=== PATIENT | female | born 1970 | race Caucasian/White ===

== ENCOUNTER 2017-06-21 11:43 | Emergency (ER) | payer OTHER ==
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
[2017-06-21] MEDS ORDERED: SODIUM CHLORIDE 0.9% 1,000 ML IV STA (13:51)
[2017-06-21] MEDS ORDERED: SODIUM CHLORIDE 0.9% 500 ML IV STA (13:51)
[2017-06-21] MEDS ORDERED: LORazepam 2 MG/ML SYRINGE IV STA (13:54)
[2017-06-21] MEDS ORDERED: ACETAMINOPHEN TAB 500 MG TAB PO STA (13:54)
[2017-06-21] MEDS ORDERED: BACITRACIN 500 UNIT/GM OINT 28.4 GM TUBE TOPICAL ONE (13:54)
[2017-06-21 14:26] LABS: Appearance,Urine Clear (Clear); Bilirubin,Urine Negative (Negative); Glucose,Urine (UA) Negative (Negative); Ketones,Urine Negative (Negative); Leukocyte Esterase,Urine Negative (Negative); Nitrite,Urine Negative (Negative); Protein,Urine Negative (Negative); Specific Gravity,Urine 1.006 (1.001-1.035); UA Billing (MACRO vs. MICRO) CHEM; Urobilinogen,Urine <2.0 mg/dL (<2.0)
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
[2017-06-21 14:43] LABS: Basophils % (A) 0 %; CH 33.2; CHCM 33.7; Eosinophils # (A) 0.2 k/uL (0-0.7); Eosinophils % (A) 3 %; HCT 42.7 % (34.0-46.0); HDW 2.79; HGB 14.5 gm/dL (11.4-16.0); Luc # (Auto) 0.19; Luc % (Auto) 3; Lymphocytes # (A) 2.2 k/uL (1.0-4.8); Lymphocytes % (A) 35 %; MCH 33.7 pg (25.0-35.0); Mean Platelet Volume 7.5; Monocytes # (A) 0.4 k/uL (0-1.0); Monocytes % (A) 6 %; Neutrophils # (A) 3.4 k/uL (1.3-7.7); Neutrophils % (A) 53 %; RBC 4.31 m/uL (3.80-5.40); RDW 13.8 % (11.5-15.5); WBC 6.4 k/uL (3.8-10.6); WBC (Perox) 6.42
[2017-06-21 14:52] LABS: INR 1.1 (<1.2); Prothrombin Time 10.8 sec (9.0-12.0)
[2017-06-21 14:54] LABS: ALT 38 U/L (9-52); AST 24 U/L (14-36); Alkaline Phosphatase 95 U/L (38-126); Anion Gap 10 mmol/L; Blood Urea Nitrogen 8 mg/dL (7-17); Calcium 9.2 mg/dL (8.4-10.2); Carbon Dioxide 24 mmol/L (22-30); Chloride 109 mmol/L (98-107); Glucose 91 mg/dL (74-99); Magnesium 1.9 mg/dL (1.6-2.3); Non-African American GFR(MDRD) >60 (>60 ml/min/1.73 sqM); Phosphorous 3.3 mg/dL (2.5-4.5); Potassium 4.4 mmol/L (3.5-5.1); Sodium 143 mmol/L (137-145); Total Bilirubin 0.3 mg/dL (0.2-1.3)
[2017-06-21] MEDS ORDERED: PHENYTOIN SODIUM EXTENDED 100 MG CAP PO STA (15:11)
--- NOTE | 2017-06-21 15:42 | XR ---
EXAMINATION TYPE: XR chest 2V DATE OF EXAM: 06/21/2017 COMPARISON: NONE HISTORY: Shortness of breath, seizure and fall TECHNIQUE: Frontal and lateral views of the chest are obtained. FINDINGS: There is no focal air space opacity, pleural effusion, or pneumothorax seen. The cardiac silhouette size is likely accentuated due to rotation. There are overlying cardiac leads and the pat ient is rotated. The osseous structures are intact. IMPRESSION: No acute cardiopulmonary process.
--- NOTE | 2017-06-21 15:43 | XR ---
AP pelvis HISTORY: Trauma and pain Single frontal view of the pelvis No comparisons Bone mineralization, joint spaces and alignment are maintained. Probable vascular calcifications in t he pelvis. Calcification superimposed over the right ilium is indeterminate. IMPRESSION: No acute fracture or dislocation.
--- NOTE | 2017-06-21 16:11 | CT ---
EXAMINATION TYPE: CT cervical spine wo con DATE OF EXAM: 06/21/2017 COMPARISON: NONE HISTORY: Patient fell today. Patient complains of neck pain. CT DLP: 694.[address] of the cervical spine was performed with bone and soft tissue window settings submitted . Coronal and sagittal reconstruction is obtained. There is normal alignment and prevertebral soft tissues. I do not see evidence for fracture or subluxation. Mild degenerative changes are present. T he lung apices are clear IMPRESSION: No evidence for fracture or subluxation of the cervical spine.
--- NOTE | 2017-06-21 16:17 | CT ---
EXAMINATION TYPE: CT facial bones wo con DATE OF EXAM: 06/21/2017 COMPARISON: NONE HISTORY: Patient complains of right suborbital facial pain post fall today. CT DLP: 390.[address] of the facial bones was performed in the axial and coronal planes. Bone and soft tissu e window settings are submitted. Mild soft tissue swelling right infraorbital region. I do not see evidence for displaced facial bone fracture or depressed facial bone fracture. The globes are intact. Paranasal sinuses are well-aerated. IMPRESSION: 1. No evidence for depressed or displaced facial bone fracture.
[2017-06-21 16:55] VITALS: BP 118/60; PULSE 80; RESP 18; TEMP 97.1
== END 2017-06-21 16:55 | disposition home or self-care (01) ==
LOC: EC 11:43
DX: S16.1XXA Strain of muscle, fascia and tendon at neck level, initial encounter (principal); S00.83XA Contusion of other part of head, initial encounter; S00.01XA Abrasion of scalp, initial encounter; G40.909 Epilepsy, unspecified, not intractable, without status epilepticus; E78.5 Hyperlipidemia, unspecified; E07.9 Disorder of thyroid, unspecified; F31.9 Bipolar disorder, unspecified; F17.200 Nicotine dependence, unspecified, uncomplicated; Z79.899 Other long term (current) drug therapy; Z88.6 Allergy status to analgesic agent; W01.190A Fall on same level from slipping, tripping and stumbling with subsequent striking against furniture, initial encounter; Y92.009 Unspecified place in unspecified non-institutional (private) residence as the place of occurrence of the external cause
CPT/HCPCS: 36415; 93005; 80053; 80185; 83735; 84100; 85025; 85610; 85730; 81003; 71020; 72170; 72125; 70486; 70450; 99284; 96374; 96361; J2060

== ENCOUNTER 2017-09-26 01:14 | Emergency (ER) | payer OTHER ==
[2017-09-26 01:20] VITALS: BP 126/77; PULSE 102; RESP 20; TEMP 98
[2017-09-26] MEDS ORDERED: CEPHALEXIN 500MG STARTER PACK 4 CAP BTL PO STA (01:33)
[2017-09-26] MEDS ORDERED: HYDROcodone/APAP 5-325MG 1 EACH TAB PO STA (01:33)
[2017-09-26] MEDS ORDERED: SULFAMETH-TMP DS STARTER PACK 2 TAB BTL PO STA (01:33)
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
== END 2017-09-26 02:29 | disposition home or self-care (01) ==
LOC: EC 01:14
DX: T24.202A Burn of second degree of unspecified site of left lower limb, except ankle and foot, initial encounter (principal); L08.89 Other specified local infections of the skin and subcutaneous tissue; E78.5 Hyperlipidemia, unspecified; E07.9 Disorder of thyroid, unspecified; F17.200 Nicotine dependence, unspecified, uncomplicated; Z79.891 Long term (current) use of opiate analgesic; Z79.899 Other long term (current) drug therapy; Z88.6 Allergy status to analgesic agent; X08.8XXA Exposure to other specified smoke, fire and flames, initial encounter
CPT/HCPCS: 99283

== ENCOUNTER 2017-11-22 18:49 | Emergency (ER) | payer OTHER ==
[2017-11-22 18:55] VITALS: BP 144/90; PULSE 102; RESP 20; TEMP 98.6
[2017-11-22] MEDS ORDERED: IBUPROFEN 600 MG TAB PO STA (19:05)
[2017-11-22] MEDS ORDERED: BACITRACIN 500 UNIT/GM OINT 28.4 GM TUBE TOPICAL ONE (19:05)
[2017-11-22] MEDS ORDERED: HYDROcodone/APAP 5-325MG 1 EACH TAB PO STA (19:05)
[2017-11-22] MEDS ORDERED: HYDROcodone/APAP 10-325MG 1 EACH TAB PO ONE (19:07)
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
== END 2017-11-22 19:30 | disposition home or self-care (01) ==
LOC: EC 18:49
DX: T22.212A Burn of second degree of left forearm, initial encounter (principal); T31.0 Burns involving less than 10% of body surface; I50.9 Heart failure, unspecified; I11.0 Hypertensive heart disease with heart failure; G40.909 Epilepsy, unspecified, not intractable, without status epilepticus; E07.9 Disorder of thyroid, unspecified; I48.91 Unspecified atrial fibrillation; F31.9 Bipolar disorder, unspecified; F41.9 Anxiety disorder, unspecified; F17.200 Nicotine dependence, unspecified, uncomplicated; Z79.82 Long term (current) use of aspirin; Z79.891 Long term (current) use of opiate analgesic; Z79.899 Other long term (current) drug therapy; Z88.6 Allergy status to analgesic agent; Z88.8 Allergy status to other drugs, medicaments and biological substances; X16.XXXA Contact with hot heating appliances, radiators and pipes, initial encounter
CPT/HCPCS: 99283

== ENCOUNTER 2017-12-11 17:41 | Observation (INO) | payer OTHER ==
[2017-12-11] MEDS ORDERED: methylPREDNISolone SOD SUCCI 125 MG/2 ML VIAL IV STA (18:05)
[2017-12-11] MEDS ORDERED: SODIUM CHLORIDE 0.9% 1,000 ML IV STA (18:05)
[2017-12-11] MEDS ORDERED: IPRATROPIUM 0.5 MG/2.5 ML NEBU INHALATION STA (18:05)
[2017-12-11] MEDS ORDERED: ALBUTEROL NEBULIZED 2.5 MG/3 ML INHALATION STA (18:05)
--- NOTE | 2017-12-11 18:09 | ED ---
General Adult HPI - General Chief complaint: Chest Pain Stated complaint: CHEST PAIN, HEADACHE, NECK PAIN, DIARRHEA Time Seen by Provider: 12/11/17 17:53 Source: patient, RN notes reviewed Mode of arrival: wheelchair Limitations: no limitations - History of Present Illness Initial comments: 47-year-old female presents with multiple complaints. Patient has past medical history of COPD, she is currently smoking, she also has history of A. fib and congestive heart failure. She presents with chief complaint of nausea vomiting and diarrhea. She has been unable to tolerate any food or water for the past 3 days. She's also had several episodes of diarrhea. Vomiting is nonbloody nonbilious. In addition she complains of generalized headache. Shows complains of subjective fever or chills. States she has had myalgias. She also complains of runny nose and sore throat. She complains of chest pressure and cough with difficulty breathing. Denies any central chest pain or radiating chest pain. - Related Data Home Medications Medication Instructions Recorded Confirmed Ergocalciferol [Vitamin D2 50,000 unit PO 06/21/17 12/11/17 (DRISDOL)] Levothyroxine Sodium [Synthroid] 25 mcg PO DAILY 06/21/17 12/11/17 Montelukast Sodium [Singulair] 10 mg PO QA 06/21/17 12/11/17 Pramipexole [Mirapex] 0.25 mg PO HS 06/21/17 12/11/17 Simvastatin [Zocor] 20 mg PO HS 06/21/17 12/11/17 Aspirin [Adult Low Dose Aspirin EC] 81 mg PO DAILY 10/18/17 12/11/17 Cyanocobalamin (Vitamin B-12) 1,000 mcg PO DAILY 10/18/17 12/11/17 [Vitamin B-12] FLUoxetine HCL [PROzac] 20 mg PO TID 10/18/17 12/11/17 Gabapentin 600 mg PO QID 10/18/17 12/11/17 Phenytoin Sodium Extended 300 mg PO HS 10/18/17 12/11/17 Triamterene-Hctz 37.5-25Mg 1 tab PO DAILY 10/18/17 12/11/17 [Maxzide 37.5-25] amLODIPine [Norvasc] 10 mg PO DAILY 10/18/17 12/11/17 levETIRAcetam [Keppra] 1,000 mg PO Q12HR 10/18/17 12/11/17 ALPRAZolam [Xanax] 1 mg PO QID 12/11/17 12/11/17 Ranitidine HCl 300 mg PO QAM 12/11/17 12/11/17 Topiramate 50 mg PO BID@1500,2100 12/11/17 12/11/17 levETIRAcetam [Keppra] 750 mg PO BID 12/11/17 12/11/17 Allergies Allergy/AdvReac Type Severity Reaction Status Date / Time ibuprofen [From Motrin] Allergy Rash/Hives Verified 12/11/17 18:17 naproxen [From Naprosyn] Allergy Unknown Verified 12/11/17 18:17 tramadol Allergy Rash/Hives Verified 12/11/17 18:17 Review of Systems ROS Statement: Those systems with pertinent positive or pertinent negative responses have been documented in the HPI. ROS Other: All systems not noted in ROS Statement are negative. Past Medical History Past Medical History: Atrial Fibrillation, Heart Failure, COPD, Hyperlipidemia, Hypertension, Seizure Disorder, Thyroid Disorder History of Any Multi-Drug Resistant Organisms: None Reported Past Surgical History: Section, Cholecystectomy, Heart Catheterization With Stent Past Anesthesia/Blood Transfusion Reactions: No Reported Reaction Date of Last Stent Placement:: 2003? Past Psychological History: Anxiety, Bipolar, Depression Smoking Status: Current every day smoker Past Alcohol Use History: None Reported Past Drug Use History: None Reported - Past Family History Father Family Medical History: AFIB Mother Family Medical History: AFIB, Diabetes Mellitus General Exam Limitations: no limitations General appearance: alert, in no apparent distress Head exam: Present: atraumatic, normocephalic Eye exam: Present: normal appearance, PERRL ENT exam: Present: other (Physical congestion and mild pharyngeal erythema) Neck exam: Present: normal inspection Respiratory exam: Present: wheezes, decreased breath sounds Cardiovascular Exam: Present: regular rate, normal rhythm GI/Abdominal exam: Present: soft. Absent: distended, tenderness Extremities exam: Present: normal inspection, normal capillary refill. Absent: pedal edema Back exam: Present: normal inspection, full ROM Neurological exam: Present: alert, oriented X3, CN II-XII intact. Absent: motor sensory deficit Psychiatric exam: Present: normal affect, normal mood Skin exam: Present: warm, dry, intact. Absent: cyanosis, diaphoretic Course Vital Signs 12/11/17 12/11/17 12/11/17 17:49 18:33 18:54 Temperature 97.9 F Pulse Rate 103 H 96 78 Respiratory 20 18 Rate Blood Pressure 121/86 146/90 O2 Sat by Pulse 95 94 L Oximetry 12/11/17 12/11/17 19:03 19:24 Temperature Pulse Rate 90 89 Respiratory 17 Rate Blood Pressure 110/75 O2 Sat by Pulse 97 Oximetry EKG Findings - EKG Comments: EKG Findings:: EKG shows normal sinus rhythm, Q waves in the inferior leads consistent with possible previous inferior infarct, ventricular rate 97, VT interval 156, castration 82, QTC 459, no ST segment elevation or depression Medical Decision Making - Medical Decision Making 47-year-old female presenting with cough and dyspnea as well as 3 days nausea vomiting and diarrhea. Chest x-ray is negative for focal pneumonia. Influenza negative. White blood cell count normal 7.9, hemoglobin 15.6, potassium is low at 3.0 this is replaced, lactic acid is 1.8, troponin and BNP are negative. Patient continues to have moderate dyspnea and nausea vomiting while in the emergency department she will be admitted both for COPD exacerbation, and nausea vomiting with their need for I replacement. - Lab Data Result diagrams: 12/11/17 18:01 12/11/17 18:01 Lab Results 12/11/17 12/11/17 12/11/17 Range/Units 18:01 18:01 18:01 WBC 7.9 (3.8-10.6) k/uL RBC 4.73 (3.80-5.40) m/uL Hgb 15.6 (11.4-16.0) gm/dL Hct 45.7 (34.0-46.0) % MCV 96.6 (80.0-100.0) fL MCH 32.9 (25.0-35.0) pg MCHC 34.1 (31.0-37.0) g/dL RDW 13.9 (11.5-15.5) % Plt Count 328 (150-450) k/uL Neutrophils % 55 % Lymphocytes % 34 % Monocytes % 6 % Eosinophils % 1 % Basophils % 1 % Neutrophils # 4.4 (1.3-7.7) k/uL Lymphocytes # 2.6 (1.0-4.8) k/uL Monocytes # 0.5 (0-1.0) k/uL Eosinophils # 0.1 (0-0.7) k/uL Basophils # 0.1 (0-0.2) k/uL PT (9.0-12.0) sec INR (<1.2) APTT (22.0-30.0) sec Sodium 139 (137-145) mmol/L Potassium 3.0 L* (3.5-5.1) mmol/L Chloride 96 L (98-107) mmol/L Carbon Dioxide 29 (22-30) mmol/L Anion Gap 14 mmol/L BUN 6 L (7-17) mg/dL Creatinine 0.70 (0.52-1.04) mg/dL Est GFR (MDRD) Af Amer >60 (>60 ml/min/1.73 sqM) Est GFR (MDRD) Non-Af >60 (>60 ml/min/1.73 sqM) Glucose 126 H (74-99) mg/dL Plasma Lactic Acid Jordi (0.7-2.0) mmol/L Calcium 10.1 (8.4-10.2) mg/dL Magnesium 1.9 (1.6-2.3) mg/dL Total Bilirubin 0.4 (0.2-1.3) mg/dL AST 25 (14-36) U/L ALT 29 (9-52) U/L Alkaline Phosphatase 135 H (38-126) U/L Total Creatine Kinase 80 (30-135) U/L CK-MB (CK-2) 0.7 (0.0-2.4) ng/mL CK-MB (CK-2) Rel Index 0.9 Troponin I <0.012 (0.000-0.034) ng/mL NT-Pro-B Natriuret Pep pg/mL Total Protein 8.1 (6.3-8.2) g/dL Albumin 4.5 (3.5-5.0) g/dL Influenza Type A RNA (Not Detectd) Influenza Type B (PCR) (Not Detectd) 12/11/17 12/11/17 12/11/17 Range/Units 18:01 18:01 18:27 WBC (3.8-10.6) k/uL RBC (3.80-5.40) m/uL Hgb (11.4-16.0) gm/dL Hct (34.0-46.0) % MCV (80.0-100.0) fL MCH (25.0-35.0) pg MCHC (31.0-37.0) g/dL RDW (11.5-15.5) % Plt Count (150-450) k/uL Neutrophils % % Lymphocytes % % Monocytes % % Eosinophils % % Basophils % % Neutrophils # (1.3-7.7) k/uL Lymphocytes # (1.0-4.8) k/uL Monocytes # (0-1.0) k/uL Eosinophils # (0-0.7) k/uL Basophils # (0-0.2) k/uL PT 10.2 (9.0-12.0) sec INR 1.0 (<1.2) APTT 23.8 (22.0-30.0) sec Sodium (137-145) mmol/L Potassium (3.5-5.1) mmol/L Chloride (98-107) mmol/L Carbon Dioxide (22-30) mmol/L Anion Gap mmol/L BUN (7-17) mg/dL Creatinine (0.52-1.04) mg/dL Est GFR (MDRD) Af Amer (>60 ml/min/1.73 sqM) Est GFR (MDRD) Non-Af (>60 ml/min/1.73 sqM) Glucose (74-99) mg/dL Plasma Lactic Acid Jordi 1.8 (0.7-2.0) mmol/L Calcium (8.4-10.2) mg/dL Magnesium (1.6-2.3) mg/dL Total Bilirubin (0.2-1.3) mg/dL AST (14-36) U/L ALT (9-52) U/L Alkaline Phosphatase (38-126) U/L Total Creatine Kinase (30-135) U/L CK-MB (CK-2) (0.0-2.4) ng/mL CK-MB (CK-2) Rel Index Troponin I (0.000-0.034) ng/mL NT-Pro-B Natriuret Pep 26 pg/mL Total Protein (6.3-8.2) g/dL Albumin (3.5-5.0) g/dL Influenza Type A RNA (Not Detectd) Influenza Type B (PCR) (Not Detectd) 12/11/17 Range/Units 18:28 WBC (3.8-10.6) k/uL RBC (3.80-5.40) m/uL Hgb (11.4-16.0) gm/dL Hct (34.0-46.0) % MCV (80.0-100.0) fL MCH (25.0-35.0) pg MCHC (31.0-37.0) g/dL RDW (11.5-15.5) % Plt Count (150-450) k/uL Neutrophils % % Lymphocytes % % Monocytes % % Eosinophils % % Basophils % % Neutrophils # (1.3-7.7) k/uL Lymphocytes # (1.0-4.8) k/uL Monocytes # (0-1.0) k/uL Eosinophils # (0-0.7) k/uL Basophils # (0-0.2) k/uL PT (9.0-12.0) sec INR (<1.2) APTT (22.0-30.0) sec Sodium (137-145) mmol/L Potassium (3.5-5.1) mmol/L Chloride (98-107) mmol/L Carbon Dioxide (22-30) mmol/L Anion Gap mmol/L BUN (7-17) mg/dL Creatinine (0.52-1.04) mg/dL Est GFR (MDRD) Af Amer (>60 ml/min/1.73 sqM) Est GFR (MDRD) Non-Af (>60 ml/min/1.73 sqM) Glucose (74-99) mg/dL Plasma Lactic Acid Jordi (0.7-2.0) mmol/L Calcium (8.4-10.2) mg/dL Magnesium (1.6-2.3) mg/dL Total Bilirubin (0.2-1.3) mg/dL AST (14-36) U/L ALT (9-52) U/L Alkaline Phosphatase (38-126) U/L Total Creatine Kinase (30-135) U/L CK-MB (CK-2) (0.0-2.4) ng/mL CK-MB (CK-2) Rel Index Troponin I (0.000-0.034) ng/mL NT-Pro-B Natriuret Pep pg/mL Total Protein (6.3-8.2) g/dL Albumin (3.5-5.0) g/dL Influenza Type A RNA Not Detected (Not Detectd) Influenza Type B (PCR) Not Detected (Not Detectd) Disposition Clinical Impression: COPD (chronic obstructive pulmonary disease), Nausea vomiting and diarrhea Disposition: ADMITTED IP TO THIS HOSP Condition: Stable Referrals: Marino Parks MD [Primary Care Provider] - 1-2 days Decision to Admit Reason: Admit from EC Decision Date: 12/11/17 Decision Time: 20:04
[2017-12-11 18:29] LABS: Basophils # (A) 0.1 k/uL (0-0.2); Basophils % (A) 1 %; Eosinophils # (A) 0.1 k/uL (0-0.7); Eosinophils % (A) 1 %; HCT 45.7 % (34.0-46.0); HGB 15.6 gm/dL (11.4-16.0); Lymphocytes # (A) 2.6 k/uL (1.0-4.8); Lymphocytes % (A) 34 %; MCH 32.9 pg (25.0-35.0); MCHC 34.1 g/dL (31.0-37.0); MCV 96.6 fL (80.0-100.0); Mean Platelet Volume 7.2; Monocytes # (A) 0.5 k/uL (0-1.0); Monocytes % (A) 6 %; Neutrophils # (A) 4.4 k/uL (1.3-7.7); Neutrophils % (A) 55 %; Platelet Count 328 k/uL (150-450); RBC 4.73 m/uL (3.80-5.40); RDW 13.9 % (11.5-15.5); WBC 7.9 k/uL (3.8-10.6)
[2017-12-11 18:42] LABS: Partial Thromboplastin Time 23.8 sec (22.0-30.0); Prothrombin Time 10.2 sec (9.0-12.0)
[2017-12-11] MEDS ORDERED: HYDROcodone/APAP 5-325MG 1 EACH TAB PO STA (18:43)
[2017-12-11] MEDS ORDERED: ONDANSETRON 4 MG/2 ML VIAL IVP STA (18:43)
[2017-12-11 18:46] LABS: ALT 29 U/L (9-52); AST 25 U/L (14-36); Albumin 4.5 g/dL (3.5-5.0); Alkaline Phosphatase 135 U/L (38-126); Anion Gap 14 mmol/L; Blood Urea Nitrogen 6 mg/dL (7-17); Calcium 10.1 mg/dL (8.4-10.2); Carbon Dioxide 29 mmol/L (22-30); Chloride 96 mmol/L (98-107); Glucose 126 mg/dL (74-99); Magnesium 1.9 mg/dL (1.6-2.3); Sodium 139 mmol/L (137-145); Total Bilirubin 0.4 mg/dL (0.2-1.3); Total Protein 8.1 g/dL (6.3-8.2)
[2017-12-11 18:48] LABS: Creatine Kinase 80 U/L (30-135)
--- NOTE | 2017-12-11 18:52 | XR ---
EXAMINATION TYPE: XR chest 2V DATE OF EXAM: 12/11/2017 COMPARISON: 10/18/2017 INDICATION: Difficulty breathing short of breath TECHNIQUE: Frontal and lateral views of the chest are obtained. FINDINGS: The heart size is normal. The pulmonary vasculature is normal. The lungs are clear. IMPRESSION: 1. No acute pulmonary process.
[2017-12-11] MEDS ORDERED: POTASSIUM CHLORIDE ER 20 MEQ TAB.ER PO STA (18:58)
[2017-12-11 19:01] LABS: Creatine Kinase MB 0.7 ng/mL (0.0-2.4); Troponin I <0.012 ng/mL (0.000-0.034)
[2017-12-11] MEDS ORDERED: IPRATROPIUM-ALBUTEROL 3 ML NEB INHALATION PRN (20:06)
[2017-12-11] MEDS: POTASSIUM CHLORIDE 20 MEQ in WATER FOR INJECTION 1 100ML.BAG IVPB SCH ×2 (20:10→22:13)
[2017-12-11] MEDS ORDERED: ALPRAZolam 0.5 MG TAB PO STA (20:27)
[2017-12-11] MEDS ORDERED: ATORVASTATIN 10 MG TAB PO SCH (23:30)
[2017-12-11] MEDS ORDERED: PRAMIPEXOLE 0.25 MG TAB PO SCH (23:30)
[2017-12-11] MEDS ORDERED: PHENYTOIN SODIUM EXTENDED 100 MG CAP PO SCH (23:30)
[2017-12-11] MEDS ORDERED: QUEtiapine 200 MG TAB PO SCH (23:30)
[2017-12-12] MEDS: TOPIRAMATE 25 MG TAB PO SCH ×2 (00:26→14:20)
[2017-12-12] MEDS: levETIRAcetam 500 MG TAB PO SCH ×2 (00:26→08:58)
[2017-12-12] MEDS: FLUoxetine HCL 20 MG CAP PO SCH ×3 (00:26→17:08)
[2017-12-12] MEDS: GABAPENTIN 300 MG CAP PO SCH ×3 (00:27→12:56)
[2017-12-12] MEDS: ALPRAZolam 0.5 MG TAB PO SCH ×4 (00:28→17:07)
[2017-12-12 00:39] VITALS: RESP 16
[2017-12-12] MEDS: LEVOTHYROXINE 25 MCG TAB PO SCH ×2 (05:31→08:58)
[2017-12-12] MEDS: IPRATROPIUM-ALBUTEROL 3 ML NEB INHALATION SCH ×3 (07:05→16:31)
[2017-12-12] MEDS ORDERED: ACETAMINOPHEN IV (For NPO) 1,000 MG in EMPTY BAG 1 BAG IVPB ONE (07:15)
[2017-12-12 07:22] LABS: Basophils % (A) 0 %; Eosinophils % (A) 0 %; HCT 42.8 % (34.0-46.0); HGB 14.6 gm/dL (11.4-16.0); Lymphocytes % (A) 27 %; MCH 33.6 pg (25.0-35.0); MCHC 34.1 g/dL (31.0-37.0); MCV 98.4 fL (80.0-100.0); Mean Platelet Volume 7.1; Monocytes # (A) 0.4 k/uL (0-1.0); Monocytes % (A) 5 %; Neutrophils # (A) 4.8 k/uL (1.3-7.7); Neutrophils % (A) 64 %; Platelet Count 287 k/uL (150-450); RBC 4.35 m/uL (3.80-5.40); RDW 13.7 % (11.5-15.5); WBC 7.5 k/uL (3.8-10.6)
[2017-12-12 07:34] LABS: ALT 30 U/L (9-52); AST 21 U/L (14-36); Albumin 3.8 g/dL (3.5-5.0); Alkaline Phosphatase 108 U/L (38-126); Anion Gap 9 mmol/L; Blood Urea Nitrogen 7 mg/dL (7-17); Calcium 9.3 mg/dL (8.4-10.2); Carbon Dioxide 25 mmol/L (22-30); Chloride 106 mmol/L (98-107); Glucose 105 mg/dL (74-99); Potassium 3.8 mmol/L (3.5-5.1); Sodium 140 mmol/L (137-145); Total Bilirubin 0.3 mg/dL (0.2-1.3)
[2017-12-12] MEDS ORDERED: ASPIRIN 81 MG PO SCH (09:00)
[2017-12-12] MEDS ORDERED: TRIAMTERENE-HCTZ 37.5-25MG 1 EACH TAB PO SCH (09:00)
[2017-12-12] MEDS ORDERED: FAMOTIDINE 20 MG TAB PO SCH (09:00)
[2017-12-12] MEDS ORDERED: MONTELUKAST 10 MG TAB PO SCH (09:00)
[2017-12-12] MEDS ORDERED: amLODIPine 10 MG TAB PO SCH (09:00)
[2017-12-12] MEDS ORDERED: predniSONE 20 MG TAB PO SCH (09:00)
[2017-12-12] MEDS ORDERED: AZITHROMYCIN 500 MG TAB PO SCH (09:00)
--- NOTE | 2017-12-12 12:40 | P.CRDCN ---
History of Present Illness Consult date: 12/12/17 Consult reason: chest pain History of present illness: This is a pleasant 47-year-old female past medical history significant for paroxysmal atrial fibrillation, COPD, dyslipidemia, hypertension and coronary artery disease with 2 stent placements in 2003 per the patient at . She follows with serg Garcia out of [place]. We have asked to see her in consultation for complaints of chest heaviness over the previous 3 days. This has been intermittent in nature is not associated with exertion can specify no alleviating factors. She has also been vomiting, coughing, diarrhea and fever or chills over the previous 3 days. The pain is located in the precordial region. The pain does not radiate to the arm, back, neck or jaw. She denies associated shortness of breath, palpitations, dizziness or diaphoresis. On admission she was found to have a potassium of 3.0, which has been replaced. EKG reveals sinus rhythm with flattening T waves inferiorly. This is consistent with an old EKG from October. Chest x-ray negative for an acute cardiopulmonary process. Most recent echocardiogram performed October 2017 reveals preserved left ventricular function with ejection fraction 55-60%, trace MR and TR. She was here in October of this year and was evaluated by cardiology recommended to follow-up as an outpatient. 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 Current cardiac medications include aspirin, Norvasc, hydrochlorothiazide and Zocor. Review of Systems At the time of my exam: CONSTITUTIONAL: Denies fever. Denies chills. EYES: Denies blurred vision. Denies vision changes. Denies eye pain. EARS, NOSE, MOUTH & THROAT: Denies headache. Denies sore throat. Denies ear pain. CARDIOVASCULAR: Denies chest pain. Denies shortness of breath. Denies orthopnea. Denies PND. Denies palpitations. RESPIRATORY: Complains of cough. GASTROINTESTINAL: Denies abdominal pain. Denies diarrhea. Denies constipation. Denies nausea. Denies vomiting. MUSCULOSKELETAL: Denies myalgias. INTEGUMENTARY: Denies pruitis. Denies rash. NEUROLOGIC: Denies numbness. Denies tingling. Denies weakness. PSYCHIATRIC: Denies anxiety. Denies depression. ENDOCRINE: Complains of fatigue. Denies weight change. Denies polydipsia. Denies polyurina. GENITOURINARY: Denies burning, hematuria or urgency with micturation. HEMATOLOGIC: Denies history of anemia. Denies bleeding. Past Medical History Past Medical History: Atrial Fibrillation, Heart Failure, COPD, Hyperlipidemia, Hypertension, Seizure Disorder, Thyroid Disorder Additional Past Medical History / Comment(s): last seizure - 11/2017 History of Any Multi-Drug Resistant Organisms: None Reported Past Surgical History: Section, Cholecystectomy, Heart Catheterization With Stent Additional Past Surgical History / Comment(s): 2 stents per pt Past Anesthesia/Blood Transfusion Reactions: No Reported Reaction Date of Last Stent Placement:: 2003? Past Psychological History: Anxiety, Bipolar, Depression Smoking Status: Current every day smoker Past Alcohol Use History: None Reported Past Drug Use History: None Reported - Past Family History Father Family Medical History: AFIB Mother Family Medical History: AFIB, Diabetes Mellitus Medications and Allergies Home Medications Medication Instructions Recorded Confirmed Type Ergocalciferol [Vitamin D2 50,000 unit PO 06/21/17 12/11/17 History (WILLIAM)] Levothyroxine Sodium [Synthroid] 25 mcg PO DAILY 06/21/17 12/11/17 History Montelukast Sodium [Singulair] 10 mg PO QA 06/21/17 12/11/17 History Pramipexole [Mirapex] 0.25 mg PO HS 06/21/17 12/11/17 History Simvastatin [Zocor] 20 mg PO HS 06/21/17 12/11/17 History Aspirin [Adult Low Dose Aspirin EC] 81 mg PO DAILY 10/18/17 12/11/17 History Cyanocobalamin (Vitamin B-12) 1,000 mcg PO DAILY 10/18/17 12/11/17 History [Vitamin B-12] FLUoxetine HCL [PROzac] 20 mg PO TID 10/18/17 12/11/17 History Gabapentin 600 mg PO QID 10/18/17 12/11/17 History Phenytoin Sodium Extended 300 mg PO HS 10/18/17 12/11/17 History Triamterene-Hctz 37.5-25Mg 1 tab PO DAILY 10/18/17 12/11/17 History [Maxzide 37.5-25] amLODIPine [Norvasc] 10 mg PO DAILY 10/18/17 12/11/17 History levETIRAcetam [Keppra] 1,000 mg PO Q12HR 10/18/17 12/11/17 History ALPRAZolam [Xanax] 1 mg PO QID 12/11/17 12/11/17 History QUEtiapine [SEROquel] 200 mg PO HS 12/11/17 12/11/17 History Ranitidine HCl 300 mg PO QAM 12/11/17 12/11/17 History Topiramate 50 mg PO BID@1500,2100 12/11/17 12/11/17 History Allergies Allergy/AdvReac Type Severity Reaction Status Date / Time ibuprofen [From Motrin] Allergy Rash/Hives Verified 12/11/17 18:17 naproxen [From Naprosyn] Allergy Unknown Verified 12/11/17 18:17 tramadol Allergy Rash/Hives Verified 12/11/17 18:17 Physical Exam Vitals: Vital Signs Temp Pulse Pulse Resp BP BP Pulse Ox 12/12/17 04:00 98.5 F 94 16 100/52 93 L 12/12/17 00:00 97.9 F 104 H 16 109/59 91 L 12/11/17 23:32 18 12/11/17 21:00 20 12/11/17 20:48 98.3 F 91 20 133/89 97 12/11/17 20:30 99.2 F 94 18 138/74 94 L 12/11/17 19:24 89 17 110/75 97 12/11/17 19:03 90 12/11/17 18:54 78 12/11/17 18:33 96 18 146/90 94 L 12/11/17 17:49 97.9 F 103 H 20 121/86 95 Intake and Output 12/11/17 12/12/17 12/12/17 22:59 06:59 14:59 Other: Voiding Method Toilet Toilet Toilet # Voids 1 3 # Bowel Movements 0 Weight 103.873 kg Blood pressure 100/52 heart rate 96 afebrile GENERAL: This is a 47-year-old female in no apparent distress at the time of my examination. Obese. HEENT: Head is atraumatic, normocephalic. Pupils are equal, round. Sclerae anicteric. Conjunctivae are clear. Mucous membranes of the mouth are moist. Neck is supple. There is no jugular venous distention. No carotid bruit is heard. LUNGS: Clear to auscultation no wheezes, rales or rhonchi. No chest wall tenderness is noted on palpation or with deep breathing. HEART: Regular rate and rhythm without murmurs, rubs or gallops. S1 and S2 heard. ABDOMEN: Soft, nontender. Bowel sounds are heard. No organomegaly noted. EXTREMITIES: No evidence of peripheral edema and no calf tenderness noted. VASCULAR: Radial and dorsalis pedis pulses palpated, no evidence of clubbing. NEUROLOGIC: Patient is awake, alert and oriented x3. Results 12/12/17 06:55 12/12/17 06:55 Cardiac Enzymes 12/11/17 12/11/17 12/12/17 Range/Units 18:01 18:01 06:55 AST 25 21 (14-36) U/L CK-MB (CK-2) 0.7 (0.0-2.4) ng/mL Troponin I <0.012 (0.000-0.034) ng/mL 12/12/17 Range/Units 06:55 AST (14-36) U/L CK-MB (CK-2) (0.0-2.4) ng/mL Troponin I <0.012 (0.000-0.034) ng/mL Coagulation 12/11/17 Range/Units 18:01 PT 10.2 (9.0-12.0) sec APTT 23.8 (22.0-30.0) sec CBC 12/11/17 12/12/17 Range/Units 18:01 06:55 WBC 7.9 7.5 (3.8-10.6) k/uL RBC 4.73 4.35 (3.80-5.40) m/uL Hgb 15.6 14.6 (11.4-16.0) gm/dL Hct 45.7 42.8 (34.0-46.0) % Plt Count 328 287 (150-450) k/uL Comprehensive Metabolic Panel 12/11/17 12/12/17 Range/Units 18:01 06:55 Sodium 139 140 (137-145) mmol/L Potassium 3.0 L* 3.8 (3.5-5.1) mmol/L Chloride 96 L 106 (98-107) mmol/L Carbon Dioxide 29 25 (22-30) mmol/L BUN 6 L 7 (7-17) mg/dL Creatinine 0.70 0.58 (0.52-1.04) mg/dL Glucose 126 H 105 H (74-99) mg/dL Calcium 10.1 9.3 (8.4-10.2) mg/dL AST 25 21 (14-36) U/L ALT 29 30 (9-52) U/L Alkaline Phosphatase 135 H 108 (38-126) U/L Total Protein 8.1 7.0 (6.3-8.2) g/dL Albumin 4.5 3.8 (3.5-5.0) g/dL Current Medications Generic Name Dose Route Start Last Admin Trade Name Freq PRN Reason Stop Dose Admin Albuterol/Ipratropium 3 ml 12/11/17 20:06 Duoneb 0.5 Mg-3 Mg/3 Ml Soln INHALATION RT-Q4H PRN Shortness Of Breath Or Wheezing Albuterol/Ipratropium 3 ml 12/12/17 08:00 Duoneb 0.5 Mg-3 Mg/3 Ml Soln INHALATION RT-QID IGNACIO Alprazolam 1 mg 12/11/17 23:30 12/12/17 07:17 Xanax PO 1 mg QID IGNACIO Administration Amlodipine Besylate 10 mg 12/12/17 09:00 Norvasc PO DAILY [facility] Aspirin 81 mg 12/12/17 09:00 Aspirin PO DAILY [facility] Atorvastatin Calcium 10 mg 12/11/17 23:30 12/12/17 00:26 Lipitor PO 10 mg HS IGNACIO Administration Azithromycin 500 mg 12/12/17 09:00 Zithromax PO DAILY [facility] Famotidine 40 mg 12/12/17 09:00 Pepcid PO QAM [facility] Fluoxetine HCl 20 mg 12/11/17 23:30 12/12/17 00:26 Prozac PO 20 mg TID IGNACIO Administration Gabapentin 600 mg 12/11/17 23:30 12/12/17 00:27 Neurontin PO 600 mg QID IGNACIO Administration Levetiracetam 1,000 mg 12/11/17 23:30 12/12/17 00:26 Keppra PO 1,000 mg Q12HR IGNACIO Administration Levothyroxine Sodium 25 mcg 02/04/18 06:30 12/12/17 05:31 Synthroid PO Not Given DAILY@0630 IGNACIO Montelukast Sodium 10 mg 12/12/17 09:00 Singulair PO QAM IGNACIO Phenytoin Sodium 300 mg 12/11/17 23:30 12/12/17 00:27 Dilantin PO 300 mg HS IGNACIO Administration Pramipexole Dihydrochloride 0.25 mg 12/11/17 23:30 12/12/17 00:26 Mirapex PO 0.25 mg HS IGNACIO Administration Prednisone 40 mg 12/12/17 09:00 PO DAILY IGNACIO Quetiapine Fumarate 200 mg 12/11/17 23:30 12/12/17 00:26 Seroquel PO 200 mg HS IGNACIO Administration Topiramate 50 mg 12/11/17 23:30 12/12/17 00:26 Topamax PO 50 mg BID@1500,2100 IGNACIO Administration Triamterene/HCTZ 1 each 12/12/17 09:00 Maxzide-25 PO DAILY IGNACIO Intake and Output 12/11/17 12/12/17 12/12/17 22:59 06:59 14:59 Other: Voiding Method Toilet Toilet Toilet # Voids 1 3 # Bowel Movements 0 Weight 103.873 kg 12/12/17 06:55 12/12/17 06:55 Assessment and Plan Assessment: ASSESSMENT 1. Chest pain, atypical. There is been no acute EKG changes and cardiac enzymes are negative 2. 2. Hypokalemia, secondary to viral type illness and dehydration 3. Hypertension 4. Dyslipidemia 5. Paroxysmal atrial fibrillation on long-term anticoagulation or beta kaylin agent 6. History of coronary artery disease 2003, records aren't available to me at this time 7. Nausea, vomiting and diarrhea. Possibly viral illness. 8. Obesity 9. Chronic tobacco abuse PLAN Pain is very atypical in nature. Acute coronary event has been ruled out. Pain possibly related to hypokalemia as well as possible viral illness. Also with recent negative stress test. Continue with medical management of chronic illnesses. Follow up with her primary manufacturing maintenance mechanic upon discharge. Nurse Practitioner note has been reviewed, I agree with a documented findings and plan of care. Patient was seen and examined.
[2017-12-12 16:02] VITALS: BP 100/60; TEMP 97.5
[2017-12-12 16:42] VITALS: PULSE 88
--- NOTE | 2017-12-12 17:28 | HP ---
HISTORY AND PHYSICAL DATE OF ADMISSION: 12/11/17 PRESENT COMPLAINT: Nausea, vomiting, diarrhea. HISTORY OF PRESENTING COMPLAINT: This is a 47-year-old patient follows with Dr. Parks. Chronic stable medical conditions include CHF, atrial fibrillation, hyperlipidemia, hypertension, seizure, coronary artery disease with stent in 2003, bipolar. For 3 days, patient having some nausea, vomiting, diarrhea. The patient had a low-grade fever. Also felt some chest heaviness. No shortness of breath. Has a cough. No obvious wheezing and decided to present to the ER. After getting fluids, she started to feel a bit better and stronger. The patient is a smoker. Cardiology was consulted. REVIEW OF SYSTEMS: Constitutional tired. HEENT none. Respiratory as above. Cardiovascular as above. Gastrointestinal none. Genitourinary: None. Musculoskeletal: None. Dermatological, hematologic, lymphatics none. Psychiatry some anxiety. Neurological none. PAST HISTORY: Past history of COPD, CHF, atrial fibrillation, hypertension, hyperlipidemia, seizure, bipolar, coronary artery with stent. PAST SURGICAL HISTORY: , cholecystectomy, cardiac cath with stent 2003. PSYCH HISTORY: Bipolar. SOCIAL HISTORY: Smokes less than a pack a day. Lives with sister. No alcohol. FAMILY HISTORY: Of atrial fibrillation. HOME MEDICATIONS: 1. [place] 10 1 tab t.i.d. p.r.n. 2. Seroquel 200 mg q.h.s. 3. Topamax 50 mg p.o. b.i.d. 4. Aspirin 81 mg daily. 5. Xanax 1 mg p.o. q.i.d. 6. Zantac 10 mg p.o. daily. 7. Vitamin B12 1000 mcg p.o. daily. 8. Singulair 10 mg p.o. daily. 9. Synthroid 25 mcg daily. 10.Neurontin 600 mg p.o. q.i.d. 11.Prozac 20 mg t.i.d. 12.Vitamin D2 50,000 units on . 13.Norvasc 10 mg p.o. daily. 14.Maxzide 37.5 one tab p.o. daily. 15.Zocor 20 mg q.h.s. 16.Mirapex 0.25 mg p.o. q.h.s. 17.Phenytoin 3 mg at bedtime. 18.Keppra 1000 mg p.o. q.12. ALLERGIES: IBUPROFEN, NAPROXEN, ULTRAM. PHYSICAL EXAMINATION: Vital signs on presentation temperature 97.9, pulse 103, respiratory 20, blood pressure 120/86, pulse ox 95% on room air. General appearance: Well built, BMI 44.7, lying in bed, tired appearing. Eyes pupils are equal. Conjunctivae normal. HEENT: Oral cavity normal. Neck JVD not raised. Mass not palpable. Respiratory effort increased. Lungs decreased breath sounds. Some expiratory wheezing. Cardiovascular first and second sounds no edema. ABDOMEN: Soft, nontender. Liver and spleen not palpable. Lymphatics: No lymph nodes palpable in the neck or axilla. PSYCHIATRY: Alert and oriented times three. Mood and affect normal. Neurological: Pupils equal. Cranial nerves grossly intact. Power and sensation grossly intact. Dermatological: Burn doris on the left forearm. Tattoo garcia. INVESTIGATIONS: White count 7.9, hemoglobin 15.6, potassium 3, repeat 3.8, BUN 6, creatinine 0.7. Troponin times three negative. Influenza A negative. EKG normal sinus rhythm, nonspecific ST-segment changes. EKG with no acute pulmonary process. ASSESSMENT: 1. Possible unstable angina in a patient with known coronary artery disease. 2. Chronic obstructive pulmonary disease exacerbation in a current smoker. 3. Chronic congestive heart failure from underlying coronary artery disease. Ejection fraction not known. 4. Paroxysmal atrial fibrillation. 5. Hyperlipidemia. 6. Essential hypertension. 7. Seizure disorder. 8. Bipolar disorder. 9. Chronic nicotine dependence. Patient is a cigarette smoker. 10.Morbid obesity BMI 44.7. 11.Acute gastroenteritis that is likely viral, which is normally self-limiting only getting better after since patient getting fluids in the ER. PLAN: Patient is put on nebulized bronchodilators and steroids. Home medications are resumed. Cardiology was consulted. Serial cardiac enzymes came back to be negative. The patient is advised against smoking. The patient's nausea, vomiting and diarrhea is already starting to get better. Copy to Dr. Parks. AMAURY / ANGELA: [id number] /
--- NOTE | 2017-12-12 17:49 | DS ---
DISCHARGE SUMMARY DATE OF ADMISSION: December 11, 2017. DATE OF DISCHARGE: December 12, 2017. FINAL DIAGNOSES: 1. Acute chronic obstructive pulmonary disease exacerbation in a smoker. 2. Acute gastritis likely virus. 3. Anterior chest wall pain could be musculoskeletal. 4. Chronic congestive heart failure from diastolic dysfunction. Ejection fraction 55- 60% from echo in October from underlying coronary artery disease. 5. Coronary artery disease, prior history of stent in 2003. 6. Paroxysmal atrial fibrillation. 7. Hyperlipidemia. 8. Hypertension. 9. Seizure disorder. 10.Bipolar disorder. 11.Morbid obesity, BMI 44.7. HOSPITAL COURSE: This patient presented with nausea, vomiting, diarrhea that likely resolved with conservative management, had some COPD exacerbation. Received bronchodilators. Also had chest pain. Troponins were negative. No further workup as per Cardiology. The patient advised against smoking. PHYSICAL EXAMINATION: LUNGS: Decreased breath sounds. Mild wheezing. DISCHARGE MEDICATIONS: 1. Vitamin D2 50,000 units p.o. on . 2. Synthroid 25 mcg p.o. daily. 3. Singulair 10 mg p.o. daily. 4. Mirapex 0.25 p.o. q.h.s. 5. Zocor 20 mg q.h.s. 6. Aspirin 81 mg p.o. daily. 7. Vitamin B12 1000 mcg p.o. daily. 8. Prozac 20 mg p.o. t.i.d. 9. Gabapentin 600 mg p.o. q.i.d. 10.Phenytoin 300 mg q.h.s. 11.Maxzide 37.5/25 1 tab p.o. daily. 12.Norvasc 10 mg p.o. daily. 13.Keppra 1000 mg p.o. q.12. 14.Xanax 1 mg p.o. q.i.d. 15.Seroquel 1000 mg q.h.s. 16.Zantac 300 mg p.o. daily. 17.Topamax 50 mg p.o. b.i.d. 18.[place] 10/325 1 tab p.o. t.i.d. p.r.n. 19.Prednisone taper. FOLLOWUP: Follow up with Dr. Parks in 2 days. 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 The patient should see a dietitian for weight loss measures. MMODL / IJN: [id number] /
== END 2017-12-12 18:10 | disposition home or self-care (01) ==
LOC: EC 17:41 → 3OBS 20:04
PROVIDERS: ADMIT Hospitalist; ATTEND Hospitalist
DX: J44.1 Chronic obstructive pulmonary disease with (acute) exacerbation (principal); K29.00 Acute gastritis without bleeding; R07.89 Other chest pain; E87.6 Hypokalemia; I11.0 Hypertensive heart disease with heart failure; I50.32 Chronic diastolic (congestive) heart failure; E86.0 Dehydration; I25.10 Atherosclerotic heart disease of native coronary artery without angina pectoris; I48.0 Paroxysmal atrial fibrillation; E07.9 Disorder of thyroid, unspecified; E78.5 Hyperlipidemia, unspecified; G40.909 Epilepsy, unspecified, not intractable, without status epilepticus; F31.9 Bipolar disorder, unspecified; E66.01 Morbid (severe) obesity due to excess calories; Z68.41 Body mass index [BMI] 40.0-44.9, adult; F17.210 Nicotine dependence, cigarettes, uncomplicated; Z79.82 Long term (current) use of aspirin; Z79.899 Other long term (current) drug therapy; Z95.5 Presence of coronary angioplasty implant and graft; F41.9 Anxiety disorder, unspecified; Z88.5 Allergy status to narcotic agent; Z88.6 Allergy status to analgesic agent; Z83.3 Family history of diabetes mellitus
CPT/HCPCS: 99285 ×2; 96375 ×4; 96361 ×4; 96365; 96366; 36415; 94640 ×2; 93005; 83880; 80053 ×2; 82550; 82553; 83605; 83735; 84484 ×2; 85025 ×2; 85610; 85730; 87502; 71046; G0378 ×2; J2930; J3480; J2405; J0131; J7512

== ENCOUNTER 2018-02-11 17:22 | Emergency (ER) | payer OTHER ==
[2018-02-11 17:26] VITALS: RESP 18
[2018-02-11] MEDS ORDERED: SODIUM CHLORIDE 0.9% 1,000 ML IV STA ×2 (19:40)
[2018-02-11] MEDS ORDERED: diphenhydrAMINE 50 MG/ML 1 ML VIAL IVP STA ×2 (19:40→20:58)
[2018-02-11] MEDS ORDERED: METOCLOPRAMIDE 5 MG/ML 2 ML VIAL IVP STA (19:40)
[2018-02-11] MEDS ORDERED: ACETAMINOPHEN TAB 500 MG TAB PO STA (19:41)
[2018-02-11] MEDS ORDERED: ORPHENADRINE 30 MG/ML 2 ML VIAL IVP STA (19:41)
[2018-02-11 20:12] LABS: Basophils % (A) 1 %; Eosinophils # (A) 0.1 k/uL (0-0.7); Eosinophils % (A) 1 %; HGB 15.4 gm/dL (11.4-16.0); Lymphocytes # (A) 2.3 k/uL (1.0-4.8); Lymphocytes % (A) 31 %; MCHC 35.8 g/dL (31.0-37.0); Mean Platelet Volume 6.8; Monocytes # (A) 0.4 k/uL (0-1.0); Monocytes % (A) 6 %; Neutrophils # (A) 4.4 k/uL (1.3-7.7); Neutrophils % (A) 58 %; Platelet Count 344 k/uL (150-450); RBC 4.65 m/uL (3.80-5.40); RDW 13.8 % (11.5-15.5); WBC 7.5 k/uL (3.8-10.6)
[2018-02-11 20:20] LABS: ALT 38 U/L (9-52); AST 30 U/L (14-36); Albumin 4.4 g/dL (3.5-5.0); Alkaline Phosphatase 117 U/L (38-126); Amylase 39 U/L (30-110); Anion Gap 12 mmol/L; Blood Urea Nitrogen 8 mg/dL (7-17); Calcium 9.8 mg/dL (8.4-10.2); Carbon Dioxide 31 mmol/L (22-30); Chloride 96 mmol/L (98-107); Glucose 107 mg/dL (74-99); Lipase 97 U/L (23-300); MCV 92.3 fL (80.0-100.0); Sodium 139 mmol/L (137-145); Total Bilirubin 0.3 mg/dL (0.2-1.3); Total Protein 7.7 g/dL (6.3-8.2)
[2018-02-11 20:25] LABS: Potassium 2.9 mmol/L (3.5-5.1)
[2018-02-11] MEDS ORDERED: POTASSIUM CHLORIDE ER 20 MEQ TAB.ER PO STA (20:35)
--- NOTE | 2018-02-11 20:38 | XR ---
EXAMINATION TYPE: XR KUB, 2 views DATE OF EXAM: 02/11/2018 COMPARISON: NONE HISTORY: Abdominal pain for 2 days, worse today TECHNIQUE: 2 upright views FINDINGS: The bowel gas pattern is normal. There is no pneumoperitoneum. No pneumatosis. No acute skeletal or soft tissue findings. Visualized lung bases and pleural spaces are unremarkable. IMPRESSION: No acute process.
--- NOTE | 2018-02-11 20:47 | ED ---
Headache HPI - General Chief Complaint: Headache Stated Complaint: Migraine Time Seen by Provider: 02/11/18 19:11 Source: RN notes reviewed, old records reviewed Mode of arrival: ambulatory Limitations: no limitations - History of Present Illness Initial Comments: This patient is a 39-year-old female chief complaint of nausea, diarrhea and migraine headache. She reports that she was having a migraine headache for the past 2 days and then started having some diarrhea and nausea today. Few episodes of vomiting. She denies any chest pain or shortness of breath. She states that she has no specific abdominal pain. No blood in her stools. She relates that she's been having chills off and on. She reports that she's had some lower abdominal cramping. Patient states that her urine has been normal. - Related Data Home Medications Medication Instructions Recorded Confirmed Ergocalciferol [Vitamin D2 50,000 unit PO TH 06/21/17 12/11/17 (DRISDOL)] Levothyroxine Sodium [Synthroid] 25 mcg PO DAILY 06/21/17 12/11/17 Montelukast Sodium [Singulair] 10 mg PO QAM 06/21/17 12/11/17 Pramipexole [Mirapex] 0.25 mg PO HS 06/21/17 12/11/17 Simvastatin [Zocor] 20 mg PO HS 06/21/17 12/11/17 Aspirin [Adult Low Dose Aspirin EC] 81 mg PO DAILY 10/18/17 12/11/17 Cyanocobalamin (Vitamin B-12) 1,000 mcg PO DAILY 10/18/17 12/11/17 [Vitamin B-12] FLUoxetine HCL [PROzac] 20 mg PO TID 10/18/17 12/11/17 Gabapentin 600 mg PO QID 10/18/17 12/11/17 Phenytoin Sodium Extended 300 mg PO HS 10/18/17 12/11/17 Triamterene-Hctz 37.5-25Mg 1 tab PO DAILY 10/18/17 12/11/17 [Maxzide 37.5-25] amLODIPine [Norvasc] 10 mg PO DAILY 10/18/17 12/11/17 levETIRAcetam [Keppra] 1,000 mg PO Q12HR 10/18/17 12/11/17 ALPRAZolam [Xanax] 1 mg PO QID 12/11/17 12/11/17 QUEtiapine [SEROquel] 200 mg PO HS 12/11/17 12/11/17 Ranitidine HCl 300 mg PO QAM 12/11/17 12/11/17 Topiramate 50 mg PO BID@1500,2100 12/11/17 12/11/17 HYDROcodone/APAP 10-325MG [[place] 1 tab PO TID PRN 12/12/17 12/12/17 10-325] Previous Rx's Medication Instructions Recorded predniSONE 40 mg PO DAILY #3 tab 12/12/17 Ciprofloxacin HCl [Cipro] 500 mg PO Q12HR #10 tab 02/11/18 Ondansetron Odt [Zofran Odt] 4 mg PO Q8HR PRN #12 tab 02/11/18 Potassium Chloride ER [K-Dur 10] 10 meq PO DAILY #7 tab 02/11/18 Allergies Allergy/AdvReac Type Severity Reaction Status Date / Time ibuprofen [From Motrin] Allergy Rash/Hives Verified 02/11/18 17:26 naproxen [From Naprosyn] Allergy Unknown Verified 02/11/18 17:26 Penicillins Allergy Vomiting Verified 02/11/18 17:27 tramadol Allergy Rash/Hives Verified 02/11/18 17:26 Review of Systems ROS Statement: Those systems with pertinent positive or pertinent negative responses have been documented in the HPI. ROS Other: All systems not noted in ROS Statement are negative. Past Medical History Past Medical History: Atrial Fibrillation, Heart Failure, COPD, Hyperlipidemia, Hypertension, Seizure Disorder, Thyroid Disorder Additional Past Medical History / Comment(s): last seizure - 11/2017 History of Any Multi-Drug Resistant Organisms: None Reported Past Surgical History: Section, Cholecystectomy, Heart Catheterization With Stent Additional Past Surgical History / Comment(s): 2 stents per pt Past Anesthesia/Blood Transfusion Reactions: No Reported Reaction Date of Last Stent Placement:: 2003? Past Psychological History: Anxiety, Bipolar, Depression Smoking Status: Former smoker Past Alcohol Use History: None Reported Past Drug Use History: None Reported - Past Family History Father Family Medical History: AFIB Mother Family Medical History: AFIB, Diabetes Mellitus General Exam - General Exam Comments Initial Comments: 47-year-old female. No distress. Limitations: no limitations General appearance: alert, in no apparent distress Head exam: Present: atraumatic, normocephalic, normal inspection Eye exam: Present: normal appearance, PERRL, EOMI. Absent: scleral icterus, conjunctival injection, periorbital swelling ENT exam: Present: normal exam, mucous membranes moist Neck exam: Present: normal inspection. Absent: tenderness, meningismus, lymphadenopathy Respiratory exam: Present: normal lung sounds bilaterally. Absent: respiratory distress, wheezes, rales, rhonchi, stridor Cardiovascular Exam: Present: regular rate, normal rhythm, normal heart sounds. Absent: systolic murmur, diastolic murmur, rubs, gallop, clicks GI/Abdominal exam: Present: soft, normal bowel sounds. Absent: distended, tenderness, guarding, rebound, rigid Extremities exam: Present: normal inspection, full ROM, normal capillary refill. Absent: tenderness, pedal edema, joint swelling, calf tenderness Back exam: Present: normal inspection Neurological exam: Present: alert, oriented X3, CN II-XII intact Psychiatric exam: Present: normal affect, normal mood Skin exam: Present: warm, dry, intact, normal color. Absent: rash Course Vital Signs 02/11/18 17:24 Temperature 98 F Pulse Rate 93 Respiratory 18 Rate Blood Pressure 140/83 O2 Sat by Pulse 98 Oximetry - Reevaluation(s) Reevaluation #1: 02/11/18 21:29 Patient is reevaluated. She reports her migraine is subsiding at this time. Discussed that she had a low potassium. We'll treat the patient's potassium with K-Dur. Medical Decision Making - Medical Decision Making Patient is a 39-year-old female presents with dehydration nausea vomiting and a migraine headache. Patient reports her symptoms are of migraine headache that she's had some diarrhea today. No bloody stools. Patient was given IV fluids labwork. Found have a low potassium. Given 40 mg of K-Dur. She is given migraine cocktail. She reports her migraine is diminishing this time, she is no neurological deficits. KUB was normal. She is no significant tenderness on exam. Normal white blood cell count. Patient started on Cipro for UTI and also up with her diarrhea. Discussed I'll write her for nausea medicine diarrhea medicine. Discussed that she should take Motrin Tylenol rest and take it easy. Advised appropriate follow-up with primary care provider. All questions answered return parameters were discussed. - Lab Data Result diagrams: 02/11/18 20:05 02/11/18 20:05 Lab Results 02/11/18 02/11/18 02/11/18 Range/Units 20:05 20:05 21:04 WBC 7.5 (3.8-10.6) k/uL RBC 4.65 (3.80-5.40) m/uL Hgb 15.4 (11.4-16.0) gm/dL Hct 43.0 (34.0-46.0) % MCV 92.3 D (80.0-100.0) fL MCH 33.0 (25.0-35.0) pg MCHC 35.8 (31.0-37.0) g/dL RDW 13.8 (11.5-15.5) % Plt Count 344 (150-450) k/uL Neutrophils % 58 % Lymphocytes % 31 % Monocytes % 6 % Eosinophils % 1 % Basophils % 1 % Neutrophils # 4.4 (1.3-7.7) k/uL Lymphocytes # 2.3 (1.0-4.8) k/uL Monocytes # 0.4 (0-1.0) k/uL Eosinophils # 0.1 (0-0.7) k/uL Basophils # 0.0 (0-0.2) k/uL Sodium 139 (137-145) mmol/L Potassium 2.9 L* (3.5-5.1) mmol/L Chloride 96 L (98-107) mmol/L Carbon Dioxide 31 H (22-30) mmol/L Anion Gap 12 mmol/L BUN 8 (7-17) mg/dL Creatinine 0.68 (0.52-1.04) mg/dL Est GFR (CKD-EPI)AfAm >90 (>60 ml/min/1.73 sqM) Est GFR (CKD-EPI)NonAf >90 (>60 ml/min/1.73 sqM) Glucose 107 H (74-99) mg/dL Calcium 9.8 (8.4-10.2) mg/dL Total Bilirubin 0.3 (0.2-1.3) mg/dL AST 30 (14-36) U/L ALT 38 (9-52) U/L Alkaline Phosphatase 117 (38-126) U/L Total Protein 7.7 (6.3-8.2) g/dL Albumin 4.4 (3.5-5.0) g/dL Amylase 39 (30-110) U/L Lipase 97 (23-300) U/L Urine Color Yellow Urine Appearance Cloudy H (Clear) Urine pH 6.0 (5.0-8.0) Ur Specific [place] 1.011 (1.001-1.035) Urine Protein Trace H (Negative) Urine Glucose (UA) Negative (Negative) Urine Ketones Negative (Negative) Urine Blood Negative (Negative) Urine Nitrite Negative (Negative) Urine Bilirubin Negative (Negative) Urine Urobilinogen <2.0 (<2.0) mg/dL Ur Leukocyte Esterase Large H (Negative) Urine RBC 1 (0-5) /hpf Urine WBC 5 (0-5) /hpf Ur Squamous Epith Cells 4 (0-4) /hpf Urine Bacteria Occasional H (None) /hpf Hyaline Casts 4 H (0-2) /lpf Urine Mucus Rare H (None) /hpf - Radiology Data Radiology results: report reviewed KUB is negative for any acute process. Disposition Clinical Impression: Migraine, Enteritis, UTI (urinary tract infection), Hypokalemia Disposition: HOME SELF-CARE Condition: Good Instructions: Migraine Headache (ED), Acute Diarrhea (ED), Urinary Tract Infection in Women (ED) Additional Instructions: Patient advised to take the medication as prescribed. Follow-up with primary care provider. Rest remain hydrated. Return to the emergency department if any alarming signs or symptoms occur. Prescriptions: Ciprofloxacin HCl [Cipro] 500 mg PO Q12HR #10 tab Ondansetron Odt [Zofran Odt] 4 mg PO Q8HR PRN #12 tab PRN Reason: Nausea Potassium Chloride ER [K-Dur 10] 10 meq PO DAILY #7 tab Referrals: Marino Parks MD [Primary Care Provider] - 1-2 days Time of Disposition: 21:31
[2018-02-11 21:22] LABS: Appearance,Urine Cloudy (Clear); Bacteria,Urine Occasional /hpf; Bilirubin,Urine Negative (Negative); Blood,Urine Negative (Negative); Color,Urine Yellow; Glucose,Urine (UA) Negative (Negative); Hyaline Casts,Urine 4 /lpf (0-2); Ketones,Urine Negative (Negative); Leukocyte Esterase,Urine Large (Negative); Mucus,Urine Rare /hpf; Nitrite,Urine Negative (Negative); Protein,Urine Trace (Negative); RBC,Urine 1 /hpf (0-5); Specific Gravity,Urine 1.011 (1.001-1.035); Squamous Epithelial Cell,Urine 4 /hpf (0-4); Urobilinogen,Urine <2.0 mg/dL (<2.0); WBC,Urine 5 /hpf (0-5)
[2018-02-11 21:59] VITALS: BP 103/76; PULSE 65; TEMP 98.1
== END 2018-02-11 22:10 | disposition home or self-care (01) ==
LOC: EC 17:22
DX: G43.909 Migraine, unspecified, not intractable, without status migrainosus (principal); K52.9 Noninfective gastroenteritis and colitis, unspecified; N39.0 Urinary tract infection, site not specified; E87.6 Hypokalemia; I48.91 Unspecified atrial fibrillation; I11.0 Hypertensive heart disease with heart failure; I50.9 Heart failure, unspecified; J44.9 Chronic obstructive pulmonary disease, unspecified; G40.909 Epilepsy, unspecified, not intractable, without status epilepticus; E07.9 Disorder of thyroid, unspecified; F31.9 Bipolar disorder, unspecified; F41.9 Anxiety disorder, unspecified; Z87.891 Personal history of nicotine dependence; Z79.82 Long term (current) use of aspirin; Z79.899 Other long term (current) drug therapy; Z88.6 Allergy status to analgesic agent; Z88.0 Allergy status to penicillin; Z90.49 Acquired absence of other specified parts of digestive tract
CPT/HCPCS: 36415; 80053; 82150; 83690; 85025; 81001; 74018; 99284; 96374; 96375 ×3; 96361 ×2; J1200; J2360; J2765

== ENCOUNTER 2018-04-03 14:29 | Emergency (ER) | payer OTHER ==
[2018-04-03] MEDS ORDERED: HYDROcodone/APAP 5-325MG 1 EACH TAB PO STA (14:47)
--- NOTE | 2018-04-03 15:20 | ED ---
General Adult HPI - General Chief complaint: Extremity Injury, Upper Stated complaint: Fall/Wrist Pain Time Seen by Provider: 04/03/18 14:40 Source: patient, RN notes reviewed Mode of arrival: ambulatory Limitations: no limitations - History of Present Illness Initial comments: 47-year-old female presents to the emergency Department today for a chief complaint of right wrist pain. Patient states she was walking across the yard yesterday when she stepped into a divot in the ground causing her to fall over to her right side and catching herself on her right outstretched hand. Patient denies any pain in the hand but states the wrist is very painful. She states she cannot move it. Patient requests pain medication to the emergency department. Patient states she can take Tylenol 3 and [place]. Patient denies hitting her head in the fall or sustaining any other injuries. Patient has no other complaints at this time including shortness of breath, chest pain, abdominal pain, nausea or vomiting, headache, or visual changes. - Related Data Home Medications Medication Instructions Recorded Confirmed Ergocalciferol [Vitamin D2 50,000 unit PO TH 06/21/17 04/03/18 (DRISDOL)] Levothyroxine Sodium [Synthroid] 25 mcg PO DAILY 06/21/17 04/03/18 Montelukast Sodium [Singulair] 10 mg PO QA 06/21/17 04/03/18 Pramipexole [Mirapex] 0.25 mg PO HS 06/21/17 04/03/18 Simvastatin [Zocor] 20 mg PO HS 06/21/17 04/03/18 Aspirin [Adult Low Dose Aspirin EC] 81 mg PO DAILY 10/18/17 04/03/18 Cyanocobalamin (Vitamin B-12) 1,000 mcg PO DAILY 10/18/17 04/03/18 [Vitamin B-12] FLUoxetine HCL [PROzac] 20 mg PO TID 10/18/17 04/03/18 Gabapentin 600 mg PO QID 10/18/17 04/03/18 Phenytoin Sodium Extended 300 mg PO HS 10/18/17 04/03/18 Triamterene-Hctz 37.5-25Mg 1 tab PO DAILY 10/18/17 04/03/18 [Maxzide 37.5-25] amLODIPine [Norvasc] 10 mg PO DAILY 10/18/17 04/03/18 levETIRAcetam [Keppra] 1,000 mg PO Q12HR 10/18/17 04/03/18 ALPRAZolam [Xanax] 1 mg PO QID 12/11/17 04/03/18 QUEtiapine [SEROquel] 200 mg PO HS 12/11/17 04/03/18 Ranitidine HCl 300 mg PO QAM 12/11/17 04/03/18 Topiramate 50 mg PO BID@1500,2100 12/11/17 04/03/18 HYDROcodone/APAP 10-325MG [[place] 1 tab PO TID PRN 12/12/17 04/03/18 10-325] Previous Rx's Medication Instructions Recorded predniSONE 40 mg PO DAILY #3 tab 12/12/17 Ciprofloxacin HCl [Cipro] 500 mg PO Q12HR #10 tab 02/11/18 Ondansetron Odt [Zofran Odt] 4 mg PO Q8HR PRN #12 tab 02/11/18 Potassium Chloride ER [K-Dur 10] 10 meq PO DAILY #7 tab 02/11/18 HYDROcodone/APAP 5-325MG [[place] 1 tab PO Q6HR PRN #12 tab 04/03/18 5-325] Allergies Allergy/AdvReac Type Severity Reaction Status Date / Time ibuprofen [From Motrin] Allergy Rash/Hives Verified 04/03/18 14:37 naproxen [From Naprosyn] Allergy Unknown Verified 04/03/18 14:37 Penicillins Allergy Vomiting Verified 04/03/18 14:37 tramadol Allergy Rash/Hives Verified 04/03/18 14:37 Review of Systems ROS Statement: Those systems with pertinent positive or pertinent negative responses have been documented in the HPI. ROS Other: All systems not noted in ROS Statement are negative. Past Medical History Past Medical History: Atrial Fibrillation, Heart Failure, COPD, Hyperlipidemia, Hypertension, Seizure Disorder, Thyroid Disorder Additional Past Medical History / Comment(s): last seizure - 11/2017 History of Any Multi-Drug Resistant Organisms: None Reported Past Surgical History: Section, Cholecystectomy, Heart Catheterization With Stent Additional Past Surgical History / Comment(s): 2 stents per pt Past Anesthesia/Blood Transfusion Reactions: No Reported Reaction Date of Last Stent Placement:: 2003? Past Psychological History: Anxiety, Bipolar, Depression Smoking Status: Former smoker Past Alcohol Use History: None Reported Past Drug Use History: None Reported - Past Family History Father Family Medical History: AFIB Mother Family Medical History: AFIB, Diabetes Mellitus General Exam Limitations: no limitations General appearance: alert, in no apparent distress Head exam: Present: atraumatic, normocephalic, normal inspection Eye exam: Present: normal appearance, PERRL, EOMI ENT exam: Present: normal exam, normal external ear exam Neck exam: Present: normal inspection, full ROM. Absent: tenderness, meningismus Respiratory exam: Present: normal lung sounds bilaterally. Absent: respiratory distress, wheezes, rales, rhonchi, stridor Cardiovascular Exam: Present: regular rate, normal rhythm. Absent: bradycardia , tachycardia, irregular rhythm Extremities exam: Present: tenderness (patient has tenderness of the dorsal right wrist on the ulnar aspect. No tenderness in the hand. No scaphoid tenderness. No tenderness in the distal forearm or elbow.), normal capillary refill (Refill less than 2 seconds in R hand and all digits and radial pulse 2+ in the right upper extremity.), joint swelling (Patient has moderate swelling and ecchymosis noted on the dorsal ulnar aspect of the right wrist. ), other ( Sensation intact in the right upper extremity. ). Absent: full ROM (Patient has very limited range of motion of the right wrist and cannot flex or extend it due to pain. Full range of motion of fingers and elbow.) Back exam: Present: normal inspection. Absent: tenderness Course Vital Signs 04/03/18 14:34 Temperature 98.0 F Pulse Rate 82 Respiratory 18 Rate Blood Pressure 110/77 O2 Sat by Pulse 96 Oximetry Procedures - Procedures Initial comment: Neurovascular intact before splint application Indication: Possible subluxation of the right distal ulna Type: long arm OCL Wounds: no abrasions or lacerations underneath splint Neurovascular status: patient has sensation and movement of digits extending outside the splint, there is no cyanosis, capillary refill < 2 seconds Follow-up: patient given number for orthopedics and instructed to phone to make an appointment. Patient aware she can return to the Emergency Department if any difficulties. Medical Decision Making - Medical Decision Making 47-year-old female since to the emergency department for a chief complaint of right wrist pain 2 days. Patient tripped in her yard and fell on her right outstretched hand. No pain in the hand patient does have pain in the wrist. Patient did not hit her head or injure any other body parts. On exam patient has very limited range of motion of the right wrist and refuses to flex or extend it due to pain. Patient also has significant tenderness to the ulnar dorsal aspect of the right wrist. No tenderness in the hand or scaphoid area. There is moderate swelling and ecchymosis noted of the ulnar aspect as well. Neurovascular intact. According to the radiologist it is unclear on x-ray of the right wrist whether there is a poor lateral view or if there is no history or subluxation of the ulna in relation to the remaining portions of the wrist. Clinically with the swelling and ecchymosis over the ulnar aspect it is likely patient has a posterior displacement of the ulna. I contacted orthopedics and spoke with Ivan. He stated to splint it and have her follow up outpatient on Wednesday. Patient was splinted in a long-arm posterior OCL. Patient was complaining of pain in the emergency department. She was given [place]. Patient was still complaining of pain and was given a shot of morphine. Patient states she has tolerated both of these very well in the past and has had no complications. Patient will be given a script of [place]rose for pain relief. Her ring was removed in the emergency department with soap and water and is neurovascularly intact with a capillary refill less than 2 seconds. Ring was given to patient. She is to return to the emergency Department if she has any worsening symptoms. Disposition Clinical Impression: Subluxation of distal end of ulna Disposition: HOME SELF-CARE Condition: Good Instructions: Wrist Injury (ED) Additional Instructions: Please take [place]rose for pain relief. Please return to the emergency department if you have any worsening symptoms. The symptoms may include increased pain, decreased function of the right hand, coldness of the right hand, or any other worsening symptoms. Follow-up with orthopedics. Call first thing Wednesday morning for a subluxation of the distal ulna. Prescriptions: HYDROcodone/APAP 5-325MG [[place] 5-325] 1 tab PO Q6HR PRN #12 tab PRN Reason: Pain Is patient prescribed a controlled substance at d/c from ED?: Yes When asked, does pt state using other controlled substances?: No If prescribed controlled substance>3 days was MAPS reviewed?: Prescribed <3 Days If opioid is for acute pain is fill amount 7 days or less?: Yes Referrals: Marino Parks MD [Primary Care Provider] - 1-2 days Sanya Valadez DO [Doctor of Osteopathic Medicine] - 1-2 days Time of Disposition: 17:15
--- NOTE | 2018-04-03 16:05 | XR ---
EXAMINATION TYPE: XR wrist complete RT DATE OF EXAM: 04/03/2018 COMPARISON: NONE HISTORY: Pain following fall TECHNIQUE: 4 view right wrist FINDINGS: No displaced fractures are evident. Is unclear whether there is a poor lateral view or if t here is posterior subluxation of the ulna in relation to the remaining portions of the wrist. Disloca tion is not otherwise identified. Diffuse soft tissue swelling may be present superimposed on promine nt body habitus. There is pain at the anatomic snuff box, nuclear medicine bone scan could be performed for additional evaluation. IMPRESSION: 1. Consider the possibility of a posterior subluxation of the ulna in relation to the wrist. Acute f racture is not identified. Diffuse soft tissue swelling may be present. 2. Follow-up exams can be performed 7-10 days from acute trauma for continued pain.
[2018-04-03] MEDS ORDERED: MORPHINE SULFATE 4 MG/ML SYRINGE IM STA (17:12)
[2018-04-03 17:29] VITALS: BP 149/79; PULSE 80; RESP 16; TEMP 97.9
== END 2018-04-03 17:28 | disposition home or self-care (01) ==
LOC: EC 14:29
DX: S63.001A Unspecified subluxation of right wrist and hand, initial encounter (principal); I48.91 Unspecified atrial fibrillation; I11.0 Hypertensive heart disease with heart failure; I50.9 Heart failure, unspecified; J44.9 Chronic obstructive pulmonary disease, unspecified; E78.5 Hyperlipidemia, unspecified; G40.909 Epilepsy, unspecified, not intractable, without status epilepticus; E07.9 Disorder of thyroid, unspecified; F41.9 Anxiety disorder, unspecified; F32.9 Major depressive disorder, single episode, unspecified; Z95.5 Presence of coronary angioplasty implant and graft; Z87.891 Personal history of nicotine dependence; Z79.82 Long term (current) use of aspirin; Z79.899 Other long term (current) drug therapy; Z88.6 Allergy status to analgesic agent; Z88.0 Allergy status to penicillin; W01.0XXA Fall on same level from slipping, tripping and stumbling without subsequent striking against object, initial encounter; Y92.096 Garden or yard of other non-institutional residence as the place of occurrence of the external cause; Y93.01 Activity, walking, marching and hiking
CPT/HCPCS: 73110; 99283; 29105; 96372; J2270

== ENCOUNTER 2018-09-17 12:08 | Observation (INO) | payer OTHER ==
[2018-09-17] MEDS ORDERED: LORazepam 2 MG/ML INJ IV STA (12:43)
--- NOTE | 2018-09-17 12:47 | ED ---
General Adult HPI - General Chief complaint: Seizure Stated complaint: Seizure Time Seen by Provider: 09/17/18 12:12 Source: patient, family (daughter) Mode of arrival: EMS Limitations: altered mental status (Postictal state.) - History of Present Illness Initial comments: Patient is a 47-year-old female with PMH of seizure disorder, depression, anxiety, bipolar, atrial fibrillation, heart failure, COPD, hyperlipidemia, hypertension, thyroid disorder who presents the emergency department following a seizure that occurred at about 11:40 AM today. It was witnessed by her daughter who states she was laying in bed because she was not feeling well and it lasted for about 5 minutes. She did not hit her head per her daughter. She was stiff and her whole body was shaking. Her daughter denies loss of urine. Her daughter states her last seizure was last week, but she did not come to the ER. Patient's daughter reports this seizure was different because after she finished seizing she looked like she was trying to choke herself and scratch her face. Patient is supposed to be taking Keppra and Dilantin per her daughter , but hasn't been taking it. [facility] She was released from [facility] yesterday; she was there for depression/suicidal thoughts per her daughter. Her daughter stated that she has been happy since then. The patient stated that her head hurt, but ROS is limited due to the patient's postictal state. - Related Data Home Medications Medication Instructions Recorded Confirmed Ergocalciferol [Vitamin D2 50,000 unit PO TH 06/21/17 04/03/18 (DRISDOL)] Levothyroxine Sodium [Synthroid] 25 mcg PO DAILY 06/21/17 04/03/18 Montelukast Sodium [Singulair] 10 mg PO QAM 06/21/17 04/03/18 Pramipexole [Mirapex] 0.25 mg PO HS 06/21/17 04/03/18 Simvastatin [Zocor] 20 mg PO HS 06/21/17 04/03/18 Aspirin [Adult Low Dose Aspirin EC] 81 mg PO DAILY 10/18/17 04/03/18 Cyanocobalamin (Vitamin B-12) 1,000 mcg PO DAILY 10/18/17 04/03/18 [Vitamin B-12] FLUoxetine HCL [PROzac] 20 mg PO TID 10/18/17 04/03/18 Gabapentin 600 mg PO QID 10/18/17 04/03/18 Phenytoin Sodium Extended 300 mg PO HS 10/18/17 04/03/18 Triamterene-Hctz 37.5-25Mg 1 tab PO DAILY 10/18/17 04/03/18 [Maxzide 37.5-25] amLODIPine [Norvasc] 10 mg PO DAILY 10/18/17 04/03/18 levETIRAcetam [Keppra] 1,000 mg PO Q12HR 10/18/17 04/03/18 ALPRAZolam [Xanax] 1 mg PO QID 12/11/17 04/03/18 QUEtiapine [SEROquel] 200 mg PO HS 12/11/17 04/03/18 Ranitidine HCl 300 mg PO QAM 12/11/17 04/03/18 Topiramate 50 mg PO BID@1500,2100 12/11/17 04/03/18 HYDROcodone/APAP 10-325MG [[place] 1 tab PO TID PRN 12/12/17 04/03/18 10-325] Previous Rx's Medication Instructions Recorded predniSONE 40 mg PO DAILY #3 tab 12/12/17 Ciprofloxacin HCl [Cipro] 500 mg PO Q12HR #10 tab 02/11/18 Ondansetron Odt [Zofran Odt] 4 mg PO Q8HR PRN #12 tab 02/11/18 Potassium Chloride ER [K-Dur 10] 10 meq PO DAILY #7 tab 02/11/18 HYDROcodone/APAP 5-325MG [[place] 1 tab PO Q6HR PRN #12 tab 04/03/18 5-325] Allergies Allergy/AdvReac Type Severity Reaction Status Date / Time ibuprofen [From Motrin] Allergy Rash/Hives Verified 04/03/18 14:37 naproxen [From Naprosyn] Allergy Unknown Verified 04/03/18 14:37 Penicillins Allergy Vomiting Verified 04/03/18 14:37 tramadol Allergy Rash/Hives Verified 04/03/18 14:37 Review of Systems ROS Statement: Those systems with pertinent positive or pertinent negative responses have been documented in the HPI. ROS Other: All systems not noted in ROS Statement are negative. Past Medical History Past Medical History: Atrial Fibrillation, Heart Failure, COPD, Hyperlipidemia, Hypertension, Seizure Disorder, Thyroid Disorder Additional Past Medical History / Comment(s): last seizure - 11/2017 History of Any Multi-Drug Resistant Organisms: None Reported Past Surgical History: Section, Cholecystectomy, Heart Catheterization With Stent Additional Past Surgical History / Comment(s): 2 stents per pt Past Anesthesia/Blood Transfusion Reactions: No Reported Reaction Date of Last Stent Placement:: 2003? Past Psychological History: Anxiety, Bipolar, Depression Smoking Status: Current some day smoker Past Alcohol Use History: None Reported Past Drug Use History: None Reported - Past Family History Father Family Medical History: AFIB Mother Family Medical History: AFIB, Diabetes Mellitus General Exam Limitations: altered mental status General appearance: other (Crying, speech is mumbled and difficult to understand. Postictal.) Head exam: Present: atraumatic, normocephalic Eye exam: Present: normal appearance, PERRL, EOMI Respiratory exam: Present: normal lung sounds bilaterally Cardiovascular Exam: Present: regular rate, normal rhythm GI/Abdominal exam: Present: soft, normal bowel sounds Extremities exam: Present: normal inspection, normal capillary refill Neurological exam: Present: altered (Alert to self. Postictal.), other ( Patellar tendon reflex 2+.) Psychiatric exam: Present: agitated, other (Crying.) Skin exam: Present: warm, dry Course Vital Signs 09/17/18 09/17/18 09/17/18 12:14 14:30 15:30 Pulse Rate 91 Respiratory 20 20 18 Rate Blood Pressure 143/98 137/82 154/99 O2 Sat by Pulse 97 97 Oximetry 09/17/18 09/17/18 16:49 18:00 Pulse Rate 101 H 93 Respiratory 20 18 Rate Blood Pressure 125/88 131/85 O2 Sat by Pulse 98 97 Oximetry Medical Decision Making - Medical Decision Making Ativan 1 mg IV once was ordered since the patient was not given anything for seizure by EMS. Phenytoin (Dilantin) level is below therapeutic at 5.9. Venous plasma lactic acid is WNL at 1.0. Magnesium is WNL at 2.0. CBC and CMP are unremarkable. Brain CT revealed no acute intracranial abnormality. Urine positive for opiates, barbiturates, tricyclic antidepressants and benzodiazepines. Salicylates <1.0. Acetaminophen <10.0. Upon reexamination, the patient continues to be postictal, however she is somewhat improved as her speech is more clear and she is A&Ox2 (person and place ). She admits to being depressed and wishes that someone would kill her. ETOH breath test is negative and psych will now be consulted. She will be admitted to inpatient here with consults to Neuro and Psych. She is on seizure and suicide precautions. Case discussed in detail with attending physician Dr. Bonds. - Lab Data Result diagrams: 09/17/18 12:46 09/17/18 12:46 Lab Results 09/17/18 09/17/18 09/17/18 Range/Units 12:46 12:46 13:19 WBC 7.2 (3.8-10.6) k/uL RBC 4.33 (3.80-5.40) m/uL Hgb 14.5 (11.4-16.0) gm/dL Hct 43.1 (34.0-46.0) % MCV 99.5 (80.0-100.0) fL MCH 33.5 (25.0-35.0) pg MCHC 33.7 (31.0-37.0) g/dL RDW 14.5 (11.5-15.5) % Plt Count 285 (150-450) k/uL Neutrophils % 74 % Lymphocytes % 18 % Monocytes % 5 % Eosinophils % 0 % Basophils % 0 % Neutrophils # 5.4 (1.3-7.7) k/uL Lymphocytes # 1.3 (1.0-4.8) k/uL Monocytes # 0.4 (0-1.0) k/uL Eosinophils # 0.0 (0-0.7) k/uL Basophils # 0.0 (0-0.2) k/uL Macrocytosis Slight Sodium 138 (137-145) mmol/L Potassium 4.9 (3.5-5.1) mmol/L Chloride 107 (98-107) mmol/L Carbon Dioxide 26 (22-30) mmol/L Anion Gap 5 mmol/L BUN 8 (7-17) mg/dL Creatinine 0.48 L (0.52-1.04) mg/dL Est GFR (CKD-EPI)AfAm >90 (>60 ml/min/1.73 sqM) Est GFR (CKD-EPI)NonAf >90 (>60 ml/min/1.73 sqM) Glucose 109 H (74-99) mg/dL Plasma Lactic Acid Jordi 1.0 (0.7-2.0) mmol/L Calcium 9.3 (8.4-10.2) mg/dL Magnesium 2.0 (1.6-2.3) mg/dL Total Bilirubin 0.3 (0.2-1.3) mg/dL AST 29 (14-36) U/L ALT 39 (9-52) U/L Alkaline Phosphatase 90 (38-126) U/L Total Protein 7.0 (6.3-8.2) g/dL Albumin 3.8 (3.5-5.0) g/dL Urine Color Urine Appearance (Clear) Urine pH (5.0-8.0) Ur Specific [place] (1.001-1.035) Urine Protein (Negative) Urine Glucose (UA) (Negative) Urine Ketones (Negative) Urine Blood (Negative) Urine Nitrite (Negative) Urine Bilirubin (Negative) Urine Urobilinogen (<2.0) mg/dL Ur Leukocyte Esterase (Negative) Urine RBC (0-5) /hpf Urine WBC (0-5) /hpf Ur Squamous Epith Cells (0-4) /hpf Amorphous Sediment (None) /hpf Urine Mucus (None) /hpf Salicylates mg/dL Urine Opiates Screen (NotDetected) Ur Oxycodone Screen (NotDetected) Urine Methadone Screen (NotDetected) Ur Propoxyphene Screen (NotDetected) Acetaminophen ug/mL Ur Barbiturates Screen (NotDetected) Phenytoin 5.9 ug/mL U Tricyclic Antidepress (NotDetected) Ur Phencyclidine Scrn (NotDetected) Ur Amphetamines Screen (NotDetected) U Methamphetamines Scrn (NotDetected) U Benzodiazepines Scrn (NotDetected) Urine Cocaine Screen (NotDetected) U Marijuana (THC) Screen (NotDetected) 09/17/18 09/17/18 Range/Units 13:22 13:50 WBC (3.8-10.6) k/uL RBC (3.80-5.40) m/uL Hgb (11.4-16.0) gm/dL Hct (34.0-46.0) % MCV (80.0-100.0) fL MCH (25.0-35.0) pg MCHC (31.0-37.0) g/dL RDW (11.5-15.5) % Plt Count (150-450) k/uL Neutrophils % % Lymphocytes % % Monocytes % % Eosinophils % % Basophils % % Neutrophils # (1.3-7.7) k/uL Lymphocytes # (1.0-4.8) k/uL Monocytes # (0-1.0) k/uL Eosinophils # (0-0.7) k/uL Basophils # (0-0.2) k/uL Macrocytosis Sodium (137-145) mmol/L Potassium (3.5-5.1) mmol/L Chloride (98-107) mmol/L Carbon Dioxide (22-30) mmol/L Anion Gap mmol/L BUN (7-17) mg/dL Creatinine (0.52-1.04) mg/dL Est GFR (CKD-EPI)AfAm (>60 ml/min/1.73 sqM) Est GFR (CKD-EPI)NonAf (>60 ml/min/1.73 sqM) Glucose (74-99) mg/dL Plasma Lactic Acid Jordi (0.7-2.0) mmol/L Calcium (8.4-10.2) mg/dL Magnesium (1.6-2.3) mg/dL Total Bilirubin (0.2-1.3) mg/dL AST (14-36) U/L ALT (9-52) U/L Alkaline Phosphatase (38-126) U/L Total Protein (6.3-8.2) g/dL Albumin (3.5-5.0) g/dL Urine Color Yellow Urine Appearance Cloudy H (Clear) Urine pH 5.5 (5.0-8.0) Ur Specific [place] 1.022 (1.001-1.035) Urine Protein Trace H (Negative) Urine Glucose (UA) Negative (Negative) Urine Ketones Negative (Negative) Urine Blood Negative (Negative) Urine Nitrite Negative (Negative) Urine Bilirubin Negative (Negative) Urine Urobilinogen <2.0 (<2.0) mg/dL Ur Leukocyte Esterase Negative (Negative) Urine RBC 1 (0-5) /hpf Urine WBC 2 (0-5) /hpf Ur Squamous Epith Cells 1 (0-4) /hpf Amorphous Sediment Rare H (None) /hpf Urine Mucus Many H (None) /hpf Salicylates <1.0 mg/dL Urine Opiates Screen Detected H (NotDetected) Ur Oxycodone Screen Not Detected (NotDetected) Urine Methadone Screen Not Detected (NotDetected) Ur Propoxyphene Screen Not Detected (NotDetected) Acetaminophen <10.0 ug/mL Ur Barbiturates Screen Detected H (NotDetected) Phenytoin ug/mL U Tricyclic Antidepress Detected H (NotDetected) Ur Phencyclidine Scrn Not Detected (NotDetected) Ur Amphetamines Screen Not Detected (NotDetected) U Methamphetamines Scrn Not Detected (NotDetected) U Benzodiazepines Scrn Detected H (NotDetected) Urine Cocaine Screen Not Detected (NotDetected) U Marijuana (THC) Screen Not Detected (NotDetected) Disposition Clinical Impression: Generalized seizure Disposition: ADMITTED IP TO THIS [facility] Condition: Good Is patient prescribed a controlled substance at d/c from ED?: No Referrals: Nonstaff,Physician [REFERRING] - 1-2 days
[2018-09-17] MEDS ORDERED: SODIUM CHLORIDE 0.9% 500 ML 500 ML IV ONE (12:58)
[2018-09-17 13:20] LABS: Basophils % (A) 0 %; Eosinophils % (A) 0 %; HCT 43.1 % (34.0-46.0); HGB 14.5 gm/dL (11.4-16.0); Lymphocytes # (A) 1.3 k/uL (1.0-4.8); Lymphocytes % (A) 18 %; MCH 33.5 pg (25.0-35.0); MCHC 33.7 g/dL (31.0-37.0); MCV 99.5 fL (80.0-100.0); Macrocytosis Slight; Mean Platelet Volume 7.2; Monocytes # (A) 0.4 k/uL (0-1.0); Monocytes % (A) 5 %; Neutrophils # (A) 5.4 k/uL (1.3-7.7); Neutrophils % (A) 74 %; Platelet Count 285 k/uL (150-450); RBC 4.33 m/uL (3.80-5.40); RDW 14.5 % (11.5-15.5); WBC 7.2 k/uL (3.8-10.6)
[2018-09-17 13:25] LABS: ALT 39 U/L (9-52); AST 29 U/L (14-36); Albumin 3.8 g/dL (3.5-5.0); Alkaline Phosphatase 90 U/L (38-126); Anion Gap 5 mmol/L; Blood Urea Nitrogen 8 mg/dL (7-17); Calcium 9.3 mg/dL (8.4-10.2); Carbon Dioxide 26 mmol/L (22-30); Chloride 107 mmol/L (98-107); Glucose 109 mg/dL (74-99); Phenytoin (Dilantin) 5.9 ug/mL; Potassium 4.9 mmol/L (3.5-5.1); Sodium 138 mmol/L (137-145); Total Bilirubin 0.3 mg/dL (0.2-1.3)
--- NOTE | 2018-09-17 13:59 | CT ---
EXAMINATION TYPE: CT brain wo con DATE OF EXAM: 09/17/2018 COMPARISON: Previous study dated 06/21/2017. HISTORY: Seizures CT DLP: 1244.4 mGycm Automated exposure control for dose reduction was used. FINDINGS: Central structures are midline. There is no evidence of hydrocephalus. No acute focal lesion, mass ef fect or midline shift is seen. I do not see evidence of intracranial blood. Visualized portions of the paranasal sinuses and mastoids are clear. The bony calvarium is intact. IMPRESSION: NO ACUTE INTRACRANIAL ABNORMALITY.
[2018-09-17 14:00] LABS: Acetaminophen <10.0 ug/mL; Salicylate <1.0 mg/dL
[2018-09-17 14:08] LABS: Amorphous Sediment,Urine Rare /hpf; Appearance,Urine Cloudy (Clear); Bilirubin,Urine Negative (Negative); Blood,Urine Negative (Negative); Color,Urine Yellow; Glucose,Urine (UA) Negative (Negative); Ketones,Urine Negative (Negative); Leukocyte Esterase,Urine Negative (Negative); Mucus,Urine Many /hpf; Nitrite,Urine Negative (Negative); PH, Urine 5.5 (5.0-8.0); Protein,Urine Trace (Negative); RBC,Urine 1 /hpf (0-5); Specific Gravity,Urine 1.022 (1.001-1.035); Squamous Epithelial Cell,Urine 1 /hpf (0-4); Urobilinogen,Urine <2.0 mg/dL (<2.0); WBC,Urine 2 /hpf (0-5)
[2018-09-17 14:20] LABS: Amphetamine Screen,Urine Not Detected (NotDetected); Barbiturate Screen,Urine Detected (NotDetected); Benzodiazepines Screen,Urine Detected (NotDetected); Cocaine Screen,Urine Not Detected (NotDetected); Methadone Screen, Urine Not Detected (NotDetected); Opiate Screen,Urine Detected (NotDetected); Oxycodone Screen, Urine Not Detected (NotDetected); Phencyclidine Screen,Urine Not Detected (NotDetected); Tricyclic Antidepressant,Urine Detected (NotDetected); Urn Cannabinoid Scrn Not Detected (NotDetected)
[2018-09-17] MEDS ORDERED: ACETAMINOPHEN TAB 500 MG TAB PO STA (15:11)
[2018-09-17] MEDS ORDERED: PHENYTOIN SODIUM EXTENDED 100 MG CAP PO STA (16:03)
[2018-09-17] MEDS ORDERED: NALOXONE 0.4 MG/ML 1 ML VIAL IV PRN (18:18)
[2018-09-17] MEDS ORDERED: ACETAMINOPHEN TAB 325 MG TAB PO PRN (18:18)
[2018-09-17] MEDS ORDERED: PHENYTOIN SODIUM EXTENDED 100 MG CAP PO SCH (21:00)
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
[2018-09-17] MEDS: SODIUM CHLORIDE 0.9% 1,000 ML IV SCH (23:15)
[2018-09-17] MEDS: ATORVASTATIN 10 MG TAB PO SCH (23:25)
[2018-09-17] MEDS: PRAMIPEXOLE 0.25 MG TAB PO SCH (23:25)
[2018-09-17] MEDS: GABAPENTIN 300 MG CAP PO SCH (23:25)
[2018-09-17] MEDS: FLUoxetine HCL 20 MG CAP PO SCH (23:26)
[2018-09-17] MEDS: TOPIRAMATE 25 MG TAB PO SCH (23:26)
[2018-09-17] MEDS: QUEtiapine 200 MG TAB PO SCH (23:26)
[2018-09-17] MEDS: levETIRAcetam IV 1,000 MG in SALINE 1 100ML.BAG IVPB SCH (23:29)
[2018-09-18] MEDS: HEPARIN SODIUM,PORCINE 5,000 UNIT/ML 1 ML VIAL SQ SCH ×3 (00:32→16:36)
[2018-09-18] MEDS: PHENYTOIN SODIUM INJ 100 MG in SODIUM CHLORIDE 0.9% 100 ML IVPB SCH ×3 (01:06→16:36)
[2018-09-18] MEDS ORDERED: PHENYTOIN SODIUM INJ 700 MG in SODIUM CHLORIDE 0.9% 100 ML IVPB STA (02:23)
--- NOTE | 2018-09-18 02:42 | P.CNNES ---
History of Present Illness Consult date: 09/17/18 Reason for Consult: Patient admitted with altered mental status and seizures. History of Present Illness: This patient is a 47-year-old right-handed white female who was admitted to [facility] for evaluation of seizure disorder. Patient was brought into the emergency room at [facility] after having a seizure at home at about 11:40 AM this morning. This was witnessed by her daughter and apparently lasted about 5 minutes in duration. Patient was postictal following this event. According to the ER notes the patient became very stiff and was having shaking of her entire body. Once again the daughter stated that it lasted about 5 minutes in duration. She did not have any loss of bowel or bladder control. She had a seizure last week as well but did not come to the emergency room. 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 She has been prescribed Keppra and Dilantin but according to her daughter she has not been taking these medications. Patient has been staying in a woman long term. She was just recently released from [facility] yesterday where she was placed in the inpatient psychiatric unit for evaluation. Apparently today she is also been expressing suicidal ideations. Psychiatry has been consulted. A stat Dilantin level was done today and came back subtherapeutic at 5.9. We have bolused her IV Dilantin 700 mg IV piggyback 1. We will recheck her Dilantin level and Keppra level tomorrow morning. Patient apparently has been noncompliant in taking her Dilantin and Keppra. When questioned about this patient states she ran out of the medications for 3 or 4 days. She is unable to provide her primary care physician's name. We will await further recommendations from psychiatry in regards to further management of her suicidal ideations. She apparently also suffers from anxiety disorder and bipolar disorder as well. The patient was seen in the emergency room by Dr. Bonds. She underwent a computed tomography scan of the brain in the ER which revealed no acute intracranial abnormality. She is examined at bedside today on the fourth floor but is not able to provide Evangelista detailed history. She is very vague in her explanations of her past medical history. She does have a sitter at her bedside due to her suicidal ideations. We will await further evaluation from psychiatry. Her overall prognosis at this time remains very guarded. She has been noncompliant in taking her anticonvulsive medications over the last year. The patient is now admitted and neurology has been consulted for further evaluation and recommendations. Review of Systems Constitutional: Denies chills, Denies fever Eyes: denies blurred vision, denies pain Ears, nose, mouth and throat: Denies headache, Denies sore throat Cardiovascular: Denies chest pain, Denies shortness of breath Respiratory: Denies cough Gastrointestinal: Denies abdominal pain, Denies diarrhea, Denies nausea, Denies vomiting Genitourinary: Denies dysuria, Denies hematuria Musculoskeletal: Denies myalgias Integumentary: Denies pruritus, Denies rash Neurological: Reports change in mentation, Reports confusion, Reports memory loss, Reports paresthesias, Denies numbness, Denies weakness Psychiatric: Reports anxiety attacks, Reports confusion, Reports irritability, Reports memory loss, Reports mood swings, Reports suicidal ideation, Denies anxiety, Denies depression Endocrine: Denies fatigue, Denies weight change Past Medical History Past Medical History: Atrial Fibrillation, Heart Failure, COPD, Hyperlipidemia, Hypertension, Seizure Disorder, Thyroid Disorder Additional Past Medical History / Comment(s): last seizure - 1 week ago per pt ? ? History of Any Multi-Drug Resistant Organisms: None Reported Past Surgical History: Section, Cholecystectomy, Heart Catheterization With Stent Additional Past Surgical History / Comment(s): 2 stents per pt Past Anesthesia/Blood Transfusion Reactions: No Reported Reaction Date of Last Stent Placement:: 2003? Past Psychological History: Anxiety, Bipolar, Depression Smoking Status: Current some day smoker Past Alcohol Use History: None Reported Past Drug Use History: None Reported - Past Family History Father Family Medical History: AFIB Mother Family Medical History: AFIB, Diabetes Mellitus Medications and Allergies Home Medications Medication Instructions Recorded Confirmed Type Ergocalciferol [Vitamin D2 50,000 unit PO TH 06/21/17 04/03/18 History (RUTHYOL)] Levothyroxine Sodium [Synthroid] 25 mcg PO DAILY 06/21/17 04/03/18 History Montelukast Sodium [Singulair] 10 mg PO QAM 06/21/17 04/03/18 History Pramipexole [Mirapex] 0.25 mg PO HS 06/21/17 04/03/18 History Simvastatin [Zocor] 20 mg PO HS 06/21/17 04/03/18 History Aspirin [Adult Low Dose Aspirin EC] 81 mg PO DAILY 10/18/17 04/03/18 History Cyanocobalamin (Vitamin B-12) 1,000 mcg PO DAILY 10/18/17 04/03/18 History [Vitamin B-12] FLUoxetine HCL [PROzac] 20 mg PO TID 10/18/17 04/03/18 History Gabapentin 600 mg PO QID 10/18/17 04/03/18 History Phenytoin Sodium Extended 300 mg PO HS 10/18/17 04/03/18 History Triamterene-Hctz 37.5-25Mg 1 tab PO DAILY 10/18/17 04/03/18 History [Maxzide 37.5-25] amLODIPine [Norvasc] 10 mg PO DAILY 10/18/17 04/03/18 History levETIRAcetam [Keppra] 1,000 mg PO Q12HR 10/18/17 04/03/18 History ALPRAZolam [Xanax] 1 mg PO QID 12/11/17 04/03/18 History QUEtiapine [SEROquel] 200 mg PO HS 12/11/17 04/03/18 History Ranitidine HCl 300 mg PO QAM 12/11/17 04/03/18 History Topiramate 50 mg PO BID@1500,2100 12/11/17 04/03/18 History HYDROcodone/APAP 10-325MG [[place] 1 tab PO TID PRN 12/12/17 04/03/18 History 10-325] predniSONE 40 mg PO DAILY #3 tab 12/12/17 04/03/18 Rx Ciprofloxacin HCl [Cipro] 500 mg PO Q12HR #10 tab 02/11/18 04/03/18 Rx Ondansetron Odt [Zofran Odt] 4 mg PO Q8HR PRN #12 tab 02/11/18 04/03/18 Rx Potassium Chloride ER [K-Dur 10] 10 meq PO DAILY #7 tab 02/11/18 04/03/18 Rx HYDROcodone/APAP 5-325MG [[place] 1 tab PO Q6HR PRN #12 tab 04/03/18 Rx 5-325] Allergies Allergy/AdvReac Type Severity Reaction Status Date / Time ibuprofen [From Motrin] Allergy Rash/Hives Verified 04/03/18 14:37 naproxen [From Naprosyn] Allergy Unknown Verified 09/17/18 22:45 Penicillins Allergy Vomiting Verified 04/03/18 14:37 tramadol Allergy Rash/Hives Verified 04/03/18 14:37 Physical Examination - Vital Signs Vital Signs: Vital Signs Temp Pulse Pulse Resp BP BP Pulse Ox 09/17/18 23:00 97.5 F L 95 14 125/85 95 09/17/18 20:26 80 16 142/91 96 09/17/18 19:55 86 16 156/100 97 09/17/18 18:00 93 18 131/85 97 09/17/18 16:49 101 H 20 125/88 98 09/17/18 15:30 18 154/99 09/17/18 14:30 20 137/82 97 09/17/18 12:14 91 20 143/98 97 Intake and Output 09/17/18 09/17/18 09/18/18 14:59 22:59 06:59 Other: Weight 108.091 kg - Constitutional General appearance: average body habitus, cooperative - EENT EENT: PERRL, mucous membranes moist - Respiratory Respiratory: lungs clear, normal breath sounds - Cardiovascular Cardiovascular: regular rate, normal S1 Extremities: no peripheral edema bilaterally - Gastrointestinal Gastrointestinal: normoactive bowel sounds - Integumentary Integumentary: normal - Neurologic Cranial nerve examination: PERRL, EOMI, VFF, V1/V2/V3 grossly intact, tongue midline, intact shoulder shrug, intact cough reflex, intact corneal reflex, normal palatal elevation Speech examination: intact Sensorimotor examination: intact Motor examination - right side: 4/5: biceps, triceps, wrist flexion, wrist extension, manager nursing, hip flexors, knee extensors, dorsiflexion, toe extension (EHL) , plantarflexion Motor examination - left side: 4/5: biceps, triceps, wrist flexion, wrist extension, manager nursing, hip flexors, knee extensors, dorsiflexion, toe extension (EHL) , plantarflexion Detailed sensory examination: intact Reflex and gait examination: intact Reflexes: 1+: ankle, bicep, knee, tricep - Musculoskeletal Musculoskeletal: no pain - Psychiatric Psychiatric: mood/affect appropriate, cooperative Results - Laboratory Findings CBC and BMP: 09/17/18 12:46 09/17/18 12:46 Abnormal Lab Findings: Abnormal Labs 09/17/18 09/17/18 12:46 13:50 Creatinine 0.48 L Glucose 109 H Urine Appearance Cloudy H Urine Protein Trace H Amorphous Sediment Rare H Urine Mucus Many H Urine Opiates Screen Detected H Ur Barbiturates Screen Detected H U Tricyclic Antidepress Detected H U Benzodiazepines Scrn Detected H Assessment and Plan (1) Generalized seizure Current Visit: Yes Status: Acute Code(s): R56.9 - UNSPECIFIED CONVULSIONS SNOMED Code(s): 128106601 (2) Suicidal ideation Current Visit: Yes Status: Acute Code(s): R45.851 - SUICIDAL IDEATIONS SNOMED Code(s): 7863734 (3) Post-ictal confusion Current Visit: Yes Status: Acute Code(s): F05 - DELIRIUM DUE TO KNOWN PHYSIOLOGICAL CONDITION SNOMED Code(s): 01739484 (4) Bipolar disorder Current Visit: Yes Status: Acute Code(s): F31.9 - BIPOLAR DISORDER, UNSPECIFIED SNOMED Code(s): 90113076 Plan: This patient is a 47-year-old female who was just recently released from [facility] inpatient psychiatric unit where she is being treated for depression and suicidal thoughts. Patient had a seizure this morning which was witnessed by her daughter lasting 5 minutes in duration. She was brought into the emergency room and was evaluated by Dr. Bonds. She was sent for a computed tomography scan of the brain which revealed no acute intracranial abnormality. She was subsequent admitted to Hospital. Her Dilantin level was checked and was subtherapeutic at 5.9. Keppra level is pending. Patient has a long-standing history of underlying primary generalized epilepsy. She has been noncompliant in taking her anticonvulsive medications. We are recommending the patient to work with the social media manager and to possibly use a dispenser for the week to lay out all of her anticonvulsive medications. She will bring this up with the social media manager. Patient also should follow-up with psychiatry. Psychiatry consultation has been requested that she is voiced suicidal ideations. We will continue close monitoring of her condition. We will adjust her Dilantin and Keppra levels once a levels returned from the laboratory. Her overall prognosis at this time remains very guarded. We will continue close neurological follow-up for the patient during this admission. Time with Patient: Greater than 30
[2018-09-18] MEDS: SODIUM CHLORIDE 0.9% 1,000 ML IV SCH ×2 (06:47→12:07)
[2018-09-18 07:28] LABS: Basophils % (A) 0 %; Eosinophils # (A) 0.1 k/uL (0-0.7); Eosinophils % (A) 1 %; HCT 42.1 % (34.0-46.0); HGB 13.5 gm/dL (11.4-16.0); Lymphocytes # (A) 1.7 k/uL (1.0-4.8); Lymphocytes % (A) 34 %; MCH 32.5 pg (25.0-35.0); MCV 101.6 fL (80.0-100.0); Macrocytosis Slight; Mean Platelet Volume 6.7; Monocytes # (A) 0.3 k/uL (0-1.0); Monocytes % (A) 6 %; Neutrophils # (A) 2.8 k/uL (1.3-7.7); Neutrophils % (A) 56 %; Platelet Count 264 k/uL (150-450); RBC 4.14 m/uL (3.80-5.40); RDW 14.8 % (11.5-15.5)
[2018-09-18 07:54] LABS: Anion Gap 6 mmol/L; Blood Urea Nitrogen 7 mg/dL (7-17); Calcium 8.5 mg/dL (8.4-10.2); Carbon Dioxide 27 mmol/L (22-30); Chloride 107 mmol/L (98-107); Glucose 104 mg/dL (74-99); Potassium 4.4 mmol/L (3.5-5.1); Sodium 140 mmol/L (137-145)
[2018-09-18] MEDS: levETIRAcetam IV 1,000 MG in SALINE 1 100ML.BAG IVPB SCH ×2 (08:12→20:25)
[2018-09-18] MEDS: GABAPENTIN 300 MG CAP PO SCH ×4 (08:14→21:18)
[2018-09-18] MEDS: amLODIPine 10 MG TAB PO SCH (08:15)
[2018-09-18] MEDS: ASPIRIN 81 MG PO SCH (08:15)
[2018-09-18] MEDS: TRIAMTERENE-HCTZ 37.5-25MG 1 EACH TAB PO SCH (08:15)
[2018-09-18] MEDS: FLUoxetine HCL 20 MG CAP PO SCH ×3 (08:15→21:19)
[2018-09-18] MEDS: MONTELUKAST 10 MG TAB PO SCH (08:15)
[2018-09-18] MEDS ORDERED: PHENYTOIN SODIUM EXTENDED 100 MG CAP PO SCH (09:00)
[2018-09-18 09:12] LABS: Phenytoin (Dilantin) 10.2 ug/mL
[2018-09-18] MEDS: ALPRAZolam 0.5 MG TAB PO PRN ×2 (12:14→17:53)
[2018-09-18] MEDS ORDERED: LORazepam 2 MG/ML INJ IV PRN (12:52)
[2018-09-18] MEDS: LIDOCAINE 5% PATCH TOPICAL SCH (13:18)
--- NOTE | 2018-09-18 13:18 | P.PN ---
Subjective Progress Note Date: 09/18/18 Principal diagnosis: Seizure, Depression and SI Patient seen and examined. No acute events overnight. No further seizure since admission. Patient continues to complain of depressive thoughts. Patient states that she wants to go to [facility] to see her parents but she needs to take care of her daughter. She claims to be a bad parent. Complains of myalgias, requesting Lidocaine patch. Objective - Vital Signs Vital signs: Vital Signs Temp 97.7 F 09/18/18 06:20 Pulse 92 09/18/18 06:20 Resp 16 09/18/18 06:20 BP 122/84 09/18/18 06:20 Pulse Ox 96 09/18/18 06:20 Intake & Output 09/17/18 09/18/18 09/18/18 18:59 06:59 18:59 Weight 108.091 kg Other: Voiding Method Urinal # Voids 2 - Exam General: [non toxic], [appears at stated age] Derm: [warm], [dry] Head: [atraumatic], [normocephalic], [symmetric] Eyes: [EOMI], [no lid lag], [anicteric sclera] Mouth: [no lip lesion], [mucus membranes moist] Cardiovascular: [S1S2 reg], [no murmur], [positive DP pulse bilateral] Lungs: [CTA bilateral], [no rhonchi, no rales] , [no accessory muscle use] Abdominal: [soft], [ nontender to palpation], [no guarding], [no appreciable organomegaly] Ext: [no gross muscle atrophy], [no edema], [no contractures] Neuro: [no focal neuro deficits] Psych: [Alert], [oriented], [active suicidal ideation] - Labs CBC & Chem 7: 09/18/18 06:44 09/18/18 06:44 Labs: Abnormal Lab Results - Last 24 Hours (Table) 09/17/18 09/17/18 09/18/18 Range/Units 12:46 13:50 06:44 MCV 101.6 H (80.0-100.0) fL Creatinine 0.48 L (0.52-1.04) mg/dL Glucose 109 H (74-99) mg/dL Urine Appearance Cloudy H (Clear) Urine Protein Trace H (Negative) Amorphous Sediment Rare H (None) /hpf Urine Mucus Many H (None) /hpf Urine Opiates Screen Detected H (NotDetected) Ur Barbiturates Screen Detected H (NotDetected) U Tricyclic Antidepress Detected H (NotDetected) U Benzodiazepines Scrn Detected H (NotDetected) 09/18/18 Range/Units 06:44 MCV (80.0-100.0) fL Creatinine (0.52-1.04) mg/dL Glucose 104 H (74-99) mg/dL Urine Appearance (Clear) Urine Protein (Negative) Amorphous Sediment (None) /hpf Urine Mucus (None) /hpf Urine Opiates Screen (NotDetected) Ur Barbiturates Screen (NotDetected) U Tricyclic Antidepress (NotDetected) U Benzodiazepines Scrn (NotDetected) Assessment and Plan Assessment: Assessment and Plan 1. Seizure: Likely due to medication non compliance (subtherapeutic Dilantin levels). Patient is afebrile with no leukocytosis. Brain CT negative. UA negative for infection. UDS + opiates, barbiturates, TCAs and Benzodiazepines. Continue Keppra 1000 mg IV BID, Dilantin 100 mg IV TID. Ativan 2 mg IV Q6H PRN for seizures. Seizure and Fall precautions. FU Neurology, EEG, Keppra level 2. Bipolar disorder: With suicidal ideations. Continue Fluoxetine 20 mg PO TID, Seroquel 200 mg PO QHS, Gabapentin 600 mg PO QID, Topiramate 50 mg PO BID. 1:1 sitter with suicide precautions. FU Psychiatry, TSH 3. Myalgias and Back pain: MSK and likely secondary to seizure activity. Start Lidocaine patch. Pain management with Tylenol and [place] PRN. FU CPK 4. HTN: BP 122/84. Continue Amlodipine 10 mg PO QD, Triamterene-HCTZ 37.5-25 mg PO QD. Monitor vitals and adjust medications as necessary. 5. CAD s/p 2 stents in 2003. Continue ASA 81 mg PO QD, Lipitor 10 mg PO QHS. HEART healthy diet. 6. Atrial fibrillation: Rate controlled currently in sinus. Would benefit from Beta kaylin given h/o CAD and A-Fib. Not on anticoagulation. Keep Mg > 2 and K > 4. FU TSH, Cardiology in outPT setting 7. Hypothyroidism: Synthroid 25 mcg PO QD. FU TSH 8. DVT/GI Prophylaxis: Heparin 5000 units SQ TID. Patient with no further seizure episodes since admission. Being treated with Keppra and Dilantin IV, repeat levels are pending. 1:1 sitter at bedside for suicidal ideations, Psyc consult pending.
[2018-09-18] MEDS: TOPIRAMATE 25 MG TAB PO SCH ×2 (14:31→20:25)
[2018-09-18] MEDS: HYDROcodone/APAP 5-325MG 1 EACH TAB PO PRN ×2 (14:31→20:29)
[2018-09-18] MEDS: ATORVASTATIN 10 MG TAB PO SCH (20:25)
[2018-09-18] MEDS: QUEtiapine 200 MG TAB PO SCH (20:25)
[2018-09-18] MEDS: PRAMIPEXOLE 0.25 MG TAB PO SCH (20:25)
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
[2018-09-19] MEDS: SODIUM CHLORIDE 0.9% 1,000 ML IV SCH ×2 (00:24→10:41)
[2018-09-19] MEDS: HEPARIN SODIUM,PORCINE 5,000 UNIT/ML 1 ML VIAL SQ SCH ×3 (00:24→16:08)
[2018-09-19] MEDS: PHENYTOIN SODIUM INJ 100 MG in SODIUM CHLORIDE 0.9% 100 ML IVPB SCH ×2 (00:24→09:02)
[2018-09-19] MEDS: ALPRAZolam 0.5 MG TAB PO PRN ×4 (00:40→17:47)
[2018-09-19] MEDS: HYDROcodone/APAP 5-325MG 1 EACH TAB PO PRN ×2 (04:18→10:29)
[2018-09-19] MEDS: ASPIRIN 81 MG PO SCH (07:53)
[2018-09-19] MEDS: levETIRAcetam IV 1,000 MG in SALINE 1 100ML.BAG IVPB SCH (07:54)
[2018-09-19] MEDS: GABAPENTIN 300 MG CAP PO SCH ×3 (07:54→16:42)
[2018-09-19] MEDS: FLUoxetine HCL 20 MG CAP PO SCH ×2 (07:54→16:07)
[2018-09-19] MEDS: MONTELUKAST 10 MG TAB PO SCH (07:55)
[2018-09-19] MEDS: LIDOCAINE 5% PATCH TOPICAL SCH (07:55)
[2018-09-19] MEDS: amLODIPine 10 MG TAB PO SCH (07:56)
[2018-09-19] MEDS: TRIAMTERENE-HCTZ 37.5-25MG 1 EACH TAB PO SCH (07:56)
--- NOTE | 2018-09-19 14:12 | P.PN ---
Subjective Progress Note Date: 09/19/18 Principal diagnosis: Seizures/depression Patient was seen and examined. No acute events overnight. No further seizures since admission. Patient continues to report sadness regarding taking care of her daughter, but does not currently have suicidal ideations. Patient was seen by psychiatry, cleared from inpatient psych. EEG being done this morning. Objective - Vital Signs Vital signs: Vital Signs Temp 97.2 F L 09/19/18 06:25 Pulse 74 09/19/18 06:25 Resp 18 09/19/18 06:25 BP 98/68 09/19/18 06:25 Pulse Ox 93 L 09/19/18 06:25 Intake & Output 09/18/18 09/19/18 09/19/18 18:59 06:59 18:59 Other: Voiding Method Toilet # Voids 3 4 1 - Exam General: [non toxic], [appears at stated age] Derm: [warm], [dry] Head: [atraumatic], [normocephalic], [symmetric] Eyes: [EOMI], [no lid lag], [anicteric sclera] Mouth: [no lip lesion], [mucus membranes moist] Cardiovascular: [S1S2 reg], [no murmur], [positive DP pulse bilateral] Lungs: [CTA bilateral], [no rhonchi, no rales] , [no accessory muscle use] Abdominal: [soft], [ nontender to palpation], [no guarding], [no appreciable organomegaly] Ext: [no gross muscle atrophy], [no edema], [no contractures] Neuro: [no focal neuro deficits] Psych: [Alert], [oriented], [active suicidal ideation] - Labs CBC & Chem 7: 09/18/18 06:44 09/18/18 06:44 Labs: Abnormal Lab Results - Last 24 Hours (Table) 09/17/18 Range/Units 12:46 Levetiracetam 1.6 L (3.0-60.0) ug/mL Assessment and Plan Assessment: Assessment and Plan 1. Seizure: Likely due to medication non compliance (subtherapeutic Dilantin levels). Patient is afebrile with no leukocytosis. Brain CT negative. UA negative for infection. UDS + opiates, barbiturates, TCAs and Benzodiazepines. Continue Keppra 1000 mg IV BID, Dilantin 100 mg IV TID (but will transition to PO). Ativan 2 mg IV Q6H PRN for seizures. Seizure and Fall precautions. Keppra and Dilantin level therapeutic now. FU Neurology, EEG 2. Bipolar disorder: With suicidal ideations. Continue Fluoxetine 20 mg PO TID, Seroquel 200 mg PO QHS, Gabapentin 600 mg PO QID, Topiramate 50 mg PO BID. 1:1 sitter with suicide precautions. TSH within normal limits. Psyc cleared from inpatient admission, FU outPT. 3. Myalgias and Back pain: MSK and likely secondary to seizure activity. Start Lidocaine patch. Pain management with Tylenol and [place] PRN. CPK within normal limits. 4. HTN: BP 98/68. Continue Amlodipine 10 mg PO QD, Triamterene-HCTZ 37.5-25 mg PO QD. Monitor vitals and adjust medications as necessary. 5. CAD s/p 2 stents in 2003. Continue ASA 81 mg PO QD, Lipitor 10 mg PO QHS. HEART healthy diet. 6. Atrial fibrillation: Rate controlled currently in sinus. Would benefit from Beta kaylin given h/o CAD and A-Fib. Not on anticoagulation. Keep Mg > 2 and K > 4. FU TSH, Cardiology in outPT setting 7. Hypothyroidism: Synthroid 25 mcg PO QD. FU TSH 8. DVT/GI Prophylaxis: Heparin 5000 units SQ TID. Patient with no further seizure episodes since admission. Being treated with Keppra and Dilantin, transitioned to PO. Psyc cleared patient. Pending PT evaluation and Neurology clearance for discharge.
[2018-09-19 14:59] VITALS: BP 114/75; PULSE 97; RESP 16; TEMP 98
[2018-09-19] MEDS ORDERED: PHENYTOIN SODIUM EXTENDED 100 MG CAP PO SCH (16:00)
[2018-09-19] MEDS: TOPIRAMATE 25 MG TAB PO SCH (16:07)
[2018-09-19] MEDS ORDERED: levETIRAcetam 500 MG TAB PO SCH (21:00)
--- NOTE | 2018-09-27 20:33 | P.PN ---
Subjective Progress Note Date: 09/18/18 This patient is a 47-year-old right-handed white female who was seen in neurology consultation yesterday for evaluation of altered mental status and seizure disorder. Patient was just recently discharged from [facility] where she was admitted to the inpatient psychiatric unit for evaluation of suicidal thoughts. She was just discharged the day before and yesterday had witnessed seizure at home. She has been prescribed Dilantin and Keppra for seizure prophylaxis but apparently has not been taking these medications on any regular basis. She was seen in the emergency room yesterday by Dr. Bonds. Gender when a computed tomography scan of the brain which revealed no acute intracranial abnormality. She was restarted on Dilantin and Keppra for a long standing history of seizure disorder. Her Dilantin level today came back in the therapeutic range at 10.2. Keppra level is still pending. We will arrange for a routine EEG to be done tomorrow for further assessment of her seizure disorder. We have recommended a psychiatry consultation as well due to her suicidal ideations. The patient was recently released from the inpatient psychiatry unit at [facility]. The patient also has a history of bipolar disorder. We would recommend a Psychiatry consult for this patient. We will continue her on current doses of Dilantin and Keppra for seizure prophylaxsis. She has been non-compliant in taking her seizure medications in the past and we encourage her to be more vigilant in this respect. Patient otherwise is showing no major changes from her neurological examination yesterday. We will continue close neurological follow-up for the patient during this admission. Objective - Vital Signs Vital signs: Vital Signs Temp 98.2 F 09/18/18 15:00 Pulse 76 09/18/18 15:00 Resp 18 09/18/18 15:00 BP 97/64 09/18/18 15:00 Pulse Ox 97 09/18/18 15:00 Intake & Output 09/18/18 09/18/18 09/19/18 06:59 18:59 06:59 Other: Voiding Method Urinal # Voids 2 3 - Exam Physical examination: PHYSICAL EXAMINATION: Patient is resting comfortably in bed. VITAL SIGNS: Blood pressure is [122/84]. Heart rate is [92]. Respiration is [16] . Temperature is [97.7]. HEENT: Head is atraumatic, neck is supple, there were no carotid bruits. CHEST: Lungs are clear to auscultation and percussion. CARDIAC: S1, S2 normal rate and rhythm. There is no murmur. ABDOMEN: Soft and nontender. Bowel sounds are present. EXTREMITIES: There is no pedal edema. Peripheral pulses are present. Neurological examination: Patient's neurological examination is unchanged from yesterday. - Labs CBC & Chem 7: 09/18/18 06:44 09/18/18 06:44 Labs: Abnormal Lab Results - Last 24 Hours (Table) 09/18/18 09/18/18 Range/Units 06:44 06:44 MCV 101.6 H (80.0-100.0) fL Glucose 104 H (74-99) mg/dL Assessment and Plan (1) Generalized seizure Status: Acute Code(s): R56.9 - UNSPECIFIED CONVULSIONS SNOMED Code(s): 292939125 (2) Suicidal ideation Status: Acute Code(s): R45.851 - SUICIDAL IDEATIONS SNOMED Code(s): 9437509 (3) Post-ictal confusion Status: Acute Code(s): F05 - DELIRIUM DUE TO KNOWN PHYSIOLOGICAL CONDITION SNOMED Code(s): 12028953 (4) Bipolar disorder Status: Acute Code(s): F31.9 - BIPOLAR DISORDER, UNSPECIFIED SNOMED Code(s) : 99567466 Plan: This patient is a 47-year-old female who was just recently released from [facility] inpatient psychiatric unit where she is being treated for depression and suicidal thoughts. Patient had a seizure this morning which was witnessed by her daughter lasting 5 minutes in duration. She was brought into the emergency room and was evaluated by Dr. Bonds. She was sent for a computed tomography scan of the brain which revealed no acute intracranial abnormality. She was subsequent admitted to Hospital. Her Dilantin level was checked and was subtherapeutic at 5.9. Keppra level is pending. Patient has a long-standing history of underlying primary generalized epilepsy. She has been noncompliant in taking her anticonvulsive medications. We are recommending the patient to work with the social worker masters and to possibly use a dispenser for the week to lay out all of her anticonvulsive medications. She will bring this up with the social worker masters. Patient also should follow-up with psychiatry. Psychiatry consultation has been requested that she is voiced suicidal ideations. We will continue close monitoring of her condition. We will adjust her Dilantin and Keppra levels once a levels returned from the laboratory. We have recommended that a Psychiatry consult be done for her as she had bipolar disorder and suicidal ideations recently. No further seizures have been reported. Her Dilantin level is now therapeutic and her Keppra level is still pending. Her overall prognosis at this time remains very guarded. We will continue close neurological follow-up for the patient during this admission.
== END 2018-09-19 18:48 | disposition home or self-care (01) ==
LOC: EC 12:08 → 4MS4W 18:19
PROVIDERS: ADMIT Internal Medicine; ATTEND Internal Medicine
DX: G40.409 Other generalized epilepsy and epileptic syndromes, not intractable, without status epilepticus (principal); I25.10 Atherosclerotic heart disease of native coronary artery without angina pectoris; F41.9 Anxiety disorder, unspecified; Z91.14 Patient's other noncompliance with medication regimen; I11.0 Hypertensive heart disease with heart failure; I50.32 Chronic diastolic (congestive) heart failure; F33.2 Major depressive disorder, recurrent severe without psychotic features; R45.851 Suicidal ideations; F79 Unspecified intellectual disabilities; R19.7 Diarrhea, unspecified; I48.91 Unspecified atrial fibrillation; J44.9 Chronic obstructive pulmonary disease, unspecified; E78.5 Hyperlipidemia, unspecified; E03.9 Hypothyroidism, unspecified; M79.10 Myalgia, unspecified site; M54.9 Dorsalgia, unspecified; F22 Delusional disorders; Z59.0 Homelessness; E66.9 Obesity, unspecified; Z68.39 Body mass index [BMI] 39.0-39.9, adult; Z90.49 Acquired absence of other specified parts of digestive tract; Z95.5 Presence of coronary angioplasty implant and graft; F17.200 Nicotine dependence, unspecified, uncomplicated; Z83.3 Family history of diabetes mellitus; Z79.890 Hormone replacement therapy; Z79.899 Other long term (current) drug therapy; Z79.82 Long term (current) use of aspirin; Z88.5 Allergy status to narcotic agent; Z88.0 Allergy status to penicillin; Z88.8 Allergy status to other drugs, medicaments and biological substances; Z63.8 Other specified problems related to primary support group
CPT/HCPCS: 96361 ×4; 96365; 96366 ×2; 96367; 96372 ×2; 96375; 99285; 36415; 95819; 80053; 80048; 80177 ×2; 84443; 82550; 80185 ×2; 83605; 83735; 85025 ×2; 81001; 80306; 83520 ×2; 70450; G0378 ×3; J2060; J1165 ×2; J1644 ×2; J1953 ×3

== ENCOUNTER → 2019-02-02 | Outpatient (CLI) | payer OTHER ==
--- NOTE | 2019-02-03 07:53 | CT ---
EXAMINATION TYPE: CT ankle RT wo con DATE OF EXAM: 02/02/2019 COMPARISON: Right ankle and foot x-ray January 29, 2019 HISTORY: Right ankle and metatarsal joint pain, injury approximately [address] DLP: 244.7 mGycm Automated exposure control for dose reduction was used. CONTRAST: CT right ankle without contrast. FINDINGS: Overlying fiberglass cast material is now present. There is no acute fracture or dislocation in the r ight ankle or hindfoot region. There is redemonstration of acute nondisplaced transverse fracture through base of second metatarsal approximately 1.1 cm distal to the medial cuneiform. There is redemonstration of acute minimally disp laced transverse fracture through base of third metatarsal with 2 to 3 mm lateral step-off of distal fracture fragment, fracture line extends laterally sparing base articulation. There is acute oblique comminuted fracture through base of fourth metatarsal seen best axial image 92 with 2 tiny ossific fr agments noted. Fracture spares the proximal articulation with the cuboid bone. Slight lateral step-of f is noted. Finally there is comminuted acute minimally displaced fracture involving the plantar base of the first metatarsal not as well seen on plain films best seen on sagittal image 44 and axial babatunde ge 86 involving articulation with the medial cuneiform. There is mild to moderate subcutaneous edema along the lateral malleolus with mild subcutaneous edema along the medial malleolus. There is mild/moderate subcutaneous edema along the plantar surface of t he hindfoot. There is moderate to severe subcutaneous edema along the dorsal surface midfoot level th ere fracture sites. IMPRESSION: CONFIRMATION OF ACUTE FRACTURES WITH SLIGHT LATERAL STEP OFF BASE OF THIRD AND FOURTH METATARSALS. CO NFIRMATION OF ACUTE NONDISPLACED TRANSVERSE FRACTURE BASE OF SECOND METATARSAL. THERE IS SPARING OF A RTICULATIONS WITH CUNEIFORMS AND CUBOID BONE. THERE IS ADDITIONAL ACUTE COMMINUTED INTRA-ARTICULAR FR ACTURE THROUGH PLANTAR BASE OF FIRST METATARSAL.
== END | disposition home or self-care (01) ==
LOC: RADCTMAIN 15:53
PROVIDERS: ATTEND Orthopaedic Surgery
DX: S92.324D Nondisplaced fracture of second metatarsal bone, right foot, subsequent encounter for fracture with routine healing (principal); S92.331D Displaced fracture of third metatarsal bone, right foot, subsequent encounter for fracture with routine healing; S92.341D Displaced fracture of fourth metatarsal bone, right foot, subsequent encounter for fracture with routine healing; S92.311D Displaced fracture of first metatarsal bone, right foot, subsequent encounter for fracture with routine healing

== ENCOUNTER 2019-02-15 15:03 | Emergency (ER) | payer OTHER ==
[2019-02-15] MEDS ORDERED: SODIUM CHLORIDE 0.9% 500 ML 500 ML IV STA (16:26)
[2019-02-15] MEDS ORDERED: METOCLOPRAMIDE 5 MG/ML 2 ML VIAL IVP STA (16:26)
[2019-02-15] MEDS ORDERED: HYDROmorphone 0.5 MG/0.5 ML SYRINGE IVP STA (16:26)
--- NOTE | 2019-02-15 16:33 | ED ---
General Adult HPI - General Chief complaint: Headache Stated complaint: Headache Time Seen by Provider: 02/15/19 16:12 Source: patient, family, RN notes reviewed, old records reviewed Mode of arrival: wheelchair Limitations: no limitations - History of Present Illness Initial comments: Chief complaint history of present illness this is a 48-year-old female here with family. Patient reports that over 6 sensation in having a headache. 2 days ago she did take and [place] without significant relief. Also complains of nausea and diarrhea but no vomiting. Patient does have a history of migraines on occasion. 4 times per year. Also history of seizures that are stress induced. Recently she's been having some stress. Patient also reports approximately 3 weeks ago a self fell on her head. Subsequent and at that same time she fell breaking her foot. She was not evaluated for head injury at that time. Denies loss of consciousness at that time. - Related Data Home Medications Medication Instructions Recorded Confirmed Montelukast Sodium [Singulair] 10 mg PO DAILY 06/21/17 02/15/19 Pramipexole [Mirapex] 0.25 mg PO HS 06/21/17 02/15/19 Simvastatin [Zocor] 20 mg PO HS 06/21/17 02/15/19 Gabapentin 600 mg PO QID 10/18/17 02/15/19 Triamterene-Hctz 37.5-25Mg 1 tab PO DAILY 10/18/17 02/15/19 [Maxzide 37.5-25] amLODIPine [Norvasc] 10 mg PO DAILY 10/18/17 02/15/19 Topiramate 50 mg PO BID 12/11/17 02/15/19 ALPRAZolam [Xanax] 0.5 mg PO QID 09/18/18 02/15/19 FLUoxetine HCL [PROzac] 40 mg PO BID 02/15/19 02/15/19 Phenytoin Sodium Extended 200 mg PO DAILY 02/15/19 02/15/19 [Dilantin] Phenytoin Sodium Extended 300 mg PO HS 02/15/19 02/15/19 [Dilantin] levETIRAcetam [Keppra] 750 mg PO BID 02/15/19 02/15/19 Previous Rx's Medication Instructions Recorded QUEtiapine [SEROquel] 200 mg PO HS #30 tab 09/19/18 Hydrocodone/Acetaminophen [[place] 1 each PO Q6HR PRN #10 tab 02/15/19 5-325] Ondansetron Odt [Zofran Odt] 4 mg PO Q8HR PRN #10 tab 02/15/19 Allergies Allergy/AdvReac Type Severity Reaction Status Date / Time ibuprofen [From Motrin] Allergy Rash/Hives Verified 02/15/19 17:40 Latex, Natural Rubber Allergy Unknown Verified 02/15/19 17:40 naproxen [From Naprosyn] Allergy Unknown Verified 02/15/19 17:40 Penicillins Allergy Vomiting Verified 02/15/19 17:40 tramadol Allergy Rash/Hives Verified 02/15/19 17:40 Review of Systems ROS Statement: Those systems with pertinent positive or pertinent negative responses have been documented in the HPI. Review of systems. Patient has a frontal headache. Mild photophobia. Nausea no vomiting. Mild neck discomfort. No meningismus. No chest pain shortness breath GI/ problems denies any neuro deficits. Patient's past medical problems significant for having had a shelf fall on her head 3 weeks ago with no loss of consciousness. Does state that the patient broke her foot. Past medical problems are significant for A. fib without any medications other than aspirin. History of CHF, COPD, stopped smoking 6 months ago. Hyperlipidemia, hypertension and seizure disorder. The seizure disorder is associated with stress. Hypothyroidism. The patient's surgeries include 3 C-sections, cholecystectomy, heart catheterization with 2 stents. Family history, sister had ovarian cancer. Patient denies drinking. As noted above quit smoking 6 months ago. ALLERGIES include ibuprofen, latex, natural rubber, naproxen, penicillins and tramadol. Patient reports that she can take Dilaudid. ROS Other: All systems not noted in ROS Statement are negative. Past Medical History Past Medical History: Atrial Fibrillation, Heart Failure, COPD, Hyperlipidemia, Hypertension, Seizure Disorder, Thyroid Disorder Additional Past Medical History / Comment(s): last seizure - 1 week ago per pt ?? History of Any Multi-Drug Resistant Organisms: None Reported Past Surgical History: Section, Cholecystectomy, Heart Catheterization With Stent Additional Past Surgical History / Comment(s): 2 stents per pt Past Anesthesia/Blood Transfusion Reactions: No Reported Reaction Date of Last Stent Placement:: 2003? Past Psychological History: Anxiety, Bipolar, Depression Smoking Status: Current some day smoker Past Alcohol Use History: None Reported Past Drug Use History: None Reported - Past Family History Father Family Medical History: AFIB Mother Family Medical History: AFIB, Diabetes Mellitus General Exam - General Exam Comments Initial Comments: General: The patient is awake and alert, here for complaint of headache. Nausea no vomiting. Also diarrhea for several days. Vital signs shows temperature 98.3 pulse 82 respiratory rate 16 pulse ox 95% room air blood pressure 123/87 Eye: Pupils are equal, round and reactive to light, extra-ocular movements are intact; there is normal conjunctiva bilaterally. No signs of icterus. Ears, nose, mouth and throat: There are moist mucous membranes and no oral lesions. Neck: The neck is supple, there is no tenderness, no anterior cervical lymphadenopathy. Mild neck discomfort with neck flexion, no meningismus. Cardiovascular: There is a regular rate and rhythm. No murmur, rub or gallop is appreciated. Patient reports history of A. fib. Respiratory: Lungs are clear to auscultation, respirations are non-labored, breath sounds are equal. No wheezes, stridor, rales, or rhonchi. Gastrointestinal: Soft, non-distended, non-tender abdomen without masses or organomegaly noted. There is no rebound or guarding present. No CVA tenderness. Bowel sounds are unremarkable. Back: Denies back pain Musculoskeletal: Normal ROM, no tenderness, There is no pedal edema. There is no calf tenderness or swelling. Sensation intact. There Neurological: CN II-XII intact, There are no obvious motor or sensory deficits. No focal or lateralizing findings. Skin: Skin is warm and dry and no rashes or lesions are noted. Psychiatric: Cooperative, appropriate mood & affect, Limitations: no limitations Course Vital Signs 02/15/19 15:47 Temperature 98.3 F Pulse Rate 82 Respiratory 16 Rate Blood Pressure 123/87 O2 Sat by Pulse 95 Oximetry Medical Decision Making - Medical Decision Making Medical decision making; 48-year-old female complaint of headache for 6 days. Also nausea no vomiting and some diarrhea. Patient states that approximately 3 weeks ago she broke her foot. The same time a shelf fell down and bumped her on the head. She did not seek any treatment for the bump on the head. Denies any loss of consciousness. Labs show white count of 7 hemoglobin 13 hematocrit of 42 with a potassium 3.7. BUN 6 creatinine 0.69 the GFR greater than 90. Glucose 95. Patient had a CAT scan of the brain and cervical spine were done and reviewed by radiologist entire report was reviewed. His final impression is negative CT sca n of the brain. No change compared to old exam. Minor degenerative disc change in the cervical spine. No fracture. As read by Dr. Mancilla Patient states she's feeling much better at this time. The plant this time patient be discharged care of family. Told increase her fluids. Use Pepto-Bism ol for upset stomach. She'll have a refill of one doesn't [place] as which she had run out of. Also Zofran for aches and pains she's to call and follow up with her family physician if the upper persist otherwise return emergency room as needed. - Lab Data Result diagrams: 02/15/19 17:18 02/15/19 17:18 Lab Results 02/15/19 02/15/19 Range/Units 17:18 17:18 WBC 7.0 (3.8-10.6) k/uL RBC 4.31 (3.80-5.40) m/uL Hgb 13.8 (11.4-16.0) gm/dL Hct 42.6 (34.0-46.0) % MCV 99.0 (80.0-100.0) fL MCH 32.1 (25.0-35.0) pg MCHC 32.4 (31.0-37.0) g/dL RDW 15.3 (11.5-15.5) % Plt Count 303 (150-450) k/uL Neutrophils % 55 % Lymphocytes % 35 % Monocytes % 5 % Eosinophils % 2 % Basophils % 1 % Neutrophils # 3.8 (1.3-7.7) k/uL Lymphocytes # 2.4 (1.0-4.8) k/uL Monocytes # 0.4 (0-1.0) k/uL Eosinophils # 0.2 (0-0.7) k/uL Basophils # 0.0 (0-0.2) k/uL Macrocytosis Slight Sodium 141 (137-145) mmol/L Potassium 3.7 (3.5-5.1) mmol/L Chloride 104 (98-107) mmol/L Carbon Dioxide 27 (22-30) mmol/L Anion Gap 10 mmol/L BUN 6 L (7-17) mg/dL Creatinine 0.69 (0.52-1.04) mg/dL Est GFR (CKD-EPI)AfAm >90 (>60 ml/min/1.73 sqM) Est GFR (CKD-EPI)NonAf >90 (>60 ml/min/1.73 sqM) Glucose 95 (74-99) mg/dL Calcium 9.1 (8.4-10.2) mg/dL Total Bilirubin 0.2 (0.2-1.3) mg/dL AST 16 (14-36) U/L ALT 22 (9-52) U/L Alkaline Phosphatase 105 (38-126) U/L Total Protein 7.3 (6.3-8.2) g/dL Albumin 4.0 (3.5-5.0) g/dL Disposition Clinical Impression: Migraine Disposition: HOME SELF-CARE Condition: Fair Instructions (If sedation given, give patient instructions): Migraine Headache (ED) Additional Instructions: Increase fluids, use Pepto-Bismol for loose stool. Use medications as directed. Follow-up with family physician return emergency room as needed. Prescriptions: Hydrocodone/Acetaminophen [[place] 5-325] 1 each PO Q6HR PRN #10 tab PRN Reason: Headache Ondansetron Odt [Zofran Odt] 4 mg PO Q8HR PRN #10 tab PRN Reason: Nausea, vomiting Is patient prescribed a controlled substance at d/c from ED?: Yes When asked, does pt state using other controlled substances?: Yes If prescribed controlled substance>3 days was MAPS reviewed?: No If opioid is for acute pain is fill amount 7 days or less?: Yes If Rx opioid, was Start Talking consent form obtained?: Yes Referrals: Marino Parks MD [Primary Care Provider] - 1-2 days Time of Disposition: 18:11
--- NOTE | 2019-02-15 17:10 | CT ---
EXAMINATION TYPE: CT brain vishal wo con DATE OF EXAM: 02/15/2019 COMPARISON: CT brain 09/17/2018 HISTORY: Head and neck pain post fall with blow to head. CT DLP: 1293 mGycm Automated exposure control for dose reduction was used. TECHNIQUE: CT scan of the head and cervical spine are performed without contrast. FINDINGS: Ventricles and sulci appear normal. There is no mass effect nor midline shift. There is n o sign of intracranial hemorrhage. The calvarium is intact. Cervical vertebra show mild straightening. There is spurring anteriorly at C5-6. Posterior elements a re intact. Facet joints appear intact. The skull base is intact. There is no evidence of cervical spi ne fracture. IMPRESSION: Negative CT scan of the brain. No change compared to old exam. Minor degenerative disc change in the cervical spine. No fracture.
[2019-02-15 17:31] LABS: Basophils % (A) 1 %; Eosinophils # (A) 0.2 k/uL (0-0.7); Eosinophils % (A) 2 %; HCT 42.6 % (34.0-46.0); HGB 13.8 gm/dL (11.4-16.0); Lymphocytes # (A) 2.4 k/uL (1.0-4.8); Lymphocytes % (A) 35 %; MCH 32.1 pg (25.0-35.0); MCHC 32.4 g/dL (31.0-37.0); Macrocytosis Slight; Mean Platelet Volume 7.6; Monocytes # (A) 0.4 k/uL (0-1.0); Monocytes % (A) 5 %; Neutrophils # (A) 3.8 k/uL (1.3-7.7); Neutrophils % (A) 55 %; Platelet Count 303 k/uL (150-450); RBC 4.31 m/uL (3.80-5.40); RDW 15.3 % (11.5-15.5)
[2019-02-15 17:37] LABS: ALT 22 U/L (9-52); AST 16 U/L (14-36); Alkaline Phosphatase 105 U/L (38-126); Anion Gap 10 mmol/L; Blood Urea Nitrogen 6 mg/dL (7-17); Calcium 9.1 mg/dL (8.4-10.2); Carbon Dioxide 27 mmol/L (22-30); Chloride 104 mmol/L (98-107); Glucose 95 mg/dL (74-99); Potassium 3.7 mmol/L (3.5-5.1); Sodium 141 mmol/L (137-145); Total Bilirubin 0.2 mg/dL (0.2-1.3); Total Protein 7.3 g/dL (6.3-8.2)
[2019-02-15 18:31] VITALS: BP 116/68; PULSE 65; RESP 20; TEMP 97.7
== END 2019-02-15 18:30 | disposition home or self-care (01) ==
LOC: EC 15:03
DX: G43.909 Migraine, unspecified, not intractable, without status migrainosus (principal); R19.7 Diarrhea, unspecified; M47.812 Spondylosis without myelopathy or radiculopathy, cervical region; I48.91 Unspecified atrial fibrillation; I11.0 Hypertensive heart disease with heart failure; I50.9 Heart failure, unspecified; E78.5 Hyperlipidemia, unspecified; G40.909 Epilepsy, unspecified, not intractable, without status epilepticus; E07.9 Disorder of thyroid, unspecified; F31.9 Bipolar disorder, unspecified; F41.9 Anxiety disorder, unspecified; F17.200 Nicotine dependence, unspecified, uncomplicated; Z79.899 Other long term (current) drug therapy; Z88.0 Allergy status to penicillin; Z88.5 Allergy status to narcotic agent; Z88.6 Allergy status to analgesic agent; Z91.040 Latex allergy status; Z95.1 Presence of aortocoronary bypass graft
CPT/HCPCS: 36415; 80053; 85025; 72125; 70450; 99284; 96374; 96375; 96361; J2765; J1170

== ENCOUNTER 2019-03-25 13:07 | Emergency (ER) | payer OTHER ==
--- NOTE | 2019-03-25 13:20 | ED ---
Fall HPI - General Chief Complaint: Fall Stated Complaint: Fall Time Seen by Provider: 03/25/19 13:09 Source: EMS Mode of arrival: EMS - History of Present Illness Initial Comments: 48-year-old female presenting today for chief complaint of fall. Patient has history of hypertension. She denies any anticoagulation use. Patient states she was shaving her legs in the shower just prior to arrival when she lost her balance she states he attempted to grab the shower chair however this tipped over. She states that she fell onto her right leg which had a recent right ankle fracture as well as foot. She states she had taken or air-fluid off for showering. Orthopedic surgeon Dr. Rodriguez manages care of fracture. Patient states the right lower extremity where under her bottom. She states that she fell onto her butt and hit her head on a edge of plastic toilet. Patient denies loss of consciousness. Patient states that she has some low back pain and pain in the right ankle she states she does have a dull aching headache she denies any visual changes nausea vomiting sensation deficits voice changes or speech changes she denies any weakness of the upper or lower extremities or numbness. Patient denies any chest pain shortness of breath dizziness prior to falling. She states it's because she leaned forward too far. Remaining review of system negative. Patient was brought to the emergency department via EMS. - Related Data Home Medications Medication Instructions Recorded Confirmed Montelukast Sodium [Singulair] 10 mg PO DAILY 06/21/17 02/15/19 Pramipexole [Mirapex] 0.25 mg PO HS 06/21/17 02/15/19 Simvastatin [Zocor] 20 mg PO HS 06/21/17 02/15/19 Gabapentin 600 mg PO QID 10/18/17 02/15/19 Triamterene-Hctz 37.5-25Mg 1 tab PO DAILY 10/18/17 02/15/19 [Maxzide 37.5-25] amLODIPine [Norvasc] 10 mg PO DAILY 10/18/17 02/15/19 Topiramate 50 mg PO BID 12/11/17 02/15/19 ALPRAZolam [Xanax] 0.5 mg PO QID 09/18/18 02/15/19 FLUoxetine HCL [PROzac] 40 mg PO BID 02/15/19 02/15/19 Phenytoin Sodium Extended 200 mg PO DAILY 02/15/19 02/15/19 [Dilantin] Phenytoin Sodium Extended 300 mg PO HS 02/15/19 02/15/19 [Dilantin] levETIRAcetam [Keppra] 750 mg PO BID 02/15/19 02/15/19 Previous Rx's Medication Instructions Recorded QUEtiapine [SEROquel] 200 mg PO HS #30 tab 09/19/18 Hydrocodone/Acetaminophen [[place]abella 1 each PO Q6HR PRN #10 tab 02/15/19 5-325] Ondansetron Odt [Zofran Odt] 4 mg PO Q8HR PRN #10 tab 02/15/19 Allergies Allergy/AdvReac Type Severity Reaction Status Date / Time ibuprofen [From Motrin] Allergy Rash/Hives Verified 03/25/19 13:19 Latex, Natural Rubber Allergy Unknown Verified 03/25/19 13:19 naproxen [From Naprosyn] Allergy Unknown Verified 03/25/19 13:19 Penicillins Allergy Vomiting Verified 03/25/19 13:19 tramadol Allergy Rash/Hives Verified 03/25/19 13:19 Review of Systems ROS Statement: Those systems with pertinent positive or pertinent negative responses have been documented in the HPI. ROS Other: All systems not noted in ROS Statement are negative. Past Medical History Past Medical History: Atrial Fibrillation, Heart Failure, COPD, Hyperlipidemia, Hypertension, Seizure Disorder, Thyroid Disorder Additional Past Medical History / Comment(s): last seizure - 1 week ago per pt ?? History of Any Multi-Drug Resistant Organisms: None Reported Past Surgical History: Section, Cholecystectomy, Heart Catheterization With Stent Additional Past Surgical History / Comment(s): 2 stents per pt Past Anesthesia/Blood Transfusion Reactions: No Reported Reaction Date of Last Stent Placement:: 2003? Past Psychological History: Anxiety, Bipolar, Depression Smoking Status: Current some day smoker Past Alcohol Use History: None Reported Past Drug Use History: None Reported - Past Family History Father Family Medical History: AFIB Mother Family Medical History: AFIB, Diabetes Mellitus General Exam - General Exam Comments Initial Comments: General: The patient is awake and alert, in no distress, and does not appear acutely ill. Eye: +3 mm pupils are equal, round and reactive to light, extra-ocular movements are intact. No nystagmus. There is normal conjunctiva bilaterally. No signs of icterus. Ears, nose, mouth and throat: There are moist mucous membranes and no oral lesions. Neck: The neck is supple, there is no tenderness or JVD. Cardiovascular: There is a regular rate and rhythm. No murmur, rub or gallop is appreciated. Respiratory: Lungs are clear to auscultation, respirations are non-labored, breath sounds are equal. No wheezes, stridor, rales, or rhonchi. Gastrointestinal: Soft, non-distended, non-tender abdomen without masses or organomegaly noted. There is no rebound or guarding present. No CVA tenderness. Bowel sounds are unremarkable. Musculoskeletal: Normal ROM at the hips, ankle, knees b/l, tenderness with ROM at the right ankle, pt denies pain to palpation of the foot, or point tenderness of ankle. (-) log roll b/l. Strength 5/5. Sensation intact. DP pulses equal bilaterally 2+. No midline tenderness to palpation of the cervical spine with full range of motion with for flexion-extension lateral flexion and rotation. Paravertebral tenderness noted no midline Neurological: A&O x 3. CN II-XII intact, There are no obvious motor or sensory deficits. Coordination appears grossly intact. Speech is normal. Skin: Skin is warm and dry and no rashes or lesions are noted. Psychiatric: Cooperative, appropriate mood & affect, normal judgment. Limitations: no limitations Course Vital Signs 03/25/19 13:15 Temperature 99.0 F Pulse Rate 88 Respiratory 16 Rate Blood Pressure 121/75 O2 Sat by Pulse 94 L Oximetry Medical Decision Making - Medical Decision Making Well-appearing 48-year-old female presenting today for chief complaint of fall. Patient had a head injury. Patient does not have evidence of abrasions lacerations of the scalp. No hematomas, contusions. Patient has no midline tenderness to palpation of the cervical spine. Able to fully range the cervical spine without difficulty or complaints of pain. Patient amidst the low back pain. There is very mild midline tenderness to patient the lumbar spine. However most the pain is paravertebral. Patient is no tenderness to patient the foot. Patient does admit to tenderness to palpation of the right ankle with pain with range of motion. Patient states she had a previous ankle injury. Patient states she has a follow-up appointment with Dr. Rodriguez wednesday. Imaging studies reveal no acute osseous injury. CT of the brain and cervical spine revealed no acute intracranial or cervical spine injury. Patient is neurovascularly intact. There are no focal neurological deficits. Patient appears well. Patient states she takes Isabella at home for pain and has not taken one today requesting this for pain management. Patient is provided a Isabella 10. This time after discussed the case attending provider Dr. Coburn we feel pt is stable for discharge with outpatient orthopedic evaluation. pt is to continue to use boot. Return parameters were discussed with patient patient and patient verbalizes understanding. Patient is discharged appearing well. Disposition Clinical Impression: Fall, Ankle pain, Head injury, Low back pain Disposition: HOME SELF-CARE Condition: Good Instructions (If sedation given, give patient instructions): Head Injury (ED), Low Back Strain (ED) Additional Instructions: Please use medication as discussed. Please follow-up with family doctor in the next 2 days, and orthopedic surgery on Wednesday as scheduled. Please return to emergency room if the symptoms increase or worsen or for any other concerns. Is patient prescribed a controlled substance at d/c from ED?: No Referrals: Marino Parks MD [Primary Care Provider] - 1-2 days Time of Disposition: 15:23
--- NOTE | 2019-03-25 14:24 | CT ---
EXAMINATION TYPE: CT brain komaline wo con DATE OF EXAM: 03/25/2019 COMPARISON: 02/15/2019 HISTORY: Fall in shower with subsequent head and neck pain. CT DLP: 1704.2 mGycm. Automated Exposure Control for Dose Reduction was Utilized. TECHNIQUE: CT scan of the head and cervical spine are performed without contrast. FINDINGS: There is no acute intracranial hemorrhage, mass effect, or midline shift identified. The ventricles and sulci are within normal limits in size. The globes are intact and the visualized sin uses are clear other than very scant mucosal thickening of the ethmoid sinuses. Cervical spine is visualized in its entirety from C1 through upper thoracic levels and demonstrates s atisfactory alignment without evidence of acute fracture or dislocation. Again there is very minimal degenerative disc disease at C5-C6. Prevertebral soft tissue appears within normal limits. The C1-C2 articulation is unremarkable. IMPRESSION: 1. There is no acute fracture or dislocation evident in the cervical spine. 2. No acute intracranial hemorrhage, mass effect, or midline shift is seen.
--- NOTE | 2019-03-25 15:04 | XR ---
EXAMINATION TYPE: XR ankle complete RT DATE OF EXAM: 03/25/2019 CLINICAL HISTORY: Ankle pain TECHNIQUE: Frontal, lateral and oblique images of the right ankle are obtained. COMPARISON: 01/29/2019 FINDINGS: There is no acute fracture/dislocation evident in the right ankle. The ankle mortise appe ars within normal limits. The overlying soft tissue demonstrate mild soft tissue swelling around ank le joint. Small plantar heel spur is noted. IMPRESSION: Mild soft tissue swelling as seen on the prior of 01/29/2019 with no acute fracture or dis location in the right ankle.
--- NOTE | 2019-03-25 15:05 | XR ---
EXAMINATION TYPE: XR lumbar spine 2 or 3V DATE OF EXAM: 03/25/2019 CLINICAL HISTORY: Back pain after fall TECHNIQUE: Frontal and lateral images of the lumbar spine are obtained. COMPARISON: None FINDINGS: There are 5 lumbar type vertebral bodies identified. The lumbar spine shows satisfactory alignment without evidence of acute fracture or dislocation. Vertebral body heights and disk space he ights are within normal limits. Mild degenerative changes are seen of the lumbar spine as there is fa cet arthropathy at L4-5 and L5-S1 Cholecystectomy clips are noted. The overlying soft tissue appears unremarkable. IMPRESSION: No acute fracture or malalignment is seen in the lumbar spine.
--- NOTE | 2019-03-25 15:06 | XR ---
EXAMINATION TYPE: XR Hip Bilateral and AP pelvis DATE OF EXAM: 03/25/2019 COMPARISON: 06/21/2017 HISTORY: Pelvic pain and hip pain after fall TECHNIQUE: A single AP view of the pelvis is obtained. Two views of the bilateral hips were obtained. FINDINGS: There is no acute fracture/dislocation evident in the pelvis. The hip and sacroiliac join ts appear symmetric and unremarkable. The overlying soft tissue appears unremarkable. Two views of both hips show no acute fracture or dislocation. No focal lytic or sclerotic lesion see n in either proximal femur. The overlying soft tissue is unremarkable. IMPRESSION: There is no acute fracture or dislocation in the pelvis or either hip.
[2019-03-25] MEDS ORDERED: HYDROcodone/APAP 10-325MG 1 EACH TAB PO ONE (15:22)
[2019-03-25 15:56] VITALS: BP 130/87; PULSE 87; RESP 18; TEMP 98
== END 2019-03-25 15:55 | disposition home or self-care (01) ==
LOC: EC 13:07
DX: S09.90XA Unspecified injury of head, initial encounter (principal); M54.5 Low back pain; M25.571 Pain in right ankle and joints of right foot; G40.909 Epilepsy, unspecified, not intractable, without status epilepticus; I11.0 Hypertensive heart disease with heart failure; I50.9 Heart failure, unspecified; E78.5 Hyperlipidemia, unspecified; F41.9 Anxiety disorder, unspecified; F31.9 Bipolar disorder, unspecified; F17.200 Nicotine dependence, unspecified, uncomplicated; Z79.899 Other long term (current) drug therapy; Z88.0 Allergy status to penicillin; Z88.6 Allergy status to analgesic agent; Z91.040 Latex allergy status; Z91.048 Other nonmedicinal substance allergy status; Z88.5 Allergy status to narcotic agent; W01.198A Fall on same level from slipping, tripping and stumbling with subsequent striking against other object, initial encounter; Y93.E1 Activity, personal bathing and showering; Y92.002 Bathroom of unspecified non-institutional (private) residence as the place of occurrence of the external cause
CPT/HCPCS: 70450; 72100; 72125; 73521; 99284

== ENCOUNTER 2019-06-01 11:18 | Observation (INO) | payer OTHER ==
[2019-06-01] MEDS ORDERED: SODIUM CHLORIDE 0.9% 1,000 ML IV STA (11:40)
[2019-06-01] MEDS ORDERED: ASPIRIN 81 MG PO STA (11:40)
[2019-06-01] MEDS ORDERED: diphenhydrAMINE 50 MG/ML 1 ML VIAL IVP STA (11:43)
[2019-06-01] MEDS ORDERED: ONDANSETRON 4 MG/2 ML VIAL IVP STA (11:43)
--- NOTE | 2019-06-01 11:46 | ED ---
General Adult HPI - General Chief complaint: Chest Pain Stated complaint: chest pain, SOB Time Seen by Provider: 06/01/19 11:24 Source: patient Mode of arrival: wheelchair Limitations: no limitations - History of Present Illness Initial comments: Dictation was produced using [employer] dictation software. please excuse any grammatical, word or spelling errors. Chief Complaint: 48-year-old female past medical history of heart failure A. fib dyslipidemia hypertension presents with chest pain. History of Present Illness: Patient is a 48-year-old female presents today with chest pain she described the pain as substernal chest pressure. She states it radiates to the left upper extremity. No associated diaphoresis. She describes it as a pressure-like sensation to her chest. No radiation to the jaw no diaphoresis. Patient has a history of atrial fibrillation. She states she had a stress test several years ago. She has no known history of coronary artery disease. Patient states that this pain awoke her from sleep. She has mild shortness of breath as well. She denies any anticoagulation medications at this time. She does have history of seizure bipolar disorder. Denies any Judi symptoms. No history of DVT or thromboembolism. The ROS documented in this emergency department record has been reviewed and confirmed by me. Those systems with pertinent positive or negative responses have been documented in the HPI. All other systems are other negative and/or noncontributory. PHYSICAL EXAM: General Impression: Alert and oriented x3, not in acute distress HEENT: Normocephalic atraumatic, extra-ocular movements intact, pupils equal and reactive to light bilaterally, mucous membranes moist. Cardiovascular: Heart regular rate and rhythm, S1&S2 audible, no murmurs, rubs or gallops Chest: Lungs clear to auscultation bilaterally, no rhonchi, no wheeze, no rales Abdomen: Bowel sounds present, abdomen soft, non-tender, non-distended, no organomegaly Musculoskeletal: Pulses present and equal in all extremities, no peripheral edema Motor: no focal deficits noted Neurological: CN II-XII grossly intact, no focal motor or sensory deficits noted Skin: Intact with no visualized rashes Psych: Normal affect and mood ED course: 48 yoFemale presents with atypical chest pain with typical features. Patient does have multiple risk factors. On arrival are within acceptable limits. Patient is well-appearing this time. Patient was observed in emergency department for several minutes. She is reevaluated continues complaining of some chest pressure. She does. Comfortable at this time. Laboratory evaluation obtained. CBC, coag panel unremarkable. Metabolic panel is negative. Cardiac enzymes negative. Chest x- ray shows cardiomegaly however no other acute processes noted. Patient given headache cocktail after request for treatment of headache. She normally has headaches that are similar to this. She also requests for anxiety. She is given oral Xanax. Clinical presentation there is very low suspicion of pulmonary embolus given that patient is not tachycardic has normal blood press ure and is not hypoxic, and has no lower extremity symptoms. Patient be admitted to Dr. Aponte for serial troponins and cardiology consultation. EKG interpretation: Ventricular rate 74, normal sinus rhythm, HI interval 170, care is 80, QTc 463. No HI prolongation, no QTC prolongation, no ST or T-wave changes noted. EKG compared to 12/11/2017 showing no changes. Overall, this EKG is unremarkable - Related Data Home Medications Medication Instructions Recorded Confirmed Montelukast Sodium [Singulair] 10 mg PO DAILY 06/21/17 06/01/19 Pramipexole [Mirapex] 0.25 mg PO HS 06/21/17 06/01/19 Simvastatin [Zocor] 20 mg PO HS 06/21/17 06/01/19 Gabapentin 600 mg PO QID 10/18/17 06/01/19 Triamterene-Hctz 37.5-25Mg 1 tab PO DAILY 10/18/17 06/01/19 [Maxzide 37.5-25] amLODIPine [Norvasc] 10 mg PO DAILY 10/18/17 06/01/19 Topiramate 50 mg PO BID 12/11/17 06/01/19 ALPRAZolam [Xanax] 0.5 mg PO QID 09/18/18 06/01/19 FLUoxetine HCL [PROzac] 40 mg PO BID 02/15/19 06/01/19 Phenytoin Sodium Extended 200 mg PO DAILY 02/15/19 06/01/19 [Dilantin] Phenytoin Sodium Extended 300 mg PO HS 02/15/19 06/01/19 [Dilantin] levETIRAcetam [Keppra] 750 mg PO BID 02/15/19 06/01/19 Albuterol Inhaler [Ventolin Hfa 2 puff INHALATION RT-Q6H PRN 06/01/19 06/01/19 Inhaler] Hydrocodone/Acetaminophen [[place] 1 tab PO Q6HR PRN 06/01/19 06/01/19 5-325] busPIRone HCL 15 mg PO TID 06/01/19 06/01/19 Previous Rx's Medication Instructions Recorded QUEtiapine [SEROquel] 200 mg PO HS #30 tab 09/19/18 Allergies Allergy/AdvReac Type Severity Reaction Status Date / Time ibuprofen [From Motrin] Allergy Rash/Hives Verified 06/01/19 12:13 Latex, Natural Rubber Allergy Unknown Verified 06/01/19 12:13 naproxen [From Naprosyn] Allergy Unknown Verified 06/01/19 12:13 tramadol Allergy Rash/Hives Verified 06/01/19 12:13 Penicillins AdvReac Vomiting Verified 06/01/19 12:13 Review of Systems ROS Statement: Those systems with pertinent positive or pertinent negative responses have been documented in the HPI. ROS Other: All systems not noted in ROS Statement are negative. Past Medical History Past Medical History: Atrial Fibrillation, Heart Failure, COPD, Hyperlipidemia, Hypertension, Seizure Disorder, Thyroid Disorder Additional Past Medical History / Comment(s): last seizure - 1 week ago per pt ?? History of Any Multi-Drug Resistant Organisms: None Reported Past Surgical History: Section, Cholecystectomy, Heart Catheterization With Stent Additional Past Surgical History / Comment(s): 2 stents per pt Past Anesthesia/Blood Transfusion Reactions: No Reported Reaction Date of Last Stent Placement:: 2003? Past Psychological History: Anxiety, Bipolar, Depression Smoking Status: Current some day smoker Past Alcohol Use History: None Reported Past Drug Use History: None Reported - Past Family History Father Family Medical History: AFIB Mother Family Medical History: AFIB, Diabetes Mellitus General Exam Limitations: no limitations Course Vital Signs 06/01/19 11:20 Temperature 98.3 F Pulse Rate 85 Respiratory 20 Rate Blood Pressure 126/88 O2 Sat by Pulse 99 Oximetry Medical Decision Making - Lab Data Result diagrams: 06/01/19 12:10 06/01/19 12:10 Lab Results 06/01/19 06/01/19 06/01/19 Range/Units 12:10 12:10 12:10 WBC 6.4 (3.8-10.6) k/uL RBC 4.52 (3.80-5.40) m/uL Hgb 14.7 (11.4-16.0) gm/dL Hct 45.2 (34.0-46.0) % MCV 100.0 (80.0-100.0) fL MCH 32.5 (25.0-35.0) pg MCHC 32.5 (31.0-37.0) g/dL RDW 14.9 (11.5-15.5) % Plt Count 328 (150-450) k/uL Neutrophils % 70 % Lymphocytes % 21 % Monocytes % 5 % Eosinophils % 1 % Basophils % 0 % Neutrophils # 4.5 (1.3-7.7) k/uL Lymphocytes # 1.3 (1.0-4.8) k/uL Monocytes # 0.4 (0-1.0) k/uL Eosinophils # 0.1 (0-0.7) k/uL Basophils # 0.0 (0-0.2) k/uL Macrocytosis Slight PT 10.6 (9.0-12.0) sec INR 1.0 (<1.2) APTT 25.8 (22.0-30.0) sec Sodium 141 (137-145) mmol/L Potassium 4.1 (3.5-5.1) mmol/L Chloride 104 (98-107) mmol/L Carbon Dioxide 27 (22-30) mmol/L Anion Gap 10 mmol/L BUN 8 (7-17) mg/dL Creatinine 0.70 (0.52-1.04) mg/dL Est GFR (CKD-EPI)AfAm >90 (>60 ml/min/1.73 sqM) Est GFR (CKD-EPI)NonAf >90 (>60 ml/min/1.73 sqM) Glucose 115 H (74-99) mg/dL Calcium 9.6 (8.4-10.2) mg/dL Magnesium 1.9 (1.6-2.3) mg/dL Total Bilirubin 0.3 (0.2-1.3) mg/dL AST 25 (14-36) U/L ALT 24 (9-52) U/L Alkaline Phosphatase 116 (38-126) U/L Troponin I (0.000-0.034) ng/mL Total Protein 7.6 (6.3-8.2) g/dL Albumin 4.3 (3.5-5.0) g/dL Lipase 91 (23-300) U/L 06/01/19 Range/Units 12:10 WBC (3.8-10.6) k/uL RBC (3.80-5.40) m/uL Hgb (11.4-16.0) gm/dL Hct (34.0-46.0) % MCV (80.0-100.0) fL MCH (25.0-35.0) pg MCHC (31.0-37.0) g/dL RDW (11.5-15.5) % Plt Count (150-450) k/uL Neutrophils % % Lymphocytes % % Monocytes % % Eosinophils % % Basophils % % Neutrophils # (1.3-7.7) k/uL Lymphocytes # (1.0-4.8) k/uL Monocytes # (0-1.0) k/uL Eosinophils # (0-0.7) k/uL Basophils # (0-0.2) k/uL Macrocytosis PT (9.0-12.0) sec INR (<1.2) APTT (22.0-30.0) sec Sodium (137-145) mmol/L Potassium (3.5-5.1) mmol/L Chloride (98-107) mmol/L Carbon Dioxide (22-30) mmol/L Anion Gap mmol/L BUN (7-17) mg/dL Creatinine (0.52-1.04) mg/dL Est GFR (CKD-EPI)AfAm (>60 ml/min/1.73 sqM) Est GFR (CKD-EPI)NonAf (>60 ml/min/1.73 sqM) Glucose (74-99) mg/dL Calcium (8.4-10.2) mg/dL Magnesium (1.6-2.3) mg/dL Total Bilirubin (0.2-1.3) mg/dL AST (14-36) U/L ALT (9-52) U/L Alkaline Phosphatase (38-126) U/L Troponin I <0.012 (0.000-0.034) ng/mL Total Protein (6.3-8.2) g/dL Albumin (3.5-5.0) g/dL Lipase (23-300) U/L Disposition Clinical Impression: Chest pain Disposition: ADMITTED IP TO THIS HOSP Condition: Fair Referrals: Marino Parks MD [Primary Care Provider] - 1-2 days Decision Time: 13:17
[2019-06-01 12:30] LABS: Basophils % (A) 0 %; Eosinophils # (A) 0.1 k/uL (0-0.7); Eosinophils % (A) 1 %; HCT 45.2 % (34.0-46.0); HGB 14.7 gm/dL (11.4-16.0); Lymphocytes # (A) 1.3 k/uL (1.0-4.8); Lymphocytes % (A) 21 %; MCH 32.5 pg (25.0-35.0); MCHC 32.5 g/dL (31.0-37.0); Macrocytosis Slight; Mean Platelet Volume 7.2; Monocytes # (A) 0.4 k/uL (0-1.0); Monocytes % (A) 5 %; Neutrophils # (A) 4.5 k/uL (1.3-7.7); Neutrophils % (A) 70 %; Platelet Count 328 k/uL (150-450); RBC 4.52 m/uL (3.80-5.40); RDW 14.9 % (11.5-15.5); WBC 6.4 k/uL (3.8-10.6)
[2019-06-01 12:44] LABS: ALT 24 U/L (9-52); AST 25 U/L (14-36); African American GFR (CKD) >90 (>60 ml/min/1.73 sqM); Albumin 4.3 g/dL (3.5-5.0); Alkaline Phosphatase 116 U/L (38-126); Anion Gap 10 mmol/L; Blood Urea Nitrogen 8 mg/dL (7-17); Calcium 9.6 mg/dL (8.4-10.2); Carbon Dioxide 27 mmol/L (22-30); Chloride 104 mmol/L (98-107); Glucose 115 mg/dL (74-99); Magnesium 1.9 mg/dL (1.6-2.3); Potassium 4.1 mmol/L (3.5-5.1); Sodium 141 mmol/L (137-145); Total Bilirubin 0.3 mg/dL (0.2-1.3); Total Protein 7.6 g/dL (6.3-8.2)
--- NOTE | 2019-06-01 12:46 | XR ---
EXAMINATION TYPE: XR chest 2V DATE OF EXAM: 06/01/2019 COMPARISON: Chest x-ray December 11, 2017 HISTORY: Chest pain and shortness of breath TECHNIQUE: Frontal and lateral views of the chest are obtained. FINDINGS: Overlying EKG leads are redemonstrated. Some eventration of right hemidiaphragm is again se en. There is no focal air space opacity, pleural effusion, or pneumothorax seen. The cardiac silhoue tte size is now enlarged. The osseous structures are intact. IMPRESSION: Cardiomegaly without acute pulmonary process.
[2019-06-01 12:50] LABS: Partial Thromboplastin Time 25.8 sec (22.0-30.0); Prothrombin Time 10.6 sec (9.0-12.0)
[2019-06-01] MEDS ORDERED: ALPRAZolam 0.25 MG TAB PO STA (13:15)
[2019-06-01] MEDS ORDERED: NITROGLYCERIN SL TABS 0.4 MG TAB SUBLINGUAL PRN (13:17)
[2019-06-01] MEDS ORDERED: MORPHINE SULFATE 4 MG/ML SYRINGE IVP STA (13:51)
[2019-06-01 15:02] VITALS: BMI 45.8
[2019-06-01] MEDS ORDERED: ACETAMINOPHEN TAB 325 MG TAB PO PRN (18:00)
[2019-06-01] MEDS ORDERED: ALBUTEROL NEBULIZED 2.5 MG/3 ML INHALATION PRN (18:08)
[2019-06-01] MEDS ORDERED: HYDROcodone/APAP 5-325MG 1 EACH TAB PO PRN (18:08)
[2019-06-01] MEDS: ALPRAZolam 0.5 MG TAB PO SCH ×2 (18:09→20:25)
[2019-06-01] MEDS: GABAPENTIN 300 MG CAP PO SCH ×2 (18:09→20:25)
[2019-06-01] MEDS: FLUoxetine HCL 20 MG CAP PO SCH (20:24)
[2019-06-01] MEDS: TOPIRAMATE 25 MG TAB PO SCH (20:25)
[2019-06-01] MEDS: busPIRone HCl 5 MG TAB PO SCH (20:25)
[2019-06-01] MEDS ORDERED: ATORVASTATIN 10 MG TAB PO SCH (21:00)
[2019-06-01] MEDS ORDERED: QUEtiapine 200 MG TAB PO SCH (21:00)
[2019-06-01] MEDS ORDERED: PRAMIPEXOLE 0.25 MG TAB PO SCH (21:00)
[2019-06-01] MEDS ORDERED: PHENYTOIN SODIUM EXTENDED 100 MG CAP PO SCH (21:00)
--- NOTE | 2019-06-01 22:28 | HP ---
HISTORY AND PHYSICAL CHIEF COMPLAINT: Chest pain. HISTORY OF PRESENT ILLNESS: This is the first known admission from the for this 48-year-old white female. She recently moved in the area. Apparently she has a history of heart disease with a history of atrial fibrillation. She also has history of hypertension, hyperlipidemia and COPD. She came to the emergency room with anterior chest pain which she describes as feeling like a heaviness or pressure radiating up into the base of the neck on the left and out into the left arm and the back. She states she was somewhat clammy and short of breath. Studies in the ER were unremarkable. REVIEW OF SYSTEMS: She has had no syncope, neurologic problems, change in vision or hearing, cough, hemoptysis, sputum production, pleurisy, orthopnea, PND, murmurs, rheumatic fever, history of angina or infarctions, abdominal pain, nausea, vomiting, hematemesis, melena, hematochezia, colitis, diverticulosis, diverticulitis, hemorrhoids, jaundice, hepatitis, cirrhosis, hematuria, frequency, urgency, renal failure, arthralgias, diabetes, etc. Past medical history, family history, personal and social histories reveal that she is ALLERGIC to NSAIDs, LASIX, AND PENICILLIN. Surgically she has had 3 C sections, tubal ligation and cholecystectomy. She does smoke about a quarter of a pack of cigarettes a day. She is not on an anticoagulant. PHYSICAL EXAMINATION: Blood pressure is 126/86, pulse 71 regular, respirations 16 and she is afebrile. In general, she appeared to be overweight in no acute distress. Skin color is normal. Skin is warm, dry. Lymph nodes not enlarged. Head, ears, eyes, nose, mouth, and throat were normal. Neck veins are not distended. Carotids are normal. There is no thyromegaly. Chest is clear to auscultation and percussion. Cardiac exam demonstrated normal sinus rhythm and no murmurs or extra sounds. Abdomen is protuberant, soft, nontender without visceromegaly or masses. Bowel sounds are present. Extremities: Normal. Neurologically she is intact. She is admitted to the hospital at this time with diagnoses of: 1. Chest pain. 2. History of atrial fibrillation. 3. History of hypertension. 4. History of hyperlipidemia. 5. History of seizure disorder. 6. History of bipolar depression. 7. History of chronic obstructive pulmonary disease. 8. History of hypothyroidism. PLAN: 1. Bed rest. 2. IV fluids. 3. Serial EKGs and enzymes. 4. Cardiology consult. AMAURY / ANGELA: [id number] /
[2019-06-02 04:25] LABS: Cholesterol 167 mg/dL (<200); HDL Cholesterol 44 mg/dL (40-60); LDL Cholesterol,Calculated 90 mg/dL (0-99); Triglycerides 163 mg/dL (<150)
[2019-06-02] MEDS: ALPRAZolam 0.5 MG TAB PO SCH ×2 (06:59→12:49)
[2019-06-02 07:34] VITALS: BP 109/71; PULSE 79; RESP 15; TEMP 97.9
--- NOTE | 2019-06-02 07:45 | CONS ---
CONSULTATION Niurka is a 48-year-old obese lady with a history of hypertension, hyperlipidemia, seizure disorder, who sees a physician out of this area. She has hypertension, seizure disorder, takes Dilantin. She also has bronchial asthma. She comes into the hospital mainly with complaints of having a sharp discomfort in her chest. She describes it as substernal discomfort that seemed to go to the left upper extremity, sharp in nature, comes and goes and sometimes she felt like a pressure-like sensation. There is a questionable history of atrial fibrillation, but she is unable to give me much information. About 5-6 years ago she had a negative stress test. She has no known CAD. She does have history of seizures, bipolar disorder. She is asymptomatic at the time of my evaluation. She also probably has some hypothyroidism, but TSH level is normal on this admission. When I questioned her further, she explained to me that she has some tenderness over the left breast area. I was able to elicit tenderness and the similar pain is what she is experiencing. She does not recall doing any activity with the left arm. She does not think she pulled a muscle, but she is not sure. She is asymptomatic at the time of my evaluation. PAST MEDICAL HISTORY: 1. History of seizure disorder. 2. Bipolar disorder. 3. History of some thyroid issues. Details are unclear. She has obesity. She currently smokes on a regular basis at least a pack a day or more. She does not use alcohol. MEDICATIONS: At home include Keppra, Dilantin, [place], Ventolin inhaler, simvastatin 20 mg daily, Xanax, amlodipine 10 mg daily, and Singulair 10 mg daily. LABORATORY DATA: Suggests that all troponins are normal. Her LDL cholesterol is unremarkable. TSH level is normal. D-dimer is normal. PHYSICAL EXAMINATION: Blood pressure is 130/70, pulse rate is 70 per minute, regular. HEENT: Unremarkable. Fundus was not examined by me. Neck is supple. No JVD. I do not hear a carotid bruit. Heart exam reveals S1, S2 heard normally. There is tenderness over the left anterior chest. Lungs reveal bilateral scattered rhonchi. Abdomen is soft, nontender. Lower extremities reveal normal pulses. No edema. Central nervous system is grossly within normal limits. EKG revealed sinus mechanism. No significant abnormalities. IMPRESSION: 1. Atypical chest pain. 2. Hypertension. 3. History of seizure disorder. 4. History of obesity. 5. History of possible bipolar disorder. RECOMMENDATIONS: From a cardiac standpoint no intervention is necessary. I am recommending some subcu heparin. Will increase activity and she can be discharged and when her anterior chest wall discomfort resolves, which seems to be nonsteroidal, which may benefit from nonsteroidal anti-inflammatory agents. She can have a stress test as an outpatient. Her current hospitalization is an atypical chest pain, probably musculoskeletal with tenderness, normal EKG, troponin and D-dimer. She can be discharged and have stress test as an outpatient. Will place her on subcu heparin. Thank you very much for the consult. MMODL / IJN: [id number] /
[2019-06-02] MEDS ORDERED: HEPARIN SODIUM,PORCINE 5,000 UNIT/ML 1 ML VIAL SQ SCH (08:00)
[2019-06-02] MEDS: TOPIRAMATE 25 MG TAB PO SCH (08:44)
[2019-06-02] MEDS: busPIRone HCl 5 MG TAB PO SCH (08:44)
[2019-06-02] MEDS: GABAPENTIN 300 MG CAP PO SCH ×2 (08:45→12:49)
[2019-06-02] MEDS: FLUoxetine HCL 20 MG CAP PO SCH (08:45)
[2019-06-02] MEDS ORDERED: ASPIRIN 325 MG TAB PO SCH (09:00)
[2019-06-02] MEDS ORDERED: TRIAMTERENE-HCTZ 37.5-25MG 1 EACH TAB PO SCH (09:00)
[2019-06-02] MEDS ORDERED: amLODIPine 10 MG TAB PO SCH (09:00)
[2019-06-02] MEDS ORDERED: MONTELUKAST 10 MG TAB PO SCH (09:00)
[2019-06-02] MEDS ORDERED: PHENYTOIN SODIUM EXTENDED 100 MG CAP PO SCH (09:00)
--- NOTE | 2019-06-02 23:25 | DS ---
DISCHARGE SUMMARY CHIEF COMPLAINT: Chest pain. HISTORY OF PRESENT ILLNESS AND PHYSICAL EXAM: Details of this lady's history and physical can be found in the initial workup. LABORATORY STUDIES: While she was in the hospital, she had laboratory studies, details of which can be found in the laboratory section of her chart. COURSE IN HOSPITAL: After admission, she was placed on bedrest, started on intravenous fluids and she had serial EKGs and enzymes and was followed up with Cardiology. It was felt that she could be discharged on the and she will return home and resume her usual medications, activity and diet. FINAL DIAGNOSES: Atypical chest pain. OPERATIONS: None. CONSULTATION: Cardiology. She is improved. MMODL / IJN: [id number] /
== END 2019-06-02 14:11 | disposition home or self-care (01) ==
LOC: EC 11:18 → 1SOBS 13:17
PROVIDERS: ADMIT Family Medicine; ATTEND Family Medicine
DX: R07.89 Other chest pain (principal); R51 Headache; I11.0 Hypertensive heart disease with heart failure; I50.9 Heart failure, unspecified; E78.5 Hyperlipidemia, unspecified; I48.91 Unspecified atrial fibrillation; E03.9 Hypothyroidism, unspecified; F31.9 Bipolar disorder, unspecified; F41.9 Anxiety disorder, unspecified; E66.9 Obesity, unspecified; G40.909 Epilepsy, unspecified, not intractable, without status epilepticus; Z68.42 Body mass index [BMI] 45.0-49.9, adult; J44.9 Chronic obstructive pulmonary disease, unspecified; F17.210 Nicotine dependence, cigarettes, uncomplicated; Z90.49 Acquired absence of other specified parts of digestive tract; Z79.899 Other long term (current) drug therapy; Z88.5 Allergy status to narcotic agent; Z88.0 Allergy status to penicillin; Z88.8 Allergy status to other drugs, medicaments and biological substances; Z88.6 Allergy status to analgesic agent; Z91.040 Latex allergy status; Z79.891 Long term (current) use of opiate analgesic; Z95.5 Presence of coronary angioplasty implant and graft; Z83.3 Family history of diabetes mellitus; Z82.49 Family history of ischemic heart disease and other diseases of the circulatory system
CPT/HCPCS: 96372; 96375 ×2; 96374; 99285; 36415; 93005; 85379; 80061; 80053; 84443; 83690; 83735; 84484 ×2; 85025; 85610; 85730; 71046; G0378 ×2; J2270; J1200; J1644; J2405

== ENCOUNTER 2019-08-16 12:49 | Emergency (ER) | payer OTHER ==
[2019-08-16 12:56] VITALS: BP 112/74; PULSE 87; RESP 18; TEMP 98.6
[2019-08-16] MEDS ORDERED: ALPRAZolam 0.5 MG TAB PO STA (13:49)
--- NOTE | 2019-08-16 14:11 | CT ---
EXAMINATION TYPE: CT brain cspine wo con DATE OF EXAM: 08/16/2019 COMPARISON: Prior CT brain and cervical spine 03/25/2019 HISTORY: Neck pain after fall CT DLP: 1591.4 mGycm Automated exposure control for dose reduction was used. TECHNIQUE: CT scan of the head and cervical spine are performed without contrast. FINDINGS: There is no acute intracranial hemorrhage, mass effect, or midline shift identified. The ventricles and sulci are within normal limits in size. The globes are intact and the visualized sin uses are clear. Cervical spine is visualized in its entirety from C1 through upper thoracic levels and demonstrates s atisfactory alignment without evidence of acute fracture or dislocation. Prevertebral soft tissue ap pears within normal limits. The C1-C2 articulation is unremarkable. Degenerative disc change again noted C5-6 with spondylosis. IMPRESSION: 1. There is no acute fracture or dislocation evident in the cervical spine. 2. No acute intracranial hemorrhage, mass effect, or midline shift is seen.
--- NOTE | 2019-08-16 14:15 | ED ---
Neck Injury/Pain HPI - General Chief Complaint: Neck Pain/Injury Stated Complaint: shakey, pain in neck/back Time Seen by Provider: 08/16/19 13:22 Mode of arrival: wheelchair Limitations: no limitations - History of Present Illness Initial Comments: 48-year-old female presents emergency department for evaluation of right-sided neck pain after fall. Patient states that she fell yesterday after leaving too far back in a rocker. Patient states she did hit her head and has a slight headache as well as right-sided neck pain. Patient denies any pain prior to falling. Patient denies any new ow back pain-states she struggles with chronic, denies abdominal pain, chest pain shortness of breath she denies any extremity pain. Patient denies any weakness of the upper extremity sensation deficits. Patient denies visual changes speech changes or any other concerning signs or symptoms. Upon arrival patient appears well signs of acute distress. - Related Data Home Medications Medication Instructions Recorded Confirmed Montelukast Sodium [Singulair] 10 mg PO DAILY 06/21/17 06/01/19 Pramipexole [Mirapex] 0.25 mg PO HS 06/21/17 06/01/19 Simvastatin [Zocor] 20 mg PO HS 06/21/17 06/01/19 Gabapentin 600 mg PO QID 10/18/17 06/01/19 Triamterene-Hctz 37.5-25Mg 1 tab PO DAILY 10/18/17 06/01/19 [Maxzide 37.5-25] amLODIPine [Norvasc] 10 mg PO DAILY 10/18/17 06/01/19 Topiramate 50 mg PO BID 12/11/17 06/01/19 ALPRAZolam [Xanax] 0.5 mg PO QID 09/18/18 06/01/19 FLUoxetine HCL [PROzac] 40 mg PO BID 02/15/19 06/01/19 Phenytoin Sodium Extended 200 mg PO DAILY 02/15/19 06/01/19 [Dilantin] Phenytoin Sodium Extended 300 mg PO HS 02/15/19 06/01/19 [Dilantin] levETIRAcetam [Keppra] 750 mg PO BID 02/15/19 06/01/19 Albuterol Inhaler [Ventolin Hfa 2 puff INHALATION RT-Q6H PRN 06/01/19 06/01/19 Inhaler] Hydrocodone/Acetaminophen [[place] 1 tab PO Q6HR PRN 06/01/19 06/01/19 5-325] busPIRone HCL 15 mg PO TID 06/01/19 06/01/19 Previous Rx's Medication Instructions Recorded QUEtiapine [SEROquel] 200 mg PO HS #30 tab 09/19/18 Aspirin 325 mg PO DAILY #100 tab 06/02/19 Cyclobenzaprine [Flexeril] 10 mg PO BID 7 Days #14 tab 08/16/19 Allergies Allergy/AdvReac Type Severity Reaction Status Date / Time ibuprofen [From Motrin] Allergy Rash/Hives Verified 08/16/19 12:56 Latex, Natural Rubber Allergy Unknown Verified 08/16/19 12:56 naproxen [From Naprosyn] Allergy Unknown Verified 08/16/19 12:56 tramadol Allergy Rash/Hives Verified 08/16/19 12:56 Penicillins AdvReac Vomiting Verified 08/16/19 12:56 Review of Systems ROS Statement: Those systems with pertinent positive or pertinent negative responses have been documented in the HPI. ROS Other: All systems not noted in ROS Statement are negative. Past Medical History Past Medical History: Atrial Fibrillation, Coronary Artery Disease (CAD), Heart Failure, COPD, Hyperlipidemia, Hypertension, Seizure Disorder, Thyroid Disorder Additional Past Medical History / Comment(s): Last seizure within past 2 weeks, hypothyroid, chronic low back pain, bulging lower back discs. History of Any Multi-Drug Resistant Organisms: None Reported Past Surgical History: Section, Cholecystectomy, Tubal Ligation Additional Past Surgical History / Comment(s): C-Sections x 3 Past Anesthesia/Blood Transfusion Reactions: No Reported Reaction, Motion Sickness Date of Last Stent Placement:: 2003? Past Psychological History: Anxiety, Bipolar, Depression Smoking Status: Light tobacco smoker - Past Family History Father Family Medical History: AFIB Mother Family Medical History: AFIB, Diabetes Mellitus General Exam - General Exam Comments Initial Comments: General: The patient is awake and alert, in no distress, and does not appear acutely ill. Eye: Pupils are equal, round and reactive to light, extra-ocular movements are intact. No nystagmus. There is normal conjunctiva bilaterally. No signs of icterus. Ears, nose, mouth and throat: There are moist mucous membranes and no oral lesions. Neck: The neck is supple, there is no tenderness or JVD. Cardiovascular: There is a regular rate and rhythm. No murmur, rub or gallop is appreciated. Respiratory: Lungs are clear to auscultation, respirations are non-labored, breath sounds are equal. No wheezes, stridor, rales, or rhonchi. Gastrointestinal: Soft, non-distended, non-tender abdomen without masses or organomegaly noted. There is no rebound or guarding present. Musculoskeletal: Potential patient of the cervical thoracic or lumbar spine midline. Patient does have right-sided paravertebral tenderness of the cervical spine. Patient is full range of motion of the cervical spine without difficulty. Normal ROM, no tenderness of the UE. Strength 5/5 of the UE and LE b/l. Sensation intact. Radial pulses equal bilaterally 2+. Neurological: A&O x 3. CN II-XII intact, There are no obvious motor or sensory deficits. Coordination appears grossly intact. Speech is normal. Skin: Skin is warm and dry and no rashes or lesions are noted. Psychiatric: Cooperative, appropriate mood & affect, normal judgment. Limitations: no limitations Course Vital Signs 08/16/19 12:52 Temperature 98.6 F Pulse Rate 87 Respiratory 18 Rate Blood Pressure 112/74 O2 Sat by Pulse 94 L Oximetry Medical Decision Making - Medical Decision Making Well appearing 48yo female presents emergency department for evaluation of fall. Paravertebral tenderness on examination of c-spine. Imaging studies negative for acute osseous process. Patient has no neurovascular deficits. She appears well and at this time feel patient is stable for discharge with outpatient primary care follow-up for refill of xanax. Patient provided dose in the ER. Otherwise no other complaints. Discussed case with Dr. Senior patient discharged appearing well. Disposition Clinical Impression: Neck pain, Fall, Head injury Disposition: HOME SELF-CARE Condition: Good Instructions (If sedation given, give patient instructions): Cervical Strain (ED) Additional Instructions: Please use medication as discussed. Please follow-up with family doctor in the next 2 days. Please return to emergency room if the symptoms increase or worsen or for any other concerns. Prescriptions: Cyclobenzaprine [Flexeril] 10 mg PO BID 7 Days #14 tab Is patient prescribed a controlled substance at d/c from ED?: No Referrals: Marino Parks MD [Primary Care Provider] - 1-2 days Time of Disposition: 14:15
== END 2019-08-16 14:17 | disposition home or self-care (01) ==
LOC: EC 12:49
DX: S09.90XA Unspecified injury of head, initial encounter (principal); M54.2 Cervicalgia; I48.91 Unspecified atrial fibrillation; I25.10 Atherosclerotic heart disease of native coronary artery without angina pectoris; I11.0 Hypertensive heart disease with heart failure; I50.9 Heart failure, unspecified; G40.909 Epilepsy, unspecified, not intractable, without status epilepticus; E03.9 Hypothyroidism, unspecified; F41.9 Anxiety disorder, unspecified; F31.9 Bipolar disorder, unspecified; J44.9 Chronic obstructive pulmonary disease, unspecified; E78.5 Hyperlipidemia, unspecified; F17.200 Nicotine dependence, unspecified, uncomplicated; Z79.899 Other long term (current) drug therapy; Z88.0 Allergy status to penicillin; Z88.5 Allergy status to narcotic agent; Z88.6 Allergy status to analgesic agent; Z91.040 Latex allergy status; Z91.048 Other nonmedicinal substance allergy status; W07.XXXA Fall from chair, initial encounter
CPT/HCPCS: 70450; 72125; 99283

== ENCOUNTER 2019-09-09 10:43 | Emergency (ER) | payer OTHER ==
--- NOTE | 2019-09-09 11:31 | ED ---
General Adult HPI - General Chief complaint: Upper Respiratory Infection Stated complaint: Cough Time Seen by Provider: 09/09/19 11:05 Source: patient, RN notes reviewed, old records reviewed Mode of arrival: ambulatory Limitations: no limitations - History of Present Illness Initial comments: This is a 48-year-old female presents to the emergency department stating that she has a history of COPD. Patient states she quit smoking recently and is now fading. Patient comes in today because she is having hemoptysis over the last 4 days per patient states she is coughing quite a bit coughing up sputum and every once a while she will cough up some blood. Patient states she has chest pain which takes a deep breath it radiates to the back. Patient states the pain is very sharp in nature. Patient states she is short of breath as well. Patient states there is no chest pain as long she is not taking deep breath. Patient denies any swelling to the legs or calf tenderness. Patient denies any lightheadedness or dizziness. Patient denies any fever chills. Patient denies any abdominal pain. Patient denies any recent nausea vomiting diarrhea. - Related Data Home Medications Medication Instructions Recorded Confirmed Montelukast Sodium [Singulair] 10 mg PO DAILY 06/21/17 09/09/19 Pramipexole [Mirapex] 0.25 mg PO HS 06/21/17 09/09/19 Simvastatin [Zocor] 20 mg PO DAILY 06/21/17 09/09/19 Gabapentin 600 mg PO QID 10/18/17 09/09/19 Triamterene-Hctz 37.5-25Mg 1 tab PO DAILY 10/18/17 09/09/19 [Maxzide 37.5-25] amLODIPine [Norvasc] 10 mg PO DAILY 10/18/17 09/09/19 Topiramate 50 mg PO BID 12/11/17 09/09/19 ALPRAZolam [Xanax] 0.5 mg PO QID 09/18/18 09/09/19 Phenytoin Sodium Extended 200 mg PO DAILY 02/15/19 09/09/19 [Dilantin] Phenytoin Sodium Extended 300 mg PO HS 02/15/19 09/09/19 [Dilantin] levETIRAcetam [Keppra] 750 mg PO BID 02/15/19 09/09/19 busPIRone HCL 30 mg PO BID 06/01/19 09/09/19 FLUoxetine HCL [PROzac] 20 mg PO TID 09/09/19 09/09/19 Previous Rx's Medication Instructions Recorded QUEtiapine [SEROquel] 200 mg PO HS #30 tab 09/19/18 Azithromycin [Zithromax [place]] 500 mg PO DAILY #3 tab 09/09/19 Allergies Allergy/AdvReac Type Severity Reaction Status Date / Time ibuprofen [From Motrin] Allergy Rash/Hives Verified 09/09/19 11:42 Latex, Natural Rubber Allergy Unknown Verified 09/09/19 11:42 naproxen [From Naprosyn] Allergy Unknown Verified 09/09/19 11:42 tramadol Allergy Rash/Hives Verified 09/09/19 11:42 Penicillins AdvReac Vomiting Verified 09/09/19 11:42 Review of Systems ROS Statement: Those systems with pertinent positive or pertinent negative responses have been documented in the HPI. ROS Other: All systems not noted in ROS Statement are negative. Past Medical History Past Medical History: Atrial Fibrillation, Coronary Artery Disease (CAD), Heart Failure, COPD, Hyperlipidemia, Hypertension, Seizure Disorder, Thyroid Disorder Additional Past Medical History / Comment(s): Last seizure within past 2 weeks, hypothyroid, chronic low back pain, bulging lower back discs. History of Any Multi-Drug Resistant Organisms: None Reported Past Surgical History: Section, Cholecystectomy, Tubal Ligation Additional Past Surgical History / Comment(s): C-Sections x 3 Past Anesthesia/Blood Transfusion Reactions: No Reported Reaction, Motion Sickness Date of Last Stent Placement:: 2003? Past Psychological History: Anxiety, Bipolar, Depression Smoking Status: Light tobacco smoker - Past Family History Father Family Medical History: AFIB Mother Family Medical History: AFIB, Diabetes Mellitus General Exam - General Exam Comments Initial Comments: GENERAL: Patient is well-developed and well-nourished. Patient is nontoxic and well- hydrated and is in mild distress. ENT: Neck is soft and supple. No significant lymphadenopathy is noted. Oropharynx is clear. Moist mucous membranes. Neck has full range of motion without eliciting any pain. EYES: The sclera were anicteric and conjunctiva were pink and moist. Extraocular movements were intact and pupils were equal round and reactive to light. Eyelids were unremarkable. PULMONARY: Unlabored respirations. Good breath sounds bilaterally. No audible rales rhonchi or wheezing was noted. CARDIOVASCULAR: There is a regular rate and rhythm without any murmurs gallops or rubs. ABDOMEN: Soft and nontender with normal bowel sounds. SKIN: Skin is clear with no lesions or rashes and otherwise unremarkable. NEUROLOGIC: Patient is alert and oriented x3. Cranial nerves II through XII are grossly intact. Motor and sensory are also intact. Normal speech, volume and content. Symmetrical smile. MUSCULOSKELETAL: Normal extremities with adequate strength and full range of motion. No lower extremity swelling or edema. No calf tenderness. LYMPHATICS: No significant lymphadenopathy is noted PSYCHIATRIC: Normal psychiatric evaluation. Limitations: no limitations Course Vital Signs 09/09/19 09/09/19 09/09/19 11:04 11:15 12:34 Temperature 98.5 F Pulse Rate 85 80 Respiratory 18 21 16 Rate Blood Pressure 130/82 O2 Sat by Pulse 92 L 95 Oximetry 09/09/19 13:24 Temperature Pulse Rate 81 Respiratory 20 Rate Blood Pressure O2 Sat by Pulse 96 Oximetry Medical Decision Making - Medical Decision Making EKG shows normal sinus rhythm at 81 bpm OK interval 160 QRS 74 QT interval 384 QTC is 446 per patient's EKG shows no ST segment elevation or depression or T wave abnormalities are noted. CT of the chest did not see any pulmonary embolism however there was a infiltrate consistent with pneumonia. Patient received Rocephin emergency department. Patient was having no difficulty breathing when I reevaluated her she'll be sent home on an antibiotic as well. - Lab Data Result diagrams: 09/09/19 11:45 09/09/19 11:45 Lab Results 09/09/19 09/09/19 09/09/19 Range/Units 11:45 11:45 11:45 WBC 8.8 (3.8-10.6) k/uL RBC 4.23 (3.80-5.40) m/uL Hgb 13.5 (11.4-16.0) gm/dL Hct 41.6 (34.0-46.0) % MCV 98.2 (80.0-100.0) fL MCH 32.0 (25.0-35.0) pg MCHC 32.6 (31.0-37.0) g/dL RDW 14.2 (11.5-15.5) % Plt Count 233 (150-450) k/uL Neutrophils % 68 % Lymphocytes % 20 % Monocytes % 5 % Eosinophils % 2 % Basophils % 2 % Neutrophils # 5.9 (1.3-7.7) k/uL Lymphocytes # 1.7 (1.0-4.8) k/uL Monocytes # 0.4 (0-1.0) k/uL Eosinophils # 0.2 (0-0.7) k/uL Basophils # 0.2 (0-0.2) k/uL PT 9.7 (9.0-12.0) sec INR 0.9 (<1.2) APTT 25.5 (22.0-30.0) sec D-Dimer 0.52 (<0.60) mg/L FEU Sodium 141 (137-145) mmol/L Potassium 3.9 (3.5-5.1) mmol/L Chloride 106 (98-107) mmol/L Carbon Dioxide 28 (22-30) mmol/L Anion Gap 7 mmol/L BUN 7 (7-17) mg/dL Creatinine 0.67 (0.52-1.04) mg/dL Est GFR (CKD-EPI)AfAm >90 (>60 ml/min/1.73 sqM) Est GFR (CKD-EPI)NonAf >90 (>60 ml/min/1.73 sqM) Glucose 107 H (74-99) mg/dL Plasma Lactic Acid Jordi (0.7-2.0) mmol/L Calcium 8.8 (8.4-10.2) mg/dL Magnesium 2.0 (1.6-2.3) mg/dL Total Bilirubin 0.3 (0.2-1.3) mg/dL AST 18 (14-36) U/L ALT 23 (9-52) U/L Alkaline Phosphatase 101 (38-126) U/L Troponin I (0.000-0.034) ng/mL Total Protein 7.2 (6.3-8.2) g/dL Albumin 3.8 (3.5-5.0) g/dL 09/09/19 09/09/19 Range/Units 11:45 11:45 WBC (3.8-10.6) k/uL RBC (3.80-5.40) m/uL Hgb (11.4-16.0) gm/dL Hct (34.0-46.0) % MCV (80.0-100.0) fL MCH (25.0-35.0) pg MCHC (31.0-37.0) g/dL RDW (11.5-15.5) % Plt Count (150-450) k/uL Neutrophils % % Lymphocytes % % Monocytes % % Eosinophils % % Basophils % % Neutrophils # (1.3-7.7) k/uL Lymphocytes # (1.0-4.8) k/uL Monocytes # (0-1.0) k/uL Eosinophils # (0-0.7) k/uL Basophils # (0-0.2) k/uL PT (9.0-12.0) sec INR (<1.2) APTT (22.0-30.0) sec D-Dimer (<0.60) mg/L FEU Sodium (137-145) mmol/L Potassium (3.5-5.1) mmol/L Chloride (98-107) mmol/L Carbon Dioxide (22-30) mmol/L Anion Gap mmol/L BUN (7-17) mg/dL Creatinine (0.52-1.04) mg/dL Est GFR (CKD-EPI)AfAm (>60 ml/min/1.73 sqM) Est GFR (CKD-EPI)NonAf (>60 ml/min/1.73 sqM) Glucose (74-99) mg/dL Plasma Lactic Acid Jordi 0.8 (0.7-2.0) mmol/L Calcium (8.4-10.2) mg/dL Magnesium (1.6-2.3) mg/dL Total Bilirubin (0.2-1.3) mg/dL AST (14-36) U/L ALT (9-52) U/L Alkaline Phosphatase (38-126) U/L Troponin I <0.012 (0.000-0.034) ng/mL Total Protein (6.3-8.2) g/dL Albumin (3.5-5.0) g/dL Disposition Clinical Impression: Pneumonia Disposition: HOME SELF-CARE Condition: Good Instructions (If sedation given, give patient instructions): Pneumonia (ED) Prescriptions: Azithromycin [Zithromax [place]] 500 mg PO DAILY #3 tab Is patient prescribed a controlled substance at d/c from ED?: No Referrals: None,Stated [Primary Care Provider] - 1-2 days Time of Disposition: 13:33
[2019-09-09 11:55] LABS: Basophils # (A) 0.2 k/uL (0-0.2); Basophils % (A) 2 %; Eosinophils # (A) 0.2 k/uL (0-0.7); Eosinophils % (A) 2 %; HCT 41.6 % (34.0-46.0); HGB 13.5 gm/dL (11.4-16.0); Lymphocytes # (A) 1.7 k/uL (1.0-4.8); Lymphocytes % (A) 20 %; MCHC 32.6 g/dL (31.0-37.0); MCV 98.2 fL (80.0-100.0); Monocytes # (A) 0.4 k/uL (0-1.0); Monocytes % (A) 5 %; Neutrophils # (A) 5.9 k/uL (1.3-7.7); Neutrophils % (A) 68 %; Platelet Count 233 k/uL (150-450); RBC 4.23 m/uL (3.80-5.40); RDW 14.2 % (11.5-15.5); WBC 8.8 k/uL (3.8-10.6)
[2019-09-09 12:07] LABS: D-Dimer 0.52 mg/L FEU (<0.60); INR 0.9 (<1.2)
[2019-09-09 12:08] LABS: Partial Thromboplastin Time 25.5 sec (22.0-30.0); Prothrombin Time 9.7 sec (9.0-12.0)
[2019-09-09 12:11] LABS: ALT 23 U/L (9-52); AST 18 U/L (14-36); African American GFR (CKD) >90 (>60 ml/min/1.73 sqM); Albumin 3.8 g/dL (3.5-5.0); Alkaline Phosphatase 101 U/L (38-126); Anion Gap 7 mmol/L; Blood Urea Nitrogen 7 mg/dL (7-17); Calcium 8.8 mg/dL (8.4-10.2); Carbon Dioxide 28 mmol/L (22-30); Chloride 106 mmol/L (98-107); Glucose 107 mg/dL (74-99); Potassium 3.9 mmol/L (3.5-5.1); Sodium 141 mmol/L (137-145); Total Bilirubin 0.3 mg/dL (0.2-1.3); Total Protein 7.2 g/dL (6.3-8.2)
--- NOTE | 2019-09-09 12:29 | CT ---
EXAMINATION TYPE: CT chest angio for PE DATE OF EXAM: 09/09/2019 COMPARISON: None. HISTORY: Hemoptysis CT DLP: 670.5 mGycm Automated exposure control for dose reduction was used. CONTRAST: CT Chest for pulmonary embolism performed with without and with IV Contrast, patient injected with 10 0 ml mL of Isovue 370. FINDINGS: There is some consolidation in the left lower lobe. Dependent atelectasis within the depen dent portions of the lungs. There is no pleural or pericardial fluid. There is no significant axillary or mediastinal adenopathy. There is some shotty hilar adenopathy on the left. There is no evidence of pulmonary embolus. The aorta is normal in caliber without evidence of dissection. The heart is upper limits of normal in size. Visualized portions of the upper abdomen are unremarkable. There is minimal hypertrophic spondylosis within the spine. IMPRESSION: 1. THIS EXAMINATION IS NEGATIVE FOR PULMONARY EMBOLUS. 2. LEFT LOWER LOBE AIRSPACE DISEASE, LIKELY REPRESENTING PNEUMONIA. 3. MILD DEGENERATIVE CHANGE WITHIN THE SPINE.
[2019-09-09] MEDS ORDERED: cefTRIAXone IN SWFI 1,000 MG/10 ML SYRINGE IVP STA (12:38)
[2019-09-09] MEDS ORDERED: ASPIRIN-ACET-CAFF 250-250-65MG 1 EACH TAB PO STA (13:47)
[2019-09-09 13:53] VITALS: BP 107/66; PULSE 92; RESP 18; TEMP 98.4
== END 2019-09-09 14:13 | disposition home or self-care (01) ==
LOC: EC 10:43
DX: J18.9 Pneumonia, unspecified organism (principal); I48.91 Unspecified atrial fibrillation; I25.10 Atherosclerotic heart disease of native coronary artery without angina pectoris; I11.0 Hypertensive heart disease with heart failure; I50.9 Heart failure, unspecified; J44.0 Chronic obstructive pulmonary disease with (acute) lower respiratory infection; F41.9 Anxiety disorder, unspecified; F31.9 Bipolar disorder, unspecified; E78.5 Hyperlipidemia, unspecified; G40.909 Epilepsy, unspecified, not intractable, without status epilepticus; F17.200 Nicotine dependence, unspecified, uncomplicated; Z79.899 Other long term (current) drug therapy; Z88.6 Allergy status to analgesic agent; Z88.0 Allergy status to penicillin; Z88.5 Allergy status to narcotic agent; Z91.040 Latex allergy status; Z91.048 Other nonmedicinal substance allergy status
CPT/HCPCS: 36415; 93005; 85379; 80053; 83605; 83735; 84484; 85025; 85610; 85730; 87040; 71275; 99284; 96374; J0696; Q9967

== ENCOUNTER 2019-10-19 15:37 | Inpatient (IN) | payer OTHER ==
[2019-10-19] MEDS ORDERED: SODIUM CHLORIDE 0.9% 1,000 ML IV ONE ×2 (15:55→18:55)
[2019-10-19] MEDS ORDERED: ONDANSETRON 4 MG/2 ML VIAL IVP STA (15:56)
[2019-10-19 16:04] LABS: Glucose,Whole Blood 120 mg/dL (75-99)
--- NOTE | 2019-10-19 16:05 | ED ---
General Adult HPI - General Chief complaint: Altered Mental Status Stated complaint: altered mental status Time Seen by Provider: 10/19/19 15:45 Source: patient, EMS, RN notes reviewed, old records reviewed Mode of arrival: EMS Limitations: no limitations - History of Present Illness Initial comments: This is a 49-year-old female presents emergency Department complaining that she's been tired and having nausea vomiting and diarrhea over the last 3 days. Patient states she also feels that she has the shakes. Patient also states she has an occipital headache is having some difficulty walking. Patient denies any chest pain palpitations difficulty breathing. Patient denies any fever chills. Patient denies being lightheaded or dizzy. Patient states however she has having a difficult time walking at times. Patient denies any illegal drug use or drinking. Patient does not know all of her medications that she is not. She states family will be here to tell us what meds she is on. Patient denies any dysuria hematuria urinary frequency. Family eventually arrived and told me that the patient had 3 seizures yesterday and one today. They state that the patient has been confused all day today and was a little confused yesterday. Patient did see Dr. Schaefer and yesterday and he gave her medicine for her headache. - Related Data Home Medications Medication Instructions Recorded Confirmed Montelukast Sodium [Singulair] 10 mg PO DAILY 06/21/17 09/09/19 Pramipexole [Mirapex] 0.25 mg PO HS 06/21/17 09/09/19 Simvastatin [Zocor] 20 mg PO DAILY 06/21/17 09/09/19 Gabapentin 600 mg PO QID 10/18/17 09/09/19 Triamterene-Hctz 37.5-25Mg 1 tab PO DAILY 10/18/17 09/09/19 [Maxzide 37.5-25] amLODIPine [Norvasc] 10 mg PO DAILY 10/18/17 09/09/19 Topiramate 50 mg PO BID 12/11/17 09/09/19 ALPRAZolam [Xanax] 0.5 mg PO QID 09/18/18 09/09/19 Phenytoin Sodium Extended 200 mg PO DAILY 02/15/19 09/09/19 [Dilantin] Phenytoin Sodium Extended 300 mg PO HS 02/15/19 09/09/19 [Dilantin] levETIRAcetam [Keppra] 750 mg PO BID 02/15/19 09/09/19 busPIRone HCL 30 mg PO BID 06/01/19 09/09/19 FLUoxetine HCL [PROzac] 20 mg PO TID 09/09/19 09/09/19 Previous Rx's Medication Instructions Recorded QUEtiapine [SEROquel] 200 mg PO HS #30 tab 09/19/18 Azithromycin [Zithromax [place]] 500 mg PO DAILY #3 tab 09/09/19 Allergies Allergy/AdvReac Type Severity Reaction Status Date / Time ibuprofen [From Motrin] Allergy Rash/Hives Verified 10/19/19 17:04 Latex, Natural Rubber Allergy Unknown Verified 10/19/19 17:04 naproxen [From Naprosyn] Allergy Unknown Verified 10/19/19 17:04 tramadol Allergy Rash/Hives Verified 10/19/19 17:04 Penicillins AdvReac Vomiting Verified 10/19/19 17:04 Review of Systems ROS Statement: Those systems with pertinent positive or pertinent negative responses have been documented in the HPI. ROS Other: All systems not noted in ROS Statement are negative. Past Medical History Past Medical History: Atrial Fibrillation, Coronary Artery Disease (CAD), Heart Failure, COPD, Hyperlipidemia, Hypertension, Seizure Disorder, Thyroid Disorder Additional Past Medical History / Comment(s): Last seizure within past 2 weeks, hypothyroid, chronic low back pain, bulging lower back discs. History of Any Multi-Drug Resistant Organisms: None Reported Past Surgical History: Section, Cholecystectomy, Tubal Ligation Additional Past Surgical History / Comment(s): C-Sections x 3 Past Anesthesia/Blood Transfusion Reactions: No Reported Reaction, Motion Si ckness Date of Last Stent Placement:: 2003? Past Psychological History: Anxiety, Bipolar, Depression Smoking Status: Light tobacco smoker - Past Family History Father Family Medical History: AFIB Mother Family Medical History: AFIB, Diabetes Mellitus General Exam - General Exam Comments Initial Comments: GENERAL: Patient is well-developed and well-nourished. Patient is nontoxic and well- hydrated and is in mild distress. ENT: Neck is soft and supple. No significant lymphadenopathy is noted. Oropharynx is clear. Moist mucous membranes. Neck has full range of motion without eliciting any pain. EYES: The sclera were anicteric and conjunctiva were pink and moist. Extraocular movements were intact and pupils were equal round and reactive to light. Eyelids were unremarkable. PULMONARY: Unlabored respirations. Good breath sounds bilaterally. No audible rales rhonchi or wheezing was noted. CARDIOVASCULAR: There is a regular rate and rhythm without any murmurs gallops or rubs. ABDOMEN: Soft and nontender with normal bowel sounds. No palpable organomegaly was noted. There is no palpable pulsatile mass. SKIN: Skin is clear with no lesions or rashes and otherwise unremarkable. NEUROLOGIC: Patient is alert and oriented 2 patient was unaware that it was October or that had just passed.. Cranial nerves II through XII are grossly intact. Motor and sensory are also intact. Normal speech, volume and content. Symmetrical smile. MUSCULOSKELETAL: Normal extremities with adequate strength and full range of motion. No lower extremity swelling or edema. No calf tenderness. LYMPHATICS: No significant lymphadenopathy is noted PSYCHIATRIC: Normal psychiatric evaluation. Limitations: no limitations Course Vital Signs 10/19/19 10/19/19 15:41 16:27 Temperature 98.5 F Pulse Rate 77 74 Respiratory 18 20 Rate Blood Pressure 91/57 101/67 O2 Sat by Pulse 89 L 95 Oximetry Medical Decision Making - Medical Decision Making EKG shows a normal sinus rhythm at 77 bpm HI interval 236 dresses 74 Q-T intervals 388 QTC is 439. Patient's EKG shows no ST segment elevation or depression or T wave abnormalities are noted. Patient's Dilantin level was slightly low so I gave the patient 500 mg of Dilantin IV CT of the brain shows no acute abnormality. Chest x-ray shows no acute abnormality. I spoke with Dr. Schaefer and he agreed to admit the patient admitted the patient wrote admitting orders. I consult the neurology - Lab Data Result diagrams: 10/19/19 15:45 10/19/19 15:45 Lab Results 10/19/19 10/19/19 10/19/19 Range/Units 15:45 15:45 15:45 WBC 6.3 (3.8-10.6) k/uL RBC 3.96 (3.80-5.40) m/uL Hgb 12.9 (11.4-16.0) gm/dL Hct 40.1 (34.0-46.0) % MCV 101.1 H (80.0-100.0) fL MCH 32.6 (25.0-35.0) pg MCHC 32.3 (31.0-37.0) g/dL RDW 15.2 (11.5-15.5) % Plt Count 206 (150-450) k/uL Neutrophils % 68 % Lymphocytes % 23 % Monocytes % 5 % Eosinophils % 1 % Basophils % 0 % Neutrophils # 4.3 (1.3-7.7) k/uL Lymphocytes # 1.4 (1.0-4.8) k/uL Monocytes # 0.3 (0-1.0) k/uL Eosinophils # 0.1 (0-0.7) k/uL Basophils # 0.0 (0-0.2) k/uL Macrocytosis Slight PT 10.1 (9.0-12.0) sec INR 0.9 (<1.2) APTT 22.6 (22.0-30.0) sec Sodium 141 (137-145) mmol/L Potassium 4.1 (3.5-5.1) mmol/L Chloride 104 (98-107) mmol/L Carbon Dioxide 30 (22-30) mmol/L Anion Gap 7 mmol/L BUN 10 (7-17) mg/dL Creatinine 0.76 (0.52-1.04) mg/dL Est GFR (CKD-EPI)AfAm >90 (>60 ml/min/1.73 sqM) Est GFR (CKD-EPI)NonAf >90 (>60 ml/min/1.73 sqM) Glucose 109 H (74-99) mg/dL POC Glucose (mg/dL) (75-99) mg/dL POC Glu [employer] ID Calcium 8.5 (8.4-10.2) mg/dL Total Bilirubin 0.3 (0.2-1.3) mg/dL AST 24 (14-36) U/L ALT 18 (4-34) U/L Alkaline Phosphatase 122 (38-126) U/L Troponin I (0.000-0.034) ng/mL Total Protein 7.0 (6.3-8.2) g/dL Albumin 3.9 (3.5-5.0) g/dL Urine Color Urine Appearance (Clear) Urine pH (5.0-8.0) Ur Specific Home (1.001-1.035) Urine Protein (Negative) Urine Glucose (UA) (Negative) Urine Ketones (Negative) Urine Blood (Negative) Urine Nitrite (Negative) Urine Bilirubin (Negative) Urine Urobilinogen (<2.0) mg/dL Ur Leukocyte Esterase (Negative) Urine WBC (0-5) /hpf Ur Squamous Epith Cells (0-4) /hpf Urine Mucus (None) /hpf Urine Opiates Screen (NotDetected) Ur Oxycodone Screen (NotDetected) Urine Methadone Screen (NotDetected) Ur Propoxyphene Screen (NotDetected) Ur Barbiturates Screen (NotDetected) Phenytoin ug/mL U Tricyclic Antidepress (NotDetected) Ur Phencyclidine Scrn (NotDetected) Ur Amphetamines Screen (NotDetected) U Methamphetamines Scrn (NotDetected) U Benzodiazepines Scrn (NotDetected) Urine Cocaine Screen (NotDetected) U Marijuana (THC) Screen (NotDetected) 10/19/19 10/19/19 10/19/19 Range/Units 15:45 15:45 16:02 WBC (3.8-10.6) k/uL RBC (3.80-5.40) m/uL Hgb (11.4-16.0) gm/dL Hct (34.0-46.0) % MCV (80.0-100.0) fL MCH (25.0-35.0) pg MCHC (31.0-37.0) g/dL RDW (11.5-15.5) % Plt Count (150-450) k/uL Neutrophils % % Lymphocytes % % Monocytes % % Eosinophils % % Basophils % % Neutrophils # (1.3-7.7) k/uL Lymphocytes # (1.0-4.8) k/uL Monocytes # (0-1.0) k/uL Eosinophils # (0-0.7) k/uL Basophils # (0-0.2) k/uL Macrocytosis PT (9.0-12.0) sec INR (<1.2) APTT (22.0-30.0) sec Sodium (137-145) mmol/L Potassium (3.5-5.1) mmol/L Chloride (98-107) mmol/L Carbon Dioxide (22-30) mmol/L Anion Gap mmol/L BUN (7-17) mg/dL Creatinine (0.52-1.04) mg/dL Est GFR (CKD-EPI)AfAm (>60 ml/min/1.73 sqM) Est GFR (CKD-EPI)NonAf (>60 ml/min/1.73 sqM) Glucose (74-99) mg/dL POC Glucose (mg/dL) 120 H (75-99) mg/dL POC Glu [employer] ID Yash Richard Calcium (8.4-10.2) mg/dL Total Bilirubin (0.2-1.3) mg/dL AST (14-36) U/L ALT (4-34) U/L Alkaline Phosphatase (38-126) U/L Troponin I <0.012 (0.000-0.034) ng/mL Total Protein (6.3-8.2) g/dL Albumin (3.5-5.0) g/dL Urine Color Urine Appearance (Clear) Urine pH (5.0-8.0) Ur Specific Home (1.001-1.035) Urine Protein (Negative) Urine Glucose (UA) (Negative) Urine Ketones (Negative) Urine Blood (Negative) Urine Nitrite (Negative) Urine Bilirubin (Negative) Urine Urobilinogen (<2.0) mg/dL Ur Leukocyte Esterase (Negative) Urine WBC (0-5) /hpf Ur Squamous Epith Cells (0-4) /hpf Urine Mucus (None) /hpf Urine Opiates Screen (NotDetected) Ur Oxycodone Screen (NotDetected) Urine Methadone Screen (NotDetected) Ur Propoxyphene Screen (NotDetected) Ur Barbiturates Screen (NotDetected) Phenytoin 9.6 ug/mL U Tricyclic Antidepress (NotDetected) Ur Phencyclidine Scrn (NotDetected) Ur Amphetamines Screen (NotDetected) U Methamphetamines Scrn (NotDetected) U Benzodiazepines Scrn (NotDetected) Urine Cocaine Screen (NotDetected) U Marijuana (THC) Screen (NotDetected) 10/19/19 Range/Units 17:30 WBC (3.8-10.6) k/uL RBC (3.80-5.40) m/uL Hgb (11.4-16.0) gm/dL Hct (34.0-46.0) % MCV (80.0-100.0) fL MCH (25.0-35.0) pg MCHC (31.0-37.0) g/dL RDW (11.5-15.5) % Plt Count (150-450) k/uL Neutrophils % % Lymphocytes % % Monocytes % % Eosinophils % % Basophils % % Neutrophils # (1.3-7.7) k/uL Lymphocytes # (1.0-4.8) k/uL Monocytes # (0-1.0) k/uL Eosinophils # (0-0.7) k/uL Basophils # (0-0.2) k/uL Macrocytosis PT (9.0-12.0) sec INR (<1.2) APTT (22.0-30.0) sec Sodium (137-145) mmol/L Potassium (3.5-5.1) mmol/L Chloride (98-107) mmol/L Carbon Dioxide (22-30) mmol/L Anion Gap mmol/L BUN (7-17) mg/dL Creatinine (0.52-1.04) mg/dL Est GFR (CKD-EPI)AfAm (>60 ml/min/1.73 sqM) Est GFR (CKD-EPI)NonAf (>60 ml/min/1.73 sqM) Glucose (74-99) mg/dL POC Glucose (mg/dL) (75-99) mg/dL POC Glu [employer] ID Calcium (8.4-10.2) mg/dL Total Bilirubin (0.2-1.3) mg/dL AST (14-36) U/L ALT (4-34) U/L Alkaline Phosphatase (38-126) U/L Troponin I (0.000-0.034) ng/mL Total Protein (6.3-8.2) g/dL Albumin (3.5-5.0) g/dL Urine Color Yellow Urine Appearance Cloudy H (Clear) Urine pH 6.0 (5.0-8.0) Ur Specific Home 1.018 (1.001-1.035) Urine Protein Negative (Negative) Urine Glucose (UA) Negative (Negative) Urine Ketones Negative (Negative) Urine Blood Negative (Negative) Urine Nitrite Negative (Negative) Urine Bilirubin Negative (Negative) Urine Urobilinogen <2.0 (<2.0) mg/dL Ur Leukocyte Esterase Negative (Negative) Urine WBC 1 (0-5) /hpf Ur Squamous Epith Cells 4 (0-4) /hpf Urine Mucus Rare H (None) /hpf Urine Opiates Screen Not Detected (NotDetected) Ur Oxycodone Screen Not Detected (NotDetected) Urine Methadone Screen Not Detected (NotDetected) Ur Propoxyphene Screen Not Detected (NotDetected) Ur Barbiturates Screen Detected H (NotDetected) Phenytoin ug/mL U Tricyclic Antidepress Detected H (NotDetected) Ur Phencyclidine Scrn Not Detected (NotDetected) Ur Amphetamines Screen Not Detected (NotDetected) U Methamphetamines Scrn Not Detected (NotDetected) U Benzodiazepines Scrn Detected H (NotDetected) Urine Cocaine Screen Not Detected (NotDetected) U Marijuana (THC) Screen Not Detected (NotDetected) Disposition Clinical Impression: Altered mental state, Subtherapeutic phenytoin level, Breakthrough seizure Disposition: ADMITTED IP TO THIS HOSP Referrals: Ty Aponte MD [Primary Care Provider] - 1-2 days Time of Disposition: 18:49
[2019-10-19 16:18] LABS: Basophils % (A) 0 %; Eosinophils # (A) 0.1 k/uL (0-0.7); Eosinophils % (A) 1 %; HCT 40.1 % (34.0-46.0); HGB 12.9 gm/dL (11.4-16.0); Lymphocytes # (A) 1.4 k/uL (1.0-4.8); Lymphocytes % (A) 23 %; MCH 32.6 pg (25.0-35.0); MCHC 32.3 g/dL (31.0-37.0); MCV 101.1 fL (80.0-100.0); Macrocytosis Slight; Monocytes # (A) 0.3 k/uL (0-1.0); Monocytes % (A) 5 %; Neutrophils # (A) 4.3 k/uL (1.3-7.7); Neutrophils % (A) 68 %; Platelet Count 206 k/uL (150-450); RBC 3.96 m/uL (3.80-5.40); RDW 15.2 % (11.5-15.5); WBC 6.3 k/uL (3.8-10.6)
[2019-10-19 16:21] LABS: ALT 18 U/L (4-34); AST 24 U/L (14-36); African American GFR (CKD) >90 (>60 ml/min/1.73 sqM); Albumin 3.9 g/dL (3.5-5.0); Alkaline Phosphatase 122 U/L (38-126); Anion Gap 7 mmol/L; Blood Urea Nitrogen 10 mg/dL (7-17); Calcium 8.5 mg/dL (8.4-10.2); Carbon Dioxide 30 mmol/L (22-30); Chloride 104 mmol/L (98-107); Glucose 109 mg/dL (74-99); Non-African American GFR(CKD) >90 (>60 ml/min/1.73 sqM); Potassium 4.1 mmol/L (3.5-5.1); Sodium 141 mmol/L (137-145); Total Bilirubin 0.3 mg/dL (0.2-1.3)
[2019-10-19 16:23] LABS: INR 0.9 (<1.2); Partial Thromboplastin Time 22.6 sec (22.0-30.0); Prothrombin Time 10.1 sec (9.0-12.0)
--- NOTE | 2019-10-19 17:33 | CT ---
EXAMINATION TYPE: CT brain wo con DATE OF EXAM: 10/19/2019 COMPARISON: 08/16/2019 HISTORY: Fatigue and weakness. CT DLP: 1099.4 mGycm Automated exposure control for dose reduction was used. Ventricles and sulci appear normal. There is no mass effect nor midline shift. There is no sign of in tracranial hemorrhage. Calvarium is intact. IMPRESSION: Normal head CT scan. No evidence of cerebral edema. No change.
--- NOTE | 2019-10-19 17:37 | XR ---
EXAMINATION TYPE: XR chest 2V DATE OF EXAM: 10/19/2019 COMPARISON: 06/01/2019 HISTORY: Chest pain TECHNIQUE: 2 views FINDINGS: There is coarse interstitial density in the mid and lower lung crocker. There is no gross he art failure. There are chest leads. Costophrenic angles are clear. Bony thorax is intact. IMPRESSION: Increased interstitial markings compared to old exam could relate to mild interstitial pn eumonia. No obvious heart failure.
[2019-10-19 17:41] LABS: Appearance,Urine Cloudy (Clear); Bilirubin,Urine Negative (Negative); Blood,Urine Negative (Negative); Color,Urine Yellow; Glucose,Urine (UA) Negative (Negative); Ketones,Urine Negative (Negative); Leukocyte Esterase,Urine Negative (Negative); Mucus,Urine Rare /hpf; Nitrite,Urine Negative (Negative); Protein,Urine Negative (Negative); Specific Gravity,Urine 1.018 (1.001-1.035); Squamous Epithelial Cell,Urine 4 /hpf (0-4); Urobilinogen,Urine <2.0 mg/dL (<2.0); WBC,Urine 1 /hpf (0-5)
[2019-10-19 17:52] LABS: Amphetamine Screen,Urine Not Detected (NotDetected); Barbiturate Screen,Urine Detected (NotDetected); Benzodiazepines Screen,Urine Detected (NotDetected); Cocaine Screen,Urine Not Detected (NotDetected); Methadone Screen, Urine Not Detected (NotDetected); Opiate Screen,Urine Not Detected (NotDetected); Oxycodone Screen, Urine Not Detected (NotDetected); Phencyclidine Screen,Urine Not Detected (NotDetected); Tricyclic Antidepressant,Urine Detected (NotDetected); Urn Cannabinoid Scrn Not Detected (NotDetected)
[2019-10-19] MEDS ORDERED: PHENYTOIN SODIUM INJ 500 MG in SODIUM CHLORIDE 0.9% 100 ML IVPB STA (18:45)
[2019-10-19] MEDS: FUROSEMIDE 20 MG TAB PO SCH (20:51)
[2019-10-19] MEDS: TOPIRAMATE 25 MG TAB PO SCH (21:29)
[2019-10-19] MEDS: QUEtiapine 200 MG TAB PO SCH (21:29)
[2019-10-19] MEDS: GABAPENTIN 300 MG CAP PO SCH (21:29)
[2019-10-19] MEDS: PRAMIPEXOLE 0.25 MG TAB PO SCH (21:29)
[2019-10-19] MEDS: HYDROcodone/APAP 5-325MG 1 EACH TAB PO PRN (21:30)
[2019-10-20] MEDS: HYDROcodone/APAP 5-325MG 1 EACH TAB PO PRN ×2 (07:03→14:53)
[2019-10-20] MEDS: FLUoxetine HCL 20 MG CAP PO SCH (07:11)
[2019-10-20] MEDS: ASPIRIN 325 MG TAB PO SCH (07:11)
[2019-10-20] MEDS: GABAPENTIN 300 MG CAP PO SCH ×4 (07:11→20:15)
[2019-10-20] MEDS: MONTELUKAST 10 MG TAB PO SCH (07:12)
[2019-10-20] MEDS: FUROSEMIDE 20 MG TAB PO SCH (07:12)
[2019-10-20] MEDS: TOPIRAMATE 25 MG TAB PO SCH ×2 (07:12→20:15)
[2019-10-20] MEDS: PHENYTOIN SODIUM EXTENDED 100 MG CAP PO SCH ×3 (07:13→20:14)
[2019-10-20] MEDS: ALPRAZolam 0.25 MG TAB PO PRN ×2 (07:27→18:19)
--- NOTE | 2019-10-20 13:08 | PN ---
PROGRESS NOTE DATE OF SERVICE: 10/20/2019 CHIEF COMPLAINT: Seizure disorder and postictal depression. HISTORY OF PRESENT ILLNESS: This lady seems stable this morning, but seems a little bit lethargic. There is no history of any seizures during the night. PHYSICAL EXAMINATION: She does not have any focal neurologic findings. Her chest is clear and the cardiac exam is normal. Abdomen is soft and nontender. IMPRESSION: 1. Grand mal seizure disorder with breakthrough. 2. Postictal depression. PLAN: 1. EEG. 2. Continue to monitor her neurologically. 3. Await Neurology recommendations. MMODL / IJN: [id number] /
--- NOTE | 2019-10-20 13:17 | HP ---
HISTORY AND PHYSICAL CHIEF COMPLAINT: Lethargy, ataxia and seizures. HISTORY OF PRESENT ILLNESS: This 49-year-old lady is brought to the emergency room by the family because they noticed that she is becoming lethargic and was having seizures. It was suggested that her drowsiness was a result of the seizures. She has had a history of seizures and she is on several medications. She is also complaining of a slight occipital headache, but she had no focal neurologic signs or symptoms. There was no incontinence. REVIEW OF SYSTEMS: Difficult to obtain because she seems a little bit confused and she is somewhat lethargic. She denies chest pain, fever, chills, abdominal pain, urinary complaints, dysuria, hematuria, incontinence, etc. Past medical history family history and personal and social histories demonstrate she is she is allergic to CHANTIX, NSAIDS, PENICILLIN and . Medications include: 1. Amlodipine 10 mg once a day. 2. Furosemide 20 mg once a day. 3. Trazodone 150 mg at bedtime. 4. Transdermal nicotine patch. 5. Seroquel 300 mg at bedtime. 6. Adipex-P once a day. 7. Alprazolam 0.5 four times a day p.r.n. 8. Levetiracetam or Keppra 750 mg twice a day. 9. BuSpar 15 mg t.i.d. p.r.n. 10.Dyazide 37.5/25 once a day. 11.Simvastatin 20 mg at bedtime. 12.Quetiapine 200 mg at bedtime. 13.Pramipexole 0.25 every night. 14.Phenytoin 100 mg t.i.d. 15.Montelukast 10 mg once a day. 16.Vicodin 5 once a day p.r.n. 17.Fluoxetine 40 mg once a day. 18.Ventolin HFA 2 puffs q.i.d. p.r.n. 19.Aspirin 325 once a day. Her past medical history reveals that she has a history of hypertension, seizures, COPD and history of atrial fibrillation. She does smoke, but she does not consume alcohol. There has been no history of recent or remote head trauma. PHYSICAL EXAMINATION: Blood pressure is 100/70 with a pulse of 80, respirations 16. She is afebrile. GENERAL: She appeared to be overweight with a BMI of 46.4. She was in no acute distress, but she was lethargic. Head, ears, eyes, nose, mouth, and throat were normal and the gaze is conjugate. Pupils were equal, round. NECK: Supple, but neck veins not distended. Thyroid is not enlarged. Chest is clear. Cardiac exam demonstrates what sounds like sinus rhythm and no murmurs or extra sounds. The abdomen is protuberant, soft, nontender without any visceromegaly or masses. Bowel sounds are present. Extremities normal. Neurologically, she seems to be intact except she seems lethargic and her speech is somewhat garbled. She is admitted to the hospital diagnoses:. 1. Syncopal episodes. 2. Probable breakthrough seizures. 3. Postictal depression. 4. Obesity. 5. Hypertension. 6. Nicotine abuse. 7. Bipolar depression. PLAN: 1. Bed rest. 2. IV fluids. 3. Seizure precautions. 4. Increase Dilantin and Keppra dosages. 5. Consult with Neurology. MMODL / IJN: [id number] /
--- NOTE | 2019-10-20 13:39 | P.CNNES ---
History of Present Illness Consult date: 10/20/19 Requesting physician: Jim Obando Reason for Consult: Altered mental status, breakthrough seizure History of Present Illness: Patient is a 49-year-old female who states has history of seizure disorder for last 7 years. Patient does not follow up with any neurologist. She is on Dilantin and Keppra, does not know the dose of these medications. Patient gets seizures frequently. States in the last week she had 4 seizures. Her last seizure was yesterday before she came to the hospital. Patient states that she does not remember what happens during the seizure, she was told that she shakes, loses consciousness would fall if she is standing. She only one time had lost control of urine, but does not have tongue biting. Patient also has developed migraines since last year. She was having migraines twice a month, lasting for a couple days. In the last 3 weeks the headaches are much more worse, occurring about 3 times a week, lasting for a couple days. She does not take any hormonal replacement. Patient also has history of tremors off and on for 2 years. Her shakes and tremors have also got worse in the past 3 weeks. Patient has history of tobacco use since she was age 15 when she started smoking a pack a day. She has smoked 2 packs per day in the last 10 years. Only last year, she quit tobacco use, and has been Vaping. Patient had computed tomography scan of the head which was normal. Chest x-ray showed increased interstitial markings compared to old exam, could relate to mild interstitial pneumonia. No obvious heart failure. EKG showed normal sinus rhythm. height urine drug screen was positive for barbiturate, tricyclics and benzos. her previous lipid panel from 06/01/2019 showed cholesterol 167, LDL 90, HDL 44 and triglycerides 163. Liver panel normal. patient had a normal EEG on 09/19/2018. Patient previously was seen by Dr. Garcia on 09/18/2018, in which it was colt colin that patient has a long-standing history of primary generalized epilepsy. She has been noncompliant with her anticonvulsive medication. Patient at present taking Dilantin 200 mg in the morning and 300 mg at bedtime and Keppra 750 mg twice a day. Review of Systems as mentioned above in detail. The patient complains of headache, tremors, shakes, generalized weakness. She states that she has been using a walker since this year, as she feels wobbly on her feet. Patient denies any chest pain. She does have some shortness of breath. Denies diplopia, loss of vision. Denies dysphagia. Past Medical History Past Medical History: Atrial Fibrillation, Coronary Artery Disease (CAD), Heart Failure, COPD, Hyperlipidemia, Hypertension, Seizure Disorder, Thyroid Disorder Additional Past Medical History / Comment(s): Last seizure within past 10/18, hypothyroid, chronic low back pain, bulging lower back discs. History of Any Multi-Drug Resistant Organisms: None Reported Past Surgical History: Section, Cholecystectomy, Tubal Ligation Additional Past Surgical History / Comment(s): C-Sections x 3 Past Anesthesia/Blood Transfusion Reactions: No Reported Reaction, Motion Sickness Date of Last Stent Placement:: 2003? Past Psychological History: Anxiety, Bipolar, Depression Additional Psychological History / Comment(s): Pt resides with her sister. She uses a cane to ambulate. She does not drive, her sister or other family take her to appts. Smoking Status: Light tobacco smoker Past Alcohol Use History: Rare Additional Past Alcohol Use History / Comment(s): Pt started smoking in 1985 and quit a year ago but resumed smoking and using vapor puffer this year. A pack of cigarettes lasts 4 days. Past Drug Use History: None Reported - Past Family History Father Family Medical History: AFIB Mother Family Medical History: AFIB, Diabetes Mellitus Medications and Allergies Home Medications Medication Instructions Recorded Confirmed Type Montelukast Sodium [Singulair] 10 mg PO DAILY 06/21/17 10/19/19 History Pramipexole [Mirapex] 0.25 mg PO HS 06/21/17 10/19/19 History Simvastatin [Zocor] 20 mg PO HS 06/21/17 10/19/19 History Gabapentin 600 mg PO QID 10/18/17 10/19/19 History Triamterene-Hctz 37.5-25Mg 1 tab PO DAILY 10/18/17 10/19/19 History [Maxzide 37.5-25] amLODIPine [Norvasc] 10 mg PO DAILY 10/18/17 10/19/19 History Topiramate 50 mg PO BID 12/11/17 10/19/19 History ALPRAZolam [Xanax] 0.5 mg PO QID 09/18/18 10/19/19 History QUEtiapine [SEROquel] 200 mg PO HS #30 tab 09/19/18 10/19/19 Rx Phenytoin Sodium Extended 200 mg PO DAILY 02/15/19 10/19/19 History [Dilantin] Phenytoin Sodium Extended 300 mg PO HS 02/15/19 10/19/19 History [Dilantin] levETIRAcetam [Keppra] 750 mg PO BID 02/15/19 10/19/19 History busPIRone HCL 15 mg PO TID 06/01/19 10/19/19 History Aspirin 325 mg PO DAILY 10/19/19 10/19/19 History FLUoxetine HCL 40 mg PO BID 10/19/19 10/19/19 History Furosemide [Lasix] 20 mg PO DAILY 10/19/19 10/19/19 History Allergies Allergy/AdvReac Type Severity Reaction Status Date / Time ibuprofen [From Motrin] Allergy Rash/Hives Verified 10/19/19 17:04 Latex, Natural Rubber Allergy Unknown Verified 10/19/19 17:04 naproxen [From Naprosyn] Allergy Unknown Verified 10/19/19 17:04 tramadol Allergy Rash/Hives Verified 10/19/19 17:04 Penicillins AdvReac Vomiting Verified 10/19/19 17:04 Physical Examination - Vital Signs Vital Signs: Vital Signs Temp Pulse Pulse Resp BP BP Pulse Ox 10/20/19 07:00 97.7 F 72 16 107/72 92 L 10/20/19 01:07 98.2 F 81 16 96/62 93 L 10/19/19 22:03 98.1 F 95 18 108/68 95 10/19/19 19:23 98 F 68 18 131/84 94 L 10/19/19 16:27 74 20 101/67 95 10/19/19 15:41 98.5 F 77 18 91/57 89 L Intake and Output 10/19/19 10/20/19 10/20/19 22:59 06:59 14:59 Intake Total 400 900 222 Output Total 2 Balance 398 900 222 Intake: Intake, IV Titration 900 Amount Sodium Chloride 0.9% 1, 900 000 ml @ 75 mls/hr IV . [id number] ONE Rx#:[id number] Oral 400 222 Output: Urine 2 Other: Voiding Method Toilet Toilet # Voids 1 1 1 Weight 117.934 kg on examination patient is a middle aged female, who appears older than her stated age. Patient appears somewhat groggy, was sleeping when I woke her up. Her speech and language functions are normal although she has hoarse voice. Patient knows that it is October 2019, and Mr. Sebastian is the president and that she is in [facility] although thinks she is in [facility]. On cranial nerve examination pupils are round and reacting to light, visual crocker are full on confrontation, extraocular muscles are intact with no nystag mus. Face is symmetric and tongue protrudes to the midline. Palatal elevation and sensation normal. On muscle strength testing there is no drift and the strength is normal in arms and legs distally and proximally. Patient has obvious asterixis/myoclonic jerks noted of outstretched hands. Tone and bulk of muscles normal reflexes are 1+ and plantars are downgoing. No ataxia for [id number] testing. Results - Laboratory Findings CBC and BMP: 10/19/19 15:45 10/19/19 15:45 Abnormal Lab Findings: Abnormal Labs 10/19/19 10/19/19 10/19/19 15:45 15:45 16:02 MCV 101.1 H Glucose 109 H POC Glucose (mg/dL) 120 H Urine Appearance Urine Mucus Ur Barbiturates Screen U Tricyclic Antidepress U Benzodiazepines Scrn 10/19/19 17:30 MCV Glucose POC Glucose (mg/dL) Urine Appearance Cloudy H Urine Mucus Rare H Ur Barbiturates Screen Detected H U Tricyclic Antidepress Detected H U Benzodiazepines Scrn Detected H Assessment and Plan Assessment: * Long-standing history of seizure disorder, perhaps primary generalized epilepsy (as per previous documentation), came with possible breakthrough seizures. * Tremors, myoclonic jerks, likely from toxic metabolic encephalopathy. Rule ou t COPD exacerbation, but given abnormal chest x-ray findings. Patient also Vapes, which may be contributing to encephalopathy. * Headaches, possibly migraines. Recently worse, likely due to underlying worsening of toxic metabolic dysfunction. * History of tobacco use, but now patient Vapes * Morbid obesity. Plan: * We will check EEG to evaluate for any interictal epileptiform activity. Patient's Dilantin level is 9.6, which is almost therapeutic. Patient will be continued on same dose of Dilantin, 200 mg in the morning and 300 mg at night. Await Keppra levels. We will increase dose of Keppra to 1000 mg twice a day. patient also is on Topamax 50 mg twice a day. If needed, the dose of Topamax can be increased further up as tolerated. * Patient needs to follow-up with a neurologist locally. * We will check carotid Doppler to rule out carotid stenosis. * patient was counseled about stopping Vaping, which can also pose health risks. * your medical management for various toxic metabolic causes, possible pulmonary process. * Patient informed of [place] state law of no driving unless seizure free for 6 months, operating dangerous machinery, climbing ladders or unsupervised swimming. * Dr. Lazaro will be covering me over the weekend. Please call Dr. Lazaro if any concerns.
--- NOTE | 2019-10-20 15:08 | US ---
EXAMINATION TYPE: US carotid duplex BILAT DATE OF EXAM: 10/20/2019 COMPARISON: NONE CLINICAL HISTORY: Seizure disorder. Altered mental status, exam done portable. EXAM MEASUREMENTS: RIGHT: Peak Systolic Velocity (PSV) cm/sec ----- Right CCA: 73.2 ----- Right ICA: 169.1 ----- Right ECA: 107.0 ICA/CCA ratio: 2.3 RIGHT: End Diastole cm/sec ----- Right CCA: 22.6 ----- Right ICA: 50.2 ----- Right ECA: 15.2 LEFT: Peak Systolic Velocity (PSV) cm/sec ----- Left CCA: 86.1 ----- Left ICA: 154.7 ----- Left ECA: 125.1 ICA/CCA ratio: 1.8 LEFT: End Diastole cm/sec ----- Left CCA: 25.7 ----- Left ICA: 35.4 ----- Left ECA: 14.4 VERTEBRALS (direction of flow): Right Vertebral: Antegrade Left Vertebral: Antegrade Rhythm: Normal Difficult and limited study due to patient body habitus and heavy breathing, grayscale, color Doppl er, spectral Doppler imaging performed of the carotid arteries. There is possible hemodynamic signifi cant stenosis of the occipital right internal carotid artery. Bilateral intimal thickening, elevated velocities: right mid ICA, right distal ICA and left mid ICA, right ICA/CCA ratio 2.3 IMPRESSION: Possible hemodynamic significant stenosis of the proximal internal carotid artery on the right by Doppler criteria, an indirect measurement of carotid stenosis. There is tortuosity of the i nternal carotid arteries bilaterally, some technically. Carotid CTA could be performed for additional evaluation. Criteria for Assigning % of Stenosis / Diameter reduction (Estimation based on the indirect measurements of the internal carotid artery velocities (ICA PSV). 1. Normal (no stenosis)=ICA PSV < 125 cm/s: ratio < 2.0: ICA EDV<40 cm/s. 2. Less than 50% stenosis=ICA PSV < 125 cm/s: ratio < 2.0: ICA EDV<40 cm/s. 3. 50 to 69% stenosis=ICA PSV of 125 to 230 cm/s: ration 2.0 ? 4.0: ICA EDV 40-100 cm/s. 4. Greater than 70% stenosis to near occlusion= ICA PSV > 230 cm/s: ratio > 4.0: ICA EDV > 100 cm/s. 5. Near occlusion= ICA PSV velocities may be low or undetectable: variable ratio and ICA EDV. 6. Total occlusion=unable to detect flow.
--- NOTE | 2019-10-20 17:26 | EEG ---
ELECTROENCEPHALOGRAM REPORT DATE OF SERVICE: 10/20/2019 PREAMBLE: This is a 49-year-old female with history of seizure disorder. She came with possible seizures and altered mental status. CURRENT MEDICATIONS: 1. Dilantin 500 mg a day. 2. Keppra 750 mg b.i.d. EEG FINDINGS: Routine 21-channel awake digital EEG recording was accomplished utilizing the 10/20 international system with bipolar and referential montages. The background consists of well-developed, moderately well regulated, mixed frequencies of 6 to 7 Hz theta, with 2 to 3 Hz moderate to high amplitude delta activity. Background does not seem to be reactive to eye opening or closing. Photic driving response was not seen. Drowsiness was seen with appearance of generalized theta frequency and some stage II sleep was seen with presence of sleep spindles and vertex waves. No focal or generalized epileptiform activity was seen. EKG rhythm lead revealed no arrhythmia. IMPRESSION: This is a mild to moderately abnormal EEG due to background slowing. This is suggestive of generalized cerebral dysfunction, as can be seen with toxic metabolic encephalopathies or due to diffuse structural brain abnormality. Clinical correlation is recommended. No epileptiform activity was seen. MMODL / IJN: [id number] / MTDD
[2019-10-20] MEDS: PRAMIPEXOLE 0.25 MG TAB PO SCH (20:14)
[2019-10-20] MEDS: QUEtiapine 200 MG TAB PO SCH (20:15)
[2019-10-20] MEDS: levETIRAcetam 500 MG TAB PO SCH (20:25)
[2019-10-20] MEDS: busPIRone HCl 5 MG TAB PO PRN (22:17)
[2019-10-21] MEDS: HYDROcodone/APAP 5-325MG 1 EACH TAB PO PRN ×3 (06:04→21:11)
[2019-10-21] MEDS: ALPRAZolam 0.25 MG TAB PO PRN ×2 (08:51→19:50)
[2019-10-21] MEDS: TOPIRAMATE 25 MG TAB PO SCH ×2 (10:17→19:51)
[2019-10-21] MEDS: levETIRAcetam 500 MG TAB PO SCH ×2 (10:17→19:50)
[2019-10-21] MEDS: FUROSEMIDE 20 MG TAB PO SCH (10:17)
[2019-10-21] MEDS: GABAPENTIN 300 MG CAP PO SCH ×4 (10:18→22:12)
[2019-10-21] MEDS: FLUoxetine HCL 20 MG CAP PO SCH (10:18)
[2019-10-21] MEDS: MONTELUKAST 10 MG TAB PO SCH (10:18)
[2019-10-21] MEDS: ASPIRIN 325 MG TAB PO SCH (10:18)
[2019-10-21] MEDS: PHENYTOIN SODIUM EXTENDED 100 MG CAP PO SCH ×2 (10:18→19:51)
--- NOTE | 2019-10-21 14:14 | CT ---
EXAMINATION TYPE: CT angio neck DATE OF EXAM: 10/21/2019 HISTORY: Lt posterior neck pain COMPARISON: Previous CT scan of the brain dated 10/19/2019. CT DLP: 811.4 mGycm. Automated Exposure Control for Dose Reduction was Utilized. TECHNIQUE: CTA scan of the neck is performed with IV Contrast, patient injected with 65 mL of Isovue 370, axial images are obtained, coronal and sagittal reformatted images are reviewed. Three-D recons tructed images are created on an independent workstation and reviewed. FINDINGS: There is consolidation in the posterior segment of the right upper lobe. This is small asso ciated effusion. Prevertebral soft tissues are normal. There is fatty infiltration of both the parotid glands and the submandibular glands. The thyroid enha nces normally. There are some shotty cervical adenopathy. There are no pathologically enlarged lymph nodes. There is a mild reversal of normal cervical lordosis. Alignment is normal. Atlantoaxial relationships are normal. There is disc space loss and hypertrophic spondylosis at C5-6. There is mild uncovertebr al joint disease at these levels. There is a normal origin of the great vessels. The left vertebral artery is dominant. Both internal carotid artery travel in a retropharyngeal locat ion. There is no significant stenosis in either carotid artery. IMPRESSION: 1. NO SIGNIFICANT STENOSIS IN EITHER CAROTID SYSTEM. 2. DOMINANT LEFT-SIDED VERTEBRAL ARTERY. 3. RETROPHARYNGEAL LOCATION OF THE INTERNAL CAROTIDS BILATERALLY.
[2019-10-21] MEDS: ONDANSETRON 4 MG/2 ML VIAL IVP PRN (16:08)
--- NOTE | 2019-10-21 17:18 | PN ---
PROGRESS NOTE CHIEF COMPLAINT: Syncopal episodes and seizures. HISTORY OF PRESENT ILLNESS: This lady seems to be a little bit more stable and she is not passing out. She is complaining of difficulty right ear where she has tinnitus and she feels that there is hearing loss. She is not nauseated. PHYSICAL EXAMINATION: Her vital signs are normal. Neck is supple. Head, ears, eyes, nose, mouth, and throat are normal. Chest is clear. Cardiac exam is normal. Abdomen is soft, nontender. IMPRESSION: 1. Syncopal episodes. 2. Seizure disorder. 3. Tinnitus AD. PLAN: 1. Await further neurologic evaluation. 2. Try to increase activity. 3. Consider an ENT consult. MMODL / IJN: [id number] /
[2019-10-21] MEDS: PRAMIPEXOLE 0.25 MG TAB PO SCH (19:51)
[2019-10-21] MEDS: QUEtiapine 200 MG TAB PO SCH (19:51)
[2019-10-22] MEDS: busPIRone HCl 5 MG TAB PO PRN ×3 (02:46→20:39)
[2019-10-22] MEDS: HYDROcodone/APAP 5-325MG 1 EACH TAB PO PRN ×3 (04:41→20:27)
[2019-10-22] MEDS: ALPRAZolam 0.25 MG TAB PO PRN ×3 (04:42→23:00)
[2019-10-22] MEDS: TOPIRAMATE 25 MG TAB PO SCH ×2 (08:31→20:32)
[2019-10-22] MEDS: MONTELUKAST 10 MG TAB PO SCH (08:31)
[2019-10-22] MEDS: PHENYTOIN SODIUM EXTENDED 100 MG CAP PO SCH ×2 (08:32→20:34)
[2019-10-22] MEDS: ASPIRIN 325 MG TAB PO SCH (08:32)
[2019-10-22] MEDS: GABAPENTIN 300 MG CAP PO SCH ×4 (08:32→23:00)
[2019-10-22] MEDS: levETIRAcetam 500 MG TAB PO SCH ×2 (08:32→20:33)
[2019-10-22] MEDS: FUROSEMIDE 20 MG TAB PO SCH (08:32)
[2019-10-22] MEDS: FLUoxetine HCL 20 MG CAP PO SCH (08:33)
[2019-10-22] MEDS: ONDANSETRON 4 MG/2 ML VIAL IVP PRN (11:01)
--- NOTE | 2019-10-22 18:05 | PN ---
PROGRESS NOTE CHIEF COMPLAINT: General weakness and debility with seizure disorder. HISTORY OF PRESENT ILLNESS: This lady has been stable. She has had no problems. She is complaining today of some shakiness in the right upper extremity. Her EEG was normal. She has had no headaches, neurologic problems, change in vision or hearing, etc. PHYSICAL EXAMINATION: She does have slight tremor in the right upper extremity. Chest is clear. Cardiac exam is normal. Abdomen is soft, nontender. IMPRESSION: 1. Possible seizure disorder, postictal depression. 2. Tremors in the right upper extremity, etiology unknown. 3. History of sleep apnea. PLAN: If she continues to do well, she will probably be released tomorrow to outpatient management and therapy. MMODL / IJN: [id number] /
[2019-10-22] MEDS: PRAMIPEXOLE 0.25 MG TAB PO SCH (20:33)
[2019-10-22] MEDS: QUEtiapine 200 MG TAB PO SCH (20:33)
[2019-10-23 02:28] LABS: Glucose,Whole Blood 100 mg/dL (75-99)
[2019-10-23] MEDS ORDERED: KETOROLAC 30 MG/ML 1 ML VIAL IVP STA (02:33)
[2019-10-23] MEDS: ACETAMINOPHEN TAB 325 MG TAB PO PRN (03:05)
[2019-10-23] MEDS: HYDROcodone/APAP 5-325MG 1 EACH TAB PO PRN ×3 (04:40→20:08)
[2019-10-23] MEDS: busPIRone HCl 5 MG TAB PO PRN ×2 (04:46→13:28)
[2019-10-23] MEDS: ASPIRIN 325 MG TAB PO SCH (08:28)
[2019-10-23] MEDS: MONTELUKAST 10 MG TAB PO SCH (08:28)
[2019-10-23] MEDS: FLUoxetine HCL 20 MG CAP PO SCH (08:28)
[2019-10-23] MEDS: GABAPENTIN 300 MG CAP PO SCH ×4 (08:28→21:08)
[2019-10-23] MEDS: ALPRAZolam 0.25 MG TAB PO PRN ×2 (08:28→16:07)
[2019-10-23] MEDS: levETIRAcetam 500 MG TAB PO SCH ×2 (08:29→21:08)
[2019-10-23] MEDS: PHENYTOIN SODIUM EXTENDED 100 MG CAP PO SCH ×2 (08:29→21:08)
[2019-10-23] MEDS: FUROSEMIDE 20 MG TAB PO SCH (08:29)
[2019-10-23] MEDS: TOPIRAMATE 25 MG TAB PO SCH ×2 (08:30→21:08)
[2019-10-23 17:13] LABS: Glucose,Whole Blood 93 mg/dL (75-99)
--- NOTE | 2019-10-23 21:02 | PN ---
PROGRESS NOTE CHIEF COMPLAINT: Mental status changes. HISTORY OF PRESENT ILLNESS: This lady was doing well and in the middle of the night, she started to experience a severe headache which radiated toward the occiput. She had no change in her vision. She was concerned that she may have a seizure, but she did not. She is requesting Ativan and analgesics and these were essentially held and in check. She is stabilized and everything returned to normal. This morning she still feels weak and lethargic. Apparently there was no seizure. PHYSICAL EXAMINATION: Pupils equal, round and reactive. Neck is supple. Chest is clear. Cardiac exam is normal. Neurological she is intact. IMPRESSION: 1. Seizure disorder. 2. Headache. 3. Posterior neck pain. PLAN: Increase activity and monitor vital signs and neurologic status. Cancel discharge for today. MMODL / IJN: [id number] /
[2019-10-23] MEDS: QUEtiapine 200 MG TAB PO SCH (21:08)
[2019-10-23] MEDS: PRAMIPEXOLE 0.25 MG TAB PO SCH (21:08)
[2019-10-24] MEDS: ALPRAZolam 0.25 MG TAB PO PRN ×2 (00:10→08:12)
[2019-10-24] MEDS: HYDROcodone/APAP 5-325MG 1 EACH TAB PO PRN ×2 (03:14→11:20)
[2019-10-24] MEDS: busPIRone HCl 5 MG TAB PO PRN ×2 (03:16→11:19)
[2019-10-24] MEDS: ACETAMINOPHEN TAB 325 MG TAB PO PRN (05:41)
[2019-10-24 07:47] VITALS: BP 123/82; PULSE 74; RESP 17; TEMP 97.9
[2019-10-24] MEDS: FLUoxetine HCL 20 MG CAP PO SCH (08:11)
[2019-10-24] MEDS: levETIRAcetam 500 MG TAB PO SCH (08:12)
[2019-10-24] MEDS: TOPIRAMATE 25 MG TAB PO SCH (08:12)
[2019-10-24] MEDS: PHENYTOIN SODIUM EXTENDED 100 MG CAP PO SCH (08:12)
[2019-10-24] MEDS: GABAPENTIN 300 MG CAP PO SCH (08:12)
[2019-10-24] MEDS: ASPIRIN 325 MG TAB PO SCH (08:12)
[2019-10-24] MEDS: MONTELUKAST 10 MG TAB PO SCH (08:12)
[2019-10-24] MEDS: FUROSEMIDE 20 MG TAB PO SCH (08:12)
--- NOTE | 2019-10-24 21:37 | DS ---
DISCHARGE SUMMARY CHIEF COMPLAINT: Altered mental status and possible seizure with postictal depression. HISTORY OF PRESENT ILLNESS AND PHYSICAL EXAM: Details of this lady's history and physical can be found in the initial workup. LABORATORY STUDIES: While she was in the hospital, she had laboratory studies, details of which can be found in the laboratory section of her chart. COURSE IN HOSPITAL: After admission, she was placed on bedrest and placed on seizure precautions. While in the hospital, she had no seizure activity. She had episodes where she would complain of a "severe headache" and then state that after she experiences these, she would usually have a seizure. She had none. Her workup was unremarkable. EEG was normal. Her activity was increased and she seems stabilized and was doing well enough it was felt that she could go home on the to outpatient treatment and evaluation. She will go home on her usual activity, diet and medication and follow up in several days in the office. FINAL DIAGNOSES: 1. Mental status changes. 2. Seizure disorder. 3. Postictal depression. 4. Recurrent occipital headaches. OPERATIONS: None. CONSULTATIONS: Neurology. She is improved. MMODL / IJN: [id number] /
== END 2019-10-24 12:28 | disposition home or self-care (01) | DRG 100 ==
LOC: EC 15:37 → 4SSUR 18:55
PROVIDERS: ADMIT Family Medicine; ATTEND Family Medicine
DX: G40.409 Other generalized epilepsy and epileptic syndromes, not intractable, without status epilepticus (principal); G92 Toxic encephalopathy; Z68.42 Body mass index [BMI] 45.0-49.9, adult; I11.0 Hypertensive heart disease with heart failure; I50.9 Heart failure, unspecified; T42.76XA Underdosing of unspecified antiepileptic and sedative-hypnotic drugs, initial encounter; Z91.128 Patient's intentional underdosing of medication regimen for other reason; E66.01 Morbid (severe) obesity due to excess calories; G43.909 Migraine, unspecified, not intractable, without status migrainosus; E03.9 Hypothyroidism, unspecified; I25.10 Atherosclerotic heart disease of native coronary artery without angina pectoris; J44.9 Chronic obstructive pulmonary disease, unspecified; F41.9 Anxiety disorder, unspecified; F31.9 Bipolar disorder, unspecified; R26.2 Difficulty in walking, not elsewhere classified; M54.2 Cervicalgia; G47.30 Sleep apnea, unspecified; H91.91 Unspecified hearing loss, right ear; H93.11 Tinnitus, right ear; G89.29 Other chronic pain; M54.5 Low back pain; E78.5 Hyperlipidemia, unspecified; F17.290 Nicotine dependence, other tobacco product, uncomplicated; Z79.82 Long term (current) use of aspirin; Z79.899 Other long term (current) drug therapy; Z86.79 Personal history of other diseases of the circulatory system; Z90.49 Acquired absence of other specified parts of digestive tract; Z98.891 History of uterine scar from previous surgery; Z98.51 Tubal ligation status; Z88.5 Allergy status to narcotic agent; Z88.0 Allergy status to penicillin; Z88.6 Allergy status to analgesic agent; Z91.040 Latex allergy status; Z82.49 Family history of ischemic heart disease and other diseases of the circulatory system; Z83.3 Family history of diabetes mellitus; Y92.009 Unspecified place in unspecified non-institutional (private) residence as the place of occurrence of the external cause; Y63.6 Underdosing and nonadministration of necessary drug, medicament or biological substance
CPT/HCPCS: 36415; 70450; 70498; 71046; 80053; 80185; 80306; 81001; 84484; 85025; 85610; 85730; 93005; 93880; 94760; 95819; 96360; 96361; 99285

== ENCOUNTER → 2019-11-07 | Outpatient (CLI) | payer OTHER ==
--- NOTE | 2019-11-07 17:28 | MR ---
EXAMINATION TYPE: MR brain wo/w con DATE OF EXAM: 11/07/2019 COMPARISON: None HISTORY: Seizures, headache, hx head injury 20 yrs ago CONTRAST: Standard multiplanar, multisequence MRI departmental protocol utilizing 12 mL intravenous Gadavist ga dolinium contrast. Ventricles and sulci appear normal. There is no mass effect nor midline shift. There is no sign of in tracranial hemorrhage. There is no evidence of cortical infarct. Brainstem is intact. Lombardi-white sara er structures have fairly normal signal pattern. There is no evidence of cerebral edema. Corpus callo sum appears normal. Sella turcica appears normal. Contrast images show no pathologic enhancement. There is normal opacification of the venous sinuses. IMPRESSION: MR scan of the brain appears normal for age.
== END | disposition home or self-care (01) ==
LOC: RADMRIMAIN 09:19
PROVIDERS: ATTEND Family Medicine
DX: R51 Headache (principal); R56.9 Unspecified convulsions
CPT/HCPCS: 70553

== ENCOUNTER 2019-11-30 18:39 | Inpatient (IN) | payer OTHER ==
[2019-11-30] MEDS ORDERED: SODIUM CHLORIDE 0.9% 500 ML 500 ML IV STA (19:01)
[2019-11-30] MEDS ORDERED: HYDROcodone/APAP 5-325MG 1 EACH TAB PO STA (19:04)
--- NOTE | 2019-11-30 19:08 | ED ---
Seizure HPI <Maximo Harrison - Last Filed: 11/30/19 22:43> - General Source: patient Mode of arrival: wheelchair Limitations: no limitations <Natalya Valentin - Last Filed: 12/01/19 01:28> - General Chief Complaint: Seizure Stated Complaint: Seizure Time Seen by Provider: 11/30/19 18:46 - History of Present Illness Initial Comments: Patient is a 49-year-old female presenting to the emergency department with complaints of seizures today. Patient has known seizure disorder and typically has one per week. Today patient has had 4 seizures. Patient's sister and daughter are here with her now. Patient does live with the sister. Sister states she typically has her seizures during the night but today she's had 2 at night and into well awake the last one in the ER parking lot. The sister states that normally after her seizures she goes back to childhood memories for about 10 or 15 minutes and then is back to her normal self. Patient did see her PCP, Dr. Aponte today who took her off of BuSpar and lowered her Xanax dosing. There is been no other changes in medication recently. She continues to take her normal dose of Dilantin and keppra. She's had no recent fever, nausea, vomiting. It sister does states she's had a decreased appetite for the last few days. Patient is complaining of pain "all over her body." She's had no recent falls or trauma. There are no other complaints at this time. Upon arrival to the ER, her vital signs are stable. (Natalya Valentin) - Related Data Home Medications Medication Instructions Recorded Confirmed Montelukast Sodium [Singulair] 10 mg PO DAILY 06/21/17 11/30/19 Pramipexole [Mirapex] 0.25 mg PO HS 06/21/17 11/30/19 Simvastatin [Zocor] 20 mg PO HS 06/21/17 11/30/19 Triamterene-Hctz 37.5-25Mg 1 tab PO DAILY 10/18/17 11/30/19 [Maxzide 37.5-25] amLODIPine [Norvasc] 10 mg PO DAILY 10/18/17 11/30/19 Topiramate 100 mg PO BID 12/11/17 11/30/19 ALPRAZolam [Xanax] 0.5 mg PO QID 09/18/18 11/30/19 Phenytoin Sodium Extended 200 mg PO DAILY 02/15/19 11/30/19 [Dilantin] Phenytoin Sodium Extended 300 mg PO HS 02/15/19 11/30/19 [Dilantin] levETIRAcetam [Keppra] 750 mg PO BID 02/15/19 11/30/19 Aspirin 325 mg PO DAILY 10/19/19 11/30/19 FLUoxetine HCL 40 mg PO BID 10/19/19 11/30/19 Furosemide [Lasix] 20 mg PO DAILY 10/19/19 11/30/19 Gabapentin 800 mg PO QID 11/30/19 11/30/19 QUEtiapine FUMARATE [SEROquel] 300 mg PO HS 11/30/19 11/30/19 Allergies Allergy/AdvReac Type Severity Reaction Status Date / Time ibuprofen [From Motrin] Allergy Rash/Hives Verified 11/30/19 23:04 Latex, Natural Rubber Allergy Rash/Hives Verified 11/30/19 23:04 naproxen [From Naprosyn] Allergy Unknown Verified 11/30/19 23:04 tramadol Allergy Rash/Hives Verified 11/30/19 23:04 Penicillins AdvReac Vomiting Verified 11/30/19 23:04 Review of Systems ROS Other: All systems not noted in ROS Statement are negative. <Maximo Harrison - Last Filed: 11/30/19 22:43> ROS Other: All systems not noted in ROS Statement are negative. <Natalya Valentin - Last Filed: 12/01/19 01:28> ROS Statement: Those systems with pertinent positive or pertinent negative responses have been documented in the HPI. Past Medical History Past Medical History: Atrial Fibrillation, Coronary Artery Disease (CAD), Heart Failure, COPD, Hyperlipidemia, Hypertension, Seizure Disorder, Thyroid Disorder Additional Past Medical History / Comment(s): Last seizure within past 10/18, hypothyroid, chronic low back pain, bulging lower back discs. History of Any Multi-Drug Resistant Organisms: None Reported Past Surgical History: Section, Cholecystectomy, Tubal Ligation Additional Past Surgical History / Comment(s): C-Sections x 3 Past Anesthesia/Blood Transfusion Reactions: No Reported Reaction, Motion Sickness Date of Last Stent Placement:: 2003? Past Psychological History: Anxiety, Bipolar, Depression Smoking Status: Light tobacco smoker Past Alcohol Use History: Rare Past Drug Use History: None Reported - Past Family History Father Family Medical History: AFIB Mother Family Medical History: AFIB, Diabetes Mellitus <Natalya Valentin - Last Filed: 12/01/19 01:28> General Exam Limitations: no limitations <Natalya Valentin - Last Filed: 12/01/19 01:28> - General Exam Comments Initial Comments: GENERAL: Alert, oriented, slightly diaphoretic, seems post ictal. HEAD: Atraumatic, normocephalic. EYES: Pupils equal round and reactive to light, extraocular movements intact, sclera anicteric, conjunctiva are normal. ENT: TMs normal, nares patent, oropharynx clear without exudates. Moist mucous membranes. NECK: Normal range of motion, supple without lymphadenopathy or JVD. LUNGS: Breath sounds clear to auscultation bilaterally and equal. No wheezes rales or rhonchi. HEART: Regular rate and rhythm without murmurs, rubs or gallops. ABDOMEN: Soft, nontender, normoactive bowel sounds. No guarding, no rebound. No masses appreciated. : Deferred EXTREMITIES: Normal range of motion, no pitting or edema. No clubbing or cyanosis. NEUROLOGICAL: Cranial nerves II through XII grossly intact. Normal speech, normal gait. PSYCH: Normal mood, normal affect. SKIN: Warm, Dry, normal turgor, no rashes or lesions noted. (Natalya Valentin) Course Vital Signs 11/30/19 11/30/19 11/30/19 18:45 22:59 23:57 Temperature 97.9 F Pulse Rate 78 75 69 Respiratory 17 16 18 Rate Blood Pressure 130/85 97/65 107/72 O2 Sat by Pulse 93 L 94 L 95 Oximetry Medical Decision Making - Lab Data Result diagrams: 11/30/19 19:00 11/30/19 19:00 <Maximo Harrison - Last Filed: 11/30/19 22:43> - Lab Data Result diagrams: 11/30/19 19:00 11/30/19 19:00 <Natalya Valentin - Last Filed: 12/01/19 01:28> - Medical Decision Making I saw this patient in conjunction with the physician magistrate assistant. I performed independent history and physical exam. Agree with case management. (Maximo Harrison) Patient is a 49-year-old female presenting with seizures today. She has known seizure disorder and has not had consistent neurology follow-up. Patient's exam today is normal. Laboratory shows no acute abnormalities, EKG is normal. Urine is normal. Patient has a resting comfortably in the ER. Vital signs have remained stable. I discussed these findings with the patient and the family. I recommended outpatient follow-up with neurology however patient's sister was worried to bring patient home since she has been having some any seizures today. We will admit the patient for observation with neurology consult. Dr. Aponte is accepting. Case discussed with Dr. Harrison. (Natalya Valentin) - Lab Data Lab Results 11/30/19 11/30/19 11/30/19 Range/Units 19:00 19:00 19:00 WBC 7.0 (3.8-10.6) k/uL RBC 4.57 (3.80-5.40) m/uL Hgb 14.3 (11.4-16.0) gm/dL Hct 44.7 (34.0-46.0) % MCV 98.0 (80.0-100.0) fL MCH 31.4 (25.0-35.0) pg MCHC 32.0 (31.0-37.0) g/dL RDW 14.9 (11.5-15.5) % Plt Count 246 (150-450) k/uL Neutrophils % 59 % Lymphocytes % 29 % Monocytes % 6 % Eosinophils % 2 % Basophils % 1 % Neutrophils # 4.1 (1.3-7.7) k/uL Lymphocytes # 2.1 (1.0-4.8) k/uL Monocytes # 0.4 (0-1.0) k/uL Eosinophils # 0.1 (0-0.7) k/uL Basophils # 0.1 (0-0.2) k/uL Sodium 141 (137-145) mmol/L Potassium 4.0 (3.5-5.1) mmol/L Chloride 105 (98-107) mmol/L Carbon Dioxide 26 (22-30) mmol/L Anion Gap 10 mmol/L BUN 13 (7-17) mg/dL Creatinine 0.79 (0.52-1.04) mg/dL Est GFR (CKD-EPI)AfAm >90 (>60 ml/min/1.73 sqM) Est GFR (CKD-EPI)NonAf 88 (>60 ml/min/1.73 sqM) Glucose 105 H (74-99) mg/dL POC Glucose (mg/dL) (75-99) mg/dL POC Glu Sandwich Hand ID Calcium 9.0 (8.4-10.2) mg/dL Total Bilirubin 0.3 (0.2-1.3) mg/dL AST 22 (14-36) U/L ALT 17 (4-34) U/L Alkaline Phosphatase 141 H (38-126) U/L Troponin I <0.012 (0.000-0.034) ng/mL Total Protein 7.7 (6.3-8.2) g/dL Albumin 4.2 (3.5-5.0) g/dL Urine Color Urine Appearance (Clear) Urine pH (5.0-8.0) Ur Specific [place] (1.001-1.035) Urine Protein (Negative) Urine Glucose (UA) (Negative) Urine Ketones (Negative) Urine Blood (Negative) Urine Nitrite (Negative) Urine Bilirubin (Negative) Urine Urobilinogen (<2.0) mg/dL Ur Leukocyte Esterase (Negative) Urine Opiates Screen (NotDetected) Ur Oxycodone Screen (NotDetected) Urine Methadone Screen (NotDetected) Ur Propoxyphene Screen (NotDetected) Ur Barbiturates Screen (NotDetected) Phenytoin 12.4 ug/mL U Tricyclic Antidepress (NotDetected) Ur Phencyclidine Scrn (NotDetected) Ur Amphetamines Screen (NotDetected) U Methamphetamines Scrn (NotDetected) U Benzodiazepines Scrn (NotDetected) Urine Cocaine Screen (NotDetected) U Marijuana (THC) Screen (NotDetected) 11/30/19 11/30/19 Range/Units 19:37 21:26 WBC (3.8-10.6) k/uL RBC (3.80-5.40) m/uL Hgb (11.4-16.0) gm/dL Hct (34.0-46.0) % MCV (80.0-100.0) fL MCH (25.0-35.0) pg MCHC (31.0-37.0) g/dL RDW (11.5-15.5) % Plt Count (150-450) k/uL Neutrophils % % Lymphocytes % % Monocytes % % Eosinophils % % Basophils % % Neutrophils # (1.3-7.7) k/uL Lymphocytes # (1.0-4.8) k/uL Monocytes # (0-1.0) k/uL Eosinophils # (0-0.7) k/uL Basophils # (0-0.2) k/uL Sodium (137-145) mmol/L Potassium (3.5-5.1) mmol/L Chloride (98-107) mmol/L Carbon Dioxide (22-30) mmol/L Anion Gap mmol/L BUN (7-17) mg/dL Creatinine (0.52-1.04) mg/dL Est GFR (CKD-EPI)AfAm (>60 ml/min/1.73 sqM) Est GFR (CKD-EPI)NonAf (>60 ml/min/1.73 sqM) Glucose (74-99) mg/dL POC Glucose (mg/dL) 112 H (75-99) mg/dL POC Glu Sandwich Hand ID Calcium (8.4-10.2) mg/dL Total Bilirubin (0.2-1.3) mg/dL AST (14-36) U/L ALT (4-34) U/L Alkaline Phosphatase (38-126) U/L Troponin I (0.000-0.034) ng/mL Total Protein (6.3-8.2) g/dL Albumin (3.5-5.0) g/dL Urine Color Yellow Urine Appearance Clear (Clear) Urine pH 6.5 (5.0-8.0) Ur Specific [place] 1.029 (1.001-1.035) Urine Protein Trace H (Negative) Urine Glucose (UA) Negative (Negative) Urine Ketones Negative (Negative) Urine Blood Negative (Negative) Urine Nitrite Negative (Negative) Urine Bilirubin Negative (Negative) Urine Urobilinogen <2.0 (<2.0) mg/dL Ur Leukocyte Esterase Negative (Negative) Urine Opiates Screen Detected H (NotDetected) Ur Oxycodone Screen Not Detected (NotDetected) Urine Methadone Screen Not Detected (NotDetected) Ur Propoxyphene Screen Not Detected (NotDetected) Ur Barbiturates Screen Detected H (NotDetected) Phenytoin ug/mL U Tricyclic Antidepress Detected H (NotDetected) Ur Phencyclidine Scrn Not Detected (NotDetected) Ur Amphetamines Screen Detected H (NotDetected) U Methamphetamines Scrn Not Detected (NotDetected) U Benzodiazepines Scrn Detected H (NotDetected) Urine Cocaine Screen Not Detected (NotDetected) U Marijuana (THC) Screen Not Detected (NotDetected) - EKG Data EKG Comments: Ventricular rate 71, P on arrival 188, QTc 467. Normal sinus rhythm. Normal EKG. No acute ST segment changes. Similar to previous last month. (Natalya Valentin) Disposition <Maximo Harrison - Last Filed: 11/30/19 22:43> Is patient prescribed a controlled substance at d/c from ED?: No Decision Date: 11/30/19 Decision Time: 23:02 <Natalya Valentin - Last Filed: 12/01/19 01:28> Clinical Impression: Recurrent seizures Disposition: ADMITTED IP TO THIS [facility] Condition: Stable
[2019-11-30 19:54] LABS: Glucose,Whole Blood 112 mg/dL (75-99)
[2019-11-30 20:07] LABS: Basophils # (A) 0.1 k/uL (0-0.2); Basophils % (A) 1 %; Eosinophils # (A) 0.1 k/uL (0-0.7); Eosinophils % (A) 2 %; HCT 44.7 % (34.0-46.0); HGB 14.3 gm/dL (11.4-16.0); Lymphocytes # (A) 2.1 k/uL (1.0-4.8); Lymphocytes % (A) 29 %; MCH 31.4 pg (25.0-35.0); Mean Platelet Volume 7.9; Monocytes # (A) 0.4 k/uL (0-1.0); Monocytes % (A) 6 %; Neutrophils # (A) 4.1 k/uL (1.3-7.7); Neutrophils % (A) 59 %; Platelet Count 246 k/uL (150-450); RBC 4.57 m/uL (3.80-5.40); RDW 14.9 % (11.5-15.5)
[2019-11-30 20:21] LABS: ALT 17 U/L (4-34); AST 22 U/L (14-36); African American GFR (CKD) >90 (>60 ml/min/1.73 sqM); Albumin 4.2 g/dL (3.5-5.0); Alkaline Phosphatase 141 U/L (38-126); Anion Gap 10 mmol/L; Blood Urea Nitrogen 13 mg/dL (7-17); Carbon Dioxide 26 mmol/L (22-30); Chloride 105 mmol/L (98-107); Glucose 105 mg/dL (74-99); Non-African American GFR(CKD) 88 (>60 ml/min/1.73 sqM); Phenytoin (Dilantin) 12.4 ug/mL; Sodium 141 mmol/L (137-145); Total Bilirubin 0.3 mg/dL (0.2-1.3); Total Protein 7.7 g/dL (6.3-8.2)
[2019-11-30 21:43] LABS: Appearance,Urine Clear (Clear); Bilirubin,Urine Negative (Negative); Blood,Urine Negative (Negative); Color,Urine Yellow; Glucose,Urine (UA) Negative (Negative); Ketones,Urine Negative (Negative); Leukocyte Esterase,Urine Negative (Negative); Nitrite,Urine Negative (Negative); PH, Urine 6.5 (5.0-8.0); Protein,Urine Trace (Negative); Specific Gravity,Urine 1.029 (1.001-1.035); Urobilinogen,Urine <2.0 mg/dL (<2.0)
[2019-11-30 21:59] LABS: Amphetamine Screen,Urine Detected (NotDetected); Barbiturate Screen,Urine Detected (NotDetected); Benzodiazepines Screen,Urine Detected (NotDetected); Cocaine Screen,Urine Not Detected (NotDetected); Methadone Screen, Urine Not Detected (NotDetected); Opiate Screen,Urine Detected (NotDetected); Oxycodone Screen, Urine Not Detected (NotDetected); Phencyclidine Screen,Urine Not Detected (NotDetected); Tricyclic Antidepressant,Urine Detected (NotDetected); Urn Cannabinoid Scrn Not Detected (NotDetected)
[2019-11-30] MEDS ORDERED: ONDANSETRON 4 MG/2 ML VIAL IVP PRN (22:33)
[2019-11-30] MEDS ORDERED: NALOXONE 0.4 MG/ML 1 ML VIAL IV PRN (22:33)
[2019-12-01] MEDS: FLUoxetine HCL 20 MG CAP PO SCH ×4 (01:39→20:47)
[2019-12-01] MEDS: QUEtiapine 100 MG TAB PO SCH ×2 (01:41→20:48)
[2019-12-01] MEDS: PHENYTOIN SODIUM EXTENDED 100 MG CAP PO SCH ×2 (01:41→20:48)
[2019-12-01] MEDS: amLODIPine 10 MG TAB PO SCH ×2 (09:23→09:25)
[2019-12-01] MEDS: ASPIRIN 325 MG TAB PO SCH (09:25)
[2019-12-01] MEDS: HYDROcodone/APAP 5-325MG 1 EACH TAB PO PRN ×2 (09:32→19:29)
[2019-12-01] MEDS: ALPRAZolam 0.5 MG TAB PO SCH ×3 (11:43→22:12)
[2019-12-01] MEDS: GABAPENTIN 400 MG CAP PO SCH ×3 (13:35→22:12)
--- NOTE | 2019-12-01 16:05 | P.CNNES ---
History of Present Illness Consult date: 12/01/19 Requesting physician: Natalya Valentin Reason for Consult: Seizures History of Present Illness: Patient is a 49-year-old female well known to me from recent hospitalization, when she was seen in consultation on 10/20/2019. Please refer to my note for details. Patient has history of seizure disorder for the last 7 years. Patient still does not follow up with any neurologist. Patient is on Dilantin, Keppra and Topamax. Patient when last seen on 10/20/2019, was recommended to increase the dose of Keppra to 1000 mg twice a day and also to increase dose of Topamax from 50 mg twice a day to 100 mg twice a day. Patient is also on Dilantin 200 mg in the morning and 300 mg at night. Her Dilantin level was therapeutic at that time. Patient apparently did increase dose of Topamax to 100 mg twice a day, but still on Keppra 750 mg twice a day. Patient states that she has been having seizures once a week and yesterday she had 4 seizures in one day. 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 There is some compliance issues also documented. Patient's urine drug screen showed positive for opiates, barbiturates, tricyclic, amphetamine and benzodiazepine. Her liver functions are normal. Chem-7 normal. CBC normal. Dilantin level is 12.4 which is very therapeutic as of yesterday. Patient had an EEG on 10/20/2019 which was mild to moderately abnormal EEG due to background slowing. No epileptiform activity was seen. Review of Systems Completely unremarkable. Denies hoarseness or throat dysphagia, shortness breath wheezing cough, chest pain or nausea vomiting diarrhea. Past Medical History Past Medical History: Atrial Fibrillation, Coronary Artery Disease (CAD), Heart Failure, COPD, Hyperlipidemia, Hypertension, Seizure Disorder, Thyroid Disorder Additional Past Medical History / Comment(s): Last seizure within past 10/18, hypothyroid, chronic low back pain, bulging lower back discs. History of Any Multi-Drug Resistant Organisms: None Reported Past Surgical History: Section, Cholecystectomy, Tubal Ligation Additional Past Surgical History / Comment(s): C-Sections x 3 Past Anesthesia/Blood Transfusion Reactions: No Reported Reaction, Motion Sickness Date of Last Stent Placement:: 2003? Past Psychological History: Anxiety, Bipolar, Depression Smoking Status: Light tobacco smoker Past Alcohol Use History: Rare Past Drug Use History: None Reported - Past Family History Father Family Medical History: AFIB Mother Family Medical History: AFIB, Diabetes Mellitus Medications and Allergies Home Medications Medication Instructions Recorded Confirmed Type Montelukast Sodium [Singulair] 10 mg PO DAILY 06/21/17 11/30/19 History Pramipexole [Mirapex] 0.25 mg PO HS 06/21/17 11/30/19 History Simvastatin [Zocor] 20 mg PO HS 06/21/17 11/30/19 History Triamterene-Hctz 37.5-25Mg 1 tab PO DAILY 10/18/17 11/30/19 History [Maxzide 37.5-25] amLODIPine [Norvasc] 10 mg PO DAILY 10/18/17 11/30/19 History Topiramate 100 mg PO BID 12/11/17 11/30/19 History ALPRAZolam [Xanax] 0.5 mg PO TID 09/18/18 12/01/19 History Phenytoin Sodium Extended 200 mg PO DAILY 02/15/19 11/30/19 History [Dilantin] Phenytoin Sodium Extended 300 mg PO HS 02/15/19 11/30/19 History [Dilantin] levETIRAcetam [Keppra] 750 mg PO BID 02/15/19 11/30/19 History Aspirin 325 mg PO DAILY 10/19/19 11/30/19 History FLUoxetine HCL 40 mg PO BID 10/19/19 11/30/19 History Furosemide [Lasix] 20 mg PO DAILY 10/19/19 11/30/19 History Gabapentin 800 mg PO QID 11/30/19 11/30/19 History QUEtiapine FUMARATE [SEROquel] 300 mg PO HS 11/30/19 11/30/19 History HYDROcodone/APAP 5-325MG [[place] 1 tab PO DAILY PRN 12/01/19 12/01/19 History 5-325] Metoprolol Succinate [Toprol XL] 50 mg PO DAILY 12/01/19 12/01/19 History busPIRone HCL [Buspar] 30 mg PO TID PRN 12/01/19 12/01/19 History Allergies Allergy/AdvReac Type Severity Reaction Status Date / Time ibuprofen [From Motrin] Allergy Rash/Hives Verified 11/30/19 23:04 Latex, Natural Rubber Allergy Rash/Hives Verified 11/30/19 23:04 naproxen [From Naprosyn] Allergy Unknown Verified 11/30/19 23:04 tramadol Allergy Rash/Hives Verified 11/30/19 23:04 Penicillins AdvReac Vomiting Verified 11/30/19 23:04 Physical Examination - Vital Signs Vital Signs: Vital Signs Temp Pulse Pulse Resp BP BP Pulse Ox 12/01/19 11:33 98.1 F 63 18 106/56 96 12/01/19 05:01 98 F 69 20 94/63 95 12/01/19 01:20 98.2 F 75 20 117/80 94 L 12/01/19 01:04 74 18 108/71 95 11/30/19 23:57 69 18 107/72 95 11/30/19 22:59 75 16 97/65 94 L 11/30/19 18:45 97.9 F 78 17 130/85 93 L Intake and Output 11/30/19 12/01/19 12/01/19 22:59 06:59 14:59 Other: Voiding Method Toilet # Voids 1 Weight 114.759 kg 114.759 kg On examination patient is a middle aged female, in no distress. Her mental status, speech and language functions are normal. Cranial nerves are all normal. On muscle strength testing there is no drift and the strength is normal in arms and legs reflexes are symmetric no ataxia tone and bulk of muscles normal. Gait normal. Results - Laboratory Findings CBC and BMP: 11/30/19 19:00 11/30/19 19:00 Abnormal Lab Findings: Abnormal Labs 11/30/19 11/30/19 11/30/19 19:00 19:37 21:26 Glucose 105 H POC Glucose (mg/dL) 112 H Alkaline Phosphatase 141 H Urine Protein Trace H Urine Opiates Screen Detected H Ur Barbiturates Screen Detected H U Tricyclic Antidepress Detected H Ur Amphetamines Screen Detected H U Benzodiazepines Scrn Detected H Assessment and Plan Assessment: * Long-standing history of seizure disorder, continues to have frequent seizure, about once a week. Rule out nonepileptic seizures. * Migraine headaches * History of tobacco use * Obesity. Plan: * Increase Keppra to 1500 mg twice a day. * Continue same dose of Topamax 100 mg twice a day and Dilantin 200 mg in the morning and 300 mg at night. * Patient is clear from neurology standpoint for discharge. * Patient strongly recommended to follow up with a local neurologist to manage her seizure disorder. * If the seizures continues to occur frequently, I would suggest referral to epilepsy monitoring unit for video EEG monitoring to rule out nonepileptic seizures. * Patient should not drive for 6 months, operate dangerous machinery, ladders or unsupervised swimming.
[2019-12-01] MEDS: levETIRAcetam 500 MG TAB PO SCH (20:47)
[2019-12-01] MEDS: PRAMIPEXOLE 0.25 MG TAB PO SCH (20:48)
[2019-12-01] MEDS: TOPIRAMATE 100 MG TAB PO SCH (20:48)
--- NOTE | 2019-12-01 22:59 | HP ---
HISTORY AND PHYSICAL CHIEF COMPLAINT: Seizures. HISTORY OF PRESENT ILLNESS: This lady was brought to the emergency room by her family after she had 3 or 4 seizures at home. Her history is somewhat difficult. She has been a new patient of the practice. History of her seizures is suggestive that these may be pseudoseizures. Nonetheless, she is on several different medications, and recently it was planned that she would be referred to Neurology. She then came into the emergency room. Her family stated that she had had 3 or 4 seizures that night before she came in. She denies any loss of sphincter control, aura, or what sounds like postictal depression. REVIEW OF SYSTEMS: She has had no focal neurologic deficits, headaches, change in vision or hearing, chest pain, cough, hemoptysis, heart failure, palpitations, syncope, abdominal pain, nausea, vomiting, hematemesis, melena, hematochezia, renal failure, dysuria, frequency, urgency, incontinence, etc. Past medical history, family history, and personal and social histories are otherwise unremarkable and unchanged from her last admission. PHYSICAL EXAMINATION: Blood pressure is 140/84 with a pulse of 86, respirations of 36, and she is afebrile. In general she appeared to be overweight. Skin color was normal. Skin was warm and dry. Lymph nodes were not enlarged. Head, ears, eyes, nose, mouth and throat were normal. Chest was clear. Cardiac exam sounded like she was in sinus rhythm. The abdomen was protuberant, soft and nontender without any visceromegaly or masses. Bowel sounds were present. Extremities were normal. Neurologically she seemed to be intact. She was awake and alert. ADMITTING DIAGNOSES: She is admitted to the hospital with the diagnoses: 1. Grand mal seizure disorder. 2. History of hypertension. 3. Type 2 diabetes mellitus. PLAN: 1. Bed rest. 2. Consult Neurology and recommend changes in her program as directed by Neurology. MMODL / IJN: [id number] /
--- NOTE | 2019-12-01 23:02 | PN ---
PROGRESS NOTE DATE OF SERVICE: 12/01/2019 CHIEF COMPLAINT: Seizure disorder. HISTORY OF PRESENT ILLNESS: This lady has been stable during the night without seizures. She is feeling extremely anxious. Studies have been ordered and she will be seen by Neurology. PHYSICAL EXAMINATION: Neck is supple. Head, ears, eyes, nose, mouth and throat are normal. Chest is clear. Cardiac exam is normal. Abdomen is protuberant, soft, nontender. Neurologically she is intact. IMPRESSION: 1. Uncontrolled seizure disorder. 2. Rule out pseudoseizure. 3. Hypertension. PLAN: Await neurology evaluation. MMODL / IJN: [id number] /
[2019-12-02] MEDS: HYDROcodone/APAP 5-325MG 1 EACH TAB PO PRN ×4 (02:25→17:33)
[2019-12-02] MEDS: GABAPENTIN 400 MG CAP PO SCH ×4 (08:03→21:28)
[2019-12-02] MEDS: ALPRAZolam 0.5 MG TAB PO SCH ×4 (08:03→21:28)
[2019-12-02] MEDS: FUROSEMIDE 20 MG TAB PO SCH (08:03)
[2019-12-02] MEDS: FLUoxetine HCL 20 MG CAP PO SCH ×2 (08:03→21:28)
[2019-12-02] MEDS: amLODIPine 10 MG TAB PO SCH (08:03)
[2019-12-02] MEDS: ASPIRIN 325 MG TAB PO SCH (08:04)
[2019-12-02] MEDS: MONTELUKAST 10 MG TAB PO SCH (08:04)
[2019-12-02] MEDS: TOPIRAMATE 100 MG TAB PO SCH ×2 (08:05→21:28)
[2019-12-02] MEDS: TRIAMTERENE-HCTZ 37.5-25MG 1 EACH TAB PO SCH (08:05)
[2019-12-02] MEDS: PHENYTOIN SODIUM EXTENDED 100 MG CAP PO SCH ×2 (08:05→21:28)
[2019-12-02] MEDS: levETIRAcetam 500 MG TAB PO SCH ×2 (08:08→21:28)
--- NOTE | 2019-12-02 18:19 | PN ---
PROGRESS NOTE CHIEF COMPLAINT: Grand mal seizure disorder. HISTORY OF PRESENT ILLNESS: This lady had another seizure last night. Keppra has been increased. She has no focal neurologic complaints or problems and she states that she was incontinent of urine. PHYSICAL EXAMINATION: Vital signs are normal. Color is good. Chest is clear. Cardiac exam is normal. Abdomen is soft, nontender. Neurologically, she is awake and alert and intact. IMPRESSION: 1. Grand mal seizure disorder. 2. EEG. 3. Cancel discharge for today. MMODL / IJN: [id number] /
[2019-12-02] MEDS: QUEtiapine 100 MG TAB PO SCH (21:28)
[2019-12-02] MEDS: PRAMIPEXOLE 0.25 MG TAB PO SCH (21:29)
[2019-12-03] MEDS: HYDROcodone/APAP 5-325MG 1 EACH TAB PO PRN ×5 (04:28→22:26)
[2019-12-03] MEDS: ALPRAZolam 0.5 MG TAB PO SCH ×4 (06:00→21:18)
[2019-12-03] MEDS: levETIRAcetam 500 MG TAB PO SCH ×2 (08:01→20:00)
[2019-12-03] MEDS: GABAPENTIN 400 MG CAP PO SCH ×4 (08:01→21:18)
[2019-12-03] MEDS: amLODIPine 10 MG TAB PO SCH (08:01)
[2019-12-03] MEDS: FUROSEMIDE 20 MG TAB PO SCH (08:01)
[2019-12-03] MEDS: ASPIRIN 325 MG TAB PO SCH (08:01)
[2019-12-03] MEDS: MONTELUKAST 10 MG TAB PO SCH (08:01)
[2019-12-03] MEDS: FLUoxetine HCL 20 MG CAP PO SCH ×2 (08:02→20:00)
[2019-12-03] MEDS: TRIAMTERENE-HCTZ 37.5-25MG 1 EACH TAB PO SCH (08:02)
[2019-12-03] MEDS: TOPIRAMATE 100 MG TAB PO SCH ×2 (08:03→20:01)
[2019-12-03] MEDS: PHENYTOIN SODIUM EXTENDED 100 MG CAP PO SCH ×2 (08:03→20:01)
[2019-12-03] MEDS: QUEtiapine 100 MG TAB PO SCH (20:01)
[2019-12-03] MEDS: PRAMIPEXOLE 0.25 MG TAB PO SCH (20:01)
[2019-12-04] MEDS: LORazepam 2 MG/ML INJ IV PRN ×2 (01:22→05:30)
[2019-12-04] MEDS: HYDROcodone/APAP 5-325MG 1 EACH TAB PO PRN ×5 (03:55→21:57)
[2019-12-04] MEDS: TOPIRAMATE 100 MG TAB PO SCH ×2 (08:34→21:58)
[2019-12-04] MEDS: ALPRAZolam 0.5 MG TAB PO SCH ×4 (08:34→22:34)
[2019-12-04] MEDS: MONTELUKAST 10 MG TAB PO SCH (08:34)
[2019-12-04] MEDS: TRIAMTERENE-HCTZ 37.5-25MG 1 EACH TAB PO SCH (08:34)
[2019-12-04] MEDS: ASPIRIN 325 MG TAB PO SCH (08:34)
[2019-12-04] MEDS: PHENYTOIN SODIUM EXTENDED 100 MG CAP PO SCH ×2 (08:35→21:58)
[2019-12-04] MEDS: FLUoxetine HCL 20 MG CAP PO SCH ×2 (08:35→21:59)
[2019-12-04] MEDS: GABAPENTIN 400 MG CAP PO SCH ×4 (08:36→21:58)
[2019-12-04] MEDS: levETIRAcetam 500 MG TAB PO SCH ×2 (08:36→21:58)
[2019-12-04] MEDS: FUROSEMIDE 20 MG TAB PO SCH (08:36)
[2019-12-04] MEDS: QUEtiapine 100 MG TAB PO SCH (21:58)
[2019-12-04] MEDS: PRAMIPEXOLE 0.25 MG TAB PO SCH (21:58)
--- NOTE | 2019-12-05 01:20 | EEG ---
ELECTROENCEPHALOGRAM REPORT PROCEDURE DATE: 12/04/2019. ELECTROENCEPHALOGRAM (EEG) REPORT: TECHNIQUE: A routine 18 channel EEG was performed with video using the 10/20 international electrode placement system. HISTORY: Recurrent seizures. CURRENT MEDICATIONS: Prozac, Neurontin, Topamax, Seroquel, Dilantin, Ativan. STUDY DURATION: 22 minutes. FINDINGS: BACKGROUND: The background activity consists of unsustained 8-9 hertz rhythmic waveforms symmetrically seen over both posterior quadrants. ACTIVATION: Hyperventilation: Not performed. Photic stimulation: No driving seen. Sleep: Drowsy. ABNORMALITIES: Occasional frontally predominant delta range slowing was seen. IMPRESSION: Abnormal EEG. The occasional frontally predominant delta range slowing mentioned above is not epileptiform in nature. These findings indicate mild diffuse cerebral dysfunction and may in part be due to medication effect. No seizures were recorded. No epileptiform activity was present. MMODL / IJN: [id number] /
[2019-12-05] MEDS: HYDROcodone/APAP 5-325MG 1 EACH TAB PO PRN (03:25)
--- NOTE | 2019-12-05 05:38 | PN ---
PROGRESS NOTE CHIEF COMPLAINT: Seizure disorder. HISTORY OF PRESENT ILLNESS: This lady continues to have seizures, or what she calls seizures. They seem to be happening mostly at night. It is hard to tell if these are real or not, and they have not been witnessed. REVIEW OF SYSTEMS: She denies any headaches, focal neurologic deficits, chest pain, abdominal pain, and she has no injuries from her seizures including bite garcia of the tongue or lips. IMPRESSION: Seizure disorder, uncontrolled. PLAN: Await further guidelines from Neurology. She is anxious to go home. EEG has been ordered. MMODL / IJN: [id number] /
--- NOTE | 2019-12-05 05:53 | PN ---
PROGRESS NOTE DATE OF SERVICE: 12/04/2019 CHIEF COMPLAINT: Seizure disorder. HISTORY OF PRESENT ILLNESS: This lady continues to have seizure activity. None of this has been witnessed. The nurse only heard her making a noise in her room when she went in the patient seemed to be confused and was asking why she was here, but she was not having a true seizure. She may be having pseudoseizures. PHYSICAL EXAMINATION: Her chest is clear. Cardiac exam is normal. Abdomen is soft, nontender. Extremities are normal. Neurologically, she is intact. IMPRESSION: Seizure disorder. PLAN: We will ask Neurology to reassess and make any further recommendations regarding this lady's management. MMODL / IJN: [id number] /
[2019-12-05] MEDS: LORazepam 2 MG/ML INJ IV PRN (06:30)
[2019-12-05 08:06] VITALS: TEMP 97.4
[2019-12-05] MEDS: amLODIPine 10 MG TAB PO SCH (10:06)
[2019-12-05] MEDS: ASPIRIN 325 MG TAB PO SCH (10:06)
[2019-12-05] MEDS: ALPRAZolam 0.5 MG TAB PO SCH ×2 (10:06→13:17)
[2019-12-05] MEDS: MONTELUKAST 10 MG TAB PO SCH (10:06)
[2019-12-05] MEDS: levETIRAcetam 500 MG TAB PO SCH (10:07)
[2019-12-05] MEDS: GABAPENTIN 400 MG CAP PO SCH ×2 (10:07→13:17)
[2019-12-05] MEDS: FLUoxetine HCL 20 MG CAP PO SCH (10:07)
[2019-12-05] MEDS: FUROSEMIDE 20 MG TAB PO SCH (10:08)
[2019-12-05] MEDS: TOPIRAMATE 100 MG TAB PO SCH (10:09)
[2019-12-05] MEDS: PHENYTOIN SODIUM EXTENDED 100 MG CAP PO SCH (10:09)
[2019-12-05] MEDS: TRIAMTERENE-HCTZ 37.5-25MG 1 EACH TAB PO SCH (10:10)
[2019-12-05 13:31] VITALS: BP 112/67; PULSE 88; RESP 25
--- NOTE | 2019-12-06 08:03 | DS ---
DISCHARGE SUMMARY CHIEF COMPLAINT: Seizure disorder. HISTORY OF PRESENT ILLNESS AND PHYSICAL EXAM: The details of this lady's history and physical can be found in the initial workup. LABORATORY STUDIES: While she was in the hospital she had laboratory studies, details of which can be found in the laboratory section of her chart. COURSE IN HOSPITAL: After admission she was placed on bedrest and started on intravenous fluids and seizure precautions. She was seen by Neurology who recommended increasing her Keppra. She continued to have the episodes of "seizures", but these were witnessed by a nurse and did not sound like seizures. Neurology felt she was stable and could be discharged on and she will go home on usual activity, diet and medication and she will be seen in the office in several days. FINAL DIAGNOSES: 1. Atypical seizure disorder. 2. Hypertension. OPERATIONS: None. CONSULTATIONS: Neurology. She is improved. MMKIMBERLYL / IJBello: [id number] /
== END 2019-12-05 18:00 | disposition home or self-care (01) | DRG 101 ==
LOC: EC 18:39 → UNDOADMIN 22:43 → 5NMEDONC 22:43 → UNDOADMIN 12-01 09:45
PROVIDERS: ADMIT Family Medicine; ATTEND Family Medicine
DX: G40.802 Other epilepsy, not intractable, without status epilepticus (principal); Z68.41 Body mass index [BMI] 40.0-44.9, adult; E03.9 Hypothyroidism, unspecified; J44.9 Chronic obstructive pulmonary disease, unspecified; F31.9 Bipolar disorder, unspecified; F41.9 Anxiety disorder, unspecified; G43.909 Migraine, unspecified, not intractable, without status migrainosus; F17.200 Nicotine dependence, unspecified, uncomplicated; E78.5 Hyperlipidemia, unspecified; E66.9 Obesity, unspecified; I25.10 Atherosclerotic heart disease of native coronary artery without angina pectoris; I11.0 Hypertensive heart disease with heart failure; I50.9 Heart failure, unspecified; Z79.899 Other long term (current) drug therapy; Z79.82 Long term (current) use of aspirin; Z88.5 Allergy status to narcotic agent; Z83.3 Family history of diabetes mellitus; Z82.49 Family history of ischemic heart disease and other diseases of the circulatory system; Z88.0 Allergy status to penicillin; Z88.8 Allergy status to other drugs, medicaments and biological substances; Z91.040 Latex allergy status; Z90.49 Acquired absence of other specified parts of digestive tract; Z90.89 Acquired absence of other organs; Z98.891 History of uterine scar from previous surgery; Z98.890 Other specified postprocedural states; Z91.19 Patient's noncompliance with other medical treatment and regimen
CPT/HCPCS: 36415; 80053; 80185; 80306; 81003; 84484; 85025; 93005; 95816; 96360; 99285

== ENCOUNTER 2020-03-16 13:44 | Inpatient (IN) | payer OTHER ==
[2020-03-16] MEDS ORDERED: SODIUM CHLORIDE 0.9% 500 ML 500 ML IV STA (14:04)
--- NOTE | 2020-03-16 14:09 | ED ---
General Adult HPI - General Chief complaint: Weakness Stated complaint: tremors Time Seen by Provider: 03/16/20 13:55 Source: patient, EMS, RN notes reviewed, old records reviewed Mode of arrival: EMS Limitations: no limitations - History of Present Illness Initial comments: This is a 49-year-old female who has a past medical history significant for high blood pressure seizures atrial fibrillation. Patient comes in today because she was having tremors last few days and today she fell and hurt her right lateral ribs. Patient states she does not remember what occurred so she could've had a seizure. Patient states her last known seizure was 2 days ago. Patient denies any fever chills per patient denies chest pain difficulty breathing or shortness of breath. Patient denies any headache patient denies any numbness or focal weakness but does complain of generalized weakness. Patient states she feels like she is a little cloudy but is able to answer all questions relative to her orientation. Patient denies any abdominal pain. Patient denies any vomiting or diarrhea. Patient denies any patient states she takes all of her medications as prescribed. - Related Data Home Medications Medication Instructions Recorded Confirmed Montelukast Sodium [Singulair] 10 mg PO DAILY 06/21/17 11/30/19 Pramipexole [Mirapex] 0.25 mg PO HS 06/21/17 11/30/19 Simvastatin [Zocor] 20 mg PO HS 06/21/17 11/30/19 Triamterene-Hctz 37.5-25Mg 1 tab PO DAILY 10/18/17 11/30/19 [Maxzide 37.5-25] amLODIPine [Norvasc] 10 mg PO DAILY 10/18/17 11/30/19 Topiramate 100 mg PO BID 12/11/17 11/30/19 ALPRAZolam [Xanax] 0.5 mg PO TID 09/18/18 12/01/19 Phenytoin Sodium Extended 200 mg PO DAILY 02/15/19 11/30/19 [Dilantin] Phenytoin Sodium Extended 300 mg PO HS 02/15/19 11/30/19 [Dilantin] Aspirin 325 mg PO DAILY 10/19/19 11/30/19 FLUoxetine HCL 40 mg PO BID 10/19/19 11/30/19 Furosemide [Lasix] 20 mg PO DAILY 10/19/19 11/30/19 Gabapentin 800 mg PO QID 11/30/19 11/30/19 QUEtiapine FUMARATE [SEROquel] 300 mg PO HS 11/30/19 11/30/19 HYDROcodone/APAP 5-325MG [[place] 1 tab PO DAILY PRN 12/01/19 12/01/19 5-325] Metoprolol Succinate [Toprol XL] 50 mg PO DAILY 12/01/19 12/01/19 busPIRone HCL [Buspar] 30 mg PO TID PRN 12/01/19 12/01/19 Previous Rx's Medication Instructions Recorded levETIRAcetam [Keppra] 1,500 mg PO Q12HR #60 tab 12/05/19 Allergies Allergy/AdvReac Type Severity Reaction Status Date / Time ibuprofen [From Motrin] Allergy Rash/Hives Verified 11/30/19 23:04 Latex, Natural Rubber Allergy Rash/Hives Verified 11/30/19 23:04 naproxen [From Naprosyn] Allergy Unknown Verified 11/30/19 23:04 tramadol Allergy Rash/Hives Verified 11/30/19 23:04 Penicillins AdvReac Vomiting Verified 11/30/19 23:04 Review of Systems ROS Statement: Those systems with pertinent positive or pertinent negative responses have been documented in the HPI. ROS Other: All systems not noted in ROS Statement are negative. Past Medical History Past Medical History: Atrial Fibrillation, Coronary Artery Disease (CAD), Heart Failure, COPD, Hyperlipidemia, Hypertension, Seizure Disorder, Thyroid Disorder Additional Past Medical History / Comment(s): Last seizure within past 10/18, hypothyroid, chronic low back pain, bulging lower back discs. History of Any Multi-Drug Resistant Organisms: None Reported Past Surgical History: Section, Cholecystectomy, Tubal Ligation Additional Past Surgical History / Comment(s): C-Sections x 3 Past Anesthesia/Blood Transfusion Reactions: No Reported Reaction, Motion Sickness Date of Last Stent Placement:: 2003? Past Psychological History: Anxiety, Bipolar, Depression Smoking Status: Former smoker Past Alcohol Use History: Rare Past Drug Use History: None Reported - Past Family History Father Family Medical History: AFIB Mother Family Medical History: AFIB, Diabetes Mellitus General Exam - General Exam Comments Initial Comments: GENERAL: Patient is well-developed and well-nourished. Patient is nontoxic and well- hydrated and is in mild distress. ENT: Neck is soft and supple. No significant lymphadenopathy is noted. Oropharynx is clear. Moist mucous membranes. Neck has full range of motion without eliciting any pain. EYES: The sclera were anicteric and conjunctiva were pink and moist. Extraocular movements were intact and pupils were equal round and reactive to light. Eyelids were unremarkable. PULMONARY: Unlabored respirations. Good breath sounds bilaterally. No audible rales rhonchi or wheezing was noted. CARDIOVASCULAR: There is a regular rate and rhythm without any murmurs gallops or rubs. ABDOMEN: Soft and nontender with normal bowel sounds. SKIN: Skin is clear with no lesions or rashes and otherwise unremarkable. NEUROLOGIC: Patient is alert and oriented x3. When patient makes it ever to sit up or do so mething physical she gets some upper extremity tremors. Cranial nerves II through XII are grossly intact. Motor and sensory are also intact. Normal speech, volume and content. Symmetrical smile. MUSCULOSKELETAL: Normal extremities with adequate strength and full range of motion. No lower extremity swelling or edema. No calf tenderness. LYMPHATICS: No significant lymphadenopathy is noted PSYCHIATRIC: Normal psychiatric evaluation. Limitations: no limitations Course Vital Signs 03/16/20 03/16/20 03/16/20 13:54 14:00 14:58 Temperature 98.7 F Pulse Rate 63 60 Respiratory 18 17 Rate Blood Pressure 106/61 117/79 O2 Sat by Pulse 82 L 95 95 Oximetry Medical Decision Making - Medical Decision Making EKG shows atrial flutter at a rate of 59 bpm QRS 72 QT interval 4:30 QTC is 425. Patient's EKG shows no ST segment elevation. Chest x-ray showed a possible right middle lobe infiltrate however patient had no complaints difficulty breathing shortness of breath or cough. I spoke with Dr. Aponte he was in agreement to keep the patient 23 hours to observe her. - Lab Data Result diagrams: 03/16/20 14:10 03/16/20 14:10 Lab Results 03/16/20 03/16/20 03/16/20 Range/Units 14:10 14:10 14:10 WBC 5.1 (3.8-10.6) k/uL RBC 3.77 L (3.80-5.40) m/uL Hgb 12.8 (11.4-16.0) gm/dL Hct 38.8 (34.0-46.0) % MCV 102.9 H (80.0-100.0) fL MCH 34.0 (25.0-35.0) pg MCHC 33.0 (31.0-37.0) g/dL RDW 16.6 H (11.5-15.5) % Plt Count 262 (150-450) k/uL Neutrophils % 64 % Lymphocytes % 24 % Monocytes % 6 % Eosinophils % 2 % Basophils % 0 % Neutrophils # 3.3 (1.3-7.7) k/uL Lymphocytes # 1.2 (1.0-4.8) k/uL Monocytes # 0.3 (0-1.0) k/uL Eosinophils # 0.1 (0-0.7) k/uL Basophils # 0.0 (0-0.2) k/uL Anisocytosis Slight Macrocytosis Moderate Sodium 136 L (137-145) mmol/L Potassium 4.4 (3.5-5.1) mmol/L Chloride 104 (98-107) mmol/L Carbon Dioxide 27 (22-30) mmol/L Anion Gap 5 mmol/L BUN 10 (7-17) mg/dL Creatinine 0.59 (0.52-1.04) mg/dL Est GFR (CKD-EPI)AfAm >90 (>60 ml/min/1.73 sqM) Est GFR (CKD-EPI)NonAf >90 (>60 ml/min/1.73 sqM) Glucose 113 H (74-99) mg/dL Calcium 8.4 (8.4-10.2) mg/dL Magnesium 2.1 (1.6-2.3) mg/dL Total Bilirubin 0.4 (0.2-1.3) mg/dL AST 23 (14-36) U/L ALT 15 (4-34) U/L Alkaline Phosphatase 93 (38-126) U/L Troponin I <0.012 (0.000-0.034) ng/mL Total Protein 6.8 (6.3-8.2) g/dL Albumin 3.6 (3.5-5.0) g/dL Phenytoin 15.2 ug/mL Disposition Clinical Impression: Action tremor Disposition: ADMITTED IP TO THIS HOSP Referrals: Ty Aponte MD [Primary Care Provider] - 1-2 days Time of Disposition: 15:04
[2020-03-16 14:25] LABS: Anisocytosis Slight; Basophils % (A) 0 %; Eosinophils # (A) 0.1 k/uL (0-0.7); Eosinophils % (A) 2 %; HCT 38.8 % (34.0-46.0); HGB 12.8 gm/dL (11.4-16.0); Lymphocytes # (A) 1.2 k/uL (1.0-4.8); Lymphocytes % (A) 24 %; MCV 102.9 fL (80.0-100.0); Macrocytosis Moderate; Mean Platelet Volume 7.7; Monocytes # (A) 0.3 k/uL (0-1.0); Monocytes % (A) 6 %; Neutrophils # (A) 3.3 k/uL (1.3-7.7); Neutrophils % (A) 64 %; Platelet Count 262 k/uL (150-450); RBC 3.77 m/uL (3.80-5.40); RDW 16.6 % (11.5-15.5); WBC 5.1 k/uL (3.8-10.6)
[2020-03-16 14:33] LABS: ALT 15 U/L (4-34); AST 23 U/L (14-36); African American GFR (CKD) >90 (>60 ml/min/1.73 sqM); Albumin 3.6 g/dL (3.5-5.0); Alkaline Phosphatase 93 U/L (38-126); Anion Gap 5 mmol/L; Blood Urea Nitrogen 10 mg/dL (7-17); Calcium 8.4 mg/dL (8.4-10.2); Carbon Dioxide 27 mmol/L (22-30); Chloride 104 mmol/L (98-107); Glucose 113 mg/dL (74-99); Magnesium 2.1 mg/dL (1.6-2.3); Non-African American GFR(CKD) >90 (>60 ml/min/1.73 sqM); Phenytoin (Dilantin) 15.2 ug/mL; Potassium 4.4 mmol/L (3.5-5.1); Sodium 136 mmol/L (137-145); Total Bilirubin 0.4 mg/dL (0.2-1.3); Total Protein 6.8 g/dL (6.3-8.2)
--- NOTE | 2020-03-16 14:35 | XR ---
EXAMINATION TYPE: XR chest 2V DATE OF EXAM: 03/16/2020 COMPARISON: NONE HISTORY: Weakness TECHNIQUE: Frontal and lateral views of the chest are obtained. FINDINGS: Patchy infiltrate right middle lobe may reflect developing pneumonia. Correlate clinically. No evidence for pneumothorax. No pleural effusion. The cardiac silhouette size is within normal limits. The osseous structures are grossly intact. IMPRESSION: 1. Patchy infiltrate right middle lobe may reflect developing pneumonia. Correlate clinically
[2020-03-16] MEDS ORDERED: SODIUM CHLORIDE 0.9% 1,000 ML IV ONE (15:04)
--- NOTE | 2020-03-16 16:56 | HP ---
HISTORY AND PHYSICAL CHIEF COMPLAINT: Seizure and postictal depression. HISTORY OF PRESENT ILLNESS: Details of this lady's history could not be obtained. She was apparently brought to the emergency room with a history of seizures. She has a long history of seizure activity and has been in the hospital on and off in the past on numerous occasions. She has not had to be admitted for several months. There is no one to give any further history. She is somewhat lethargic. There is a question as to whether or not these are truly seizures. They could be pseudoseizures. There is an emotional component with her medical history. REVIEW OF SYSTEMS: Cannot be obtained. Past medical history, family history and personal and social histories are unchanged from her past discharge. Her medication list is extensive and not available at this time. PHYSICAL EXAMINATION: Blood pressure 144/85 with a pulse of 101, respirations were 36 and she is afebrile. In general she appears to be overweight and somewhat lethargic. She is not short of breath. Skin color is normal. Head, ears, eyes, nose, mouth, and throat are normal. Pupils are equal, round and reactive. Neck veins not distended. Carotids normal. Chest is clear. Cardiac exam demonstrates sinus rhythm and no murmurs or extra sounds. The abdomen is protuberant, soft and nontender without any masses or visceromegaly. Extremities: Normal. Neurologically she is lethargic, but intact. She is admitted to the hospital with diagnoses of: 1. Possible seizure disorder. 2. Postictal depression. 3. History of hypertension. PLAN: 1. Bed rest. 2. IV fluids. 3. Seizure precautions. MMODL / IJN: [id number] /
[2020-03-16] MEDS ORDERED: ALBUTEROL HFA INHALER INHALATION PRN (19:09)
[2020-03-16] MEDS ORDERED: NICOTINE POLACRILEX 2 MG GUM BUCCAL PRN (19:09)
[2020-03-16] MEDS: HYDROcodone/APAP 5-325MG 1 EACH TAB PO PRN (19:41)
[2020-03-16] MEDS: PRAMIPEXOLE 0.25 MG TAB PO SCH (21:30)
[2020-03-16] MEDS: GABAPENTIN 400 MG CAP PO SCH (21:30)
[2020-03-16] MEDS: QUEtiapine 100 MG TAB PO SCH (21:30)
[2020-03-16] MEDS: FLUoxetine HCL 20 MG CAP PO SCH (21:30)
[2020-03-16] MEDS: ALPRAZolam 0.5 MG TAB PO SCH (21:30)
[2020-03-16] MEDS: PHENYTOIN SODIUM EXTENDED 100 MG CAP PO SCH (21:31)
[2020-03-16 23:01] LABS: Appearance,Urine Cloudy (Clear); Bilirubin,Urine Negative (Negative); Blood,Urine Negative (Negative); Color,Urine Yellow; Glucose,Urine (UA) Negative (Negative); Ketones,Urine Negative (Negative); Leukocyte Esterase,Urine Negative (Negative); Mucus,Urine Rare /hpf; Nitrite,Urine Negative (Negative); Protein,Urine Trace (Negative); RBC,Urine <1 /hpf (0-5); Specific Gravity,Urine 1.018 (1.001-1.035); Squamous Epithelial Cell,Urine 7 /hpf (0-4); Urobilinogen,Urine <2.0 mg/dL (<2.0); WBC,Urine 3 /hpf (0-5)
[2020-03-17] MEDS: HYDROcodone/APAP 5-325MG 1 EACH TAB PO PRN ×3 (02:42→19:58)
[2020-03-17] MEDS: LEVOTHYROXINE 25 MCG TAB PO SCH (06:18)
[2020-03-17] MEDS: ALPRAZolam 0.5 MG TAB PO SCH ×3 (07:57→21:18)
[2020-03-17] MEDS: FLUoxetine HCL 20 MG CAP PO SCH ×2 (07:57→21:18)
[2020-03-17] MEDS: FUROSEMIDE 20 MG TAB PO SCH (07:58)
[2020-03-17] MEDS: GABAPENTIN 400 MG CAP PO SCH ×4 (07:58→21:18)
[2020-03-17] MEDS: PHENYTOIN SODIUM EXTENDED 100 MG CAP PO SCH ×2 (07:59→21:19)
[2020-03-17] MEDS: METOPROLOL SUCCINATE (ER) 50 MG TAB.ER.24H PO SCH (07:59)
[2020-03-17 09:37] VITALS: BMI 39.6
[2020-03-17] MEDS: PANTOPRAZOLE 40 MG TABLET PO SCH (10:44)
[2020-03-17] MEDS: MAG HYDROX/AL HYDROX/SIMETH 30 ML CUP PO PRN (10:44)
[2020-03-17] MEDS: PRAMIPEXOLE 0.25 MG TAB PO SCH (21:19)
[2020-03-17] MEDS: QUEtiapine 100 MG TAB PO SCH (21:19)
[2020-03-18] MEDS: HYDROcodone/APAP 5-325MG 1 EACH TAB PO PRN ×3 (00:54→18:54)
[2020-03-18] MEDS: busPIRone HCl 10 MG TAB PO PRN ×2 (00:57→11:10)
[2020-03-18] MEDS: LEVOTHYROXINE 25 MCG TAB PO SCH (05:29)
[2020-03-18] MEDS: PHENYTOIN SODIUM EXTENDED 100 MG CAP PO SCH ×2 (08:55→21:31)
[2020-03-18] MEDS: GABAPENTIN 400 MG CAP PO SCH ×4 (08:56→21:31)
[2020-03-18] MEDS: ALPRAZolam 0.5 MG TAB PO SCH ×3 (08:56→21:32)
[2020-03-18] MEDS: PANTOPRAZOLE 40 MG TABLET PO SCH (08:56)
[2020-03-18] MEDS: METOPROLOL SUCCINATE (ER) 50 MG TAB.ER.24H PO SCH (08:56)
[2020-03-18] MEDS: FUROSEMIDE 20 MG TAB PO SCH (08:56)
[2020-03-18] MEDS: FLUoxetine HCL 20 MG CAP PO SCH ×2 (08:57→21:31)
[2020-03-18] MEDS: MAG HYDROX/AL HYDROX/SIMETH 30 ML CUP PO PRN (09:54)
--- NOTE | 2020-03-18 17:24 | PN ---
PROGRESS NOTE DATE OF SERVICE: 03/17/2020 CHIEF COMPLAINT: Seizure disorder. HISTORY OF PRESENT ILLNESS: This lady has not had any further seizure activity. She remains a little bit lethargic and this may to be due to postictal depression. She is complaining of a lot of anxiety. PHYSICAL EXAM: She seems slightly lethargic at this time. She has no focal neurologic deficits. She is not complaining of any chest or abdominal pain. Chest is clear. The cardiac exam is normal. The abdomen is soft and nontender and she is a little bit lethargic. IMPRESSION: 1. Seizure disorder. 2. Postictal depression. 3. Anxiety. PLAN: 1. Renew her usual medications. 2. Continue with suicide precautions. 3. Continue to monitor her neurologic status. MMODL / IJN: [id number] /
--- NOTE | 2020-03-18 18:03 | PN ---
PROGRESS NOTE DATE OF SERVICE: 03/18/2020 CHIEF COMPLAINT: Seizure disorder. HISTORY OF PRESENT ILLNESS: This lady seems to be a little bit more alert today. She is still complaining of shakiness. She has had no seizures. PHYSICAL EXAMINATION: Her chest is clear. Cardiac exam is normal. Abdomen is soft, nontender. She seems a little bit more awake and alert today. IMPRESSION: 1. Seizure disorder. 2. Postictal depression. PLAN: 1. Progress activity. 2. Neurology consult. MMODL / IJN: [id number] /
[2020-03-18 21:16] VITALS: RESP 20
[2020-03-18] MEDS: QUEtiapine 100 MG TAB PO SCH (21:31)
[2020-03-18] MEDS: PRAMIPEXOLE 0.25 MG TAB PO SCH (21:32)
--- NOTE | 2020-03-18 22:08 | P.CNNES ---
History of Present Illness Consult date: 03/18/20 Requesting physician: Ty Aponte Reason for Consult: Seizure History of Present Illness: Patient is a 49-year-old female, who is well known to me from recent admissions to the hospital. Patient has history of seizure disorder for the last 7 years, currently on Topamax 100 mg twice a day, Keppra 750 mg twice a day and Dilantin 200 mg in the morning and 300 mg at night. Patient was recently admitted to inpatient psychiatric unit at [facility]. She was treated for depression and suicidal thoughts. Patient was admitted on 03/16/2020 at 2 PM for a seizure, and a fall. I spoke to patient's sister on the phone, who provided further collateral history. Patient last week on Wednesday or Wednesday, February 09 or , had a seizure, lasting for 5 minutes. The day after the seizure patient was standing in the kitchen and she fell, hitting back of the head. Since then she has been very shaky, couldn't hold cup of coffee. Patient's daughter and sister had reported that patient had 4 seizures in the last 1 month. It is a full-blown seizure, like "a fish out of water". Patient's Dilantin level is 15.2. Thompson virus PCR negative. UA negative. Chem-20 normal. Chest x-ray showed patchy infiltrate right middle lobe may reflect developing pneumonia. EKG shows atrial flutter. Patient has history of anxiety, depression. Patient had 3 EEGs in the past, which did not reveal any epileptiform activity. Review of Systems Shortness of breath, cough, tremors. Headache. Excessive weight gain. Peripheral edema. Seizures, denies diabetes, on and off smoker. Has depression and anxiety. Past Medical History Past Medical History: Atrial Fibrillation, Coronary Artery Disease (CAD), Heart Failure, COPD, Hyperlipidemia, Hypertension, Seizure Disorder, Thyroid Disorder Additional Past Medical History / Comment(s): Last seizure within past 10/18, hypothyroid, chronic low back pain, bulging lower back discs. History of Any Multi-Drug Resistant Organisms: None Reported Past Surgical History: Section, Cholecystectomy, Tubal Ligation Additional Past Surgical History / Comment(s): C-Sections x 3 Past Anesthesia/Blood Transfusion Reactions: No Reported Reaction, Motion Sickness Date of Last Stent Placement:: 2004? Past Psychological History: Anxiety, Bipolar, Depression Additional Psychological History / Comment(s): Pt resides with her sister. She uses a cane to ambulate. She does not drive, her sister or other family take her to appts. Smoking Status: Former smoker Past Alcohol Use History: Rare Additional Past Alcohol Use History / Comment(s): Pt started smoking in 1985 and quit a year ago but resumed smoking and using vapor puffer this year. A pack of cigarettes lasts 4 days. Past Drug Use History: None Reported - Past Family History Father Family Medical History: AFIB Mother Family Medical History: AFIB, Diabetes Mellitus Medications and Allergies Home Medications Medication Instructions Recorded Confirmed Type Pramipexole [Mirapex] 0.25 mg PO HS 06/21/17 03/18/20 History ALPRAZolam [Xanax] 0.5 mg PO TID 09/18/18 03/18/20 History Phenytoin Sodium Extended 200 mg PO DAILY 02/15/19 03/18/20 History [Dilantin] Phenytoin Sodium Extended 300 mg PO HS 02/15/19 03/18/20 History [Dilantin] FLUoxetine HCL 40 mg PO BID 10/19/19 03/18/20 History Furosemide [Lasix] 20 mg PO DAILY 10/19/19 03/18/20 History Gabapentin 800 mg PO QID 11/30/19 03/18/20 History QUEtiapine FUMARATE [SEROquel] 300 mg PO HS 11/30/19 03/18/20 History HYDROcodone/APAP 5-325MG [[place] 1 tab PO DAILY PRN 12/01/19 03/18/20 History 5-325] Metoprolol Succinate [Toprol XL] 50 mg PO DAILY 12/01/19 03/18/20 History busPIRone HCL [Buspar] 30 mg PO TID PRN 12/01/19 03/18/20 History Albuterol Sulfate [Ventolin HFA] 2 puff INHALATION RT-QID PRN 03/16/20 03/18/20 History Ergocalciferol [Vitamin D2] 50,000 unit PO Q7D 03/16/20 03/18/20 History Levothyroxine Sodium [Synthroid] 25 mcg PO DAILY 03/16/20 03/18/20 History Nicotine Polacrilex [Nicotine Gum] 4 mg BUCCAL Q2H PRN 03/16/20 03/18/20 History levETIRAcetam [Keppra] 750 mg PO Q12H 03/16/20 03/18/20 History Topiramate [Topamax] 100 mg PO BID 03/18/20 03/18/20 History amLODIPine [Norvasc] 5 mg PO DAILY 03/18/20 03/18/20 History Allergies Allergy/AdvReac Type Severity Reaction Status Date / Time ibuprofen [From Motrin] Allergy Rash/Hives Verified 03/18/20 11:06 Latex, Natural Rubber Allergy Rash/Hives Verified 03/18/20 11:06 naproxen [From Naprosyn] Allergy Unknown Verified 03/18/20 11:06 tramadol Allergy Rash/Hives Verified 03/18/20 11:06 Penicillins AdvReac Vomiting Verified 03/18/20 11:06 Physical Examination - Vital Signs Vital Signs: Vital Signs Temp Pulse Resp BP Pulse Ox 03/18/20 11:35 91 L 03/18/20 11:30 98.1 F 67 18 133/77 70 L 03/18/20 03:51 68 13 103/72 97 03/17/20 21:27 97.8 F 66 18 132/79 93 L Intake and Output 03/18/20 03/18/20 03/18/20 06:59 14:59 22:59 Intake Total 600 Balance 600 Intake: Oral 600 Other: Voiding Method Bedside Commode # Voids 3 On examination patient is a middle aged female, who is mild short of breath. Patient is alert and awake fully oriented. Speech and language functions are normal. Attention and concentration fund of knowledge is adequate. On cranial examination pupils are round and reactive to light. Visual crocker are full, extraocular muscles are intact. Face is symmetric and tongue protrudes the midline. On muscle strength testing patient has some arrhythmic myoclonic jerks of outstretched hands. Muscle strength is normal in the arms and legs. Reflexes symmetric and plantars downgoing. Sensory touch is equal. No ataxia for [id number] testing. Tone and bulk of muscles normal. Gait deferred. No obvious bruit, S1 and S2 audible. Abdomen soft nontender. Patient does have some wheezes. Results - Laboratory Findings CBC and BMP: 03/16/20 14:10 03/16/20 14:10 Abnormal Lab Findings: Abnormal Labs 03/16/20 03/16/20 03/16/20 14:10 14:10 20:50 RBC 3.77 L MCV 102.9 H RDW 16.6 H Sodium 136 L Glucose 113 H Urine Appearance Cloudy H Urine Protein Trace H Ur Squamous Epith Cells 7 H Urine Mucus Rare H Assessment and Plan Assessment: * Long-standing history of Seizure disorder, came with breakthrough seizure. Patient has been having frequent seizures, had 4 seizures in the last 1 month. * Status post fall, unclear etiology. * Tremors probable myoclonic jerks slightly from toxic metabolic encephalopathy. Worsening of COPD, beta-2 adrenergics and steroids can make tremors worse. * History of tobacco use. * Morbid obesity. Plan: * Increase Topamax to 125 mg twice a day. Patient will be taking a Topamax 100 mg tablet and a 25 mg tablets twice a day. Hopefully it will help with the headaches, seizures and tremors. * Continue Keppra 750 mg twice a day. * Continue Dilantin 200 mg in the morning and 300 mg at bedtime. Levels are therapeutic. * Patient to follow up with her neurologist in 1-2 weeks. Patient may benefit from long-term video EEG monitoring at epilepsy monitoring unit for further evaluation of her seizure disorder. * Neurologically clear.
[2020-03-18] MEDS: TOPIRAMATE 25 MG TAB PO SCH (22:33)
[2020-03-18] MEDS: TOPIRAMATE 100 MG TAB PO SCH (22:33)
[2020-03-19] MEDS: HYDROcodone/APAP 5-325MG 1 EACH TAB PO PRN ×2 (02:01→09:12)
[2020-03-19] MEDS: busPIRone HCl 10 MG TAB PO PRN (02:03)
[2020-03-19 05:10] VITALS: BP 111/73; PULSE 65; TEMP 98
[2020-03-19] MEDS: LEVOTHYROXINE 25 MCG TAB PO SCH (06:11)
[2020-03-19] MEDS: GABAPENTIN 400 MG CAP PO SCH ×2 (09:09→14:10)
[2020-03-19] MEDS: PHENYTOIN SODIUM EXTENDED 100 MG CAP PO SCH (09:09)
[2020-03-19] MEDS: PANTOPRAZOLE 40 MG TABLET PO SCH (09:10)
[2020-03-19] MEDS: ALPRAZolam 0.5 MG TAB PO SCH (09:10)
[2020-03-19] MEDS: FUROSEMIDE 20 MG TAB PO SCH (09:10)
[2020-03-19] MEDS: FLUoxetine HCL 20 MG CAP PO SCH (09:11)
[2020-03-19] MEDS: METOPROLOL SUCCINATE (ER) 50 MG TAB.ER.24H PO SCH (09:11)
[2020-03-19] MEDS: TOPIRAMATE 25 MG TAB PO SCH (09:11)
[2020-03-19] MEDS: TOPIRAMATE 100 MG TAB PO SCH (09:11)
[2020-03-19] MEDS: MAG HYDROX/AL HYDROX/SIMETH 30 ML CUP PO PRN (11:21)
--- NOTE | 2020-03-19 15:33 | DS ---
DISCHARGE SUMMARY CHIEF COMPLAINT: Grand mal seizure and postictal depression. HISTORY OF PRESENT ILLNESS AND PHYSICAL EXAMINATION: Details of this lady's history and physical can be found in the initial workup. LABORATORY STUDIES: While she was in the hospital she had laboratory studies, details of which can be found in the laboratory section of her chart. COURSE IN THE HOSPITAL: After admission she was placed on bedrest and placed on seizure precautions. She had no further seizure activity. She was seen by Neurology, and they recommended increasing her Lamictal. She was doing well and it was felt that she could be safely discharged on March 19 and be followed as an outpatient. She will come to the office in a day or two after discharge. FINAL DIAGNOSES: 1. Grand mal seizure. 2. Postictal depression. 3. Hypertension. OPERATIONS: None. CONSULTATION: Neurology. She is improved. MMODL / RENEN: [id number] /
--- NOTE | 2020-03-21 06:49 | CDI ---
Documentation Clarification Form Date: 03/21/20 From: Niurka Clemetne Phone: If you have a question about this query, please contact Diandra Joe, Engineering Operations Leader at [phone] between 8am and 5pm. Admit Date: 03/18/20 Discharge Date: 03/19/20 Patient Name: NIURKA REYNA Visit Number: [id number] ATTENTION: The Clinical Documentation Specialists (CDI) and [facility] Coding Staff appreciate your assistance in clarifying documentation. Please respond to the clarification below the line at the bottom and electronically sign. The CDI & [facility] Coding staff will review the response and follow-up if needed. Please note: Queries are made part of the Legal Health Record. If you have any questions, please contact the author of this message via ITS. Dear Dr. Ty Aponte, Atrial Flutter is documented in the H&P and consult. History/Risk factors: Seizures, postictal depression and HTN. Clinical Indicators: BP-144/85, P-101, R-36, afebrile. EKG/telemetry: Atrial flutter at a rate of 59 bpm QRS 72 QT interval 4:30 [address]TC [address] segment elevation. Treatment: Toprol XL, Lasix 20 mg po In your professional opinion, in order to capture the severity of condition; can you please clarify the type of Atrial Flutter if known? Typical/Type I Atypical/Type II Other, please specify Unable to determine MTDD
--- NOTE | 2020-03-21 06:54 | CDI ---
Documentation Clarification Form Date: 03/21/20 From: Niurka Clemente Phone: If you have a question about this query, please contact Diandra Joe, Health Safety Manager at [phone] between 8am and 5pm. Admit Date: 03/18/20 Discharge Date: 03/19/20 Patient Name: NIURKA REYNA Visit Number: [id number] ATTENTION: The Clinical Documentation Specialists (CDI) and [facility] Coding Staff appreciate your assistance in clarifying documentation. Please respond to the clarification below the line at the bottom and electronically sign. The CDI & [facility] Coding staff will review the response and follow-up if needed. Please note: Queries are made part of the Legal Health Record. If you have any questions, please contact the author of this message via ITS. Dear Dr. Ty Aponte, Atrial Fibrillation is documented in the ED note & consult. History/Risk factors: Seizures, postictal depression and HTN. Clinical Indicators: BP-144/85, P-101, R-36, afebrile. EKG/telemetry: Atrial flutter at a rate of 59 bpm QRS 72 QT interval 4:30 QTC [address] segment elevation. Treatment: Toprol XL, Lasix 20 mg po In your professional opinion, can you please clarify the type of Atrial Fibrillation, if known? Chronic Permanent Paroxysmal Persistent, longstanding Persistent, other Persistent, permanent Other, please specify Unable to determine MTDD
--- NOTE | 2020-03-21 16:31 | MISC ---
MISCELLANOUS REPORT QUERY: Kind of atrial fibrillation: Unable to determine. MMODL / IJN: [id number] /
== END 2020-03-19 17:47 | disposition home or self-care (01) | DRG 101 ==
LOC: EC 13:44 → 5NMEDONC 14:36 → OBSVTOIN 03-18 14:14
PROVIDERS: ADMIT Family Medicine; ATTEND Family Medicine
DX: G40.409 Other generalized epilepsy and epileptic syndromes, not intractable, without status epilepticus (principal); I48.92 Unspecified atrial flutter; I11.0 Hypertensive heart disease with heart failure; I50.9 Heart failure, unspecified; E66.01 Morbid (severe) obesity due to excess calories; J44.9 Chronic obstructive pulmonary disease, unspecified; E03.9 Hypothyroidism, unspecified; E78.5 Hyperlipidemia, unspecified; Z11.59 Encounter for screening for other viral diseases; I25.10 Atherosclerotic heart disease of native coronary artery without angina pectoris; F41.9 Anxiety disorder, unspecified; F32.9 Major depressive disorder, single episode, unspecified; G89.29 Other chronic pain; M54.5 Low back pain; Z68.39 Body mass index [BMI] 39.0-39.9, adult; F17.210 Nicotine dependence, cigarettes, uncomplicated; Z71.6 Tobacco abuse counseling; Z79.82 Long term (current) use of aspirin; Z79.890 Hormone replacement therapy; Z79.899 Other long term (current) drug therapy; Z90.49 Acquired absence of other specified parts of digestive tract; Z98.891 History of uterine scar from previous surgery; Z98.51 Tubal ligation status; Z71.3 Dietary counseling and surveillance; Z88.5 Allergy status to narcotic agent; Z88.0 Allergy status to penicillin; Z88.6 Allergy status to analgesic agent; Z91.040 Latex allergy status; Z83.3 Family history of diabetes mellitus; Z82.49 Family history of ischemic heart disease and other diseases of the circulatory system; W19.XXXA Unspecified fall, initial encounter; I48.91 Unspecified atrial fibrillation
CPT/HCPCS: 36415; 71046; 80053; 80185; 81001; 83735; 84484; 85025; 87635; 93005; 96360; 96361; 99285

== ENCOUNTER 2020-05-14 08:01 | Inpatient (IN) | payer OTHER ==
[2020-05-14] MEDS ORDERED: ONDANSETRON 4 MG/2 ML VIAL IVP STA (08:23)
--- NOTE | 2020-05-14 08:30 | ED ---
General Adult HPI - General Chief complaint: Abdominal Pain Stated complaint: Rib pain, tremors Time Seen by Provider: 05/14/20 08:11 Source: patient, EMS Mode of arrival: EMS Limitations: no limitations - History of Present Illness Initial comments: Dictation was produced using Infor dictation software. please excuse any grammatical, word or spelling errors. This patient was cared for during a federal and state declared state of emergency secondary to Covid 19 Chief Complaint: 49-year-old female presents with multiple complaints. History of Present Illness: [id number] female presents with shortness of breath, nausea, vomiting, diarrhea, right lower quadrant pain, migraine headache. Patient states her symptoms have been ongoing for the last 3 days. Patient states that of all the symptoms that she presents with the most worrisome symptom is the abdominal pain. She states pain is to the suprapubic area. She feels chills and fevers at home. She denies any history of appendectomy. She has history of and cholecystectomy and tubal ligation. She has multiple comorbidities. She has COPD and wears oxygen at home. She does not have a intensive care unit nurse. She states that her neurologist is managing her pulmonary disease. She denies any loss of smell however she states that chronically she has no ability to taste food. EMS reports the patient was severely hypoxic with measurements in the 60s and 70 percents. She was given 4 L nasal cannula by EMS with improvement to the mid 80%. The ROS documented in this emergency department record has been reviewed and confirmed by me. Those systems with pertinent positive or negative responses have been documented in the HPI. All other systems are other negative and/or noncontributory. PHYSICAL EXAM: General Impression: Alert and oriented x3, mildly dyspneic HEENT: Normocephalic atraumatic, extra-ocular movements intact, pupils equal and reactive to light bilaterally, mucous membranes moist. Cardiovascular: Heart regular rate and rhythm Chest: 3 to 4 word sentences, no retractions, no tachypnea Abdomen: abdomen soft, tenderness to the suprapubic and right lower quadrant area, no rebound tenderness, non-distended, no organomegaly Musculoskeletal: Pulses present and equal in all extremities, no peripheral edema Motor: no focal deficits noted Neurological: CN II-XII grossly intact, no focal motor or sensory deficits noted Skin: Intact with no visualized rashes, no lesions to the distal fingertips or toes Psych: Normal affect and mood ED course: 51-year-old female presents with multiple complaints. Vital signs upon arrival shows hypoxia of 70% on room air, blood pressure 96/50, temperature 100.3. Laboratory evaluation obtained. No leukocytosis. There is macrocytosis. Coag panel unremarkable. Metabolic panel shows no significant findings. C-reactive protein elevated at 69.7. Troponin is negative. Prematurity peptide is 1120. Arterial blood gases were obtained with a pH of 7.346, pCO2 40.9 and pO2 of 70.6 on 5 L nasal cannula. Chest x-ray shows patchy perihilar and left lower lobe infiltrate. Patient's blood pressure was in the mid 90s. She was given 1 L of normal saline. Clinical presentation consistent with hypoxic respiratory failure. There is strong clinical suspicion for Covid 19. Patient placed on high flow nasal cannula.Patient case is discussed with the gripper machine operator Dr. Tanner at approximately 10:[address] Tanner request that patient remained in the emergency department. He will personally come and evaluate the patient decided patient is admitted to ICU she can be admitted to telemetry. Patient treated with antibiotics for complete acquired pneumonia and also to urinary tract infection.Blood pressures were trended with improvement after intravenous fluids. Patient was evaluated at bedside by Dr. Tanner. Dr. Tanner recommended patient be admitted to telemetry unit with BiPAP. Case was discussed with Dr. Aponte who is willing to accept patient's care. EKG interpretation: Ventricular rate 86, normal sinus rhythm,. Interval 164, QRS 74, QTC 447. No NM prolongation, no QTC prolongation, no ST or T-wave changes noted. Overall, this EKG is unremarkable - Related Data Home Medications Medication Instructions Recorded Confirmed Pramipexole [Mirapex] 0.25 mg PO HS 06/21/17 05/14/20 ALPRAZolam [Xanax] 0.5 mg PO TID 09/18/18 05/14/20 Phenytoin Sodium Extended 200 mg PO DAILY 02/15/19 05/14/20 [Dilantin] Phenytoin Sodium Extended 300 mg PO HS 02/15/19 05/14/20 [Dilantin] FLUoxetine HCL 40 mg PO BID 10/19/19 05/14/20 Furosemide [Lasix] 20 mg PO DAILY 10/19/19 05/14/20 Gabapentin 800 mg PO QID 11/30/19 05/14/20 QUEtiapine FUMARATE [SEROquel] 300 mg PO HS 11/30/19 05/14/20 HYDROcodone/APAP 5-325MG [Pinckney 1 tab PO DAILY PRN 12/01/19 05/14/20 5-325] Metoprolol Succinate [Toprol XL] 50 mg PO DAILY 12/01/19 05/14/20 busPIRone HCL [Buspar] 30 mg PO TID 12/01/19 05/14/20 Albuterol Sulfate [Ventolin HFA] 2 puff INHALATION RT-QID PRN 03/16/20 05/14/20 Ergocalciferol [Vitamin D2 50,000 unit PO TH 03/16/20 05/14/20 (DRISDOL)] Levothyroxine Sodium [Synthroid] 25 mcg PO DAILY 03/16/20 05/14/20 Nicotine Polacrilex [Nicotine Gum] 4 mg BUCCAL Q2H PRN 03/16/20 05/14/20 levETIRAcetam [Keppra] 750 mg PO TID 03/16/20 05/14/20 amLODIPine [Norvasc] 5 mg PO DAILY 03/18/20 05/14/20 Aspirin EC [Ecotrin] 325 mg PO DAILY 05/14/20 05/14/20 Montelukast [Singulair] 10 mg PO DAILY 05/14/20 05/14/20 Topiramate [Topamax] 50 mg PO BID 05/14/20 05/14/20 diphenhydrAMINE [Benadryl] 25 mg PO HS 05/14/20 05/14/20 Previous Rx's Medication Instructions Recorded Topiramate [Topamax] 100 mg PO BID #60 tab 03/19/20 Allergies Allergy/AdvReac Type Severity Reaction Status Date / Time ibuprofen [From Motrin] Allergy Rash/Hives Verified 05/14/20 09:12 Latex, Natural Rubber Allergy Rash/Hives Verified 05/14/20 09:12 naproxen [From Naprosyn] Allergy Unknown Verified 05/14/20 09:12 tramadol Allergy Rash/Hives Verified 05/14/20 09:12 Penicillins AdvReac Vomiting Verified 05/14/20 09:12 Review of Systems ROS Statement: Those systems with pertinent positive or pertinent negative responses have been documented in the HPI. ROS Other: All systems not noted in ROS Statement are negative. Past Medical History Past Medical History: Atrial Fibrillation, Coronary Artery Disease (CAD), Heart Failure, COPD, Hyperlipidemia, Hypertension, Seizure Disorder, Thyroid Disorder Additional Past Medical History / Comment(s): Last seizure within past 10/18, hypothyroid, chronic low back pain, bulging lower back discs. History of Any Multi-Drug Resistant Organisms: None Reported Past Surgical History: Section, Cholecystectomy, Tubal Ligation Additional Past Surgical History / Comment(s): C-Sections x 3 Past Anesthesia/Blood Transfusion Reactions: No Reported Reaction, Motion Sickness Date of Last Stent Placement:: 2003? Past Psychological History: Anxiety, Bipolar, Depression Smoking Status: Former smoker Past Alcohol Use History: Rare Past Drug Use History: None Reported - Past Family History Father Family Medical History: AFIB Mother Family Medical History: AFIB, Diabetes Mellitus General Exam Limitations: no limitations Course Vital Signs 05/14/20 05/14/20 05/14/20 08:03 08:30 09:30 Temperature 100.3 F H Pulse Rate 87 81 79 Respiratory 22 22 22 Rate Blood Pressure 96/58 105/71 85/50 O2 Sat by Pulse 78 L 92 L 88 L Oximetry 05/14/20 10:05 Temperature 99 F Pulse Rate 78 Respiratory 22 Rate Blood Pressure 100/57 O2 Sat by Pulse 93 L Oximetry Medical Decision Making - Lab Data Result diagrams: 05/14/20 08:47 05/14/20 08:47 Lab Results 05/14/20 05/14/20 05/14/20 Range/Units 08:29 08:47 08:47 WBC 7.8 (3.8-10.6) k/uL RBC 3.46 L (3.80-5.40) m/uL Hgb 12.3 (11.4-16.0) gm/dL Hct 37.3 (34.0-46.0) % MCV 107.7 H (80.0-100.0) fL MCH 35.6 H (25.0-35.0) pg MCHC 33.0 (31.0-37.0) g/dL RDW 16.2 H (11.5-15.5) % Plt Count 251 (150-450) k/uL Neutrophils % 75 % Lymphocytes % 13 % Monocytes % 6 % Eosinophils % 2 % Basophils % 0 % Neutrophils # 5.9 (1.3-7.7) k/uL Lymphocytes # 1.0 (1.0-4.8) k/uL Monocytes # 0.5 (0-1.0) k/uL Eosinophils # 0.1 (0-0.7) k/uL Basophils # 0.0 (0-0.2) k/uL Manual Slide Review Performed Anisocytosis Slight Macrocytosis Marked A PT 9.9 (9.0-12.0) sec INR 0.9 (<1.2) APTT 23.6 (22.0-30.0) sec Sample Site ABG pH (7.35-7.45) ABG pCO2 (35-45) mmHg ABG pO2 (83-108) mmHg ABG HCO3 (21-25) mmol/L ABG Total CO2 (19-24) mmol/L ABG O2 Saturation (94-97) % ABG Base Excess mmol/L Rui Test FiO2 % Sodium (137-145) mmol/L Potassium (3.5-5.1) mmol/L Chloride (98-107) mmol/L Carbon Dioxide (22-30) mmol/L Anion Gap mmol/L BUN (7-17) mg/dL Creatinine (0.52-1.04) mg/dL Est GFR (CKD-EPI)AfAm (>60 ml/min/1.73 sqM) Est GFR (CKD-EPI)NonAf (>60 ml/min/1.73 sqM) Glucose (74-99) mg/dL POC Glucose (mg/dL) 132 H (75-99) mg/dL POC Glu Shrimping [employer] Captain ID Luna, Janey Plasma Lactic Acid Jordi (0.7-2.0) mmol/L Calcium (8.4-10.2) mg/dL Magnesium (1.6-2.3) mg/dL Total Bilirubin (0.2-1.3) mg/dL AST (14-36) U/L ALT (4-34) U/L Alkaline Phosphatase (38-126) U/L Troponin I (0.000-0.034) ng/mL C-Reactive Protein (<10.0) mg/L NT-Pro-B Natriuret Pep pg/mL Total Protein (6.3-8.2) g/dL Albumin (3.5-5.0) g/dL Urine Color Urine Appearance (Clear) Urine pH (5.0-8.0) Ur Specific [place] (1.001-1.035) Urine Protein (Negative) Urine Glucose (UA) (Negative) Urine Ketones (Negative) Urine Blood (Negative) Urine Nitrite (Negative) Urine Bilirubin (Negative) Urine Urobilinogen (<2.0) mg/dL Ur Leukocyte Esterase (Negative) Urine RBC (0-5) /hpf Urine WBC (0-5) /hpf Urine WBC Clumps (None) /hpf Ur Squamous Epith Cells (0-4) /hpf Urine Bacteria (None) /hpf Urine Mucus (None) /hpf 05/14/20 05/14/20 05/14/20 Range/Units 08:47 08:47 08:47 WBC (3.8-10.6) k/uL RBC (3.80-5.40) m/uL Hgb (11.4-16.0) gm/dL Hct (34.0-46.0) % MCV (80.0-100.0) fL MCH (25.0-35.0) pg MCHC (31.0-37.0) g/dL RDW (11.5-15.5) % Plt Count (150-450) k/uL Neutrophils % % Lymphocytes % % Monocytes % % Eosinophils % % Basophils % % Neutrophils # (1.3-7.7) k/uL Lymphocytes # (1.0-4.8) k/uL Monocytes # (0-1.0) k/uL Eosinophils # (0-0.7) k/uL Basophils # (0-0.2) k/uL Manual Slide Review Anisocytosis Macrocytosis PT (9.0-12.0) sec INR (<1.2) APTT (22.0-30.0) sec Sample Site ABG pH (7.35-7.45) ABG pCO2 (35-45) mmHg ABG pO2 (83-108) mmHg ABG HCO3 (21-25) mmol/L ABG Total CO2 (19-24) mmol/L ABG O2 Saturation (94-97) % ABG Base Excess mmol/L Rui Test FiO2 % Sodium 138 (137-145) mmol/L Potassium 4.3 (3.5-5.1) mmol/L Chloride 105 (98-107) mmol/L Carbon Dioxide 27 (22-30) mmol/L Anion Gap 6 mmol/L BUN 8 (7-17) mg/dL Creatinine 0.68 (0.52-1.04) mg/dL Est GFR (CKD-EPI)AfAm >90 (>60 ml/min/1.73 sqM) Est GFR (CKD-EPI)NonAf >90 (>60 ml/min/1.73 sqM) Glucose 118 H (74-99) mg/dL POC Glucose (mg/dL) (75-99) mg/dL POC Glu Shrimping [employer] Captain ID Plasma Lactic Acid Jordi 1.1 (0.7-2.0) mmol/L Calcium 8.2 L (8.4-10.2) mg/dL Magnesium 1.6 (1.6-2.3) mg/dL Total Bilirubin 0.3 (0.2-1.3) mg/dL AST 18 (14-36) U/L ALT 12 (4-34) U/L Alkaline Phosphatase 103 (38-126) U/L Troponin I <0.012 (0.000-0.034) ng/mL C-Reactive Protein 69.7 H (<10.0) mg/L NT-Pro-B Natriuret Pep pg/mL Total Protein 6.4 (6.3-8.2) g/dL Albumin 3.4 L (3.5-5.0) g/dL Urine Color Urine Appearance (Clear) Urine pH (5.0-8.0) Ur Specific [place] (1.001-1.035) Urine Protein (Negative) Urine Glucose (UA) (Negative) Urine Ketones (Negative) Urine Blood (Negative) Urine Nitrite (Negative) Urine Bilirubin (Negative) Urine Urobilinogen (<2.0) mg/dL Ur Leukocyte Esterase (Negative) Urine RBC (0-5) /hpf Urine WBC (0-5) /hpf Urine WBC Clumps (None) /hpf Ur Squamous Epith Cells (0-4) /hpf Urine Bacteria (None) /hpf Urine Mucus (None) /hpf 05/14/20 05/14/20 05/14/20 Range/Units 08:47 09:36 10:01 WBC (3.8-10.6) k/uL RBC (3.80-5.40) m/uL Hgb (11.4-16.0) gm/dL Hct (34.0-46.0) % MCV (80.0-100.0) fL MCH (25.0-35.0) pg MCHC (31.0-37.0) g/dL RDW (11.5-15.5) % Plt Count (150-450) k/uL Neutrophils % % Lymphocytes % % Monocytes % % Eosinophils % % Basophils % % Neutrophils # (1.3-7.7) k/uL Lymphocytes # (1.0-4.8) k/uL Monocytes # (0-1.0) k/uL Eosinophils # (0-0.7) k/uL Basophils # (0-0.2) k/uL Manual Slide Review Anisocytosis Macrocytosis PT (9.0-12.0) sec INR (<1.2) APTT (22.0-30.0) sec Sample Site R Radial ABG pH 7.35 (7.35-7.45) ABG pCO2 49 H (35-45) mmHg ABG pO2 71 L (83-108) mmHg ABG HCO3 27 H (21-25) mmol/L ABG Total CO2 28 H (19-24) mmol/L ABG O2 Saturation 93.4 L (94-97) % ABG Base Excess 1.0 mmol/L Rui Test Yes FiO2 55 % Sodium (137-145) mmol/L Potassium (3.5-5.1) mmol/L Chloride (98-107) mmol/L Carbon Dioxide (22-30) mmol/L Anion Gap mmol/L BUN (7-17) mg/dL Creatinine (0.52-1.04) mg/dL Est GFR (CKD-EPI)AfAm (>60 ml/min/1.73 sqM) Est GFR (CKD-EPI)NonAf (>60 ml/min/1.73 sqM) Glucose (74-99) mg/dL POC Glucose (mg/dL) (75-99) mg/dL POC Glu Shrimping [employer] Captain ID Plasma Lactic Acid Jordi (0.7-2.0) mmol/L Calcium (8.4-10.2) mg/dL Magnesium (1.6-2.3) mg/dL Total Bilirubin (0.2-1.3) mg/dL AST (14-36) U/L ALT (4-34) U/L Alkaline Phosphatase (38-126) U/L Troponin I (0.000-0.034) ng/mL C-Reactive Protein (<10.0) mg/L NT-Pro-B Natriuret Pep 1120 pg/mL Total Protein (6.3-8.2) g/dL Albumin (3.5-5.0) g/dL Urine Color Yellow Urine Appearance Cloudy H (Clear) Urine pH 5.5 (5.0-8.0) Ur Specific [place] 1.015 (1.001-1.035) Urine Protein Negative (Negative) Urine Glucose (UA) Negative (Negative) Urine Ketones Negative (Negative) Urine Blood Negative (Negative) Urine Nitrite Positive H (Negative) Urine Bilirubin Negative (Negative) Urine Urobilinogen <2.0 (<2.0) mg/dL Ur Leukocyte Esterase Large H (Negative) Urine RBC 1 (0-5) /hpf Urine WBC 53 H (0-5) /hpf Urine WBC Clumps Few H (None) /hpf Ur Squamous Epith Cells 1 (0-4) /hpf Urine Bacteria Few H (None) /hpf Urine Mucus Rare H (None) /hpf Disposition Clinical Impression: Acute respiratory failure with hypoxia Disposition: ADMITTED IP TO THIS [facility] Condition: Critical Referrals: Ty Aponte MD [Primary Care Provider] - 1-2 days Decision Time: 11:48
[2020-05-14 08:49] LABS: Glucose,Whole Blood 132 mg/dL (75-99)
[2020-05-14 08:59] LABS: Anisocytosis Slight; Basophils % (A) 0 %; Eosinophils # (A) 0.1 k/uL (0-0.7); Eosinophils % (A) 2 %; HCT 37.3 % (34.0-46.0); HGB 12.3 gm/dL (11.4-16.0); Lymphocytes % (A) 13 %; MCH 35.6 pg (25.0-35.0); MCV 107.7 fL (80.0-100.0); Macrocytosis Marked; Mean Platelet Volume 7.5; Monocytes # (A) 0.5 k/uL (0-1.0); Monocytes % (A) 6 %; Neutrophils # (A) 5.9 k/uL (1.3-7.7); Neutrophils % (A) 75 %; Platelet Count 251 k/uL (150-450); RBC 3.46 m/uL (3.80-5.40); RDW 16.2 % (11.5-15.5); WBC 7.8 k/uL (3.8-10.6)
--- NOTE | 2020-05-14 09:03 | XR ---
EXAMINATION TYPE: XR chest 1V portable DATE OF EXAM: 05/14/2020 COMPARISON: 03/16/2020 HISTORY: Nausea and vomiting TECHNIQUE: Single frontal view of the chest is obtained. FINDINGS: Exam technically limited but the heart is enlarged. There is a 6 prominence of the hilum b ilaterally with subsegmental changes at both lung bases and reduced inspiration. No pneumothorax. No sizable pleural effusion. IMPRESSION: Patchy perihilar and left lower lobe infiltrate. Correlate for underlying chronic inters titial lung disease, venous congestion or interstitial pneumonitis.
[2020-05-14 09:07] LABS: INR 0.9 (<1.2)
[2020-05-14 09:08] LABS: Partial Thromboplastin Time 23.6 sec (22.0-30.0); Prothrombin Time 9.9 sec (9.0-12.0)
[2020-05-14 09:11] LABS: ALT 12 U/L (4-34); AST 18 U/L (14-36); African American GFR (CKD) >90 (>60 ml/min/1.73 sqM); Albumin 3.4 g/dL (3.5-5.0); Alkaline Phosphatase 103 U/L (38-126); Anion Gap 6 mmol/L; Blood Urea Nitrogen 8 mg/dL (7-17); Calcium 8.2 mg/dL (8.4-10.2); Carbon Dioxide 27 mmol/L (22-30); Chloride 105 mmol/L (98-107); Glucose 118 mg/dL (74-99); Magnesium 1.6 mg/dL (1.6-2.3); Non-African American GFR(CKD) >90 (>60 ml/min/1.73 sqM); Potassium 4.3 mmol/L (3.5-5.1); Sodium 138 mmol/L (137-145); Total Bilirubin 0.3 mg/dL (0.2-1.3); Total Protein 6.4 g/dL (6.3-8.2)
[2020-05-14 09:35] LABS: C Reactive Protein 69.7 mg/L (<10.0)
[2020-05-14 09:39] LABS: ABG HCO3 27 mmol/L (21-25); ABG Oxygen Saturation 93.4 % (94-97); ABG PCO2 49 mmHg (35-45); ABG PH 7.35 (7.35-7.45); ABG PO2 71 mmHg (83-108); ABG TCO2 28 mmol/L (19-24); Allen Test Performed? Yes
[2020-05-14] MEDS ORDERED: SODIUM CHLORIDE 0.9% 1,000 ML IV STA (09:49)
[2020-05-14] MEDS ORDERED: DEXAMETHASONE SOD PHOSPHATE 10 MG/ML 1 ML VIAL IV STA (09:53)
[2020-05-14 10:14] LABS: Appearance,Urine Cloudy (Clear); Bacteria,Urine Few /hpf; Bilirubin,Urine Negative (Negative); Blood,Urine Negative (Negative); Color,Urine Yellow; Glucose,Urine (UA) Negative (Negative); Ketones,Urine Negative (Negative); Leukocyte Esterase,Urine Large (Negative); Mucus,Urine Rare /hpf; Nitrite,Urine Positive (Negative); PH, Urine 5.5 (5.0-8.0); Protein,Urine Negative (Negative); RBC,Urine 1 /hpf (0-5); Specific Gravity,Urine 1.015 (1.001-1.035); Squamous Epithelial Cell,Urine 1 /hpf (0-4); Urobilinogen,Urine <2.0 mg/dL (<2.0); WBC,Urine 53 /hpf (0-5)
[2020-05-14] MEDS ORDERED: AZITHROMYCIN 500 MG in SODIUM CHLORIDE 0.9% 250 ML IVPB STA (10:25)
[2020-05-14] MEDS ORDERED: cefTRIAXone IN SWFI 1,000 MG/10 ML SYRINGE IVP STA (10:25)
[2020-05-14] MEDS ORDERED: NALOXONE 0.4 MG/ML 1 ML VIAL IV PRN (11:40)
[2020-05-14 12:05] LABS: Amphetamine Screen,Urine Not Detected (NotDetected); Barbiturate Screen,Urine Detected (NotDetected); Benzodiazepines Screen,Urine Detected (NotDetected); Cocaine Screen,Urine Not Detected (NotDetected); Methadone Screen, Urine Not Detected (NotDetected); Opiate Screen,Urine Not Detected (NotDetected); Oxycodone Screen, Urine Not Detected (NotDetected); Phencyclidine Screen,Urine Not Detected (NotDetected); Tricyclic Antidepressant,Urine Detected (NotDetected); Urn Cannabinoid Scrn Not Detected (NotDetected)
--- NOTE | 2020-05-14 12:13 | CONS ---
CONSULTATION PULMONARY/CRITICAL CARE CONSULTATION: REASON FOR THE CONSULTATION: Shortness of breath and abdominal pain and urinary tract infection. This is a 49-year-old female who typically sees Dr. Aponte. She apparently presented via EMS to the emergency room on 05/14 at 8 o'clock in the morning. She saw Dr. Dowell there. She apparently complained of some shortness of breath, nausea, vomiting, diarrhea, and abdominal pain mostly in the suprapubic area. In addition, she had migraine cephalgia. Anyway, she had not been feeling well for about 3 days prior to admission. The pain in the abdomen is mostly suprapubic. She thinks she may have a bladder infection. She feels like she has tremors or rigors. No fever or chills. She denies any chest pain or pressure. She denies any hemoptysis. Anyway, the patient apparently does wear oxygen at home. She wears it at 4 L. She apparently arrived via EMS to the emergency room without oxygen therapy. Again her primary is Dr. Aponte. She was last in the hospital in March of this year. Her saturations when she first arrived to the emergency room were down in the 70s. Blood gases were done. She was placed on O2 at 10 L. She was seen by myself and Booker Tsang, our nurse practitioner in the ER. HOME MEDICATIONS: Reviewed. She is on Mirapex, Xanax, Dilantin, Prozac, Lasix, gabapentin, Seroquel, Rougon, metoprolol, BuSpar, Ventolin, vitamin D2, levothyroxine, nicotine gum, Keppra, amlodipine, Ecotrin, Singulair, Topamax, and Benadryl. ALLERGIES: IBUPROFEN, LATEX, NAPROXEN, TRAMADOL, and PENICILLIN. MEDICAL HISTORY: Chronic atrial fibrillation, CAD, heart failure, COPD, hyperlipidemia, hypertension, seizure disorder, and hypothyroidism. She also apparently has history of chronic low back pain. She also is quite obese. SURGICAL HISTORY: Includes tubal ligation, x3 and cholecystectomy. SOCIAL HISTORY: Positive for previous tobacco use. Drinks alcohol rarely. Denies any illicit drug use. FAMILY HISTORY: Positive for a father with atrial fibrillation and a mother with atrial fibrillation and diabetes. REVIEW OF SYSTEMS: CONSTITUTIONAL: Negative. NEUROLOGIC: Sleepy with slurred speech. HEENT: Negative. CARDIOVASCULAR: Negative. PULMONARY: Shortness of breath. GI: Nausea, vomiting, diarrhea. : Possible urinary tract infection, suprapubic pain. RHEUMATOLOGIC: Negative. IMMUNOLOGIC: Negative. ENDOCRINOLOGIC: Negative. DERMATOLOGIC: Negative. Current vital signs include a temperature which is 99 degrees, heart rate 78, respiratory rate 22, blood pressure 100/57, mean 71 and saturations are 93%-95%. on 10 L high flow cannula. Patient appears a bit lethargic and sleepy. She has a bit of difficulty getting words out and making sense. Speech is a bit slurred. HEENT: Examination is grossly unremarkable. NECK: Supple. Full range of motion. No adenopathy. CARDIOVASCULAR: Examination reveals regular rhythm and rate. Heart sounds are distant. Heart rate mid 70s. S1, S2 normal. LUNGS: Reveal bibasilar crackles. A few scattered rhonchi. No wheezes. ABDOMEN: Obese. She has tenderness in the suprapubic area. EXTREMITIES: Intact. No cyanosis, clubbing, or edema. SKIN: Without rash. NEUROLOGIC: Examination reveals the patient to be able to move all 4 extremities. She seems to be having tremors of the hands especially. In addition, the patient seemed a bit lethargic and somnolent and somewhat confused and has a bit of slurred speech. LAB DATA: Includes a white count 7.8, hemoglobin 12.3, hematocrit 37.3, platelet count 251,000. PT, INR, and PTT all normal. The blood gases show a pO2 of 71, pCO2 of 49 and pH of 7.35. This was on 55%. Sodium, potassium chloride, CO2 all normal. Anion gap is normal. BUN and creatinine were normal. The rest of the comprehensive metabolic profile looks good. N terminal proBNP 1120. C-reactive protein 69.7, albumin 3.4. Urine looks like it is positive for infection. It is cloudy. Positive nitrite and leukocyte esterase. WBCs are 53, WBC clumps were few and there were a few bacteria. The patient was placed on Zithromax and Rocephin. Her chest x-ray shows small lung volumes. There may be some interstitial pneumonitis or interstitial edema. In addition, there is some patchy bibasilar atelectasis or infiltrate changes on chest x-ray. Medications that have been ordered so far include Zithromax, Rocephin, Decadron, Zofran and a saline IV. ASSESSMENT: 1. Urinary tract infection, rule out urosepsis. 2. Mental status changes with confusion, lethargy and slurred speech of unclear etiology. 3. History of abdominal pain, suprapubic in nature, likely related to UTI. 4. Shortness of breath, possibly related to underlying fluid overload/interstitial edema and/or infiltrate/pneumonia. 5. Obesity. 6. History of atrial fibrillation. 7. History of coronary artery disease. 8. History of heart failure. 9. History of chronic obstructive pulmonary disease. 10.Hyperlipidemia. 11.History of hypertension. 12.History of seizure disorder. 13.Hypothyroidism. 14.History of chronic low back pain. PLAN: The patient will get a urine drug screen. Will do a CT scan of the brain without contrast. The patient was already started on Rocephin and Zithromax which will cover the possible UTI. Will also set the patient up on BiPAP at 12, 5 and 50%. Additional recommendations and suggestions are forthcoming. The patient can be managed, I believe at this time on the [address] [place] [address] floor with telemetry. Additional recommendations and suggestions are forthcoming. Prognosis is guarded. MMODL / IJN: [id number] /
--- NOTE | 2020-05-14 12:23 | CT ---
EXAMINATION TYPE: CT brain wo con DATE OF EXAM: 05/14/2020 COMPARISON: 10/19/2019 HISTORY: Altered mental status CT DLP: 1099.4 mGycm Automated exposure control for dose reduction was used. FINDINGS: Ventricular system is normal in size lesions age. There is no evidence of midline displacement or mas s effect. Calvarium intact. Somewhat nodular density and axial image #22 along the anterior temporal fossa coul d be related to artifact and partial volume averaging. No acute hemorrhage. There are intracranial atherosclerotic changes. Cerebellar somewhat low-lying in position. Sella turcica has a normal appearance.. IMPRESSION: 1. No evidence of acute hemorrhage or mass effect. Somewhat nodular density along the anterior right temporal fossa most likely related to partial volume averaging. However, MRI of the brain is recommen ded for further evaluation. 2. Low-lying cerebellar tonsils similar in appearance to the MRI of 11/07/2019
[2020-05-14] MEDS ORDERED: PNEUMOCOCCAL VACC-PNEUMOVAX 23 25 MCG/0.5 ML VIAL IM ONE (13:32)
[2020-05-14] MEDS: SODIUM CHLORIDE 0.9% 1,000 ML IV SCH (13:36)
[2020-05-14] MEDS: ACETAMINOPHEN TAB 325 MG TAB PO PRN ×2 (14:30→23:59)
[2020-05-14] MEDS: busPIRone HCl 10 MG TAB PO SCH ×2 (16:41→21:02)
[2020-05-14] MEDS: HYDROcodone/APAP 5-325MG 1 EACH TAB PO PRN (16:50)
--- NOTE | 2020-05-14 17:57 | HP ---
HISTORY AND PHYSICAL CHIEF COMPLAINT: Difficulty breathing. HISTORY OF PRESENT ILLNESS: This is another visit for this 49-year-old obese white female with multiple medical problems and complaints. She presents to the emergency room with severe shortness of breath. Pulse ox was 60. She was also complaining of vague abdominal pain and headache. REVIEW OF SYSTEMS: She has had no focal neurologic problems, cough, hemoptysis, chest pain, orthopnea, PND, hematemesis, melena, hematochezia, jaundice, renal failure, incontinence, dysuria, hematuria, etc. Past medical history, family history, and personal and social histories are otherwise unremarkable and unchanged from her recent admitting and discharge summaries. She is ALLERGIC TO CHANTIX, NSAIDS, PENICILLIN AND LATEX. She has been on: 1. Prozac 40 mg once a day. 2. Topiramate 100 mg twice a day. 3. Nicotine gum. 4. Lasix 20 mg once a day. 5. Xanax 0.5 t.i.d. p.r.n. 6. Updrafts with DuoNeb q.i.d. and p.r.n. 7. Dilantin 100 mg, taking 2 in the morning and 3 at bedtime. 8. Topamax 25 mg twice a day on top of the 100 mg. 9. Keppra 750 mg t.i.d. 10.Levothyroxine 0.025 once a day. 11.Amlodipine 5 mg once a day. 12.BuSpar 30 mg t.i.d. 13.Albuterol HFA p.r.n. 14.Metoprolol 50 mg once a day. 15.Vitamin D 50,000 units a month. 16.Seroquel 300 mg at bedtime. 17.Gabapentin 800 mg q.i.d. 18.Pramipexole 0.25 at bedtime. 19.Montelukast 10 mg once a day. 20.Vicodin 5 q.4 p.r.n. She used to smoke but does not any longer. PHYSICAL EXAMINATION: Blood pressure is 142/80 with a pulse of 108. Respirations were 43. In general she appeared to be obese and she was short of breath. Skin was dry. Head, ears, eyes, nose, mouth and throat were normal and neck veins were not distended. It was difficult to evaluate them due to her adiposity. Chest demonstrated very poor breath sounds throughout with scattered crackling rales and prolonged expiratory phase. Cardiac exam demonstrated sinus tachycardia with no murmurs or extra sounds. Abdomen was protuberant, soft and nontender without any visceromegaly or masses. Bowel sounds were present. Extremities were normal. Neurologically she was intact. She is admitted to the hospital with the diagnoses: 1. Acute respiratory failure. 2. Chronic obstructive pulmonary disease. 3. Rule out pneumonitis. 4. Rule out SARS COV-2. 5. Obesity. 6. Abdominal pain. 7. Depression. PLAN: 1. Bed rest. 2. IV fluids. 3. Nasal oxygen. 4. Ventilatory support with updrafts and possible BiPAP. 5. Pulmonology consult. 6. Workup for abdominal pain. MMODL / IJN: [id number] /
[2020-05-14] MEDS: GABAPENTIN 400 MG CAP PO SCH ×2 (18:45→21:04)
[2020-05-14] MEDS: FLUoxetine HCL 20 MG CAP PO SCH (21:02)
[2020-05-14] MEDS: TOPIRAMATE 25 MG TAB PO SCH (21:03)
[2020-05-14] MEDS: PRAMIPEXOLE 0.25 MG TAB PO SCH (21:03)
[2020-05-14] MEDS: PHENYTOIN SODIUM EXTENDED 100 MG CAP PO SCH (21:03)
[2020-05-14] MEDS: TOPIRAMATE 100 MG TAB PO SCH (21:03)
[2020-05-14] MEDS: diphenhydrAMINE 25 MG CAP PO SCH (21:04)
[2020-05-14] MEDS: QUEtiapine 100 MG TAB PO SCH (21:08)
[2020-05-15] MEDS: HYDROcodone/APAP 5-325MG 1 EACH TAB PO PRN ×2 (03:40→21:10)
[2020-05-15] MEDS: LEVOTHYROXINE 25 MCG TAB PO SCH (05:50)
[2020-05-15] MEDS: busPIRone HCl 10 MG TAB PO SCH ×3 (09:13→21:10)
[2020-05-15] MEDS: FLUoxetine HCL 20 MG CAP PO SCH ×2 (09:13→21:11)
[2020-05-15] MEDS: GABAPENTIN 400 MG CAP PO SCH ×4 (09:13→21:10)
[2020-05-15] MEDS: amLODIPine 5 MG TAB PO SCH (09:13)
[2020-05-15] MEDS: PHENYTOIN SODIUM EXTENDED 100 MG CAP PO SCH ×2 (09:13→21:11)
[2020-05-15] MEDS: MONTELUKAST 10 MG TAB PO SCH (09:14)
[2020-05-15] MEDS: ASPIRIN 325 MG TAB PO SCH (09:14)
[2020-05-15] MEDS: TOPIRAMATE 25 MG TAB PO SCH ×2 (09:14→21:11)
[2020-05-15] MEDS: FUROSEMIDE 20 MG TAB PO SCH (09:14)
[2020-05-15] MEDS: TOPIRAMATE 100 MG TAB PO SCH ×2 (09:14→21:11)
[2020-05-15] MEDS: METOPROLOL SUCCINATE (ER) 50 MG TAB.ER.24H PO SCH (09:14)
--- NOTE | 2020-05-15 13:07 | CDI ---
Documentation Clarification Form Date: 05/15/2020 12:20:07 PM From: Selene Morales RN CCDS Admit Date: 05/14/2020 11:40:00 AM Patient Name: Niurka Woodruff Visit Number: [id number] Discharge Date: ATTENTION: The Clinical Documentation Specialists (CDI) and [facility] Coding Staff appreciate your assistance in clarifying documentation. Please respond to the clarification below the line at the bottom and electronically sign. The CDI & [facility] Coding staff will review the response and follow-up if needed. Please note: Queries are made part of the Legal Health Record. If you have any questions, please contact the author of this message via ITS. Dr. Ty Aponte Altered Mental Status was documented in the Pulmonary Consult 05/14 History/Risk Factors: 49-year-old female presents to the ED with shortness of breath, nausea, vomiting, diarrhea, right lower quadrant pain and migraines that have been going on for three days. Medical History: COPD and wears oxygen Clinical Indicators: Labs:05/14 Blood Gas: PH 7.35; pCO2 49; pO2 71; HCO3 27; Total CO2 28; O2 Sat 93.4 05/14 Vital signs: B/P: 96/58; HR: 87; Temp: 100.3 F; RR: 22; SpO2 78% room air 05/14 CXR: Patchy perihilar and left lower lobe infiltrate. Brain CT: Somewhat nodular density along the anterior right temporal fossa most likely related to partial volume averaging. Treatment: 5L Nasal Cannula up to 10L of High Flow Nasal Cannula In your professional opinion, please clarify the etiology of the Altered Mental Status, if known. Metabolic Encephalopathy secondary to Respiratory Failure Metabolic Encephalopathy secondary to (please specify) Other condition (please specify) Unable to determine (Last Revision: February 2018) MTDD
--- NOTE | 2020-05-15 13:08 | CDI ---
Documentation Clarification Form Date: 05/15/2020 12:46:37 PM From: Selene Morales RN CCDS Admit Date: 05/14/2020 11:40:00 AM Patient Name: Niurka Woodruff Visit Number: [id number] Discharge Date: ATTENTION: The Clinical Documentation Specialists (CDI) and [facility] Coding Staff appreciate your assistance in clarifying documentation. Please respond to the clarification below the line at the bottom and electronically sign. The CDI & [facility] Coding staff will review the response and follow-up if needed. Please note: Queries are made part of the Legal Health Record. If you have any questions, please contact the author of this message via ITS. Dr. Ty Aponte CHF is found in the Pulmonary consult under medical history 05/14 History/Risk Factors: 49-year-old female presents to the ED with shortness of breath, nausea, vomiting, diarrhea, right lower quadrant pain and migraines that have been going on for three days. Medical History: COPD and wears oxygen, HTN and CHF. Clinical Indicators: 05/14 VS/Pulse OX: B/P: 96/58; HR: 87; Temp: 100.3 F; RR: 22; SpO2 78% room air 05/14 BNP: 1120 10/18/17 Echocardiogram Results: Left ventricular size is normal. Borderline concentric left ventricular hypertrophy. Overall left ventricular systolic function is normal with, an EF 55-60%. The right ventricle is normal in size and function. 05/14 Chest X Ray: Patchy perihilar and left lower lobe infiltrate. Treatment: 05/14 Lasix 20mg po daily; Toprol XL 50mg po daily; In your professional opinion, can you please clarify the acuity and type of CHF if known? Chronic Diastolic Heart Failure Chronic Systolic & Diastolic Heart Failure Unable to Determine Other, please specify (Last Revision: February 2018) MTDD
--- NOTE | 2020-05-15 15:33 | PN ---
PROGRESS NOTE PULMONARY/CRITICAL CARE PROGRESS NOTE: DATE OF SERVICE: 05/15/2020 This is a 49-year-old female who we saw yesterday in the emergency department. She came in with mental status changes. She also was complaining of abdominal discomfort and some difficulty breathing. I was called by the ER physician, Dr. Dowell. He thought the patient might benefit from an ICU bed, but the patient was really stable and was able to go to the general medical floor bed. We did write some orders for a urine drug screen as well as a CT scan of the brain and also BiPAP orders should she need anything for respiratory support. Clinically she is doing well. She is on 10 L but her saturations are 100%. She has turned down to 4 L which is her normal amount of oxygen therapy at home. She is feeling much better. Current vital signs are stable, 4 L saturation 96%. Heart rate, blood pressure, respiratory rate and temperature all normal. She appears in no acute distress. She is much more alert and awake. HEENT: Examination is grossly unremarkable. NECK: Supple. Full range of motion. No adenopathy. Neck veins are flat. CARDIOVASCULAR: Examination reveals regular rhythm and rate. S1, S2 normal. No murmur. Heart rate about 75 beats per minute. LUNGS: Reveal mostly clear breath sounds. A few scattered rhonchi. No wheezes or crackles. ABDOMEN: Soft, bowel sounds are noted. EXTREMITIES: Intact. No edema. SKIN: Without rash. NEUROLOGIC: Examination is brief but nonfocal. ASSESSMENT: 1. Mental status changes, of unclear etiology, apparently improved. 2. Possible urinary tract infection and possible septic encephalopathy. Currently on antibiotics. 3. Obesity. 4. Abdominal pain, thought to be related to her urinary tract infection. 5. Rule out Pickwickian syndrome with acute on chronic hypercapnic respiratory failure. PLAN: Currently the patient is doing much better. She is on antibiotics for urinary tract infection. We will continue to follow the patient. The patient could be seen by production planner scheduler for possible discharge within the next 24 to 48 hours. MMODL / IJN: [id number] /
[2020-05-15] MEDS: ACETAMINOPHEN TAB 325 MG TAB PO PRN (17:20)
[2020-05-15] MEDS ORDERED: HYDROcodone/APAP 5-325MG 1 EACH TAB PO PRN (18:06)
--- NOTE | 2020-05-15 18:57 | PN ---
PROGRESS NOTE DATE OF SERVICE: 05/15/2020 CHIEF COMPLAINT: Shortness of breath and difficulty breathing. HISTORY OF PRESENT ILLNESS: This lady is doing better. Breathing is improved. She has had no fever, chills, cough, hemoptysis, etc. She is complaining of abdominal pain, which she has had on and off for quite some time. PHYSICAL EXAMINATION: Vital signs are normal. She is afebrile. Chest is clear. Cardiac exam is normal. Abdomen is soft, nontender and it is protuberant. Extremities are normal. IMPRESSION: 1. Shortness of breath. 2. Chronic obstructive pulmonary disease. 3. Bronchitis. 4. Urinary tract infection. PLAN: Continue with updrafts, IV fluids and antibiotics. MMODL / IJN: [id number] /
[2020-05-15] MEDS: ALPRAZolam 0.5 MG TAB PO PRN (21:10)
[2020-05-15] MEDS: diphenhydrAMINE 25 MG CAP PO SCH (21:11)
[2020-05-15] MEDS: QUEtiapine 100 MG TAB PO SCH (21:11)
[2020-05-15] MEDS: PRAMIPEXOLE 0.25 MG TAB PO SCH (21:12)
[2020-05-16] MEDS: ACETAMINOPHEN TAB 325 MG TAB PO PRN (03:56)
[2020-05-16] MEDS: LEVOTHYROXINE 25 MCG TAB PO SCH (06:34)
[2020-05-16] MEDS: HYDROcodone/APAP 5-325MG 1 EACH TAB PO PRN ×3 (06:43→23:31)
[2020-05-16] MEDS: ALPRAZolam 0.5 MG TAB PO PRN ×3 (06:43→23:31)
[2020-05-16] MEDS: ASPIRIN 325 MG TAB PO SCH (08:37)
[2020-05-16] MEDS: MONTELUKAST 10 MG TAB PO SCH (08:37)
[2020-05-16] MEDS: GABAPENTIN 400 MG CAP PO SCH ×4 (08:38→20:01)
[2020-05-16] MEDS: METOPROLOL SUCCINATE (ER) 50 MG TAB.ER.24H PO SCH (08:38)
[2020-05-16] MEDS: PHENYTOIN SODIUM EXTENDED 100 MG CAP PO SCH ×2 (08:39→20:02)
[2020-05-16] MEDS: FLUoxetine HCL 20 MG CAP PO SCH ×2 (08:39→20:02)
[2020-05-16] MEDS: FUROSEMIDE 20 MG TAB PO SCH (08:40)
[2020-05-16] MEDS: TOPIRAMATE 100 MG TAB PO SCH ×2 (08:40→20:02)
[2020-05-16] MEDS: TOPIRAMATE 25 MG TAB PO SCH ×2 (08:40→20:02)
[2020-05-16] MEDS: amLODIPine 5 MG TAB PO SCH (08:40)
[2020-05-16] MEDS: busPIRone HCl 10 MG TAB PO SCH ×3 (08:41→20:01)
--- NOTE | 2020-05-16 10:36 | CDI ---
Documentation Clarification Form Date: 05/16/2020 09:43:51 AM From: Selene Morales RN CCDS Admit Date: 05/14/2020 11:40:00 AM Patient Name: Niurka Woodruff Visit Number: [id number] Discharge Date: ATTENTION: The Clinical Documentation Specialists (CDI) and [facility] Coding Staff appreciate your assistance in clarifying documentation. Please respond to the clarification below the line at the bottom and electronically sign. The CDI & [facility] Coding staff will review the response and follow-up if needed. Please note: Queries are made part of the Legal Health Record. If you have any questions, please contact the author of this message via ITS. Dr. Ty Aponte Coding guidelines do not allow coding professionals to code based on laboratory results; therefore, your input is requested. The COVID-19 test obtained on 05/14 was reported as Negative on 05/14 Per case summary: Rule out SARS COV-2 in the H&P 05/14 Patient history/risk factors: 58-year-old female presents to the ED with shortness of breath, nausea, vomiting, diarrhea, right lower quadrant pain and a migraine headache for the past three days. Medical history of COPD wears oxygen at home, chronic atrial fibrillation, CAD, Heart Failure and is Obese. Clinical Indicators: 05/14 CXR: Patchy perihilar and left lower lobe infiltrate. Correlate for underlying chronic interstitial lung disease, venous congestion or interstitial pneumonitis. 05/14 Vital signs on admission: 96/58 87 22 78% Room Air 05/14 WBC: 7.8 Treatment: 05/14 Azithromycin Ivpb x1; Rocephin Ivp x 1; In order to capture the severity of condition, please clarify the COVID-19 status: COVID-19 ruled out False negative, treating for COVID-19 o based on these clinical indicators: Other, please specify: (Last Form Revision: January 2020) NURY
--- NOTE | 2020-05-16 11:02 | P.PN ---
Subjective Progress Note Date: 05/16/20 Principal diagnosis: Urinary tract infection, altered mental status The patient is seen today 05/16/2020 in follow-up on the selective care unit. She is currently resting comfortably in bed. Awake and alert in no acute distress. Oriented. Speech is clear. Still have some lower abdominal discomfort. Urine culture positive for gram-negative bacilli. Blood cultures revealing no growth. She remains on 4 L/m per nasal cannula which is her home dose. Objective - Vital Signs Vital signs: Vital Signs Temp 98.7 F 05/16/20 08:00 Pulse 81 05/16/20 08:00 Resp 17 05/16/20 08:00 BP 123/53 05/16/20 08:00 Pulse Ox 91 L 05/16/20 08:00 Intake & Output 05/15/20 05/16/20 05/16/20 18:59 06:59 18:59 Intake Total 1124 900 Balance 1124 900 Weight 122 kg 122 kg Intake: Oral 1124 900 Other: Voiding Method Toilet Toilet Toilet Bedside Commode Bedside Commode # Voids 2 1 - Exam GENERAL EXAM: Alert, pleasant 49-year-old female patient, on 4 L nasal cannula, comfortable in no apparent distress. HEAD: Normocephalic. EYES: Normal reaction of pupils, equal size. NOSE: Clear with pink turbinates. THROAT: No erythema or exudates. NECK: No masses, no JVD. CHEST: No chest wall deformity. LUNGS: Equal air entry with crackles in the left base. CVS: S1 and S2 normal with no audible murmur, regular rhythm. ABDOMEN: No hepatosplenomegaly, normal bowel sounds, no guarding or rigidity. SPINE: No scoliosis or deformity SKIN: No rashes CENTRAL NERVOUS SYSTEM: No focal deficits, tone is normal in all 4 extremities. EXTREMITIES: There is no peripheral edema. No clubbing, no cyanosis. Peripheral pulses are intact. - Labs CBC & Chem 7: 05/14/20 08:47 05/14/20 08:47 Labs: Abnormal Lab Results - Last 24 Hours (Table) 05/14/20 Range/Units 08:47 RBC 3.46 L (3.80-5.40) m/uL MCV 107.7 H (80.0-100.0) fL MCH 35.6 H (25.0-35.0) pg RDW 16.2 H (11.5-15.5) % Macrocytosis Marked A Microbiology - Last 24 Hours (Table) 05/14/20 10:01 Urine Culture - Preliminary Urine,Catheterized Gram Neg Bacilli 05/14/20 08:47 Blood Culture - Preliminary Blood No Growth after 24 hours Assessment and Plan Assessment: 1 Altered mental status, recovered 2 Urinary tract infection with gram-negative bacilli 3 Septic encephalopathy, recovered 4 Obesity 5 Acute on chronic hypercapnic respiratory failure 6 abdominal discomfort, suprapubic in nature suspect secondary to UTI 7 Dyspnea secondary to fluid volume overload/interstitial edema/left lower lobe infiltrate 8 Morbid obesity 9 History of atrial fibrillation 10 History of coronary artery disease 11 history of congestive heart failure 12 hyperlipidemia 13 hypertension 14 history of seizure disorder 15 history of chronic low back pain 16 hypothyroidism Plan: The patient was seen and evaluated by Dr. Tanner She is currently stable from the pulmonary standpoint Continue current treatment plan Continue antibiotics in the form of Cipro Possibly home today I, the cosigning physician, performed a history & physical examination of the patient. Lungs sounds with crackles in the left base. Maintaining good O2 saturations in the 90s on 4 L/m per nasal cannula. I discussed the assessment and plan of care with my nurse practitioner, Anisha Evans. I attest to the above note as dictated by her.
[2020-05-16] MEDS ORDERED: CIPROFLOXACIN HCL 500 MG TAB PO SCH (11:15)
--- NOTE | 2020-05-16 16:06 | PN ---
PROGRESS NOTE DATE OF SERVICE: 05/16/2020 CHIEF COMPLAINT: Shortness of breath and abdominal pain. HISTORY OF PRESENT ILLNESS: This lady states she is still having some abdominal discomfort. She is not having any shortness of breath. PHYSICAL EXAMINATION: Her chest is clear. Her cardiac exam is normal. The abdomen is soft and nontender and there are no masses. IMPRESSION: 1. Exacerbation of chronic obstructive pulmonary disease. 2. Abdominal pain. 3. Gram positive blood culture. PLAN: 1. Consult with Infectious Disease. 2. Repeat laboratory studies. MMODL / IJN: [id number] /
[2020-05-16] MEDS: CEFEPIME 2 GM in SODIUM CHLORIDE 0.9% 100 ML IVPB SCH ×2 (16:38→20:02)
[2020-05-16] MEDS: diphenhydrAMINE 25 MG CAP PO SCH (20:02)
[2020-05-16] MEDS: PRAMIPEXOLE 0.25 MG TAB PO SCH (20:02)
[2020-05-16] MEDS: QUEtiapine 100 MG TAB PO SCH (20:02)
[2020-05-17] MEDS: ACETAMINOPHEN TAB 325 MG TAB PO PRN ×2 (00:11→06:35)
[2020-05-17] MEDS: SODIUM CHLORIDE 0.9% 1,000 ML IV SCH ×3 (01:47→16:33)
[2020-05-17] MEDS: LEVOTHYROXINE 25 MCG TAB PO SCH (06:35)
--- NOTE | 2020-05-17 07:18 | P.CONS ---
History of Present Illness - Reason for Consult Consult date: 05/16/20 Gram-negative bacteremia Requesting physician: Ty Aponte - Chief Complaint Nausea vomiting suprapubic pain x 3 days - History of Present Illness Patient is a 49-year-old female morbidly obese presenting to the ER at [facility] on 05/14/2020 with a chief complaints of not feeling well any nausea vomiting did have some diarrhea and suprapubic discomfort patient also blurring of urinary burning for 3 days before she was in the hospital pain is from became more of a burning in nature about 4 out of 10 and no radiation vision also complaining of increasing shortness of breath she did have a mild which is dry in nature now bringing up any sputum no URI symptoms with these symptoms the patient was evaluated by the physician on arrival to the patient have a fever 100.3 patient did have a normal white count patient did have positive UA chest x-ray with a left lower lobe infiltrate she has been diagnosed with a urinary tract infection and was started on Cipro this afternoon the patient blood culture Were positive with gram-negative bacilli that prompted this infectious disease consultation Review of Systems Positive point has been mentioned in the HPI rest of the systems are negative Past Medical History Past Medical History: Atrial Fibrillation, Asthma, Coronary Artery Disease (CAD), Heart Failure, COPD, CVA/TIA, GERD/Reflux, Hyperlipidemia, Hypertension, Pneumonia, Seizure Disorder, Thyroid Disorder Additional Past Medical History / Comment(s): Pt uses home oxygen prn, TIA, vertigo, bronchitis, gastric ulcer, seizure-last time 03/18/20, chronic low back pain/bulging discs, migraines, hypothyroid History of Any Multi-Drug Resistant Organisms: None Reported Past Surgical History: Section, Cholecystectomy, Heart Catheterization With Stent, Tubal Ligation Additional Past Surgical History / Comment(s): C-Sections x 3 Past Anesthesia/Blood Transfusion Reactions: No Reported Reaction, Motion Sickness Date of Last Stent Placement:: 2003 Smoking Status: Former smoker - Past Family History Father Family Medical History: AFIB Mother Family Medical History: AFIB, Diabetes Mellitus Medications and Allergies Home Medications Medication Instructions Recorded Confirmed Type Pramipexole [Mirapex] 0.25 mg PO HS 06/21/17 05/14/20 History ALPRAZolam [Xanax] 0.5 mg PO TID 09/18/18 05/14/20 History Phenytoin Sodium Extended 200 mg PO DAILY 02/15/19 05/14/20 History [Dilantin] Phenytoin Sodium Extended 300 mg PO HS 02/15/19 05/14/20 History [Dilantin] FLUoxetine HCL 40 mg PO BID 10/19/19 05/14/20 History Furosemide [Lasix] 20 mg PO DAILY 10/19/19 05/14/20 History Gabapentin 800 mg PO QID 11/30/19 05/14/20 History QUEtiapine FUMARATE [SEROquel] 300 mg PO HS 11/30/19 05/14/20 History HYDROcodone/APAP 5-325MG [[place] 1 tab PO DAILY PRN 12/01/19 05/14/20 History 5-325] Metoprolol Succinate [Toprol XL] 50 mg PO DAILY 12/01/19 05/14/20 History busPIRone HCL [Buspar] 30 mg PO TID 12/01/19 05/14/20 History Albuterol Sulfate [Ventolin HFA] 2 puff INHALATION RT-QID PRN 03/16/20 05/14/20 History Ergocalciferol [Vitamin D2 50,000 unit PO TH 03/16/20 05/14/20 History (DRISDOL)] Levothyroxine Sodium [Synthroid] 25 mcg PO DAILY 03/16/20 05/14/20 History Nicotine Polacrilex [Nicotine Gum] 4 mg BUCCAL Q2H PRN 03/16/20 05/14/20 History levETIRAcetam [Keppra] 750 mg PO TID 03/16/20 05/14/20 History amLODIPine [Norvasc] 5 mg PO DAILY 03/18/20 05/14/20 History Topiramate [Topamax] 100 mg PO BID #60 tab 03/19/20 05/14/20 Rx Aspirin EC [Ecotrin] 325 mg PO DAILY 05/14/20 05/14/20 History Montelukast [Singulair] 10 mg PO DAILY 05/14/20 05/14/20 History Topiramate [Topamax] 50 mg PO BID 05/14/20 05/14/20 History diphenhydrAMINE [Benadryl] 25 mg PO HS 05/14/20 05/14/20 History Allergies Allergy/AdvReac Type Severity Reaction Status Date / Time ibuprofen [From Motrin] Allergy Rash/Hives Verified 05/14/20 09:12 Latex, Natural Rubber Allergy Rash/Hives Verified 05/14/20 09:12 naproxen [From Naprosyn] Allergy Unknown Verified 05/14/20 09:12 tramadol Allergy Rash/Hives Verified 05/14/20 09:12 Penicillins AdvReac Vomiting Verified 05/14/20 09:12 Physical Exam Vitals: Vital Signs Temp Pulse Resp BP Pulse Ox 05/16/20 12:00 98.6 F 72 17 111/74 91 L 05/16/20 08:00 98.7 F 81 17 123/53 91 L 05/16/20 04:00 98.2 F 84 16 136/72 92 L 05/16/20 00:00 97.6 F 76 16 100/68 93 L 05/15/20 20:00 98.8 F 70 16 104/72 94 L 05/15/20 16:00 97.7 F 63 17 127/81 97 Intake and Output 05/16/20 05/16/20 05/16/20 06:59 14:59 22:59 Intake Total 450 Balance 450 Intake: Oral 450 Other: Voiding Method Toilet Toilet Bedside Commode Bedside Commode # Voids 2 1 Weight 122 kg GENERAL DESCRIPTION: Middle-aged female lying in bed, no distress. No tachypnea or accessory muscle of respiration use. HEENT: Shows Pallor , no scleral icterus. Oral mucous membrane is dry. No pharyngeal erythema or thrush NECK: Trachea central, no thyromegaly. LUNGS: Unlabored breathing. Decreased intensity of breath sounds. No wheeze or crackle. HEART: S1, S2, regular rate and rhythm. No loud murmur ABDOMEN: Soft, no tenderness , guarding or rigidity, no organomegaly EXTREMITIES: No edema of feet. SKIN: No rash, no masses palpable. NEUROLOGICAL: The patient is awake, alert, oriented x3, mood and affect normal. Results CBC & Chem 7: 05/14/20 08:47 05/14/20 08:47 Labs: Abnormal Lab Results - Last 24 Hours (Table) 05/14/20 Range/Units 08:47 RBC 3.46 L (3.80-5.40) m/uL MCV 107.7 H (80.0-100.0) fL MCH 35.6 H (25.0-35.0) pg RDW 16.2 H (11.5-15.5) % Macrocytosis Marked A Microbiology - Last 24 Hours (Table) 05/14/20 08:47 Blood Culture Gram Stain - Preliminary Blood Blood Culture - Preliminary 05/14/20 08:47 Blood Culture - Final Blood 05/14/20 10:01 Urine Culture - Preliminary Urine,Catheterized Gram Neg Bacilli Assessment and Plan Assessment: 1- patient with gram-negative bacteremia source is likely urinary in this patient who did have a urinary symptoms and did help with a UA likely complicated urinary tract infection 2- patient was a penicillin ALLERGY that would limit number of antibiotics safe to use (1) UTI (urinary tract infection) Current Visit: Yes Status: Acute Code(s): N39.0 - URINARY TRACT INFECTION, SITE NOT SPECIFIED SNOMED Code(s): 39482811 (2) Gram-negative bacteremia Current Visit: Yes Status: Acute Code(s): R78.81 - BACTEREMIA SNOMED Code(s): 340606676642 (3) Penicillin allergy Current Visit: Yes Status: Acute Code(s): Z88.0 - ALLERGY STATUS TO PENICILLIN SNOMED Code(s): 36779110 Plan: 1- discontinue Cipro 2- start patient cefepime 2 g every 12 hours 3-check ultrasound of the kidney in the bladder area We will follow on clinical condition and cultures to further adjust medication if needed Thank you for this consultation will follow this patient with you Time with Patient: Greater than 30
--- NOTE | 2020-05-17 08:24 | US ---
EXAMINATION TYPE: US kidneys/renal and bladder DATE OF EXAM: 05/17/2020 COMPARISON: CT & US 2017 CLINICAL HISTORY: UTI/Bacteremia. EXAM MEASUREMENTS: Right Kidney: 10.1 x 5.0 x 4.8 cm Left Kidney: 10.1 x 5.5 x 5.2 cm Right Kidney: no hydronephrosis or masses seen Left Kidney: no hydronephrosis or masses seen Bladder: not fully distended, appears wnl as seen Bilateral Jets seen: no There is no evidence for hydronephrosis at this point in time. No nephrolithiasis is seen. No j luis s are identified. Kidneys show normal cortical medullary differentiation The urinary bladder is anec hoic. There is no ascites evident. IMPRESSION: Unremarkable kidneys
[2020-05-17] MEDS: HYDROcodone/APAP 5-325MG 1 EACH TAB PO PRN ×2 (08:32→16:24)
[2020-05-17] MEDS: busPIRone HCl 10 MG TAB PO SCH ×3 (08:33→20:18)
[2020-05-17] MEDS: PHENYTOIN SODIUM EXTENDED 100 MG CAP PO SCH ×2 (08:33→20:18)
[2020-05-17] MEDS: FLUoxetine HCL 20 MG CAP PO SCH ×2 (08:33→20:17)
[2020-05-17] MEDS: amLODIPine 5 MG TAB PO SCH (08:34)
[2020-05-17] MEDS: FUROSEMIDE 20 MG TAB PO SCH (08:34)
[2020-05-17] MEDS: MONTELUKAST 10 MG TAB PO SCH (08:34)
[2020-05-17] MEDS: METOPROLOL SUCCINATE (ER) 50 MG TAB.ER.24H PO SCH (08:34)
[2020-05-17] MEDS: GABAPENTIN 400 MG CAP PO SCH ×4 (08:34→20:17)
[2020-05-17] MEDS: TOPIRAMATE 100 MG TAB PO SCH ×2 (08:34→20:19)
[2020-05-17] MEDS: ASPIRIN 325 MG TAB PO SCH (08:34)
[2020-05-17] MEDS: TOPIRAMATE 25 MG TAB PO SCH ×2 (08:34→20:18)
[2020-05-17] MEDS: CEFEPIME 2 GM in SODIUM CHLORIDE 0.9% 100 ML IVPB SCH ×2 (08:37→20:19)
[2020-05-17 08:44] VITALS: BMI 50.8
[2020-05-17] MEDS: IOPAMIDOL CONTRAST (ORAL USE) VIAL PO PRN ×2 (11:55→12:46)
--- NOTE | 2020-05-17 12:37 | P.PN ---
Subjective Progress Note Date: 05/17/20 Principal diagnosis: Urinary tract infection, altered mental status, improved The patient is seen today 05/16/2020 in follow-up on the selective care unit. She is currently resting comfortably in bed. Awake and alert in no acute distress. Oriented. Speech is clear. Still have some lower abdominal discomfort. Urine culture positive for gram-negative bacilli. Blood cultures revealing no growth. She remains on 4 L/m per nasal cannula which is her home dose. On 05/17/2020 patient seen in follow-up on selective care unit, she is resting comfortably in bed, she is on her home dose of oxygen, currently at 4 L and her sat is 90-91%, she is afebrile, hemodynamically she's been stable. He states last night she had some confusion, her mentation seems to be appropriate right now, no confusion, no hallucination. Responding appropriately, breathing seems to be stable, comfortable, lung sounds are clear, diminished at the bases, her blood culture collected on 05/14/2020 showed gram-negative bacilli, final culture is pending at this time, patient has been afebrile, her urine culture was positive for E. coli, patient is currently on cefepime, ID service is following. Objective - Vital Signs Vital signs: Vital Signs Temp 98.2 F 05/17/20 08:00 Pulse 86 05/17/20 08:00 Resp 18 05/17/20 08:00 BP 112/61 05/17/20 08:00 Pulse Ox 91 L 05/17/20 08:00 Intake & Output 05/16/20 05/17/20 05/17/20 18:59 06:59 18:59 Intake Total 480 240 Balance 480 240 Weight 122.2 kg Intake: Oral 480 240 Other: Voiding Method Toilet Toilet Toilet Bedside Commode Bedside Commode Bedside Commode # Voids 2 1 - Exam GENERAL EXAM: Alert, pleasant 49-year-old white female, on 4 L of oxygen, with a pulse ox of 90-91% comfortable in no apparent distress. HEAD: Normocephalic/atraumatic. EYES: Normal reaction of pupils, equal size. Conjunctiva pink, sclera white. NOSE: Clear with pink turbinates. THROAT: No erythema or exudates. NECK: No masses, no JVD, no thyroid enlargement, no adenopathy. CHEST: No chest wall deformity. Symmetrical expansion. LUNGS: Equal air entry with no crackles, wheeze, rhonchi or dullness. CVS: Regular rate and rhythm, normal S1 and S2, no gallops, no murmurs, no rubs ABDOMEN: Soft, nontender. No hepatosplenomegaly, normal bowel sounds, no guarding or rigidity. EXTREMITIES: No clubbing, no edema, no cyanosis, 2+ pulses and upper and lower extremities. MUSCULOSKELETAL: Muscle strength and tone normal. SPINE: No scoliosis or deformity SKIN: No rashes CENTRAL NERVOUS SYSTEM: Alert and oriented -3. No focal deficits, tone is normal in all 4 extremities. PSYCHIATRIC: Alert and oriented -3. Appropriate affect. Intact judgment and insight. - Labs CBC & Chem 7: 05/14/20 08:47 05/14/20 08:47 Labs: Microbiology - Last 24 Hours (Table) 05/14/20 08:47 Blood Culture Gram Stain - Preliminary Blood Blood Culture - Preliminary 05/14/20 10:01 Urine Culture - Final Urine,Catheterized Escherichia coli 05/14/20 08:47 Blood Culture - Final Blood Assessment and Plan Plan: Assessment: 1 Altered mental status, recovered 2 Urinary tract infection related to E. coli 3 gram-negative bacteremia, with cultures showed gram-negative bacilli, fungal culture is pending, patient is covered with Rocephin, this likely related to urinary tract infection 4 Septic encephalopathy, recovered 5 Obesity 6 Acute on chronic hypercapnic respiratory failure 7 abdominal discomfort, suprapubic in nature suspect secondary to UTI 8 Dyspnea secondary to fluid volume overload/interstitial edema/left lower lobe infiltrate 9 Morbid obesity 10 History of atrial fibrillation 11 History of coronary artery disease 12 history of congestive heart failure 13 hyperlipidemia 14 hypertension 15 history of seizure disorder 16 history of chronic low back pain 17 hypothyroidism Plan: Continue current antibiotics, ID service is following, awaiting final culture of the blood culture that showed gram-negative bacilli, clinically patient remains stable, she had some confusion last night, her mentation is appropriate today, no fever or chills, hemodynamically she is stable, lung sounds are clear, no pulmonary complaints. I performed a history & physical examination of the patient and discussed their management with my nurse practitioner, Johanna Tsang. I reviewed the nurse practitioner's note and agree with the documented findings and plan of care. Lung sounds are positive for clear breath sounds. The findings and the impression was discussed with the patient. I attest to the documentation by the nurse practitioner. Time with Patient: Less than 30
[2020-05-17] MEDS: NICOTINE POLACRILEX 2 MG GUM BUCCAL PRN ×2 (12:45→20:18)
--- NOTE | 2020-05-17 14:11 | CT ---
EXAMINATION TYPE: CT abdomen pelvis w con DATE OF EXAM: 05/17/2020 COMPARISON: 10/18/2017 HISTORY: Lower abd pain CT DLP: 2938.4 mGycm CONTRAST: CT scan of the abdomen and pelvis is performed with Oral Contrast and with IV Contrast, patient injec pj with 100 mL of Isovue 300. FINDINGS: LUNG BASES-: No visible nodule. No infiltrate. LIVER/GB: The gallbladder is surgically absent. Simple cyst is noted within the left hepatic lobe near the gallbladder fossa unchanged from prior study. No space occupying hepatic lesion. Biliary katherine e is of normal caliber. PANCREAS: No inflammation. No distinct mass. SPLEEN: No splenic enlargement. No lesion seen. ADRENALS: No nodule. No thickening. KIDNEYS/BLADDER: No hydronephrosis. No nephrolithiasis. No distinct renal mass. Urinary bladder g rossly unremarkable. BOWEL: Normal appendix. Normal bowel caliber. No inflammation. GENITAL ORGANS: Right ovarian cystic lesion measuring 2.2 cm. The uterus and left ovary are unremark able. Ultrasound correlation is advised. LYMPH NODES: No greater than 1cm abdominal or pelvic lymph nodes are appreciated. AORTA: No significant abnormality. OSSEOUS STRUCTURES: No significant abnormality is seen. OTHER: No significant additional abnormality is seen. IMPRESSION: 1. Right ovarian cystic lesion measuring 2.2 cm. Ultrasound correlation is advised.
--- NOTE | 2020-05-17 15:34 | PN ---
PROGRESS NOTE DATE OF SERVICE: 05/17/2020 REASON FOR FOLLOWUP: Gram-negative bacteremia. INTERVAL HISTORY: Patient is currently afebrile. The patient is breathing comfortably, denies having any chest pain. She did have some cough. Some nausea but no further vomiting. No abdominal pain, no diarrhea. PHYSICAL EXAMINATION: Blood pressure 112/61 with a pulse of 83, temperature 98.2. She is 91% on 4 L nasal cannula. General description is a middle-aged female, up in the bed in no distress. RESPIRATORY SYSTEM: Unlabored breathing, clear to auscultation anteriorly. HEART: S1, S2. Regular rate and rhythm. ABDOMEN: Soft, no tenderness. LABS: No new labs have been obtained today. Ultrasound was unremarkable. Blood cultures still gram-negative, ID sensitivities pending. DIAGNOSTIC IMPRESSION AND PLAN: Patient with Gram-negative bacteremia, source urine. Waiting for the ID sensitivity on the positive blood cultures. Currently on cefepime to continue, adjusting better further based on culture report. Continue supportive care. MMODL / IJN: [id number] /
--- NOTE | 2020-05-17 18:19 | PN ---
PROGRESS NOTE CHIEF COMPLAINT: Hypoxia and abdominal pain. HISTORY OF PRESENT ILLNESS: This lady is doing is doing fairly well, but she continues to complain of a lot of lower abdominal discomfort. She did have a positive blood culture and she is being followed by Infectious Disease. This is probably related to a urinary tract infection. PHYSICAL EXAMINATION: Chest is clear. Cardiac exam is normal. Abdomen is soft, nontender. She is afebrile. IMPRESSION: 1. Lower abdominal pain. 2. Exacerbation of chronic obstructive pulmonary disease. 3. Urinary tract infection. PLAN: CT of the abdomen and pelvis. MMODL / IJN: [id number] /
[2020-05-17] MEDS: QUEtiapine 100 MG TAB PO SCH (20:18)
[2020-05-17] MEDS: PRAMIPEXOLE 0.25 MG TAB PO SCH (20:18)
[2020-05-17] MEDS: diphenhydrAMINE 25 MG CAP PO SCH (20:19)
[2020-05-17] MEDS: ALPRAZolam 0.5 MG TAB PO PRN (21:52)
[2020-05-18] MEDS: HYDROcodone/APAP 5-325MG 1 EACH TAB PO PRN ×3 (00:20→20:55)
[2020-05-18] MEDS: ACETAMINOPHEN TAB 325 MG TAB PO PRN (02:41)
[2020-05-18] MEDS: LEVOTHYROXINE 25 MCG TAB PO SCH (06:34)
[2020-05-18] MEDS: ALPRAZolam 0.5 MG TAB PO PRN ×2 (06:34→13:16)
[2020-05-18] MEDS: GABAPENTIN 400 MG CAP PO SCH ×4 (07:48→20:54)
[2020-05-18] MEDS: TOPIRAMATE 25 MG TAB PO SCH ×2 (07:49→21:51)
[2020-05-18] MEDS: busPIRone HCl 10 MG TAB PO SCH ×3 (07:49→20:54)
[2020-05-18] MEDS: FLUoxetine HCL 20 MG CAP PO SCH ×2 (07:49→20:53)
[2020-05-18] MEDS: ASPIRIN 325 MG TAB PO SCH (07:50)
[2020-05-18] MEDS: FUROSEMIDE 20 MG TAB PO SCH (07:50)
[2020-05-18] MEDS: amLODIPine 5 MG TAB PO SCH (07:50)
[2020-05-18] MEDS: MONTELUKAST 10 MG TAB PO SCH (07:50)
[2020-05-18] MEDS: BUTALB/APAP/CAFF 50-325-40MG TAB PO PRN (07:51)
[2020-05-18] MEDS: CEFEPIME 2 GM in SODIUM CHLORIDE 0.9% 100 ML IVPB SCH ×2 (07:52→20:53)
[2020-05-18] MEDS: PHENYTOIN SODIUM EXTENDED 100 MG CAP PO SCH ×2 (07:52→20:54)
[2020-05-18] MEDS: METOPROLOL SUCCINATE (ER) 50 MG TAB.ER.24H PO SCH (07:52)
--- NOTE | 2020-05-18 13:02 | PN ---
PROGRESS NOTE DATE OF SERVICE: May 18, 2020 This is a 49-year-old female who was admitted on May 14. She is seen again in the room. She tells us today that Dr. Aponte will keep her here 1 more day. She is really not having much in the way of complaints. She remains on 4 L nasal cannula. That is her home oxygen dose. She states that her breathing has been stable. She denies any chest pain or pressure. She apparently did have some issues of confusion at nighttime. This may relate to underlying sleep apnea syndrome and/or Pickwickian syndrome. Other than that, she is doing reasonably well. Today, she appears to be relatively stable and does not have any obvious respiratory difficulty. She did have a CT of the abdomen and pelvis yesterday which showed an ovarian cyst. She is being treated for urinary tract infection. PHYSICAL EXAMINATION: VITAL SIGNS: Current vital signs are reviewed. Temperature 98.1, heart rate 71, respiratory rate 18, blood pressure 123/74 mean 90. 4 L saturation 92%. Appears in no acute distress. She is lying flat. Resting comfortably. HEENT: Examination is grossly unremarkable. Nasal O2 in place. NECK: Supple. Full range of motion. No adenopathy. Neck veins are flat. CARDIOVASCULAR: Examination reveals regular rhythm and rate. S1, S2 normal. No S3, S4, or murmur. LUNGS: Reveal relatively clear breath sounds. A few scattered rhonchi. No wheezes or crackles. ABDOMEN: Soft. Bowel sounds are heard. EXTREMITIES are intact. Minimal edema. SKIN: Without rash. NEUROLOGIC: Examination is nonfocal. No new laboratory data to report. Urine culture from May 14 shows evidence of E coli. The E coli is sensitive to just about everything. Abdominal pelvic CT scan is reviewed. ASSESSMENT: 1. Altered mental status, improved. 2. Urinary tract infection secondary to Escherichia coli. 3. Gram-negative bacteremia, patient currently on Rocephin. 4. Septic encephalopathy, improved. 5. Obesity, rule out sleep apnea syndrome versus Pickwickian syndrome. 6. Acute on chronic hypercapnic respiratory failure. 7. Abdominal discomfort, with evidence of a right-sided ovarian cyst. 8. Morbid obesity. 9. Atrial fibrillation. 10.Coronary artery disease. 11.History of congestive heart failure. 12.Hyperlipidemia. 13.Hypertension. 14.History of seizure disorder. 15.History of chronic low back pain. 16.Hypothyroidism. PLAN: Currently, the patient seems to be doing relatively well. She has no pulmonary complaints. The patient is being followed by Infectious Disease. She is being treated for her urinary tract infection and bacteremia. Mental status is much improved. She does need outpatient evaluation for sleep apnea. Additional recommendations and suggestions are forthcoming. Prognosis is guarded. MMKIMBERLYL / IJN: [id number] / NURY
[2020-05-18] MEDS: NICOTINE POLACRILEX 2 MG GUM BUCCAL PRN ×2 (14:31→20:55)
--- NOTE | 2020-05-18 16:11 | PN ---
PROGRESS NOTE DATE OF SERVICE: 05/18/2020 REASON FOR FOLLOWUP: E coli urinary tract infection and gram-negative bacteremia. INTERVAL HISTORY: The patient is currently afebrile. Patient is breathing comfortably. The patient denies having any chest pain, shortness of breath. Occasional cough. No nausea, vomiting, no abdominal pain or diarrhea. On examination, blood pressure is 123/74 with a pulse of 71, temperature 98.1. She is 94% on 4 L. General description: Middle-aged female lying in bed in no distress. Respiratory system: Unlabored breathing, clear to auscultation anteriorly. Heart S1, S2. Regular rate and rhythm. Abdomen soft, no tenderness. LABS: No new labs have been obtained today. The ID on the gram-negative is still pending. The blood culture. Urine with E coli. DIAGNOSTIC IMPRESSION AND PLAN: Patient with Gram-negative bacteremia, source likely urinary. Urine showing an E coli. However, the micro lab has not finalize the blood cultures. We will call and get a final answer so we can determine discharge antibiotics. Continue supportive care. MMODL / IJN: [id number] /
--- NOTE | 2020-05-18 16:11 | PN ---
PROGRESS NOTE CHIEF COMPLAINT: Exacerbation of COPD and abdominal pain. HISTORY OF PRESENT ILLNESS: This lady's lower abdominal pain is still present. CT scan did not reveal any significant pathology. She now has developed a headache, which is a new complaint. It is also noticed that her BNP is quite elevated. REVIEW OF SYSTEMS: She is experiencing a headache but no photophobia or neurologic sequelae or symptoms. PHYSICAL EXAM: Head ears, eyes, nose, mouth, and throat were normal. Neck is supple. Chest is clear. Cardiac exam is normal. The abdomen is protuberant. Extremities are normal. IMPRESSION: 1. Exacerbation of chronic obstructive pulmonary disease. 2. Congestive heart failure. 3. Headache (new). 4. Lower abdominal pain. PLAN: 1. Fioricet for headache. 2. Continue to look into the etiology of her lower abdominal pain. 3. Repeat BNP in the next several days. MMODL / IJN: [id number] /
[2020-05-18] MEDS: TOPIRAMATE 100 MG TAB PO SCH ×2 (17:30→20:54)
[2020-05-18] MEDS: SODIUM CHLORIDE 0.9% 1,000 ML IV SCH (19:58)
[2020-05-18] MEDS: diphenhydrAMINE 25 MG CAP PO SCH (20:53)
[2020-05-18] MEDS: PRAMIPEXOLE 0.25 MG TAB PO SCH (20:54)
[2020-05-18] MEDS: QUEtiapine 100 MG TAB PO SCH (20:54)
[2020-05-19] MEDS: BUTALB/APAP/CAFF 50-325-40MG TAB PO PRN ×5 (03:50→22:14)
[2020-05-19] MEDS: LEVOTHYROXINE 25 MCG TAB PO SCH (05:25)
[2020-05-19] MEDS: TOPIRAMATE 100 MG TAB PO SCH ×2 (07:45→19:56)
[2020-05-19] MEDS: GABAPENTIN 400 MG CAP PO SCH ×4 (07:45→20:50)
[2020-05-19] MEDS: FLUoxetine HCL 20 MG CAP PO SCH ×2 (07:45→19:56)
[2020-05-19] MEDS: busPIRone HCl 10 MG TAB PO SCH ×3 (07:45→20:50)
[2020-05-19] MEDS: amLODIPine 5 MG TAB PO SCH (07:46)
[2020-05-19] MEDS: ASPIRIN 325 MG TAB PO SCH (07:46)
[2020-05-19] MEDS: METOPROLOL SUCCINATE (ER) 50 MG TAB.ER.24H PO SCH (07:46)
[2020-05-19] MEDS: MONTELUKAST 10 MG TAB PO SCH (07:46)
[2020-05-19] MEDS: TOPIRAMATE 25 MG TAB PO SCH ×2 (07:46→19:56)
[2020-05-19] MEDS: PHENYTOIN SODIUM EXTENDED 100 MG CAP PO SCH ×2 (07:46→20:51)
[2020-05-19] MEDS: FUROSEMIDE 20 MG TAB PO SCH (07:46)
[2020-05-19] MEDS: CEFEPIME 2 GM in SODIUM CHLORIDE 0.9% 100 ML IVPB SCH ×2 (07:49→19:56)
[2020-05-19] MEDS: SODIUM CHLORIDE 0.9% 1,000 ML IV SCH (08:43)
[2020-05-19] MEDS: NICOTINE POLACRILEX 2 MG GUM BUCCAL PRN ×2 (10:49→16:09)
--- NOTE | 2020-05-19 12:04 | P.PN ---
Subjective Progress Note Date: 05/19/20 Principal diagnosis: Urinary tract infection, altered mental status The patient is seen today 05/19/2020 in follow-up on the regular medical floor. She is awake and alert in no acute distress. Currently resting comfortably in bed. Maintaining O2 saturations in the 90s on 4 L/m per nasal cannula. She's afebrile. Hemodynamically stable. Urine culture was positive for E. coli. She is currently on cefepime. Objective - Vital Signs Vital signs: Vital Signs Temp 97.7 F 05/19/20 07:00 Pulse 59 L 05/19/20 07:00 Resp 18 05/19/20 07:00 BP 100/61 05/19/20 07:00 Pulse Ox 92 L 05/19/20 07:00 Intake & Output 05/18/20 05/19/20 05/19/20 18:59 06:59 18:59 Intake Total 330 680 Balance 330 680 Intake: Intake, IV Titration 100 Amount Cefepime 2 gm In Sodium 100 Chloride 0.9% 100 ml @ 200 mls/hr IVPB Q12HR [facility] Rx#:[id number] Oral 330 580 Other: Voiding Method Toilet Toilet Toilet Bedside Commode Bedside Commode Bedside Commode # Voids 1 1 - Exam GENERAL EXAM: Alert, pleasant 49-year-old female patient, on 4 L nasal cannula, comfortable in no apparent distress. HEAD: Normocephalic. EYES: Normal reaction of pupils, equal size. NOSE: Clear with pink turbinates. THROAT: No erythema or exudates. NECK: No masses, no JVD. CHEST: No chest wall deformity. LUNGS: Equal air entry with crackles in the left base. CVS: S1 and S2 normal with no audible murmur, regular rhythm. ABDOMEN: No hepatosplenomegaly, normal bowel sounds, no guarding or rigidity. SPINE: No scoliosis or deformity SKIN: No rashes CENTRAL NERVOUS SYSTEM: No focal deficits, tone is normal in all 4 extremities. EXTREMITIES: There is no peripheral edema. No clubbing, no cyanosis. Peripheral pulses are intact. - Labs CBC & Chem 7: 05/14/20 08:47 05/14/20 08:47 Assessment and Plan Assessment: 1 Altered mental status, recovered 2 Urinary tract infection secondary to E. coli, currently on cefepime 3 Septic encephalopathy, recovered 4 Obesity 5 Acute on chronic hypercapnic respiratory failure 6 abdominal discomfort, suprapubic in nature suspect secondary to UTI 7 Dyspnea secondary to fluid volume overload/interstitial edema/left lower lobe infiltrate 8 Morbid obesity 9 History of atrial fibrillation 10 History of coronary artery disease 11 history of congestive heart failure 12 hyperlipidemia 13 hypertension 14 history of seizure disorder 15 history of chronic low back pain 16 hypothyroidism Plan: The patient was seen and evaluated by Dr. Tanner She is currently stable for discharge from the pulmonary standpoint Discharge planning in place I, the cosigning physician, performed a history & physical examination of the patient. Lungs sounds with crackles in the left base. Maintaining good O2 saturations in the 90s on 4 L/m per nasal cannula. I discussed the assessment and plan of care with my nurse practitioner, Anisha Evans. I attest to the above note as dictated by her.
[2020-05-19] MEDS: ALPRAZolam 0.5 MG TAB PO PRN (16:09)
--- NOTE | 2020-05-19 17:02 | PN ---
PROGRESS NOTE CHIEF COMPLAINT: Sepsis. HISTORY OF PRESENT ILLNESS: This lady is doing fairly well. Temp has been down. She is having a lot of difficulty with headache, however. She is having no visual disturbances, focal signs or symptoms, etc. We are waiting on the results of her blood culture before she is discharged. PHYSICAL EXAMINATION: Vital signs are normal. Chest is clear. Cardiac exam is normal. The abdomen is protuberant, soft, nontender. Neck is supple. IMPRESSION: 1. Headache. 2. Sepsis; source unknown. 3. Exacerbation of chronic obstructive pulmonary disease. PLAN: 1. Treat headache symptomatically. 2. Await results of cultures before she is discharged. MMODL / IJN: [id number] /
[2020-05-19 19:03] VITALS: RESP 18
[2020-05-19] MEDS: diphenhydrAMINE 25 MG CAP PO SCH (19:56)
[2020-05-19] MEDS: PRAMIPEXOLE 0.25 MG TAB PO SCH (19:56)
[2020-05-19] MEDS: QUEtiapine 100 MG TAB PO SCH (19:57)
--- NOTE | 2020-05-19 23:01 | P.PN ---
Progress Note - Text Progress Note Date: 05/19/20 REASON FOR FOLLOWUP: E coli urinary tract infection and gram-negative bacteremia. INTERVAL HISTORY: The patient remains to be afebrile. Patient is breathing comfortably. The patient denies having any chest pain, shortness of breath. The patient did have Occasional cough. No nausea, vomiting, no abdominal pain or diarrhea. On examination, blood pressure is 120/70 with a pulse of 75, temperature 98.1. She is 94% on 4 L. General description: Middle-aged female lying in bed in no distress. Respiratory system: Unlabored breathing, clear to auscultation anteriorly. Heart S1, S2. Regular rate and rhythm. Abdomen soft, no tenderness. LABS: The ID on the gram-negative is still pending. The blood culture. Urine with E coli. DIAGNOSTIC IMPRESSION AND PLAN: Patient with Gram-negative bacteremia, source likely urinary. Urine showing an E coli. However, the micro lab has still not finalize the blood cultures as of 05/19/2020. And Per discussion with the micro-lab possible finalize this evening, we will keep the patient on Cefepime awaiting for the blood culture finalized to determine her discharge antibiotics
[2020-05-20] MEDS: ALPRAZolam 0.5 MG TAB PO PRN ×2 (00:04→11:27)
[2020-05-20] MEDS: NICOTINE POLACRILEX 2 MG GUM BUCCAL PRN ×2 (00:12→11:28)
[2020-05-20] MEDS: BUTALB/APAP/CAFF 50-325-40MG TAB PO PRN ×2 (02:20→08:22)
[2020-05-20] MEDS: LEVOTHYROXINE 25 MCG TAB PO SCH (05:31)
[2020-05-20] MEDS: HYDROcodone/APAP 5-325MG 1 EACH TAB PO PRN ×2 (05:41→15:58)
[2020-05-20 07:45] VITALS: BP 100/65; PULSE 77; TEMP 98.3
[2020-05-20] MEDS: FLUoxetine HCL 20 MG CAP PO SCH (08:22)
[2020-05-20] MEDS: TOPIRAMATE 100 MG TAB PO SCH (08:22)
[2020-05-20] MEDS: MONTELUKAST 10 MG TAB PO SCH (08:22)
[2020-05-20] MEDS: GABAPENTIN 400 MG CAP PO SCH ×2 (08:22→15:58)
[2020-05-20] MEDS: ASPIRIN 325 MG TAB PO SCH (08:22)
[2020-05-20] MEDS: PHENYTOIN SODIUM EXTENDED 100 MG CAP PO SCH (08:22)
[2020-05-20] MEDS: busPIRone HCl 10 MG TAB PO SCH ×2 (08:22→15:58)
[2020-05-20] MEDS: TOPIRAMATE 25 MG TAB PO SCH (08:22)
[2020-05-20] MEDS: METOPROLOL SUCCINATE (ER) 50 MG TAB.ER.24H PO SCH (08:22)
[2020-05-20] MEDS: CEFEPIME 2 GM in SODIUM CHLORIDE 0.9% 100 ML IVPB SCH (08:23)
[2020-05-20] MEDS: amLODIPine 5 MG TAB PO SCH (08:23)
[2020-05-20] MEDS: FUROSEMIDE 20 MG TAB PO SCH (08:23)
[2020-05-20] MEDS: SODIUM CHLORIDE 0.9% 1,000 ML IV SCH (10:26)
--- NOTE | 2020-05-20 11:36 | CDI ---
Documentation Clarification Form Date: 05/20/2020 11:20:13 AM From: Selene Morales RN CCDS Admit Date: 05/14/2020 11:40:00 AM Patient Name: Niurka Woodruff Visit Number: [id number] Discharge Date: ATTENTION: The Clinical Documentation Specialists (CDI) and [facility] Coding Staff appreciate your assistance in clarifying documentation. Please respond to the clarification below the line at the bottom and electronically sign. The CDI & [facility] Coding staff will review the response and follow-up if needed. Please note: Queries are made part of the Legal Health Record. If you have any questions, please contact the author of this message via ITS. Dr. Ty Aponte The patient presented with the following shortness of breath, abdominal pain right lower quadrant, nausea, vomiting and diarrhea. History/Risk Factors: [id number] with a history of chronic atrial fibrillation, CAD, Heart failure, COPD, Hyperlipidemia, HTN, seizure disorder, hypothyroidism, obesity and chronic low back pain. Clinical Indicators: 05/14 Wbc: 7.8 05/14 UA cultures: Escherichia coli 05/14 Blood cultures: Pseudomonas diminuta 05/14 Vital signs on admission: 96/58 87 100.3 22 78% ra Other Clinical Indicators: Treatment: 05/19 ID Progress Note: Patient with Gram negative bacteremia, source likely urinary. Urine showing an Ecoli. Antibiotics: 05/14 Rocephin Ivpb x1; 05/14 Azithromycin Ivpb x1; 05/16 Cefepime Ivpb Q 12HR; Cipro 500mg po daily x1; IV Bolus: 05/14 0.9ns 1L bolus followed by 20cchr In your professional opinion, please clarify if these findings signify one of the following conditions, whether the condition is POA, and cause, if known: Sepsis POA secondary to UTI Sepsis POA secondary to Sepsis Ruled Out Other, please specify Unable to determine Identify the (suspected) organism SIRS Criteria (2 or more of the following may indicate SIRS): -Temperature < 96.8F (36C) or > 101.0F (38.3C) -Heart Rate > 90 bpm -Respiratory Rate > 20 breaths/min or PaCO2 < 32 mmHg -White Blood Cell Count > 12,000 or < 4,000 cells/mm3 or > 10% bands -Lactate >2.0 mmol/L (>4.0 is equivalent to septic shock) (Last Revision: February 2018) MTDD
--- NOTE | 2020-05-20 12:25 | P.PN ---
Subjective Progress Note Date: 05/20/20 Principal diagnosis: Urinary tract infection, altered mental status, improved The patient is seen today 05/16/2020 in follow-up on the selective care unit. She is currently resting comfortably in bed. Awake and alert in no acute distress. Oriented. Speech is clear. Still have some lower abdominal discomfort. Urine culture positive for gram-negative bacilli. Blood cultures revealing no growth. She remains on 4 L/m per nasal cannula which is her home dose. On 05/17/2020 patient seen in follow-up on selective care unit, she is resting comfortably in bed, she is on her home dose of oxygen, currently at 4 L and her sat is 90-91%, she is afebrile, hemodynamically she's been stable. He states last night she had some confusion, her mentation seems to be appropriate right now, no confusion, no hallucination. Responding appropriately, breathing seems to be stable, comfortable, lung sounds are clear, diminished at the bases, her blood culture collected on 05/14/2020 showed gram-negative bacilli, final culture is pending at this time, patient has been afebrile, her urine culture was positive for E. coli, patient is currently on cefepime, ID service is following. On 05/20/2020 patient seen in follow-up on medical floor, she is awake and alert, in no acute distress, she is on her home dose of FiO2, currently at 4 L with a pulse ox of 96%, and she's been afebrile, hemodynamically she's been stable. Her blood culture was positive for pseudomonas diminuta, and a urine culture showed E. coli, and antibiotic coverage is with cefepime, ID service is following. No altered mentation, patient has been ambulating in the room, tolerating activity well, no complaints of shortness of breath, lung sounds are clear, diminished at the bases, no rhonchi or wheezing. Objective - Vital Signs Vital signs: Vital Signs Temp 98.3 F 05/20/20 07:00 Pulse 77 05/20/20 07:00 Resp 18 05/20/20 07:00 BP 100/65 05/20/20 07:00 Pulse Ox 96 05/20/20 07:00 Intake & Output 05/19/20 05/20/20 05/20/20 18:59 06:59 18:59 Intake Total 1740 600 680 Balance 1740 600 680 Weight 120.8 kg Intake: Intake, IV Titration 100 100 Amount Cefepime 2 gm In Sodium 100 100 Chloride 0.9% 100 ml @ 200 mls/hr IVPB Q12HR [facility] Rx#:[id number] Oral 1640 600 629 Other: Voiding Method Toilet Toilet Bedside Commode Bedside Commode # Voids 3 1 2 - Exam GENERAL EXAM: Alert, pleasant 49-year-old white female, on 4 L of oxygen, with a pulse ox of 96% comfortable in no apparent distress. HEAD: Normocephalic/atraumatic. EYES: Normal reaction of pupils, equal size. Conjunctiva pink, sclera white. NOSE: Clear with pink turbinates. THROAT: No erythema or exudates. NECK: No masses, no JVD, no thyroid enlargement, no adenopathy. CHEST: No chest wall deformity. Symmetrical expansion. LUNGS: Equal air entry with no crackles, wheeze, rhonchi or dullness. CVS: Regular rate and rhythm, normal S1 and S2, no gallops, no murmurs, no rubs ABDOMEN: Soft, nontender. No hepatosplenomegaly, normal bowel sounds, no guarding or rigidity. EXTREMITIES: No clubbing, no edema, no cyanosis, 2+ pulses and upper and lower extremities. MUSCULOSKELETAL: Muscle strength and tone normal. SPINE: No scoliosis or deformity SKIN: No rashes CENTRAL NERVOUS SYSTEM: Alert and oriented -3. No focal deficits, tone is normal in all 4 extremities. PSYCHIATRIC: Alert and oriented -3. Appropriate affect. Intact judgment and insight. - Labs CBC & Chem 7: 05/14/20 08:47 05/14/20 08:47 Labs: Microbiology - Last 24 Hours (Table) 05/14/20 08:47 Blood Culture Gram Stain - Final Blood Blood Culture - Final Pseudomonas diminuta Assessment and Plan Plan: Assessment: 1 Altered mental status, recovered 2 Urinary tract infection related to E. coli 3 pseudomonal bacteremia, currently on cefepime 4 Septic encephalopathy, recovered 5 Obesity 6 Acute on chronic hypercapnic respiratory failure 7 abdominal discomfort, suprapubic in nature suspect secondary to UTI 8 Dyspnea secondary to fluid volume overload/interstitial edema/left lower lobe infiltrate 9 Morbid obesity 10 History of atrial fibrillation 11 History of coronary artery disease 12 history of congestive heart failure 13 hyperlipidemia 14 hypertension 15 history of seizure disorder 16 history of chronic low back pain 17 hypothyroidism Plan: Patient is stable from pulmonary perspective, she is on 4 L of oxygen, which is what she usually wears at home. She is awaiting the decision on antibiotics from ID service recommendations to go home on, she is currently on cefepime for pseudomonal bacteremia, and E. coli urinary tract infection, vital signs have been stable, no fever or chills, no altered mentation. Patient is stable for discharge home, with antibiotics per ID service recommendations, she will need outpatient follow-up with Dr. Tanner in the office, and she will need outpatient sleep study I performed a history & physical examination of the patient and discussed their management with my nurse practitioner, Johanna Tsang. I reviewed the nurse practitioner's note and agree with the documented findings and plan of care. Lung sounds are positive for clear breath sounds. The findings and the impression was discussed with the patient. I attest to the documentation by the nurse practitioner. Time with Patient: Less than 30
--- NOTE | 2020-05-20 12:34 | PN ---
PROGRESS NOTE DATE OF SERVICE: 05/20/2020 REASON FOR FOLLOWUP: UTI and bacteremia. INTERVAL HISTORY: The patient is currently afebrile. The patient is breathing comfortably. The patient denies having any chest pain or shortness of breath. Minimal cough. No nausea, vomiting, abdominal pain or diarrhea. Overall feeling better and wants to go home. PHYSICAL EXAMINATION: Blood pressure 100/65 with a pulse of 77, temperature 98.2, she is 96% on 4 L nasal cannula. General description is a middle-aged female, lying in bed in no distress. RESPIRATORY SYSTEM: Unlabored breathing, clear to auscultation anteriorly. HEART: S1, S2. Regular rate and rhythm. ABDOMEN: Soft, no tenderness. LABS: No new labs have been obtained today. Urine with E coli. Blood culture has been finalized with Pseudomonas DIMI and UTI which is multidrug resistant. DIAGNOSTIC IMPRESSION AND PLAN: 1. Patient with positive blood culture with Pseudomonas, possible contaminant as the patient currently did not have any clinical disease to go along with it and the patient improved without getting treatment for the same. We will do a blood cultures x1 stat to document this fact and the patient insisting on going home. She has been advised to followup in the office in one week. 2. Escherichia coli urinary tract infection. Wll finish therapy with a short course of oral Ceftin. Prescription sent to the pharmacy. AMAURY / ANGELA: [id number] /
--- NOTE | 2020-05-21 17:23 | DS ---
DISCHARGE SUMMARY CHIEF COMPLAINT: Acute respiratory failure with hypoxia. HISTORY OF PRESENT ILLNESS AND PHYSICAL EXAMINATION: Details of this lady's history and physical can be found in the initial workup. LABORATORY STUDIES: While she was in a hospital, she had laboratory studies, details of which can be found in the laboratory section of her chart. COURSE IN THE HOSPITAL: After admission, she was placed on bedrest, started on intravenous fluids and started on a pulmonary program. While she was in the hospital, she complained of lower abdominal discomfort, but no significant pathology was identified. She also had a positive blood culture and was seen by Infectious Disease. She is doing well and temperature is down. Pain has subsided other than headache. She is doing well and it was felt she can be discharged. She will go home on her usual activity, diet and medications along with cephalosporin and she will be seen in the office in several days. FINAL DIAGNOSES: 1. Acute respiratory failure. 2. Gram positive blood culture. 3. Lower abdominal pain, etiology unknown. 4. History of low back pain. 5. History of hypertension. 6. Obesity. OPERATIONS: None. CONSULTATIONS: Infectious Disease. She is improved. MMODL / IJN: [id number] /
--- NOTE | 2020-05-25 10:39 | PN ---
PROGRESS NOTE Altered mental status secondary to respiratory failure. MMODL / IJN: [id number] /
--- NOTE | 2020-05-25 16:42 | MISC ---
MISCELLANOUS REPORT QUERY COVID-19 ruled out. MMODL / IJN: [id number] /
--- NOTE | 2020-05-25 16:42 | MISC ---
MISCELLANOUS REPORT QUERY Altered mental status due to respiratory failure. MMODL / IJN: [id number] /
--- NOTE | 2020-05-25 16:42 | MISC ---
MISCELLANOUS REPORT QUERY Chronic diastolic. MMODL / IJN: [id number] /
--- NOTE | 2020-05-25 16:57 | MISC ---
MISCELLANOUS REPORT QUERY Present on admission, unable to determine. MMODL / IJN: [id number] /
== END 2020-05-20 16:36 | disposition home or self-care (01) | DRG 871 ==
LOC: EC 08:01 → 3SCARD 11:40 → 4SSUR 05-18 18:52
PROVIDERS: ADMIT Family Medicine; ATTEND Family Medicine
DX: A41.9 Sepsis, unspecified organism (principal); J96.22 Acute and chronic respiratory failure with hypercapnia; G93.41 Metabolic encephalopathy; J96.21 Acute and chronic respiratory failure with hypoxia; Z68.43 Body mass index [BMI] 50.0-59.9, adult; N39.0 Urinary tract infection, site not specified; J44.1 Chronic obstructive pulmonary disease with (acute) exacerbation; I48.20 Chronic atrial fibrillation, unspecified; I50.32 Chronic diastolic (congestive) heart failure; I25.10 Atherosclerotic heart disease of native coronary artery without angina pectoris; G43.909 Migraine, unspecified, not intractable, without status migrainosus; E66.01 Morbid (severe) obesity due to excess calories; E78.5 Hyperlipidemia, unspecified; E03.9 Hypothyroidism, unspecified; F31.9 Bipolar disorder, unspecified; F41.9 Anxiety disorder, unspecified; M54.5 Low back pain; G89.29 Other chronic pain; I11.0 Hypertensive heart disease with heart failure; B96.20 Unspecified Escherichia coli [E. coli] as the cause of diseases classified elsewhere; N83.201 Unspecified ovarian cyst, right side; Z20.828 Contact with and (suspected) exposure to other viral communicable diseases; G40.909 Epilepsy, unspecified, not intractable, without status epilepticus; Z79.899 Other long term (current) drug therapy; Z79.890 Hormone replacement therapy; Z79.82 Long term (current) use of aspirin; Z88.5 Allergy status to narcotic agent; Z88.0 Allergy status to penicillin; Z88.6 Allergy status to analgesic agent; Z91.040 Latex allergy status; Z98.890 Other specified postprocedural states; Z98.891 History of uterine scar from previous surgery; Z90.49 Acquired absence of other specified parts of digestive tract; Z98.51 Tubal ligation status; Z87.891 Personal history of nicotine dependence; Z86.73 Personal history of transient ischemic attack (TIA), and cerebral infarction without residual deficits; Z87.11 Personal history of peptic ulcer disease; Z83.3 Family history of diabetes mellitus; Z87.01 Personal history of pneumonia (recurrent)
CPT/HCPCS: 36415; 36600; 51701; 70450; 71045; 74177; 76770; 80053; 80306; 81001; 82805; 83605; 83735; 83880; 84484; 85025; 85610; 85730; 86140; 87040; 87077; 87086; 87186; 90471; 90732; 93005; 96361; 96365; 96366; 96375; 99285

== ENCOUNTER → 2020-06-12 | Outpatient (CLI) | payer OTHER ==
[2020-06-12 09:27] VITALS: BP 96/67; PULSE 71; RESP 18; TEMP 98.5
--- NOTE | 2020-06-12 09:50 | P.PAINCN ---
History of Present Illness - History of Present Illness This is a 49-year-old patient referred by Dr. Garcia with a chief complaint of headache. She has a complicated past medical history including a seizure disorder, atrial fibrillation, CAD, CHF, and COPD (on 4 L Home O2). Of note she recently had an episode of AMS after a UTI and was admitted to the hospital for this. She describes that she has a history of chronic diffuse headaches that last throughout the entirety of the day but her chief complaint today is pain that starts in the occipital region and radiates up to the vertex of the head. It is described as sharp shooting and stabbing and only happens a few times throughout the week. Primary pain is her chronic headaches however the stabbing episodes are very uncomfortable for her. It been happening for about 16 years but the stabbing episodes are relatively new within the past year. Alleviating factors are cold pack or sitting in a dark room during an episode. Alleviating factors for this. Patient has been taking medications from primary care physician including gaabpentin 600 mg PO QID, topiramate 50 mg PO BID with some relief. Patient denies adverse drug effects from medications. Patient also denies new-onset weakness, bowel/bladder incontinence, or any other signs or symptoms of cauda equina syndrome. There are no signs of acute intoxication, and no indications of medication diversion or overuse. In addition to above, 13-point review of systems is also negative for chest pain, shortness of breath, changes in vision, changes in hearing, new onset weakness, abdominal pain, diarrhea, extreme fatigue, malaise, fever, skin changes, homicidal or suicidal ideation, or bowel or bladder incontinence. Physical exam: Vital Signs: Reviewed in EMR GENERAL: Obese, in no acute distress, saturating 84% on room air PSYCH: Mood and affect is appropriate. Awake, alert, and oriented SKIN: Skin color, texture, turgor normal, no rashes or lesions HEENT: Normocephalic, atraumatic. EOM intact CV: No pedal edema RESP: Respirations are unlabored, no audible wheezing GI: Abdomen non-distended MUSCULOSKELETAL: Bilateral upper and lower extremity strength is normal and symmetric. No atrophy or tone abnormalities are noted. Neck: Mild pain to palpation over the cervical paraspinous muscles and occiput. Spurling negative, Axial Loading Test negative, Dietrich's sign negative. No pain with neck flexion, extension, or lateral flexion. No obvious deformity or signs of trauma. Normal cervical lordotic curve and normal cervical spine range of motion NEUR: Bilateral upper and lower extremity coordination and muscle stretch reflexes are physiologic and symmetric. Negative clonus. No loss of sensation is noted. Cranial nerves are grossly intact. Assessment: 1. Occipital neuralgia 2. Chronic daily migraine headaches 3. COPD on home O2 Plan: 1. Explanation: Diagnoses, prognoses, and multiple treatment options including but not limited to physical therapy, interventional therapies, medication management and surgery were discussed with the patient and all questions were answered to the patient's satisfaction. 2. Investigations: None 3. Counseling: The patient was counseled for 3 minutes on BODY MASS INDEX, EXERCISE. Specifically, the patient was instructed regarding the importance of smoking cessation, weight control, and exercise in the context of both chronic pain and overall health. 4. Procedures: Schedule bilateral occipital nerve blocks no sedation 5. Consultations: none 6. Medications: as per primary care 7. Disposition: after procedures Past Medical History Past Medical History: Atrial Fibrillation, Asthma, Coronary Artery Disease (CAD), Heart Failure, COPD, CVA/TIA, GERD/Reflux, Hyperlipidemia, Hypertension, Pneumonia, Seizure Disorder, Thyroid Disorder Additional Past Medical History / Comment(s): Pt uses home oxygen prn, TIA, vertigo, bronchitis, gastric ulcer, seizure-last time 03/18/20, chronic low back pain/bulging discs, migraines, hypothyroid History of Any Multi-Drug Resistant Organisms: None Reported Past Surgical History: Section, Cholecystectomy, Heart Catheterization With Stent, Tubal Ligation Additional Past Surgical History / Comment(s): C-Sections x 3 Past Anesthesia/Blood Transfusion Reactions: No Reported Reaction, Motion Sickness Date of Last Stent Placement:: 2003 Past Psychological History: Anxiety, Bipolar, Depression Additional Psychological History / Comment(s): Pt resides with her sister. She uses a cane to ambulate. She does not drive, her sister or other family take her to appts. She has home oxygen and a nebulizer. Past Alcohol Use History: Rare Additional Past Alcohol Use History / Comment(s): Pt started smoking in 1985 and quit in 2018, but started vaping this year. Pt states she quit vaping one week ago. Past Drug Use History: None Reported - Past Family History Father Family Medical History: AFIB Mother Family Medical History: AFIB, Diabetes Mellitus Medications and Allergies Home Medications Medication Instructions Recorded Confirmed Type Pramipexole [Mirapex] 0.25 mg PO HS 06/21/17 06/12/20 History ALPRAZolam [Xanax] 0.5 mg PO TID 09/18/18 06/12/20 History Phenytoin Sodium Extended 200 mg PO DAILY 02/15/19 06/12/20 History [Dilantin] Phenytoin Sodium Extended 300 mg PO HS 02/15/19 06/12/20 History [Dilantin] FLUoxetine HCL 40 mg PO BID 10/19/19 06/12/20 History Furosemide [Lasix] 20 mg PO DAILY 10/19/19 06/12/20 History Gabapentin 800 mg PO QID 11/30/19 06/12/20 History QUEtiapine FUMARATE [SEROquel] 300 mg PO HS 11/30/19 06/12/20 History HYDROcodone/APAP 5-325MG [Stan[place] 1 tab PO DAILY PRN 12/01/19 06/12/20 History 5-325] Metoprolol Succinate [Toprol XL] 50 mg PO DAILY 12/01/19 06/12/20 History busPIRone HCL [Buspar] 30 mg PO TID 12/01/19 06/12/20 History Albuterol Sulfate [Ventolin HFA] 2 puff INHALATION RT-QID PRN 03/16/20 06/12/20 History Ergocalciferol [Vitamin D2 50,000 unit PO TH 03/16/20 06/12/20 History (DRISDOL)] Levothyroxine Sodium [Synthroid] 25 mcg PO DAILY 03/16/20 06/12/20 History Nicotine Polacrilex [Nicotine Gum] 4 mg BUCCAL Q2H PRN 03/16/20 06/12/20 History levETIRAcetam [Keppra] 750 mg PO TID 03/16/20 06/12/20 History amLODIPine [Norvasc] 5 mg PO DAILY 03/18/20 06/12/20 History Topiramate [Topamax] 100 mg PO BID #60 tab 03/19/20 06/12/20 Rx Aspirin EC [Ecotrin] 325 mg PO DAILY 05/14/20 06/12/20 History Montelukast [Singulair] 10 mg PO DAILY 05/14/20 06/12/20 History Topiramate [Topamax] 50 mg PO BID 05/14/20 06/12/20 History diphenhydrAMINE [Benadryl] 25 mg PO HS 05/14/20 06/12/20 History Cefuroxime Axetil [Ceftin] 500 mg PO BID 3 Days #6 tab 05/20/20 06/12/20 Rx Allergies Allergy/AdvReac Type Severity Reaction Status Date / Time ibuprofen [From Motrin] Allergy Rash/Hives Verified 06/12/20 09:15 Latex, Natural Rubber Allergy Rash/Hives Verified 06/12/20 09:15 naproxen [From Naprosyn] Allergy Unknown Verified 06/12/20 09:15 tramadol Allergy Rash/Hives Verified 06/12/20 09:15 Penicillins AdvReac Vomiting Verified 06/12/20 09:15 PQRS Measure Charge Sheet Measure #226: Tobacco Use: Screen & Cessation Intervention: Pt not a tobacco user Measure #111: Pneumonia Vaccination: Pneumococcal vaccine administered or previously received Measure #47: Advance Care Plan: Advance care planning discussed & documented, pt chose/unable to give Measure #412: Opioid Treatment Agreement: No documentation of signed opioid treatment agreement Measure #408: Opioid Therapy Follow-up Evaluation: Patient had NO f/u eval minimum every 3 months during opioid therapy Measure #317: Preventitive Care & Scrn High Bld Press & F/U: Normal blood pressure, f/u not required Measure #128: Body Mass Index (BMI) Screening & Follow-up: BMI documented ABOVE normal parameters - f/u documented Measure #131: Pain Assessment & Follow-up: Pain positive & plan documented Measure #431: Unhealthy Alcohol Use Preventative Care & Scrn: Patient not identified as an unhealthy alcohol user PQRS Narrative: Smoking Status Former smoker Home Medications: Ambulatory Orders Pramipexole [Mirapex] 0.25 mg PO HS 06/21/17 ALPRAZolam [Xanax] 0.5 mg PO TID 09/18/18 Phenytoin Sodium Extended [Dilantin] 200 mg PO DAILY 02/15/19 Phenytoin Sodium Extended [Dilantin] 300 mg PO HS 02/15/19 FLUoxetine HCL 40 mg PO BID 10/19/19 Furosemide [Lasix] 20 mg PO DAILY 10/19/19 Gabapentin 800 mg PO QID 11/30/19 QUEtiapine FUMARATE [SEROquel] 300 mg PO HS 11/30/19 HYDROcodone/APAP 5-325MG [Stanberry 5-325] 1 tab PO DAILY PRN 12/01/19 Metoprolol Succinate [Toprol XL] 50 mg PO DAILY 12/01/19 busPIRone HCL [Buspar] 30 mg PO TID 12/01/19 Albuterol Sulfate [Ventolin HFA] 2 puff INHALATION RT-QID PRN 03/16/20 Ergocalciferol [Vitamin D2 (DRISDOL)] 50,000 unit PO TH 03/16/20 Levothyroxine Sodium [Synthroid] 25 mcg PO DAILY 03/16/20 Nicotine Polacrilex [Nicotine Gum] 4 mg BUCCAL Q2H PRN 03/16/20 levETIRAcetam [Keppra] 750 mg PO TID 03/16/20 amLODIPine [Norvasc] 5 mg PO DAILY 03/18/20 Topiramate [Topamax] 100 mg PO BID #60 tab 03/19/20 Aspirin EC [Ecotrin] 325 mg PO DAILY 05/14/20 Montelukast [Singulair] 10 mg PO DAILY 05/14/20 Topiramate [Topamax] 50 mg PO BID 05/14/20 diphenhydrAMINE [Benadryl] 25 mg PO HS 05/14/20 Cefuroxime Axetil [Ceftin] 500 mg PO BID 3 Days #6 tab 05/20/20
== END | disposition home or self-care (01) ==
LOC: PNWHC3 09:04
PROVIDERS: ATTEND Anesthesiology
DX: M54.81 Occipital neuralgia (principal); G43.909 Migraine, unspecified, not intractable, without status migrainosus; J44.9 Chronic obstructive pulmonary disease, unspecified; I25.10 Atherosclerotic heart disease of native coronary artery without angina pectoris; J45.909 Unspecified asthma, uncomplicated; Z99.81 Dependence on supplemental oxygen; Z79.899 Other long term (current) drug therapy; Z79.891 Long term (current) use of opiate analgesic; Z79.890 Hormone replacement therapy; Z79.82 Long term (current) use of aspirin; Z88.8 Allergy status to other drugs, medicaments and biological substances; Z88.0 Allergy status to penicillin; Z88.5 Allergy status to narcotic agent; Z91.040 Latex allergy status; Z87.891 Personal history of nicotine dependence; K21.9 Gastro-esophageal reflux disease without esophagitis
CPT/HCPCS: 99211

== ENCOUNTER 2020-07-02 09:06 | Day surgery (SDC) | payer OTHER ==
[2020-06-26 15:29] VITALS: BMI 43.4
[~2020-07-02 09:06] MED LIST: LACTATED RINGERS 1,000 ML IV SCH
[2020-07-02 09:36] VITALS: TEMP 96.9
[2020-07-02] MEDS ORDERED: LIDOCAINE 1% (10MG/ML) FOR IV START INTRADERMA ONE (09:42)
[2020-07-02] MEDS ORDERED: MIDAZOLAM 2 MG/2 ML VIAL ONE (09:44)
[2020-07-02] MEDS ORDERED: fentaNYL (PF) 50 MCG/ML 2 ML AMP ONE (09:44)
[2020-07-02] MEDS ORDERED: methylPREDNISolone ACETATE 40 MG/ML 1 ML VIAL ONE (09:44)
[2020-07-02] MEDS ORDERED: ROPIVACAINE 5MG/ML 20ML VIAL ONE (09:44)
--- NOTE | 2020-07-02 09:54 | P.PCN ---
Date of Procedure: 07/02/20 Procedure(s) Performed: Preoperative diagnoses= 1- Greater occipital neuralgia. 2-chronic headache Postoperative diagnoses= same as preoperative diagnosis. Procedure= Bilateral Greater occipital nerve block Anesthesia= moderate sedation with Versed 2 mg and fentanyl 50 micrograms and local infiltration with lidocaine 1% 4 ml Estimated blood loss=minimal. Procedure indication= the patient had a history of severe chronic neck pain ,and headache, diagnosed with occipital neuralgia exam was positive for severe tenderness over the occipital nerve bilaterally, she will be a good candidate occipital nerve block, patient failed conservative management Procedure description= the patient was seen and identified in the preoperative holding area, risks and benefits and alternative of the procedure and possible complications discussed with the patient, and he agreed with the preceding, patient signed the consent, an IV was started, and vital signs were monitored and were stable throughout the procedure, patient was placed in the sitting position or table and the neck area was prepped and draped with a sterile fashion, vital signs were closely monitored during the procedure, 25-gauge needle advanced 1 inch lateral to the occipital protuberance on the right side, at the location of the right occipital nerve , then after negative aspiration for heme and CSF and there was no paresthesia during the injection, 6 ml of Robivacaine 0.5% and 40 mg of Depo-Medrol injected after negative aspiration, the needle removed, and the entire same procedure was repeated for the left Greater occipital nerve. Patient tolerated the procedure well without any complication, The patient returned to supine position after the back was cleaned and a Band- Aid applied, the patient transported to recovery room in stable condition and he was monitored for 30 minutes before he was discharged home and then patient was reexamined before going home and patient was discharged in stable condition and patient will follow up with the pain clinic in a few weeks.
[2020-07-02] MEDS ORDERED: IV FLUID CONTINUATION 1,000 ML IV ONE (10:07)
[2020-07-02 10:13] VITALS: BP 105/56; PULSE 68; RESP 18
== END 2020-07-02 10:33 ==
LOC: ORPAIN 09:06
PROVIDERS: ATTEND Specialist
DX: M54.81 Occipital neuralgia (principal); I48.91 Unspecified atrial fibrillation; I25.10 Atherosclerotic heart disease of native coronary artery without angina pectoris; I10 Essential (primary) hypertension; J44.9 Chronic obstructive pulmonary disease, unspecified; G89.29 Other chronic pain; M54.2 Cervicalgia; Z91.040 Latex allergy status; Z88.6 Allergy status to analgesic agent; Z88.0 Allergy status to penicillin; Z88.5 Allergy status to narcotic agent
CPT/HCPCS: 64405

== ENCOUNTER → 2020-07-16 | Day surgery (SDC) | payer OTHER ==
[2020-07-11 09:32] VITALS: BMI 43.4
[~2020-07-16] MED LIST changes: +IV FLUID CONTINUATION 1,000 ML IV ONE; -LACTATED RINGERS 1,000 ML IV SCH; +MIDAZOLAM 2 MG/2 ML VIAL ONE; +ROPIVACAINE 5MG/ML 20ML VIAL ONE; +fentaNYL (PF) 50 MCG/ML 2 ML AMP ONE; +methylPREDNISolone ACETATE 40 MG/ML 1 ML VIAL ONE
[2020-07-16 09:17] VITALS: RESP 18; TEMP 97.8
[2020-07-16] MEDS: LACTATED RINGERS 1,000 ML IV SCH ×2 (09:33→09:42)
--- NOTE | 2020-07-16 09:52 | P.PCN ---
Date of Procedure: 07/16/20 Procedure(s) Performed: Preoperative diagnoses= 1- Greater occipital neuralgia. 2-chronic headache Postoperative diagnoses= same as preoperative diagnosis. Procedure= Bilateral Greater occipital nerve block Anesthesia= moderate sedation with Versed 1 mg and fentanyl 50 micrograms and local infiltration with lidocaine 1% 4 ml Estimated blood loss=minimal. Procedure indication= the patient had a history of severe chronic neck pain ,and headache, diagnosed with occipital neuralgia exam was positive for severe tenderness over the occipital nerve bilaterally, she will be a good candidate occipital nerve block, patient failed conservative management Procedure description= the patient was seen and identified in the preoperative holding area, risks and benefits and alternative of the procedure and possible complications discussed with the patient, and he agreed with the preceding, patient signed the consent, an IV was started, and vital signs were monitored and were stable throughout the procedure, patient was placed in the sitting position or table and the neck area was prepped and draped with a sterile fashion, vital signs were closely monitored during the procedure, 25-gauge needle advanced 1 inch lateral to the occipital protuberance on the right side, at the location of the right occipital nerve , then after negative aspiration for heme and CSF and there was no paresthesia during the injection, 6 ml of Robivacaine 0.5% and 20 mg of Depo-Medrol injected after negative aspiration, the needle removed, and the entire same procedure was repeated for the left Greater occipital nerve. Patient tolerated the procedure well without any complication, The patient returned to supine position after the back was cleaned and a Band- Aid applied, the patient transported to recovery room in stable condition and he was monitored for 30 minutes before he was discharged home and then patient was reexamined before going home and patient was discharged in stable condition and patient will follow up with the pain clinic in a few weeks.
[2020-07-16 10:16] VITALS: BP 125/79; PULSE 70
== END ==
LOC: ORPAIN 08:55
PROVIDERS: ATTEND Specialist
DX: G89.29 Other chronic pain (principal); M54.81 Occipital neuralgia; Z78.0 Asymptomatic menopausal state; Z91.040 Latex allergy status; Z88.0 Allergy status to penicillin; Z88.5 Allergy status to narcotic agent; Z88.6 Allergy status to analgesic agent
CPT/HCPCS: 64405; J2250; J1030; J3010; J2795

== ENCOUNTER → 2020-08-07 | Outpatient (CLI) | payer OTHER ==
[2020-08-07 14:45] VITALS: BP 111/73; PULSE 71; RESP 18; TEMP 98.8
--- NOTE | 2020-08-08 11:04 | P.PAINPG ---
Subjective Progress Note Date: 08/07/20 This is follow-up visit for this 49 years old female with a chronic history of severe neck pain and headache and she was treated for occipital neuralgia, we have done bilateral occipital nerve block, and she reported that her headache improved after the occipital nerve block she reported that 2 weeks ago she was moving furniture at home she does and she started having severe low back pain with radiation to the lower extremity bilaterally, associated with numbness and tingling sensation and she feels some weakness in her left lower extremity, the pain is constant and increases with any activity, no fever or night sweats with no change in the bowel movement or urination, she tried [id number] me dication and said without any significant improvement Objective - Vital Signs Vital signs: Vital Signs Temp 98.8 F 08/07/20 14:41 Pulse 71 08/07/20 14:41 Resp 18 08/07/20 14:41 BP 111/73 08/07/20 14:41 Pulse Ox 95 08/07/20 14:41 - Exam Physical Examinations : -Constitutiona : Cooperative , not in acute distress . -HEENT : nech : supple , no Lymphadenopathy , normal thyroid size . : eyes : no ptosis , no icterus, no photophobia . - neurologic : Cranial nerve II to XII intact , no focal neurological deffecit . -psychatric : alert , oriented X 3 , appropriate affect , intact judgment and insight . -Lymphatic : no Lymphadenopathy . - musculoskeltal : Cervical Spine motor stregnth in the deltoid and biceps, normal right side , normal Left side motor stregnth biceps and the wrist extensors normal right side ,normal left side . motor stregnth in the triceps muscle . normal Right side , normal Left side Lumber spine moter stegnth lower extremities ,thigh and legs 5/5 Right side , 4/5 Left side deep tendon reflexes : normal Knee Jerk , normal ankle Jerk lumber facet Loading Test =positive Right , positive Left Range of motion of the lumbar spine Flexion 30 degrees, extension 10 degrees strait leg raising test = positive at 30 degree bilateral Fabere test= positive Right , and positive LT . tenderness over the Sacroiliac joint on the Right , and Left sides Assessment and Plan Plan: Assessment and plan=1-occipital neuralgia 2-lumbar radiculopathy ( acute ). The neck pain and headache improvement after occipital nerve block, currently loss of the problem is in the low back area patient has radicular symptoms started after moving furniture, the pain is severe and disabling Interfering with the quality of life patient will be good candidate to have MRI of the lumbar spine to evaluate the etiology of her low back pain, patient will be seen in the pain clinic after we get the MRI report Time with Patient: Less than 30 PQRS Measure Charge Sheet Measure #130: Documentation of Current Meds in Medical Chart: Patient's medications documented in chart Measure #226: Tobacco Use: Screen & Cessation Intervention: Pt not a tobacco user Measure #111: Pneumonia Vaccination: Pneumococcal vaccine administered or previously received Measure #47: Advance Care Plan: Advance care planning discussed & documented, pt chose/unable to give Measure #412: Opioid Treatment Agreement: No documentation of signed opioid treatment agreement Measure #408: Opioid Therapy Follow-up Evaluation: Patient had NO f/u eval minimum every 3 months during opioid therapy Measure #317: Preventitive Care & Scrn High Bld Press & F/U: Normal blood pressure, f/u not required Measure #128: Body Mass Index (BMI) Screening & Follow-up: BMI documented ABOVE normal parameters - f/u documented Measure #131: Pain Assessment & Follow-up: Pain positive & plan documented, Follow-up scheduled Measure #431: Unhealthy Alcohol Use Preventative Care & Scrn: Patient not identified as an unhealthy alcohol user PQRS Narrative: Smoking Status Former smoker Blood Pressure 111/73 Pain Intensity [Lower Back] 10 Pain Intensity [Neck] 5 Scale Used Numeric (1 - 10) Hx Alcohol Use (MH) No Home Medications: Ambulatory Orders Pramipexole [Mirapex] 0.25 mg PO HS 06/21/17 ALPRAZolam [Xanax] 0.5 mg PO TID 09/18/18 Phenytoin Sodium Extended [Dilantin] 300 mg PO HS 02/15/19 FLUoxetine HCL 40 mg PO BID 10/19/19 Furosemide [Lasix] 20 mg PO DAILY 10/19/19 Gabapentin 800 mg PO QID 11/30/19 QUEtiapine FUMARATE [SEROquel] 300 mg PO HS 11/30/19 Albuterol Sulfate [Ventolin HFA] 2 puff INHALATION RT-QID PRN 03/16/20 Ergocalciferol [Vitamin D2 (DRISDOL)] 50,000 unit PO TH 03/16/20 Nicotine Polacrilex [Nicotine Gum] 4 mg BUCCAL Q2H PRN 03/16/20 Aspirin EC [Ecotrin] 325 mg PO DAILY 05/14/20 Montelukast [Singulair] 10 mg PO DAILY 05/14/20 diphenhydrAMINE [Benadryl] 25 mg PO HS 05/14/20 Albuterol Nebulizer 1 tab INHALATION BID 06/26/20 Levothyroxine Sodium [Synthroid] 25 mcg PO DAILY 07/02/20 Metoprolol Succinate (ER) [Toprol Xl] 50 mg PO DAILY 07/02/20 Phenytoin [Dilantin Chew] 200 mg PO DAILY 07/02/20 Topiramate [Topamax] 150 mg PO BID 07/02/20 amLODIPine [Norvasc] 5 mg PO DAILY 07/02/20 busPIRone HCL [Buspar] 30 mg PO TID 07/02/20 levETIRAcetam [Keppra] 750 mg PO TID 07/02/20 Controlled Substance Measures - Controlled Substance Measures Is patient prescribed a controlled substance at discharge?: No
== END | disposition home or self-care (01) ==
LOC: PNWHC3 14:25
PROVIDERS: ATTEND Specialist
DX: M54.16 Radiculopathy, lumbar region (principal); M54.2 Cervicalgia; M54.81 Occipital neuralgia; R51 Headache; Z87.891 Personal history of nicotine dependence; Z79.899 Other long term (current) drug therapy; Z79.890 Hormone replacement therapy; Z79.51 Long term (current) use of inhaled steroids; Z79.82 Long term (current) use of aspirin
CPT/HCPCS: 99211

== ENCOUNTER 2020-09-08 18:49 | Inpatient (IN) | payer OTHER ==
--- NOTE | 2020-09-08 19:08 | ED ---
Altered Mental Status HPI - General Chief Complaint: Altered Mental Status Stated Complaint: Tremors Time Seen by Provider: 09/08/20 19:00 Source: patient, EMS Mode of arrival: EMS Limitations: altered mental status - History of Present Illness Initial Comments: 49-year-old female presenting for generalized weakness fatigue shaking. Patient states she has felt shaky fatigued and weak all over. She states she has had increasing shortness of breath from her baseline she states she does breathing treatments twice a day. Patient states she has had on and off chest pressure, denies current. Patient denies vomiting nausea, diarrhea, denies cough, fevers, urinary symptoms, denies frequent UTIs. Patient is on 4L of oxygen secondary to COPD at home. Patient states she has had some on and off headaches, but struggles with chronic migraines. Denies localized weakness, speech changes, sensation deficits. Patient states that she does have a seizure history and had a break through seizure approximately 3 days ago. Patient was out of it today, and EMS was called-pt brought to the emergency department. Patient denies additional complaints. Upon arrival patient appear fatigued, however she is AAOx3. - Related Data Home Medications Medication Instructions Recorded Confirmed Pramipexole [Mirapex] 0.25 mg PO HS 06/21/17 08/07/20 ALPRAZolam [Xanax] 0.5 mg PO TID 09/18/18 08/07/20 Phenytoin Sodium Extended 300 mg PO HS 02/15/19 08/07/20 [Dilantin] FLUoxetine HCL 40 mg PO BID 10/19/19 08/07/20 Furosemide [Lasix] 20 mg PO DAILY 10/19/19 08/07/20 Gabapentin 800 mg PO QID 11/30/19 08/07/20 QUEtiapine FUMARATE [SEROquel] 300 mg PO HS 11/30/19 08/07/20 Albuterol Sulfate [Ventolin HFA] 2 puff INHALATION RT-QID PRN 03/16/20 08/07/20 Ergocalciferol [Vitamin D2 50,000 unit PO TH 03/16/20 08/07/20 (DRISDOL)] Nicotine Polacrilex [Nicotine Gum] 4 mg BUCCAL Q2H PRN 03/16/20 08/07/20 Aspirin EC [Ecotrin] 325 mg PO DAILY 05/14/20 08/07/20 Montelukast [Singulair] 10 mg PO DAILY 05/14/20 08/07/20 diphenhydrAMINE [Benadryl] 25 mg PO HS 05/14/20 08/07/20 Albuterol Nebulizer 1 tab INHALATION BID 06/26/20 08/07/20 Levothyroxine Sodium [Synthroid] 25 mcg PO DAILY 07/02/20 08/07/20 Metoprolol Succinate (ER) [Toprol 50 mg PO DAILY 07/02/20 08/07/20 Xl] Phenytoin [Dilantin Chew] 200 mg PO DAILY 07/02/20 08/07/20 Topiramate [Topamax] 150 mg PO BID 07/02/20 08/07/20 amLODIPine [Norvasc] 5 mg PO DAILY 07/02/20 08/07/20 busPIRone HCL [Buspar] 30 mg PO TID 07/02/20 08/07/20 levETIRAcetam [Keppra] 750 mg PO TID 07/02/20 08/07/20 Allergies Allergy/AdvReac Type Severity Reaction Status Date / Time ibuprofen [From Motrin] Allergy Rash/Hives Verified 09/08/20 18:50 Latex, Natural Rubber Allergy Rash/Hives Verified 09/08/20 18:50 naproxen [From Naprosyn] Allergy Unknown Verified 09/08/20 18:50 tramadol Allergy Rash/Hives Verified 09/08/20 18:50 Penicillins AdvReac Vomiting Verified 09/08/20 18:50 Review of Systems ROS Statement: Those systems with pertinent positive or pertinent negative responses have been documented in the HPI. ROS Other: All systems not noted in ROS Statement are negative. Past Medical History Past Medical History: Atrial Fibrillation, Asthma, Coronary Artery Disease (CAD), Heart Failure, COPD, CVA/TIA, GERD/Reflux, Hyperlipidemia, Hypertension, Pneumonia, Seizure Disorder, Thyroid Disorder Additional Past Medical History / Comment(s): Pt uses home oxygen @ 4 L @ hs & prn, TIA, vertigo, bronchitis, gastric ulcer, seizure-last time 03/18/20, chronic low back pain/bulging discs, migraines, hypothyroid, hospitalized in May 2020 for acute resp. failure and positive blood culture. History of Any Multi-Drug Resistant Organisms: None Reported Past Surgical History: Section, Cholecystectomy, Heart Catheterization With Stent, Tubal Ligation Additional Past Surgical History / Comment(s): C-Sections x 3. PAIN CLINIC PROCEDURES Past Anesthesia/Blood Transfusion Reactions: Motion Sickness Date of Last Stent Placement:: 2003 Past Psychological History: Anxiety, Bipolar, Depression Smoking Status: Former smoker, Vaper Past Alcohol Use History: Rare Past Drug Use History: None Reported - Past Family History Father Family Medical History: AFIB Mother Family Medical History: AFIB, Diabetes Mellitus General Exam Limitations: altered mental status Course Vital Signs 09/08/20 09/08/20 09/08/20 18:51 18:56 20:30 Temperature 97.9 F Pulse Rate 87 89 Respiratory 20 18 Rate Blood Pressure 104/75 102/80 O2 Sat by Pulse 91 L 91 L Oximetry 09/08/20 09/08/20 09/08/20 21:06 21:10 21:15 Temperature Pulse Rate 78 85 81 Respiratory 18 Rate Blood Pressure 112/77 O2 Sat by Pulse 92 L Oximetry - Reevaluation(s) Reevaluation #1: Critical CT results discussed with radiologist Dr. Meraz who states that patient PE is very small and peripheral, he felt the picture most likely correlates with CHF, he does not note changes consistent with right heart strain. Discussed conversation wtih Dr. Dowell who reviewed, CT consulted the fund director Dr. Carlisle who feels patient is a candidate to stay at our hospital on the telemetry floor. 09/08/20 Medical Decision Making - Medical Decision Making Dear female presenting to the emergency room today for chief complaint of all over pain, including chest pressure on and off x 1 week. Fatigue. Seizure this week. CT brain (-). NO hx of hemorrhage. Aspirin given. Patient troponin and BNP elevated. Patient has history of CHF. Patient initiated on heparin as hx of chest pressure discussed. Patient CTA + for a peripheral PE radiologist does not note significant clot burden nor concern for right heart strain. Patient will be admitted for anticoagulation, cardiology evaluation, lasix on telemetry. Dr. Dowell agreeable to admission as as fund director. Patient agreeable to admission. Care initially began with attending Dr. Bonds - Lab Data Result diagrams: 09/08/20 19:03 09/08/20 19:03 Lab Results 09/08/20 09/08/20 09/08/20 Range/Units 19:03 19:03 19:03 WBC 16.3 H (3.8-10.6) k/uL RBC 3.79 L (3.80-5.40) m/uL Hgb 13.8 (11.4-16.0) gm/dL Hct 44.1 (34.0-46.0) % MCV 116.1 H (80.0-100.0) fL MCH 36.4 H (25.0-35.0) pg MCHC 31.4 (31.0-37.0) g/dL RDW 16.9 H (11.5-15.5) % Plt Count 238 (150-450) k/uL Neutrophils % 90 % Lymphocytes % 5 % Monocytes % 4 % Eosinophils % 0 % Basophils % 0 % Neutrophils # 14.7 H (1.3-7.7) k/uL Lymphocytes # 0.8 L (1.0-4.8) k/uL Monocytes # 0.6 (0-1.0) k/uL Eosinophils # 0.0 (0-0.7) k/uL Basophils # 0.0 (0-0.2) k/uL Anisocytosis Slight Macrocytosis Marked A PT 10.3 (9.0-12.0) sec INR 1.0 (<1.2) APTT 24.4 (22.0-30.0) sec VBG pH (7.31-7.41) VBG pCO2 (37-51) mmHg VBG HCO3 (24-28) mmol/L Sodium 138 (137-145) mmol/L Potassium 5.1 (3.5-5.1) mmol/L Chloride 105 (98-107) mmol/L Carbon Dioxide 22 (22-30) mmol/L Anion Gap 11 mmol/L BUN 16 (7-17) mg/dL Creatinine 1.22 H (0.52-1.04) mg/dL Est GFR (CKD-EPI)AfAm 60 (>60 ml/min/1.73 sqM) Est GFR (CKD-EPI)NonAf 52 (>60 ml/min/1.73 sqM) Glucose 176 H (74-99) mg/dL POC Glucose (mg/dL) (75-99) mg/dL POC Glu Security Monitor ID Calcium 8.4 (8.4-10.2) mg/dL Total Bilirubin 0.5 (0.2-1.3) mg/dL AST 118 H (14-36) U/L ALT 47 H (4-34) U/L Alkaline Phosphatase 69 (38-126) U/L Ammonia (<30) umol/L Troponin I (0.000-0.034) ng/mL NT-Pro-B Natriuret Pep pg/mL Total Protein 7.1 (6.3-8.2) g/dL Albumin 4.0 (3.5-5.0) g/dL Urine Color Urine Appearance (Clear) Urine pH (5.0-8.0) Ur Specific [place] (1.001-1.035) Urine Protein (Negative) Urine Glucose (UA) (Negative) Urine Ketones (Negative) Urine Blood (Negative) Urine Nitrite (Negative) Urine Bilirubin (Negative) Urine Urobilinogen (<2.0) mg/dL Ur Leukocyte Esterase (Negative) Urine RBC (0-5) /hpf Urine WBC (0-5) /hpf Ur Squamous Epith Cells (0-4) /hpf Hyaline Casts (0-2) /lpf Urine Mucus (None) /hpf Urine Opiates Screen (NotDetected) Ur Oxycodone Screen (NotDetected) Urine Methadone Screen (NotDetected) Ur Propoxyphene Screen (NotDetected) Ur Barbiturates Screen (NotDetected) U Tricyclic Antidepress (NotDetected) Ur Phencyclidine Scrn (NotDetected) Ur Amphetamines Screen (NotDetected) U Methamphetamines Scrn (NotDetected) U Benzodiazepines Scrn (NotDetected) Urine Cocaine Screen (NotDetected) U Marijuana (THC) Screen (NotDetected) Serum Alcohol <10 mg/dL 09/08/20 09/08/20 09/08/20 Range/Units 19:03 19:03 19:03 WBC (3.8-10.6) k/uL RBC (3.80-5.40) m/uL Hgb (11.4-16.0) gm/dL Hct (34.0-46.0) % MCV (80.0-100.0) fL MCH (25.0-35.0) pg MCHC (31.0-37.0) g/dL RDW (11.5-15.5) % Plt Count (150-450) k/uL Neutrophils % % Lymphocytes % % Monocytes % % Eosinophils % % Basophils % % Neutrophils # (1.3-7.7) k/uL Lymphocytes # (1.0-4.8) k/uL Monocytes # (0-1.0) k/uL Eosinophils # (0-0.7) k/uL Basophils # (0-0.2) k/uL Anisocytosis Macrocytosis PT (9.0-12.0) sec INR (<1.2) APTT (22.0-30.0) sec VBG pH (7.31-7.41) VBG pCO2 (37-51) mmHg VBG HCO3 (24-28) mmol/L Sodium (137-145) mmol/L Potassium (3.5-5.1) mmol/L Chloride (98-107) mmol/L Carbon Dioxide (22-30) mmol/L Anion Gap mmol/L BUN (7-17) mg/dL Creatinine (0.52-1.04) mg/dL Est GFR (CKD-EPI)AfAm (>60 ml/min/1.73 sqM) Est GFR (CKD-EPI)NonAf (>60 ml/min/1.73 sqM) Glucose (74-99) mg/dL POC Glucose (mg/dL) (75-99) mg/dL POC Glu Security Monitor ID Calcium (8.4-10.2) mg/dL Total Bilirubin (0.2-1.3) mg/dL AST (14-36) U/L ALT (4-34) U/L Alkaline Phosphatase (38-126) U/L Ammonia 37 H (<30) umol/L Troponin I 0.048 H* (0.000-0.034) ng/mL NT-Pro-B Natriuret Pep 4140 pg/mL Total Protein (6.3-8.2) g/dL Albumin (3.5-5.0) g/dL Urine Color Urine Appearance (Clear) Urine pH (5.0-8.0) Ur Specific [place] (1.001-1.035) Urine Protein (Negative) Urine Glucose (UA) (Negative) Urine Ketones (Negative) Urine Blood (Negative) Urine Nitrite (Negative) Urine Bilirubin (Negative) Urine Urobilinogen (<2.0) mg/dL Ur Leukocyte Esterase (Negative) Urine RBC (0-5) /hpf Urine WBC (0-5) /hpf Ur Squamous Epith Cells (0-4) /hpf Hyaline Casts (0-2) /lpf Urine Mucus (None) /hpf Urine Opiates Screen (NotDetected) Ur Oxycodone Screen (NotDetected) Urine Methadone Screen (NotDetected) Ur Propoxyphene Screen (NotDetected) Ur Barbiturates Screen (NotDetected) U Tricyclic Antidepress (NotDetected) Ur Phencyclidine Scrn (NotDetected) Ur Amphetamines Screen (NotDetected) U Methamphetamines Scrn (NotDetected) U Benzodiazepines Scrn (NotDetected) Urine Cocaine Screen (NotDetected) U Marijuana (THC) Screen (NotDetected) Serum Alcohol mg/dL 09/08/20 09/08/20 09/08/20 Range/Units 20:08 20:09 20:29 WBC (3.8-10.6) k/uL RBC (3.80-5.40) m/uL Hgb (11.4-16.0) gm/dL Hct (34.0-46.0) % MCV (80.0-100.0) fL MCH (25.0-35.0) pg MCHC (31.0-37.0) g/dL RDW (11.5-15.5) % Plt Count (150-450) k/uL Neutrophils % % Lymphocytes % % Monocytes % % Eosinophils % % Basophils % % Neutrophils # (1.3-7.7) k/uL Lymphocytes # (1.0-4.8) k/uL Monocytes # (0-1.0) k/uL Eosinophils # (0-0.7) k/uL Basophils # (0-0.2) k/uL Anisocytosis Macrocytosis PT (9.0-12.0) sec INR (<1.2) APTT (22.0-30.0) sec VBG pH 7.29 L (7.31-7.41) VBG pCO2 56 H (37-51) mmHg VBG HCO3 26 (24-28) mmol/L Sodium (137-145) mmol/L Potassium (3.5-5.1) mmol/L Chloride (98-107) mmol/L Carbon Dioxide (22-30) mmol/L Anion Gap mmol/L BUN (7-17) mg/dL Creatinine (0.52-1.04) mg/dL Est GFR (CKD-EPI)AfAm (>60 ml/min/1.73 sqM) Est GFR (CKD-EPI)NonAf (>60 ml/min/1.73 sqM) Glucose (74-99) mg/dL POC Glucose (mg/dL) 131 H (75-99) mg/dL POC Glu Security Monitor ID Irma Ruiz Calcium (8.4-10.2) mg/dL Total Bilirubin (0.2-1.3) mg/dL AST (14-36) U/L ALT (4-34) U/L Alkaline Phosphatase (38-126) U/L Ammonia (<30) umol/L Troponin I (0.000-0.034) ng/mL NT-Pro-B Natriuret Pep pg/mL Total Protein (6.3-8.2) g/dL Albumin (3.5-5.0) g/dL Urine Color Yellow Urine Appearance Clear (Clear) Urine pH 6.0 (5.0-8.0) Ur Specific [place] 1.024 (1.001-1.035) Urine Protein 1+ H (Negative) Urine Glucose (UA) Negative (Negative) Urine Ketones Negative (Negative) Urine Blood Large H (Negative) Urine Nitrite Negative (Negative) Urine Bilirubin Negative (Negative) Urine Urobilinogen <2.0 (<2.0) mg/dL Ur Leukocyte Esterase Negative (Negative) Urine RBC 1 (0-5) /hpf Urine WBC 2 (0-5) /hpf Ur Squamous Epith Cells <1 (0-4) /hpf Hyaline Casts 27 H (0-2) /lpf Urine Mucus Rare H (None) /hpf Urine Opiates Screen Not Detected (NotDetected) Ur Oxycodone Screen Not Detected (NotDetected) Urine Methadone Screen Not Detected (NotDetected) Ur Propoxyphene Screen Not Detected (NotDetected) Ur Barbiturates Screen Detected H (NotDetected) U Tricyclic Antidepress Detected H (NotDetected) Ur Phencyclidine Scrn Not Detected (NotDetected) Ur Amphetamines Screen Not Detected (NotDetected) U Methamphetamines Scrn Not Detected (NotDetected) U Benzodiazepines Scrn Detected H (NotDetected) Urine Cocaine Screen Not Detected (NotDetected) U Marijuana (THC) Screen Not Detected (NotDetected) Serum Alcohol mg/dL - EKG Data EKG Comments: Ventricular rate 84 bpm, VA interval 176 ms, QR muslim Wednesday 4 ms, QT/QTc 374/441, normal sinus Disposition Clinical Impression: Pulmonary embolism, CHF (congestive heart failure), Whole body pain, Chest pressure, Fatigue, Hypoxia Disposition: ADMITTED IP TO THIS [facility] Condition: Stable Is patient prescribed a controlled substance at d/c from ED?: No Referrals: Ty Aponte MD [Primary Care Provider] - 1-2 days Time of Disposition: 22:23 Decision to Admit Reason: Admit from EC Decision Date: 09/08/20 Decision Time: 22:23
--- NOTE | 2020-09-08 19:24 | XR ---
EXAMINATION TYPE: XR chest 2V DATE OF EXAM: 09/08/2020 COMPARISON: Prior chest x-ray May 14, 2020 HISTORY: Altered mental status and tremors. Weakness. TECHNIQUE: Frontal and lateral views of the chest are obtained. FINDINGS: There is chronic parenchymal change without suspicious new focal air space opacity, pleura l effusion, or pneumothorax seen. The cardiac silhouette size remains enlarged. The osseous struct ures are intact. IMPRESSION: Cardiomegaly without acute pulmonary process.
--- NOTE | 2020-09-08 19:27 | CT ---
EXAMINATION TYPE: CT brain wo con DATE OF EXAM: 09/08/2020 HISTORY: Altered mental status. CT DLP: 1024.4 mGycm. Automated Exposure Control for Dose Reduction was Utilized. TECHNIQUE: CT scan of the head is performed without contrast. COMPARISON: CT brain May 14, 2020. FINDINGS: There is no acute intracranial hemorrhage or midline shift identified. Ventricles and sul ci are within normal limits in size. Lombardi-white matter differentiation is maintained. The globes are intact and the visualized sinuses are clear. IMPRESSION: No acute intracranial hemorrhage or midline shift. No significant change from prior.
[2020-09-08] MEDS ORDERED: methylPREDNISolone SOD SUCCI 125 MG/2 ML VIAL IV STA (19:31)
[2020-09-08] MEDS ORDERED: IPRATROPIUM-ALBUTEROL 3 ML NEB INHALATION STA (19:31)
[2020-09-08 19:35] LABS: Partial Thromboplastin Time 24.4 sec (22.0-30.0); Prothrombin Time 10.3 sec (9.0-12.0)
[2020-09-08 19:36] LABS: Anisocytosis Slight; Basophils % (A) 0 %; Eosinophils % (A) 0 %; HCT 44.1 % (34.0-46.0); HGB 13.8 gm/dL (11.4-16.0); Lymphocytes # (A) 0.8 k/uL (1.0-4.8); Lymphocytes % (A) 5 %; MCH 36.4 pg (25.0-35.0); MCHC 31.4 g/dL (31.0-37.0); MCV 116.1 fL (80.0-100.0); Macrocytosis Marked; Mean Platelet Volume 7.7; Monocytes # (A) 0.6 k/uL (0-1.0); Monocytes % (A) 4 %; Neutrophils # (A) 14.7 k/uL (1.3-7.7); Neutrophils % (A) 90 %; Platelet Count 238 k/uL (150-450); RBC 3.79 m/uL (3.80-5.40); RDW 16.9 % (11.5-15.5); WBC 16.3 k/uL (3.8-10.6)
[2020-09-08 19:43] LABS: ALT 47 U/L (4-34); AST 118 U/L (14-36); African American GFR (CKD) 60 (>60 ml/min/1.73 sqM); Alcohol <10 mg/dL; Alkaline Phosphatase 69 U/L (38-126); Anion Gap 11 mmol/L; Blood Urea Nitrogen 16 mg/dL (7-17); Calcium 8.4 mg/dL (8.4-10.2); Carbon Dioxide 22 mmol/L (22-30); Chloride 105 mmol/L (98-107); Glucose 176 mg/dL (74-99); Non-African American GFR(CKD) 52 (>60 ml/min/1.73 sqM); Potassium 5.1 mmol/L (3.5-5.1); Sodium 138 mmol/L (137-145); Total Bilirubin 0.5 mg/dL (0.2-1.3); Total Protein 7.1 g/dL (6.3-8.2)
[2020-09-08] MEDS ORDERED: SODIUM CHLORIDE 0.9% 1,000 ML IV SCH (20:00)
[2020-09-08 20:11] LABS: Glucose,Whole Blood 131 mg/dL (75-99)
[2020-09-08] MEDS ORDERED: ASPIRIN 81 MG PO STA (20:17)
[2020-09-08] MEDS ORDERED: HEPARIN SODIUM,PORCINE 5,000 UNIT/ML 1 ML VIAL IV PRN (20:22)
[2020-09-08] MEDS ORDERED: HEPARIN SODIUM,PORCINE 5,000 UNIT/ML 1 ML VIAL IV ONE (20:22)
[2020-09-08 20:31] LABS: VBG PH 7.29 (7.31-7.41)
[2020-09-08 21:01] LABS: Appearance,Urine Clear (Clear); Bilirubin,Urine Negative (Negative); Blood,Urine Large (Negative); Color,Urine Yellow; Glucose,Urine (UA) Negative (Negative); Hyaline Casts,Urine 27 /lpf (0-2); Ketones,Urine Negative (Negative); Leukocyte Esterase,Urine Negative (Negative); Mucus,Urine Rare /hpf; Nitrite,Urine Negative (Negative); Protein,Urine 1+ (Negative); RBC,Urine 1 /hpf (0-5); Specific Gravity,Urine 1.024 (1.001-1.035); Squamous Epithelial Cell,Urine <1 /hpf (0-4); Urobilinogen,Urine <2.0 mg/dL (<2.0); WBC,Urine 2 /hpf (0-5)
[2020-09-08 21:10] LABS: Cocaine Screen,Urine Not Detected (NotDetected); Opiate Screen,Urine Not Detected (NotDetected); Phencyclidine Screen,Urine Not Detected (NotDetected); Urn Cannabinoid Scrn Not Detected (NotDetected)
[2020-09-08 21:11] LABS: Amphetamine Screen,Urine Not Detected (NotDetected); Barbiturate Screen,Urine Detected (NotDetected); Benzodiazepines Screen,Urine Detected (NotDetected); Methadone Screen, Urine Not Detected (NotDetected); Oxycodone Screen, Urine Not Detected (NotDetected); Tricyclic Antidepressant,Urine Detected (NotDetected)
[2020-09-08] MEDS ORDERED: FUROSEMIDE 10 MG/ML 4 ML VIAL IV STA (21:15)
--- NOTE | 2020-09-08 21:48 | CT ---
EXAMINATION TYPE: CT chest angio for PE DATE OF EXAM: 09/08/2020 COMPARISON: CTA chest September 09, 2019 HISTORY: Dyspnea on exertion. CT DLP: 757.6 mGycm Automated exposure control for dose reduction was used. CONTRAST: CT Chest for pulmonary embolism performed with with IV Contrast, patient injected with 80 mL of Isovu e 370. FINDINGS: LUNGS: Suboptimal as patient unable to hold breath. Focal areas of groundglass opacity centrally in t he bilateral lower lungs. No pleural effusion or pneumothorax. No concerning masses. MEDIASTINUM: There are persistent bilateral enlarged hilar lymph nodes. Satisfactory enhancement of t he pulmonary arteries. There is branching lobar partial occlusive thrombus in the right lower lobe wi th segmental extension axial image 61 on current study. No right ventricular dilatation. Persistent s table cardiomegaly. No pericardial effusion is seen. OTHER: Slight S-shaped scoliotic curvature. IMPRESSION: 1. New small degree of partially occlusive right lower lobe pulmonary embolism. 2. Cardiomegaly with mild to moderate central bilateral lower lobe acute edema, correlate for CHF exa cerbation. Results communicated to emergency room via telephone at time of dictation.
[2020-09-08] MEDS: HEPARIN SOD,PORK IN 0.45% NACL 25,000 UNIT in 0.45% NACL 1 250ML.BAG IV SCH (22:08)
[2020-09-08] MEDS ORDERED: NALOXONE 0.4 MG/ML 1 ML VIAL IV PRN (22:24)
--- NOTE | 2020-09-08 23:11 | US ---
EXAMINATION TYPE: US venous doppler duplex LE DATE OF EXAM: 09/08/2020 10:47 PM COMPARISON: NONE CLINICAL HISTORY: evaluate for dvt. PE, leg pain SIDE PERFORMED: Bilateral TECHNIQUE: The lower extremity deep venous system is examined utilizing real time linear array sonog prasad with graded compression, doppler sonography and color-flow sonography. VESSELS IMAGED: External Iliac Vein (EIV) Common Femoral Vein Deep Femoral Vein Greater Saphenous Vein * Femoral Vein Popliteal Vein Small Saphenous Vein * Proximal Calf Veins (* superficial vessels) Difficult exam, pt shaking and tensing up legs during exam Right Leg: Negative for DVT Left Leg: Negative for DVT IMPRESSION: No sign of deep vein thrombosis in both legs.
[2020-09-08 23:50] LABS: Glucose,Whole Blood 43 mg/dL (75-99)
[2020-09-08 23:50] LABS: Glucose,Whole Blood 152 mg/dL (75-99)
[2020-09-09 03:24] LABS: Anisocytosis Slight; Basophils % (A) 0 %; Eosinophils # (A) 0.1 k/uL (0-0.7); Eosinophils % (A) 0 %; HCT 42.1 % (34.0-46.0); HGB 12.9 gm/dL (11.4-16.0); Hypochromasia Slight; Lymphocytes # (A) 1.2 k/uL (1.0-4.8); Lymphocytes % (A) 7 %; MCH 35.7 pg (25.0-35.0); MCHC 30.6 g/dL (31.0-37.0); Macrocytosis Marked; Mean Platelet Volume 7.7; Monocytes # (A) 0.5 k/uL (0-1.0); Monocytes % (A) 3 %; Neutrophils # (A) 14.5 k/uL (1.3-7.7); Neutrophils % (A) 88 %; Platelet Count 328 k/uL (150-450); RDW 16.9 % (11.5-15.5); WBC 16.4 k/uL (3.8-10.6)
[2020-09-09 07:48] LABS: African American GFR (CKD) >90 (>60 ml/min/1.73 sqM); Anion Gap 7 mmol/L; Blood Urea Nitrogen 17 mg/dL (7-17); Calcium 8.5 mg/dL (8.4-10.2); Carbon Dioxide 26 mmol/L (22-30); Chloride 106 mmol/L (98-107); Glucose 120 mg/dL (74-99); Non-African American GFR(CKD) 80 (>60 ml/min/1.73 sqM); Potassium 4.2 mmol/L (3.5-5.1); Sodium 139 mmol/L (137-145)
[2020-09-09] MEDS ORDERED: IPRATROPIUM-ALBUTEROL 3 ML NEB INHALATION PRN (08:26)
[2020-09-09] MEDS: ACETAMINOPHEN TAB 325 MG TAB PO PRN ×2 (08:50→21:11)
[2020-09-09] MEDS: predniSONE 10 MG TAB PO SCH (08:50)
--- NOTE | 2020-09-09 09:46 | ECHOF ---
Referral Reason:pulm embolism, rule out COVID MEASUREMENTS -------- HEIGHT: 154.9 cm WEIGHT: 104.3 kg BP: 98/63 RVIDd: 3.5 cm (< 3.3) IVSd: 1.8 cm (0.6 - 1.1) LVIDd: 3.4 cm (3.9 - 5.3) LVPWd: 1.8 cm (0.6 - 1.1) IVSs: 1.9 cm LVIDs: 2.5 cm LVPWs: 2.1 cm LAESV Index (A-L): 30.54 ml/m Ao Diam: 3.4 cm (2.0 - 3.7) AV Cusp: 2.2 cm (1.5 - 2.6) MV EXCURSION: 18.048 mm (> 18.000) MV EF SLOPE: 90 mm/s (70 - 150) EPSS: 0.3 cm MV E Ridge: 0.88 m/s MV DecT: 213 ms MV A Ridge: 0.61 m/s MV E/A Ratio: 1.45 RAP: 5.00 mmHg RVSP: 28.15 mmHg FINDINGS -------- Sinus rhythm. This was a technically difficult study with suboptimal views. The left ventricular size is normal. There is severe concentric left ventricular hypertrophy. Ove rall left ventricular systolic function is low-normal with, an EF between 50 - 55 %. The right ventricle is mildly enlarged. LA is midly dilated 29-33ml/m2. The right atrium was not well visualized. xx ml of Lumason was utilized for enhancement of images. Interatrial and interventricular septum intact. The aortic valve was not well visualized. There is no evidence of aortic regurgitation. There is no evidence of aortic stenosis. There is trace mitral regurgitation. The tricuspid valve was not well visualized. Mild tricuspid regurgitation present. There is no ev idence of pulmonary hypertension. The right ventricular systolic pressure, as measured by Doppler, is 28.15mmHg. The pulmonic valve was not well visualized. There is no pulmonic regurgitation present. The aortic root size is normal. IVC Not well visulized. There is no pericardial effusion. CONCLUSIONS -------- 1. The left ventricular size is normal. 2. There is severe concentric left ventricular hypertrophy. 3. Overall left ventricular systolic function is low-normal with, an EF between 50 - 55 %. 4. The right ventricle is mildly enlarged. 5. LA is midly dilated 29-33ml/m2. 6. Mild tricuspid regurgitation present. SECURITY SYSTEMS INTEGRATOR: Pretty Killian RDCS
--- NOTE | 2020-09-09 09:51 | XR ---
EXAMINATION TYPE: XR chest 1V portable DATE OF EXAM: 09/09/2020 COMPARISON: 09/08/2020 HISTORY: Altered mental status TECHNIQUE: Single frontal view of the chest is obtained. FINDINGS: Interstitial pattern seen with mild cardiac enlargement. No pleural effusion or pneumothor ax. Osseous structures stable with remote rib deformity noted. No new consolidative process. IMPRESSION: 1. Cardiomegaly. Coarsened interstitium could be seen with interstitial pneumonitis or early venous c ongestion correlate clinically.
[2020-09-09] MEDS: IPRATROPIUM-ALBUTEROL 3 ML NEB INHALATION SCH ×4 (11:38→20:40)
[2020-09-09] MEDS: GABAPENTIN 400 MG CAP PO SCH ×3 (12:21→21:10)
--- NOTE | 2020-09-09 13:16 | P.CNPUL ---
History of Present Illness Consult date: 09/09/20 Requesting physician: Ty Aponte Reason for consult: pulmonary embolism Chief complaint: Altered mental status History of present illness: This is a 49-year-old female with known history of multiple medical problems including COPD, chronic hypoxic respiratory failure, maintained on 4 L nasal cannula, chronic atrial fibrillation, history of CVA/TIA, history of hypertension, and history of seizure disorder. Patient is also known to have history of chronic pain syndrome, chronic low back pain, follows normally with the pain clinic. Patient presented to the ER mostly with symptoms of shortness of breath, weakness, fatigue, chest pressure, and whole body pain. Patient had no fever, no chills, she had no cough, no wheezing, no dysuria and no frequency no urgency. She had history of intermittent headaches, and normally known to have history of chronic migraines. Patient was also complaining of intermittent episodes of confusions, and she was noted to be a bit confused in the ER, CT of the chest was negative for acute process. However her CT angiogram of the chest came back positive for partially occluded right lower lobe artery. There was also evidence of cardiomegaly, and possibly some mild interstitial edema. Patient was admitted, placed on heparin, she was also placed on her usual bronchodilators, and oxygen at 100% nonrebreather initially, later converted to a high flow nasal cannula, and she seems to be doing relatively well. Patient denies any shortness of breath at the time of my evaluation. Denies any chest pain, she has been complaining of mostly low back pain. Patient was noted to be hemodynamically stable. Echocardiogram showed no evidence of right ventricular strain, and her troponin was a bit elevated. Recommended that we continue heparin, and eventually she will need to be transitioned to oral anticoagulation treatment. Review of Systems Constitutional: Mostly generalized weakness and chronic back pain. No fever no chills. HEENT: Negative. Pulmonary: As noted in HPI. Cardiac: Negative. GI: Negative. Genitourinary: Negative Musculoskeletal: Chronic low back pain being followed at the pain clinic. Skin: Negative. Neurologic: History of seizure disorder. Maintained on antiseizure medications. History of migraine cephalgia. Endocrine: No heat or cold intolerance. Psychiatric: No symptoms of active depression. Past Medical History Past Medical History: Atrial Fibrillation, Asthma, Coronary Artery Disease (CAD), Heart Failure, COPD, CVA/TIA, GERD/Reflux, Hyperlipidemia, Hypertension, Pneumonia, Seizure Disorder, Thyroid Disorder Additional Past Medical History / Comment(s): Pt uses home oxygen @ 4 L @ hs & prn, TIA, vertigo, bronchitis, gastric ulcer, seizure-last time 09/05/20, chronic low back pain/bulging discs, migraines, hypothyroid, hospitalized in May 2020 for acute resp. failure and positive blood culture. History of Any Multi-Drug Resistant Organisms: None Reported Past Surgical History: Section, Cholecystectomy, Heart Catheterization With Stent, Tubal Ligation Additional Past Surgical History / Comment(s): C-Sections x 3. PAIN CLINIC PROCEDURES Past Anesthesia/Blood Transfusion Reactions: Motion Sickness Date of Last Stent Placement:: 2003 Past Psychological History: Anxiety, Bipolar, Depression Additional Psychological History / Comment(s): Pt resides with her 17 year old daughter. She uses a cane to ambulate. She does not drive, her sister or other family take her to appts. She has home oxygen and a nebulizer. Smoking Status: Former smoker Past Alcohol Use History: Rare Additional Past Alcohol Use History / Comment(s): Pt started smoking in 1985 and quit in 2018, quit vaping 2019. Past Drug Use History: None Reported - Past Family History Father Family Medical History: AFIB Mother Family Medical History: AFIB, Diabetes Mellitus Medications and Allergies Home Medications Medication Instructions Recorded Confirmed Type Pramipexole [Mirapex] 0.25 mg PO HS 06/21/17 09/08/20 History ALPRAZolam [Xanax] 0.5 mg PO TID 09/18/18 09/08/20 History Phenytoin Sodium Extended 300 mg PO HS 02/15/19 09/08/20 History [Dilantin] FLUoxetine HCL 40 mg PO BID 10/19/19 09/08/20 History Furosemide [Lasix] 20 mg PO DAILY 10/19/19 09/08/20 History Gabapentin 800 mg PO QID 11/30/19 09/08/20 History QUEtiapine FUMARATE [SEROquel] 300 mg PO HS 11/30/19 09/08/20 History Albuterol Sulfate [Ventolin HFA] 2 puff INHALATION RT-QID PRN 03/16/20 09/08/20 History Ergocalciferol [Vitamin D2 50,000 unit PO TH 03/16/20 09/08/20 History (DRISDOL)] Nicotine Polacrilex [Nicotine Gum] 4 mg BUCCAL Q2H PRN 03/16/20 09/08/20 History Aspirin EC [Ecotrin] 325 mg PO DAILY 05/14/20 09/08/20 History Montelukast [Singulair] 10 mg PO DAILY 05/14/20 09/08/20 History diphenhydrAMINE [Benadryl] 25 mg PO HS 05/14/20 09/08/20 History Metoprolol Succinate (ER) [Toprol 50 mg PO DAILY 07/02/20 09/08/20 History Xl] Phenytoin [Dilantin Chew] 200 mg PO DAILY 07/02/20 09/08/20 History amLODIPine [Norvasc] 5 mg PO DAILY 07/02/20 09/08/20 History busPIRone HCL [Buspar] 30 mg PO TID 07/02/20 09/08/20 History levETIRAcetam [Keppra] 750 mg PO TID 07/02/20 09/09/20 History Levothyroxine Sodium 25 mcg PO DAILY 09/09/20 09/09/20 History Topiramate [Topamax] 50 mg PO BID 09/09/20 09/09/20 History Topiramate [Topamax] 100 mg PO BID 09/09/20 09/09/20 History Allergies Allergy/AdvReac Type Severity Reaction Status Date / Time ibuprofen [From Motrin] Allergy Rash/Hives Verified 09/08/20 23:10 Latex, Natural Rubber Allergy Rash/Hives Verified 09/08/20 23:10 naproxen [From Naprosyn] Allergy Unknown Verified 09/08/20 23:10 tramadol Allergy Rash/Hives Verified 09/08/20 23:10 Penicillins AdvReac Vomiting Verified 09/08/20 23:10 Physical Exam Vitals: Vital Signs Temp Pulse Pulse Resp BP BP Pulse Ox 09/09/20 11:49 73 09/09/20 11:38 61 09/09/20 08:00 98 F 71 11 L 98/63 93 L 09/09/20 07:00 72 16 95 09/09/20 06:00 71 14 91 L 09/09/20 05:00 71 13 96 11/02/20 04:00 99 F 72 14 98/63 91 L 09/09/20 03:00 72 18 112/74 89 L 09/09/20 02:00 75 15 112/74 88 L 09/09/20 01:00 79 13 104/82 96 09/09/20 00:30 76 20 91 L 09/09/20 00:00 99.5 F 80 81 12 112/57 87 L 09/08/20 23:54 99.5 F 81 17 104/82 86 L 09/08/20 23:25 98.0 F 87 18 110/72 94 L 09/08/20 22:35 81 18 109/95 93 L 09/08/20 21:15 81 09/08/20 21:10 85 18 112/77 92 L 09/08/20 21:06 78 09/08/20 20:30 89 18 102/80 91 L 09/08/20 18:56 91 L 09/08/20 18:51 97.9 F 87 20 104/75 Intake and Output 09/08/20 09/09/20 09/09/20 22:59 06:59 14:59 Intake Total 345.788 140 Output Total 300 475 785 Balance -300 -129.212 -645 Intake: IV 240 140 Sodium Chloride 0.9% 1, 240 140 000 ml @ 50 mls/hr IV . Q20H IGNACIO Rx#:[id number] Intake, IV Titration 105.788 Amount Heparin Sod,Pork in 0.45% 105.788 NaCl 25,000 unit In 0.45 % NaCl 1 250ml.bag @ 18 UNITS/KG/HR 18.779 mls/hr IV .[id number] IGNACIO Rx#: [id number] Output: Urine 300 475 785 Straight 300 Other: Voiding Method Indwelling Catheter # Voids 1 Weight 104.326 kg 104.5 kg GENERAL EXAM: Revealed a 49-year-old female in no distress. Head: Atraumatic, normocephalic. EENT: PERRLA, EOMI, no icterus, no neck masses, no JVD, no stridor. CHEST: No chest wall deformity. Symmetrical expansion. LUNGS: Equal air entry with no crackles, wheeze, rhonchi or dullness. CVS: Regular rate and rhythm, normal S1 and S2, no gallops, no murmurs, no rubs ABDOMEN: Soft, nontender. No hepatosplenomegaly, normal bowel sounds, no guarding or rigidity. EXTREMITIES: No clubbing, no edema, no cyanosis, 2+ pulses and upper and lower extremities. MUSCULOSKELETAL: Muscle strength and tone normal. SPINE: No scoliosis or deformity SKIN: No rashes CENTRAL NERVOUS SYSTEM: Alert and oriented -3. No focal deficits, tone is normal in all 4 extremities. PSYCHIATRIC: Alert and oriented -3. Appropriate affect. Intact judgment and insight. Results - Laboratory Findings CBC and BMP: 09/09/20 03:10 09/09/20 03:10 PT/INR, D-dimer PT 10.3 sec (9.0-12.0) 09/08/20 19:03 INR 1.0 (<1.2) 09/08/20 19:03 Abnormal lab findings: Abnormal Labs 09/08/20 09/08/20 09/08/20 19:03 19:03 19:03 WBC 16.3 H RBC 3.79 L MCV 116.1 H MCH 36.4 H MCHC RDW 16.9 H Neutrophils # 14.7 H Lymphocytes # 0.8 L Macrocytosis Marked A APTT VBG pH VBG pCO2 Creatinine 1.22 H Glucose 176 H POC Glucose (mg/dL) AST 118 H ALT 47 H Ammonia 37 H Creatine Kinase Troponin I Urine Protein Urine Blood Hyaline Casts Urine Mucus Ur Barbiturates Screen U Tricyclic Antidepress U Benzodiazepines Scrn 09/08/20 09/08/20 09/08/20 19:03 19:03 20:08 WBC RBC MCV MCH MCHC RDW Neutrophils # Lymphocytes # Macrocytosis APTT VBG pH 7.29 L VBG pCO2 56 H Creatinine Glucose POC Glucose (mg/dL) AST ALT Ammonia Creatine Kinase 2471 H* Troponin I 0.048 H* Urine Protein Urine Blood Hyaline Casts Urine Mucus Ur Barbiturates Screen U Tricyclic Antidepress U Benzodiazepines Scrn 09/08/20 09/08/20 09/08/20 20:09 20:29 23:47 WBC RBC MCV MCH MCHC RDW Neutrophils # Lymphocytes # Macrocytosis APTT VBG pH VBG pCO2 Creatinine Glucose POC Glucose (mg/dL) 131 H 43 L AST ALT Ammonia Creatine Kinase Troponin I Urine Protein 1+ H Urine Blood Large H Hyaline Casts 27 H Urine Mucus Rare H Ur Barbiturates Screen Detected H U Tricyclic Antidepress Detected H U Benzodiazepines Scrn Detected H 09/08/20 09/09/20 09/09/20 23:48 03:10 03:10 WBC 16.4 H RBC 3.60 L MCV 117.0 H MCH 35.7 H MCHC 30.6 L RDW 16.9 H Neutrophils # 14.5 H Lymphocytes # Macrocytosis Marked A APTT VBG pH VBG pCO2 Creatinine Glucose POC Glucose (mg/dL) 152 H AST ALT Ammonia Creatine Kinase Troponin I 0.067 H* Urine Protein Urine Blood Hyaline Casts Urine Mucus Ur Barbiturates Screen U Tricyclic Antidepress U Benzodiazepines Scrn 09/09/20 09/09/20 09/09/20 03:10 03:10 10:15 WBC RBC MCV MCH MCHC RDW Neutrophils # Lymphocytes # Macrocytosis APTT 77.2 H 68.6 H VBG pH VBG pCO2 Creatinine Glucose 120 H POC Glucose (mg/dL) AST ALT Ammonia Creatine Kinase Troponin I Urine Protein Urine Blood Hyaline Casts Urine Mucus Ur Barbiturates Screen U Tricyclic Antidepress U Benzodiazepines Scrn - Diagnostic Findings Chest x-ray: image reviewed CT scan - chest: image reviewed (As noted in HPI.) Assessment and Plan Assessment: Impression: Acute on chronic hypoxic respiratory failure secondary to acute pulmonary embolism. Acute mental status change, most likely secondary to acute toxic metabolic encephalopathy secondary to hypoxia on presentation. History of COPD. Presently inactive. History of chronic atrial fibrillation. History of coronary artery disease and history of diastolic congestive heart failure. Chronic diastolic congestive heart failure. Dyslipidemia. History of hypertension. History of seizure disorder. History of chronic low back pain. History of hypothyroidism. History of pseudomonal bacteremia and E. coli urinary tract infection on her last admission to the hospital. Recommendation: Agree with the present treatment plan. Continue heparin. And eventually transition to oral anti-GERD ventilation there. Continue bronchodilators. Continue blood pressure medications. Empiric antibiotics in the form of Rocephin. Continue diuretics. Continue bronchodilators. Resume seizure medications/Keppra. And phenytoin. Change methylprednisolone to oral prednisone as her COPD does not seem to be quite active. Transfer patient out of the ICU to a monitor bed on selective. We'll continue to follow. Time with Patient: Greater than 30
[2020-09-09] MEDS: HEPARIN SOD,PORK IN 0.45% NACL 25,000 UNIT in 0.45% NACL 1 250ML.BAG IV SCH (13:25)
--- NOTE | 2020-09-09 17:02 | PN ---
PROGRESS NOTE CHIEF COMPLAINT: Shortness of breath, tremors, lethargy. HISTORY OF PRESENT ILLNESS: This lady seems to be doing fairly well. She is a little less lethargic. Vital signs are currently stable. REVIEW OF SYSTEMS: She does not complain of chest pain, abdominal pain, chills, fever, nausea etc. PHYSICAL EXAMINATION: Blood pressure is 123/64 with a pulse of 73, respirations of 25, and she is afebrile. In general, she appeared to be arousable and quite alert. She is oriented. Head, ears, eyes, nose, mouth are normal. Breath sounds are diminished, but they are heard throughout. Cardiac exam demonstrates sinus rhythm and the abdomen is soft, nonprotuberant and nontender. Extremities are normal except for some dependent edema. IMPRESSION: Shortness of breath, lethargy, tremors, and possible pulmonary embolism. PLAN: Continue workup. She is anticoagulated and she is hemodynamically stable at this time. MMODL / IJN: [id number] /
--- NOTE | 2020-09-09 17:11 | HP ---
HISTORY AND PHYSICAL CHIEF COMPLAINT: Weakness, lethargy, and shortness of breath. HISTORY OF PRESENT ILLNESS: This is another admission for this 49-year-old white female. She is difficult to get a history from. She has a long-standing history of being overweight, fairly noncompliant, taking her medications and taking care of herself, and possible seizure or pseudo-seizure disorder. She came to the emergency room with unclear complaints. She states that she had back pain, chest pain and slight shortness of breath. In the emergency room, she was worked up and it was felt that she might have a small pulmonary embolism, but this would be questionable given her minimal symptoms on admission. There is very little history that can be obtained from her otherwise. REVIEW OF SYSTEMS: She denies headaches, neurologic changes or problems, difficulty with vision, hearing, cough, hemoptysis, pleurisy, sputum production, chest pain, palpitations, orthopnea, PND, abdominal pain, nausea, vomiting, hematemesis, melena, hematochezia, colitis, diverticulosis, diverticulitis, hemorrhoids, jaundice, hepatitis, cirrhosis, hematuria, frequency or urgency, a renal failure, etc. Past medical history, family history and personal and social histories are essentially unchanged from her past admissions. She does have a history of continued cigarette smoking, asthma, hypertension, depression, hypothyroidism and respiratory failure. She is on buspirone 30 mg t.i.d. p.r.n., Xanax 0.5 t.i.d. p.r.n., amlodipine 5 mg once a day, topiramate 50 mg twice a day, updrafts with Atrovent, albuterol q.i.d. and p.r.n., along with a ProAir inhaler, levothyroxine 0.025 mg once a day, Imitrex 100 mg p.r.n., quetiapine 300 mg at bedime, fluoxetine 40 mg twice a day, furosemide 20 mg once a day, Dilantin 200 mg in morning and 300 at night, 750 mg 3 times a day, metoprolol succinate 50 mg once a day, vitamin D, gabapentin 800 mg 4 times a day, pramipexole dihydrochloride 0.25 mg at bedime, and Vicodin 5 once a day p.r.n. She is allergic to CHANTIX, NSAIDs, TRAMADOL, PENICILLIN and LASIX. PHYSICAL EXAMINATION: Blood pressure is 129/60 with a pulse of 83 and regular, respirations of 35, and she is afebrile. In general, she appeared to be obese and somewhat lethargic. Skin color is normal and skin is dry. Head, ears, eyes, nose, mouth, and throat were normal and no dysconjugate gaze. Mucous membranes are slightly dry. Pupils equally round. Neck veins could not be assessed. Chest demonstrated decreased breath sounds with occasional rales at the bases. Cardiac exam revealed what sounds like sinus tachycardia. There were no murmurs. The abdomen is protuberant, soft without masses or visceromegaly. Extremities are normal and neurologically she is intact, she is admitted to the hospital with diagnoses: 1. Lethargy. 2. Shortness of breath. 3. Leukocytosis. 4. Possible small peripheral pulmonary embolism. 5. Bipolar disorder with depression. 6. Seizure or pseudo-seizure disorder. PLAN: 1. Bed rest. 2. IV fluids. 3. Consult with Pulmonology. 4. Anticoagulate. MMODL / IJN: [id number] /
[2020-09-09] MEDS: ALPRAZolam 0.25 MG TAB PO PRN ×2 (18:15→21:10)
[2020-09-09] MEDS: FLUoxetine HCL 20 MG CAP PO SCH (21:10)
[2020-09-09] MEDS: diphenhydrAMINE 25 MG CAP PO SCH (21:10)
[2020-09-09] MEDS: TOPIRAMATE 25 MG TAB PO SCH (21:37)
[2020-09-09] MEDS: TOPIRAMATE 100 MG TAB PO SCH (21:37)
[2020-09-09] MEDS: PHENYTOIN SODIUM EXTENDED 100 MG CAP PO SCH (21:37)
[2020-09-09] MEDS: PRAMIPEXOLE 0.25 MG TAB PO SCH (21:38)
[2020-09-09] MEDS: QUEtiapine 100 MG TAB PO SCH (21:38)
[2020-09-09 22:26] LABS: Hemoglobin A1C 5.7 % (4.0-6.0)
[2020-09-10 05:06] LABS: Anisocytosis Slight; Basophils % (A) 0 %; Eosinophils # (A) 0.1 k/uL (0-0.7); Eosinophils % (A) 1 %; HCT 37.6 % (34.0-46.0); Lymphocytes # (A) 2.1 k/uL (1.0-4.8); Lymphocytes % (A) 24 %; MCH 36.7 pg (25.0-35.0); MCHC 31.9 g/dL (31.0-37.0); Macrocytosis Marked; Mean Platelet Volume 7.5; Monocytes # (A) 0.4 k/uL (0-1.0); Monocytes % (A) 4 %; Neutrophils # (A) 6.2 k/uL (1.3-7.7); Neutrophils % (A) 70 %; Platelet Count 187 k/uL (150-450); RBC 3.27 m/uL (3.80-5.40); RDW 16.5 % (11.5-15.5); WBC 8.8 k/uL (3.8-10.6)
[2020-09-10 05:11] LABS: MCV 114.9 fL (80.0-100.0)
[2020-09-10 05:33] LABS: ALT 92 U/L (4-34); AST 133 U/L (14-36); African American GFR (CKD) >90 (>60 ml/min/1.73 sqM); Albumin 3.4 g/dL (3.5-5.0); Alkaline Phosphatase 70 U/L (38-126); Anion Gap 3 mmol/L; Blood Urea Nitrogen 12 mg/dL (7-17); Calcium 8.6 mg/dL (8.4-10.2); Carbon Dioxide 29 mmol/L (22-30); Chloride 107 mmol/L (98-107); Glucose 104 mg/dL (74-99); Non-African American GFR(CKD) >90 (>60 ml/min/1.73 sqM); Potassium 3.5 mmol/L (3.5-5.1); Sodium 139 mmol/L (137-145); Total Bilirubin 0.6 mg/dL (0.2-1.3); Total Protein 6.5 g/dL (6.3-8.2)
[2020-09-10] MEDS: POTASSIUM CHLORIDE ER 20 MEQ TAB.ER PO SCH ×2 (05:59→06:42)
[2020-09-10] MEDS: LEVOTHYROXINE 25 MCG TAB PO SCH (05:59)
[2020-09-10] MEDS ORDERED: LEVOTHYROXINE 25 MCG TAB PO SCH (06:30)
[2020-09-10] MEDS: IPRATROPIUM-ALBUTEROL 3 ML NEB INHALATION SCH ×4 (07:19→20:20)
[2020-09-10] MEDS: FLUoxetine HCL 20 MG CAP PO SCH ×2 (08:08→20:20)
[2020-09-10] MEDS: predniSONE 10 MG TAB PO SCH (08:08)
[2020-09-10] MEDS: ALPRAZolam 0.25 MG TAB PO PRN (08:08)
[2020-09-10] MEDS: TOPIRAMATE 25 MG TAB PO SCH ×2 (08:09→20:20)
[2020-09-10] MEDS: FUROSEMIDE 20 MG TAB PO SCH (08:10)
[2020-09-10] MEDS: GABAPENTIN 400 MG CAP PO SCH ×4 (08:10→21:49)
[2020-09-10] MEDS: TOPIRAMATE 100 MG TAB PO SCH ×2 (08:10→20:20)
[2020-09-10] MEDS: amLODIPine 5 MG TAB PO SCH (08:10)
[2020-09-10] MEDS: METOPROLOL SUCCINATE (ER) 50 MG TAB.ER.24H PO SCH (08:10)
[2020-09-10] MEDS: ASPIRIN 325 MG TAB PO SCH (08:10)
[2020-09-10] MEDS ORDERED: FUROSEMIDE 10 MG/ML 4 ML VIAL IV STA (08:25)
[2020-09-10] MEDS: HEPARIN SOD,PORK IN 0.45% NACL 25,000 UNIT in 0.45% NACL 1 250ML.BAG IV SCH ×2 (08:35→18:04)
[2020-09-10] MEDS ORDERED: ALPRAZolam 0.25 MG TAB PO STA (09:14)
[2020-09-10] MEDS: ALPRAZolam 0.5 MG TAB PO SCH ×3 (09:15→21:48)
[2020-09-10] MEDS: PHENYTOIN 50 MG CHEWABLE PO SCH (09:39)
[2020-09-10 09:43] VITALS: BMI 43.7
[2020-09-10] MEDS: ACETAMINOPHEN TAB 325 MG TAB PO PRN (10:15)
--- NOTE | 2020-09-10 17:19 | PN ---
PROGRESS NOTE DATE OF SERVICE: 09/10/2020 CHIEF COMPLAINT: Congestive heart failure, pulmonary embolism, lethargy. HISTORY OF PRESENT ILLNESS: This lady seems to be stabilizing. She is still somewhat lethargic, but arousable and oriented. PHYSICAL EXAM: Chest demonstrates decreased breath sounds with scattered rales. The cardiac exam is normal. Abdomen is soft and protuberant. Extremities are normal. IMPRESSION: 1. Congestive heart failure. 2. Pulmonary embolism. 3. Morbid obesity. 4. Lethargy. 5. Seizure disorder. PLAN: Progress activity and she can probably be moved out of ICU today. MMODL / IJN: [id number] /
[2020-09-10] MEDS: PRAMIPEXOLE 0.25 MG TAB PO SCH (20:20)
[2020-09-10] MEDS: diphenhydrAMINE 25 MG CAP PO SCH (20:20)
[2020-09-10] MEDS: PHENYTOIN SODIUM EXTENDED 100 MG CAP PO SCH (20:20)
[2020-09-10] MEDS: QUEtiapine 100 MG TAB PO SCH (20:21)
--- NOTE | 2020-09-11 | PN ---
PROGRESS NOTE Niurka is a 49-year-old female with known history of multiple medical problems including COPD and chronic hypoxic respiratory failure. She is on home oxygen at 4 L/minute. She has chronic atrial fibrillation, previous history of CVA, hypertension, and seizure disorder. I saw this patient yesterday in consultation, and the patient presented with shortness of breath. She was diagnosed as having acute on chronic hypoxic respiratory failure secondary to pulmonary embolism and also secondary to underlying COPD as well as atrial fibrillation and diastolic congestive heart failure. The patient was placed on heparin, and she would eventually need to be transitioned to oral medications. The patient was kept on her bronchodilators, and was kept on her diuretics and resumed her seizure medication. She was seen today before she was transferred out of ICU, and she was noted to be doing well. However, the patient remains on 15 L high-flow nasal cannula, O2 saturation is 95%. The patient is afebrile, temp is 97.8. She does not seem to be in any form of distress. Chest x-ray was not done today, but she did have a chest x-ray yesterday. Labs today showed that her PTT is in the therapeutic range. Her CBC is relatively normal. Hemoglobin is 12.0. Electrolytes are normal. Renal profile is normal. PHYSICAL EXAMINATION: Physical exam revealed a 49-year-old female in no distress. HEENT: Neck is supple. No neck masses. No thyromegaly. Throat is clear. CHEST: Diminished breath sounds bilaterally. No rhonchi. No wheezes. CARDIAC EXAM: Normal S1, S2, no S3 gallop. ABDOMEN: Obese, soft, nontender. EXTREMITIES: Trace of bipedal edema. NEUROLOGIC EXAM: Alert, oriented x3. No gross focal neurologic deficits. PSYCHIATRIC EXAM: Normal mood, affect, and normal mental status examination. IMPRESSION: 1. Acute on chronic hypoxic respiratory failure, seems to be multifactorial but mostly related to acute pulmonary embolism. 2. History of severe chronic obstructive pulmonary disease. 3. Acute mental status change, most likely secondary to acute toxic metabolic encephalopathy, resolved. 4. Chronic atrial fibrillation. 5. Coronary artery disease and history of diastolic congestive heart failure. 6. History of chronic diastolic congestive heart failure. 7. History of seizure disorder. 8. History of hypertension. 9. Chronic low back pain. 10.History of hypothyroidism. RECOMMENDATION: Continue heparin, consider transitioning the patient to Eliquis or Xarelto. Continue bronchodilator, continue empiric antibiotics in the form of Rocephin. Continue her seizure medications. Patient to be transferred out of the ICU, and she could be eventually transitioned to oral anticoagulation therapy and consider to be discharged home in the next 24 to 48 hours. MMODL / RENEN: [id number] /
[2020-09-11] MEDS: ACETAMINOPHEN TAB 325 MG TAB PO PRN ×3 (03:29→17:08)
[2020-09-11 06:19] LABS: Levetiracetam (Keppra) 12.9 ug/mL (3.0-60.0)
[2020-09-11] MEDS: LEVOTHYROXINE 25 MCG TAB PO SCH (06:25)
[2020-09-11 07:42] LABS: Lamotrigine (Lamictal) <0.2 ug/mL (2.0-15.0)
[2020-09-11 07:51] LABS: Anisocytosis Slight; Basophils % (A) 0 %; Eosinophils # (A) 0.1 k/uL (0-0.7); Eosinophils % (A) 1 %; HCT 38.6 % (34.0-46.0); HGB 12.2 gm/dL (11.4-16.0); Lymphocytes # (A) 1.8 k/uL (1.0-4.8); Lymphocytes % (A) 27 %; MCH 36.5 pg (25.0-35.0); MCHC 31.7 g/dL (31.0-37.0); MCV 115.3 fL (80.0-100.0); Macrocytosis Marked; Mean Platelet Volume 7.7; Monocytes # (A) 0.4 k/uL (0-1.0); Monocytes % (A) 6 %; Neutrophils # (A) 4.2 k/uL (1.3-7.7); Neutrophils % (A) 63 %; Platelet Count 239 k/uL (150-450); RBC 3.35 m/uL (3.80-5.40); RDW 16.4 % (11.5-15.5); WBC 6.7 k/uL (3.8-10.6)
[2020-09-11] MEDS: IPRATROPIUM-ALBUTEROL 3 ML NEB INHALATION SCH ×4 (08:02→22:18)
[2020-09-11] MEDS: predniSONE 10 MG TAB PO SCH (08:33)
[2020-09-11] MEDS: ASPIRIN 325 MG TAB PO SCH (08:33)
[2020-09-11] MEDS: FUROSEMIDE 20 MG TAB PO SCH (08:33)
[2020-09-11] MEDS: FLUoxetine HCL 20 MG CAP PO SCH ×2 (08:33→21:14)
[2020-09-11] MEDS: GABAPENTIN 400 MG CAP PO SCH ×4 (08:33→21:15)
[2020-09-11] MEDS: ALPRAZolam 0.5 MG TAB PO SCH ×3 (08:33→21:15)
[2020-09-11] MEDS: TOPIRAMATE 25 MG TAB PO SCH ×2 (08:33→21:15)
[2020-09-11] MEDS: amLODIPine 5 MG TAB PO SCH (08:34)
[2020-09-11] MEDS: TOPIRAMATE 100 MG TAB PO SCH ×2 (08:34→21:15)
[2020-09-11] MEDS: METOPROLOL SUCCINATE (ER) 50 MG TAB.ER.24H PO SCH (08:34)
[2020-09-11] MEDS: PHENYTOIN 50 MG CHEWABLE PO SCH (08:34)
[2020-09-11] MEDS: APIXABAN 5 MG TAB PO SCH ×2 (09:53→21:15)
--- NOTE | 2020-09-11 10:58 | XR ---
EXAMINATION TYPE: XR chest 1V portable DATE OF EXAM: 09/11/2020 COMPARISON: Right chest x-ray 09/09/2020 HISTORY: Abnormal chest x-ray, lung assessment TECHNIQUE: Single frontal view of the chest is obtained. FINDINGS: Minimal patchy basilar density is present. Cardiac mediastinal silhouette, pulmonary vascu larity and ant are stable. No pneumothorax or evident effusion. IMPRESSION: Some minimal basilar atelectasis, correlate to exclude pneumonia.
--- NOTE | 2020-09-11 14:17 | P.PN ---
Subjective Progress Note Date: 09/11/20 Principal diagnosis: Acute on chronic hypoxic history failure secondary to acute pulmonary embolism This is a 49-year-old female with known history of multiple medical problems in cluding COPD, chronic hypoxic respiratory failure, maintained on 4 L nasal cannula, chronic atrial fibrillation, history of CVA/TIA, history of hypertension, and history of seizure disorder. Patient is also known to have history of chronic pain syndrome, chronic low back pain, follows normally with the pain clinic. Patient presented to the ER mostly with symptoms of shortness of breath, weakness, fatigue, chest pressure, and whole body pain. Patient had no fever, no chills, she had no cough, no wheezing, no dysuria and no frequency no urgency. She had history of intermittent headaches, and normally known to have history of chronic migraines. Patient was also complaining of intermittent episodes of confusions, and she was noted to be a bit confused in the ER, CT of the chest was negative for acute process. However her CT angiogram of the chest came back positive for partially occluded right lower lobe artery. There was also evidence of cardiomegaly, and possibly some mild interstitial edema. Patient was admitted, placed on heparin, she was also placed on her usual bronchodilators, and oxygen at 100% nonrebreather initially, later converted to a high flow nasal cannula, and she seems to be doing relatively well. Patient denies any shortness of breath at the time of my evaluation. Denies any chest pain, she has been complaining of mostly low back pain. Patient was noted to be hemodynamically stable. Echocardiogram showed no evidence of right ventricular strain, and her troponin was a bit elevated. Recommended that we continue heparin, and eventually she will need to be transitioned to oral anticoagulation treatment. The patient is seen today 09/11/2020 in follow-up on the selective care unit. She is currently sitting up in a chair at the bedside. Awake and alert in no acute distress. Initially on 15 L high flow nasal cannula with O2 saturations in the high 90s currently on 6 L with O2 saturation in the 90s. She's afebrile. Some small amount of hemoptysis. Continues with a cough. Shortness of breath on exertion. Chest x-ray showed minimal basilar atelectasis. Blood culture reveals no growth. White count 6.7. Hemoglobin 12.2. She has been initiated on Eliquis today. Objective - Vital Signs Vital signs: Vital Signs Temp 97.9 F 09/11/20 08:37 Pulse 84 09/11/20 11:39 Resp 17 09/11/20 08:37 BP 109/63 09/11/20 08:37 Pulse Ox 97 09/11/20 08:37 Intake & Output 09/10/20 09/11/20 09/11/20 18:59 06:59 18:59 Intake Total 482.237 140 410 Output Total 2300 450 300 Balance -1817.763 -310 110 Weight 104.9 kg 114.5 kg Intake: IV 100 140 240 .9 @ KVO 100 140 240 Intake, IV Titration 145.237 50 Amount Heparin Sod,Pork in 0.45% 145.237 NaCl 25,000 unit In 0.45 % NaCl 1 250ml.bag @ 18 UNITS/KG/HR 18.882 mls/hr IV .[id number] [facility] Rx#: [id number] cefTRIAXone 1 gm In 50 Sodium Chloride 0.9% 50 ml @ 100 mls/hr IVPB Q24HR [facility] Rx#:[id number] Oral 237 120 Output: Urine 2300 450 300 Other: Voiding Method Bedside Commode Toilet Toilet # Voids 2 # Bowel Movements 1 - Exam GENERAL EXAM: Alert, active, pleasant 49-year-old female patient, on 6 L high flow nasal cannula comfortable in no apparent distress. HEAD: Normocephalic. EYES: Normal reaction of pupils, equal size. NOSE: Clear with pink turbinates. THROAT: No erythema or exudates. NECK: No masses, no JVD. CHEST: No chest wall deformity. LUNGS: Equal air entry with faint crackles in the posterior bases. CVS: S1 and S2 normal with no audible murmur, regular rhythm. ABDOMEN: No hepatosplenomegaly, normal bowel sounds, no guarding or rigidity. SPINE: No scoliosis or deformity SKIN: No rashes CENTRAL NERVOUS SYSTEM: No focal deficits, tone is normal in all 4 extremities. EXTREMITIES: There is no peripheral edema. No clubbing, no cyanosis. Peripheral pulses are intact. - Labs CBC & Chem 7: 09/11/20 07:17 09/10/20 04:45 Labs: Abnormal Lab Results - Last 24 Hours (Table) 09/11/20 09/11/20 Range/Units 07:17 07:17 RBC 3.35 L (3.80-5.40) m/uL MCV 115.3 H (80.0-100.0) fL MCH 36.5 H (25.0-35.0) pg RDW 16.4 H (11.5-15.5) % Macrocytosis Marked A APTT 36.8 H (22.0-30.0) sec Microbiology - Last 24 Hours (Table) 09/08/20 21:00 Blood Culture - Preliminary Blood No Growth after 48 hours 09/09/20 12:45 Blood Culture - Preliminary Blood No Growth after 24 hours Assessment and Plan Assessment: Acute on chronic hypoxic respiratory failure secondary to acute pulmonary embolism. Acute mental status change, most likely secondary to acute toxic metabolic encephalopathy secondary to hypoxia on presentation. History of COPD. Presently inactive. History of chronic atrial fibrillation. History of coronary artery disease and history of diastolic congestive heart failure. Chronic diastolic congestive heart failure. Dyslipidemia. History of hypertension. History of seizure disorder. History of chronic low back pain. History of hypothyroidism. History of pseudomonal bacteremia and E. coli urinary tract infection on her last admission to the hospital. Plan: The patient was seen and evaluated by Dr. Quinn Titrating on the FiO2 to maintain O2 saturations in the 90s Transitioned to Eliquis Increase her activity as tolerated We will continue to follow I, the cosigning physician, performed a history & physical examination of the patient. Lungs sounds with faint crackles in the bilateral posterior bases Maintaining good O2 saturations in the 90s on 6 L high flow nasal cannula. I discussed the assessment and plan of care with my nurse practitioner, Anisha Evans. I attest to the above note as dictated by her.
--- NOTE | 2020-09-11 17:23 | PN ---
PROGRESS NOTE DATE OF SERVICE: 09/10/2020 CHIEF COMPLAINT: Lethargy, shortness of breath, mental status changes, and left lower lobe pulmonary embolism. HISTORY OF PRESENT ILLNESS: This lady is doing much better. She is having no chest pain, significant respiratory problems, etc. PHYSICAL EXAMINATION: Chest demonstrates decreased breath sounds with scattered rales. The cardiac exam is normal and and the abdomen is soft and nontender. Extremities are normal. IMPRESSION: 1. Mental status changes. 2. Delirium. 3. Left lower lobe pulmonary embolism. 4. Congestive heart failure. PLAN: Probably move out of ICU today and increase activity. MMODL / IJN: [id number] /
--- NOTE | 2020-09-11 17:23 | PN ---
PROGRESS NOTE DATE OF SERVICE: 09/11/2020. CHIEF COMPLAINT: Shortness of breath, congestive heart failure and pulmonary embolism. HISTORY OF PRESENT ILLNESS: This lady is doing well and can probably be discharged today or tomorrow. Patient is feeling much better. She is more awake and alert. She is not short of breath. PHYSICAL EXAMINATION: Her vital signs are normal. Head, ears, eyes, nose, mouth, and throat are normal. Chest demonstrates fairly good breath sounds, a little bit of difficulty here due to her obesity. Her cardiac exam is unchanged. Abdomen is soft and nontender. IMPRESSION: 1. Mental status changes. 2. Congestive heart failure. 3. Left lower lobe pulmonary embolism. 4. Diabetes. PLAN: Possibly home later today or tomorrow. MMODL / IJN: [id number] /
[2020-09-11] MEDS: PHENYTOIN SODIUM EXTENDED 100 MG CAP PO SCH (21:14)
[2020-09-11] MEDS: PRAMIPEXOLE 0.25 MG TAB PO SCH (21:14)
[2020-09-11] MEDS: QUEtiapine 100 MG TAB PO SCH (21:14)
[2020-09-11] MEDS: diphenhydrAMINE 25 MG CAP PO SCH (21:15)
[2020-09-12] MEDS: ACETAMINOPHEN TAB 325 MG TAB PO PRN ×2 (00:16→06:43)
[2020-09-12] MEDS: LEVOTHYROXINE 25 MCG TAB PO SCH (06:43)
[2020-09-12] MEDS: IPRATROPIUM-ALBUTEROL 3 ML NEB INHALATION SCH ×3 (09:20→12:44)
[2020-09-12] MEDS: amLODIPine 5 MG TAB PO SCH (10:04)
[2020-09-12] MEDS: ASPIRIN 325 MG TAB PO SCH (10:04)
[2020-09-12] MEDS: FUROSEMIDE 20 MG TAB PO SCH (10:04)
[2020-09-12] MEDS: APIXABAN 5 MG TAB PO SCH (10:04)
[2020-09-12] MEDS: FLUoxetine HCL 20 MG CAP PO SCH (10:04)
[2020-09-12] MEDS: ALPRAZolam 0.5 MG TAB PO SCH (10:04)
[2020-09-12] MEDS: METOPROLOL SUCCINATE (ER) 50 MG TAB.ER.24H PO SCH (10:05)
[2020-09-12] MEDS: GABAPENTIN 400 MG CAP PO SCH (10:05)
[2020-09-12] MEDS: PHENYTOIN 50 MG CHEWABLE PO SCH (10:06)
[2020-09-12] MEDS: TOPIRAMATE 25 MG TAB PO SCH (10:06)
[2020-09-12] MEDS: TOPIRAMATE 100 MG TAB PO SCH (10:06)
[2020-09-12 12:05] VITALS: RESP 16
[2020-09-12 12:06] VITALS: PULSE 55
[2020-09-12 12:07] VITALS: BP 99/59; TEMP 98.6
--- NOTE | 2020-09-12 16:41 | P.PN ---
Subjective Progress Note Date: 09/12/20 Principal diagnosis: Acute on chronic hypoxic respiratory failure secondary to acute pulmonary embolism and underlying COPD. This is a 49-year-old female with known history of multiple medical problems including COPD, chronic hypoxic respiratory failure, maintained on 4 L nasal c annula, chronic atrial fibrillation, history of CVA/TIA, history of hypertension, and history of seizure disorder. Patient is also known to have history of chronic pain syndrome, chronic low back pain, follows normally with the pain clinic. Patient presented to the ER mostly with symptoms of shortness of breath, weakness, fatigue, chest pressure, and whole body pain. Patient had no fever, no chills, she had no cough, no wheezing, no dysuria and no frequency no urgency. She had history of intermittent headaches, and normally known to have history of chronic migraines. Patient was also complaining of intermittent episodes of confusions, and she was noted to be a bit confused in the ER, CT of the chest was negative for acute process. However her CT angiogram of the chest came back positive for partially occluded right lower lobe artery. There was also evidence of cardiomegaly, and possibly some mild interstitial edema. Patient was admitted, placed on heparin, she was also placed on her usual bronchodilators, and oxygen at 100% nonrebreather initially, later converted to a high flow nasal cannula, and she seems to be doing relatively well. Patient denies any shortness of breath at the time of my evaluation. Denies any chest pain, she has been complaining of mostly low back pain. Patient was noted to be hemodynamically stable. Echocardiogram showed no evidence of right ventricular strain, and her troponin was a bit elevated. Recommended that we continue heparin, and eventually she will need to be transitioned to oral anticoagulation treatment. Patient was reevaluated today on 09/12/20, patient seems to be doing well, she is back on her usual oxygen with 4 L nasal cannula, she is actually sitting in bed in no distress, and she is not even using her oxygen. Patient denies any cough wheezing or shortness of breath, denies any chest pain, discharge planning seems to be in progress today. No labs were done today. Patient is now on Eliquis for acute pulmonary embolism. Objective - Vital Signs Vital signs: Vital Signs Temp 98.6 F 09/12/20 11:25 Pulse 55 L 09/12/20 12:00 Resp 16 09/12/20 12:00 BP 99/59 09/12/20 11:25 Pulse Ox 94 L 09/12/20 11:25 Intake & Output 09/11/20 09/12/20 09/12/20 18:59 06:59 18:59 Intake Total 1139.722 540 660 Output Total 300 Balance 839.722 540 660 Weight 114.8 kg Intake: IV 240 .9 @ KVO 240 Intake, IV Titration 299.722 Amount Heparin Sod,Pork in 0.45% 249.722 NaCl 25,000 unit In 0.45 % NaCl 1 250ml.bag @ 18 UNITS/KG/HR 18.779 mls/hr IV .[id number] [facility] Rx#: [id number] cefTRIAXone 1 gm In 50 Sodium Chloride 0.9% 50 ml @ 100 mls/hr IVPB Q24HR [facility] Rx#:[id number] Oral 600 540 660 Output: Urine 300 Other: Voiding Method Toilet Toilet Toilet # Voids 2 2 1 - Exam GENERAL EXAM: Revealed a 49-year-old female in no distress. On 4 L nasal cannula. Head: Atraumatic, normocephalic. EENT: PERRLA, EOMI, no icterus, no neck masses, no JVD, no stridor. CHEST: No chest wall deformity. Symmetrical expansion. LUNGS: Equal air entry with no crackles, wheeze, rhonchi or dullness. CVS: Regular rate and rhythm, normal S1 and S2, no gallops, no murmurs, no rubs ABDOMEN: Soft, nontender. No hepatosplenomegaly, normal bowel sounds, no guarding or rigidity. EXTREMITIES: No clubbing, no edema, no cyanosis, 2+ pulses and upper and lower extremities. MUSCULOSKELETAL: Muscle strength and tone normal. SPINE: No scoliosis or deformity SKIN: No rashes CENTRAL NERVOUS SYSTEM: Alert and oriented -3. No focal deficits, tone is normal in all 4 extremities. PSYCHIATRIC: Alert and oriented -3. Appropriate affect. Intact judgment and insight. - Labs CBC & Chem 7: 09/11/20 07:17 09/10/20 04:45 Labs: Abnormal Lab Results - Last 24 Hours (Table) 09/09/20 Range/Units 19:51 Topiramate 1.7 L (2.0-20.0) ug/mL Microbiology - Last 24 Hours (Table) 09/09/20 12:45 Blood Culture - Preliminary Blood No Growth after 72 hours 09/08/20 21:00 Blood Culture - Preliminary Blood No Growth after 72 hours Assessment and Plan Assessment: Impression: Acute on chronic hypoxic respiratory failure secondary to acute pulmonary embolism. And underlying COPD. Acute mental status change, most likely secondary to acute toxic metabolic encephalopathy secondary to hypoxia on presentation. Resolved completely. History of COPD. Presently inactive. History of chronic atrial fibrillation. History of coronary artery disease and history of diastolic congestive heart failure. Chronic diastolic congestive heart failure. Dyslipidemia. History of hypertension. History of seizure disorder. History of chronic low back pain. History of hypothyroidism. Recommendation: Agree with discharge planning. Patient is to continue home O2. Continue anticoagulation therapy/Eliquis. Continue bronchodilators. Resume home meds including seizure medications. Prednisone burst and taper. Can be seen on outpatient basis if necessary or recommended by admitting physician.. Time with Patient: Less than 30
--- NOTE | 2020-09-12 17:44 | PN ---
PROGRESS NOTE DATE OF SERVICE: 09/11/2020 CHIEF COMPLAINT: Congestive heart failure, pulmonary embolism. HISTORY OF PRESENT ILLNESS: This lady is doing better. She is able to ambulate. She has had no further chest pain, shortness of breath, fever, chills, etc. PHYSICAL EXAMINATION: Cardiac exam is normal. Her chest is clear with diminished breath sounds, but no rubs or rales. Abdomen is soft, nontender. Extremities are normal. IMPRESSION: 1. Congestive heart failure. 2. Pulmonary embolism. 3. Mental status changes. PLAN: Probably home later today or tomorrow. MMODL / IJN: [id number] /
--- NOTE | 2020-09-13 00:38 | DS ---
DISCHARGE SUMMARY CHIEF COMPLAINT: Shortness of breath, lethargy, congestive heart failure and pulmonary embolism. HISTORY OF PRESENT ILLNESS AND PHYSICAL EXAM: Details of this lady's history and physical can be found in the initial workup. COURSE IN THE HOSPITAL: After admission she was placed on bedrest and started on intravenous fluids and placed in ICU. It was felt if she if had one, her pulmonary embolism was extremely small and probably not clinically significant. She was stabilized and eventually moved to the floor where she did well. She had no unusual chest pain, short of breath, arrhythmias, fever, chills, cough, hemoptysis, etc. She is doing well. It was felt that she could go home on the and she will go home on her usual activity, diet and medication and she will also be on apixaban 5 mg b.i.d. Will follow her up in the office in several days. FINAL DIAGNOSES: 1. Acute congestive heart failure, diastolic. 2. Mental status changes. 3. Pulmonary embolism. 4. Morbid obesity. OPERATIONS: None. CONSULTATIONS: Intensive Medicine. She is improved. MMODL / IJN: [id number] /
== END 2020-09-12 13:20 | disposition home health service (06) | DRG 175 ==
LOC: EC 18:49 → 2SICU 22:09 → 3SCARD 09-10 14:13
PROVIDERS: ADMIT Family Medicine; ATTEND Family Medicine
DX: I26.99 Other pulmonary embolism without acute cor pulmonale (principal); J96.21 Acute and chronic respiratory failure with hypoxia; G92 Toxic encephalopathy; Z68.42 Body mass index [BMI] 45.0-49.9, adult; I50.33 Acute on chronic diastolic (congestive) heart failure; I48.20 Chronic atrial fibrillation, unspecified; F05 Delirium due to known physiological condition; I11.0 Hypertensive heart disease with heart failure; E03.9 Hypothyroidism, unspecified; E66.01 Morbid (severe) obesity due to excess calories; E78.5 Hyperlipidemia, unspecified; G40.909 Epilepsy, unspecified, not intractable, without status epilepticus; Z20.828 Contact with and (suspected) exposure to other viral communicable diseases; G89.4 Chronic pain syndrome; F31.9 Bipolar disorder, unspecified; I25.10 Atherosclerotic heart disease of native coronary artery without angina pectoris; J44.9 Chronic obstructive pulmonary disease, unspecified; K21.9 Gastro-esophageal reflux disease without esophagitis; E11.9 Type 2 diabetes mellitus without complications; Z83.3 Family history of diabetes mellitus; Z79.899 Other long term (current) drug therapy; Z79.890 Hormone replacement therapy; Z79.82 Long term (current) use of aspirin; Z79.01 Long term (current) use of anticoagulants; Z88.0 Allergy status to penicillin; Z88.8 Allergy status to other drugs, medicaments and biological substances; Z88.6 Allergy status to analgesic agent; Z91.040 Latex allergy status; Z86.711 Personal history of pulmonary embolism; Z86.73 Personal history of transient ischemic attack (TIA), and cerebral infarction without residual deficits; Z87.11 Personal history of peptic ulcer disease; Z87.891 Personal history of nicotine dependence; Z91.19 Patient's noncompliance with other medical treatment and regimen; Z90.49 Acquired absence of other specified parts of digestive tract; Z98.891 History of uterine scar from previous surgery; Z95.5 Presence of coronary angioplasty implant and graft; Z98.51 Tubal ligation status; Z82.49 Family history of ischemic heart disease and other diseases of the circulatory system
CPT/HCPCS: 36415; 51701; 70450; 71045; 71046; 71275; 80048; 80053; 80175; 80177; 80185; 80201; 80306; 80320; 81001; 82140; 82550; 82803; 83036; 83605; 83880; 84484; 85025; 85610; 85730; 87040; 93005; 93306; 93970; 94640; 96361; 96365; 96375; 99285

== ENCOUNTER → 2020-09-25 | Outpatient (CLI) | payer OTHER ==
[2020-09-25 13:43] VITALS: BP 109/74; PULSE 69; RESP 16; TEMP 98.8
--- NOTE | 2020-09-25 13:56 | P.PAINPG ---
Subjective Progress Note Date: 09/25/20 This is follow-up visit for this 49 years old female with a chronic history of severe neck pain and headache and she was treated for occipital neuralgia, we have done bilateral occipital nerve block, and she reported that her headache improved after the occipital nerve block.In our last visit she had mentioned she was moving furniture and started to have severe low back pain with radiation to the lower extremity bilaterally, associated with numbness and tingling sensation and she feels some weakness in her left lower extremity, the pain is constant and increases with any activity, no fever or night sweats with no change in the bowel movement or urination, she tried [id number] medication and said without any significant improvement. Our plan was to get an MRI of the lumbar spine. Fortunately patient is unable to get MRI yet. She describes low back pain radiating into the lateral and posterior aspect of the legs to the knees. She feels like her knees buckle at times. Pain is described as sharp and stabbing made worse with exercise. She does her best to be active and walk as much as she can and is interested in learning other exercises that she can do. She also mentions she feels like she has a lump on her cervical spine and that makes her shoulder hurt, however she would like to discuss this at another time. Review of systems is negative for chest pain, shortness of breath, new onset weakness, numbness/tingling, abdominal pain, malaise, fever, night sweats, chills, homicidal or suicidal ideation, or bowel or bladder incontinence. - Exam Physical Examinations : -Constitutiona : Cooperative , not in acute distress . -HEENT : nech : supple , no Lymphadenopathy , normal thyroid size . : eyes : no ptosis , no icterus, no photophobia . - neurologic : Cranial nerve II to XII intact , no focal neurological deffecit . -psychatric : alert , oriented X 3 , appropriate affect , intact judgment and insight . -Lymphatic : no Lymphadenopathy . - musculoskeltal : Cervical Spine motor stregnth in the deltoid and biceps, normal right side , normal Left side motor stregnth biceps and the wrist extensors normal right side ,normal left side . motor stregnth in the triceps muscle . normal Right side , normal Left side ROM decreased with R arm, inability to abduct beyond 90 degrees Lumber spine moter stegnth lower extremities ,thigh and legs 5/5 Right side , 4/5 Left side deep tendon reflexes : normal Knee Jerk , normal ankle Jerk lumber facet Loading Test =positive Right , positive Left Range of motion of the lumbar spine Flexion 30 degrees, extension 10 degrees strait leg raising test = positive at 30 degree bilateral tenderness over the Sacroiliac joint on the Right , and Left sides Assessment and Plan Plan: Assessment and plan=1-occipital neuralgia (resolving) 2-lumbar radiculopathy ( acute ). Patient is a history of occipital neuralgia which was helped significantly axonal nerve blocks. She denies using low back pain with radiation into the lower extremities at L4-L5 and L5-S1 distribution. Our plan to last visit was to get an MRI however she did not obtain this. We encouraged her to get her MRI done so we can see if there is an injection target. We have also given her prescription for physical therapy as she is interested in learning exercises that she can do long-term outside of walking. PQRS Measure Charge Sheet Measure #130: Documentation of Current Meds in Medical Chart: Patient's medications documented in chart Measure #226: Tobacco Use: Screen & Cessation Intervention: Pt not a tobacco user Measure #111: Pneumonia Vaccination: Pneumococcal vaccine administered or previously received Measure #47: Advance Care Plan: Advance care planning discussed & documented, pt chose/unable to give Measure #412: Opioid Treatment Agreement: No documentation of signed opioid treatment agreement Measure #408: Opioid Therapy Follow-up Evaluation: Patient had NO f/u eval minimum every 3 months during opioid therapy Measure #317: Preventitive Care & Scrn High Bld Press & F/U: Normal blood pressure, f/u not required Measure #128: Body Mass Index (BMI) Screening & Follow-up: BMI documented ABOVE normal parameters - f/u documented Measure #131: Pain Assessment & Follow-up: Pain positive & plan documented, Follow-up scheduled Measure #431: Unhealthy Alcohol Use Preventative Care & Scrn: Patient not identified as an unhealthy alcohol user PQRS Narrative: Smoking Status Former smoker Blood Pressure 111/73 Pain Intensity [Lower Back] 10 Pain Intensity [Neck] 5 Scale Used Numeric (1 - 10) Hx Alcohol Use (MH) No Controlled Substance Measures - Controlled Substance Measures Is patient prescribed a controlled substance at discharge?: No Objective - Vital Signs Vital signs: Intake & Output 09/23/20 09/24/20 09/24/20 18:59 06:59 18:59 Weight 105.687 kg PQRS Measure Charge Sheet PQRS Narrative: Smoking Status Former smoker Pain Intensity [Neck] 5 Pain Intensity [Lower Back] 10 Scale Used Numeric (1 - 10) Hx Alcohol Use (MH) No Home Medications: Ambulatory Orders Pramipexole [Mirapex] 0.25 mg PO HS 06/21/17 ALPRAZolam [Xanax] 0.5 mg PO TID 09/18/18 Phenytoin Sodium Extended [Dilantin] 300 mg PO HS 02/15/19 FLUoxetine HCL 40 mg PO BID 10/19/19 Furosemide [Lasix] 20 mg PO DAILY 10/19/19 Gabapentin 800 mg PO QID 11/30/19 QUEtiapine FUMARATE [SEROquel] 300 mg PO HS 11/30/19 Albuterol Sulfate [Ventolin HFA] 2 puff INHALATION RT-QID PRN 03/16/20 Ergocalciferol [Vitamin D2 (DRISDOL)] 50,000 unit PO TH 03/16/20 Nicotine Polacrilex [Nicotine Gum] 4 mg BUCCAL Q2H PRN 03/16/20 Aspirin EC [Ecotrin] 325 mg PO DAILY 05/14/20 Montelukast [Singulair] 10 mg PO DAILY 05/14/20 diphenhydrAMINE [Benadryl] 25 mg PO HS 05/14/20 Metoprolol Succinate (ER) [Toprol XL] 50 mg PO DAILY 07/02/20 amLODIPine [Norvasc] 5 mg PO DAILY 07/02/20 busPIRone HCL [Buspar] 30 mg PO TID 07/02/20 levETIRAcetam [Keppra] 750 mg PO TID 07/02/20 Levothyroxine Sodium 25 mcg PO DAILY 09/09/20 Topiramate [Topamax] 50 mg PO BID 09/09/20 Topiramate [Topamax] 100 mg PO BID 09/09/20 Apixaban [Eliquis] 5 mg PO BID #60 tab 09/12/20 HYDROcodone/APAP 5-325MG [[place] 5-325] 1 tab PO DAILY PRN 09/23/20 Phenytoin Sodium Extended [Dilantin] 200 mg PO QAM 09/23/20 Controlled Substance Measures - Controlled Substance Measures Is patient prescribed a controlled substance at discharge?: No
== END | disposition home or self-care (01) ==
LOC: PNWHC3 13:06
PROVIDERS: ATTEND Anesthesiology
DX: M54.16 Radiculopathy, lumbar region (principal); M54.81 Occipital neuralgia; Z87.891 Personal history of nicotine dependence; Z79.82 Long term (current) use of aspirin; Z79.899 Other long term (current) drug therapy; Z79.01 Long term (current) use of anticoagulants; Z79.890 Hormone replacement therapy
CPT/HCPCS: 99211

== ENCOUNTER 2020-10-16 12:40 | Observation (INO) | payer OTHER ==
[2020-10-16] MEDS ORDERED: ONDANSETRON 4 MG/2 ML VIAL IVP STA (13:34)
[2020-10-16] MEDS ORDERED: SODIUM CHLORIDE 0.9% 500 ML 500 ML IV STA (13:34)
[2020-10-16 13:50] LABS: Basophils % (A) 0 %; Eosinophils % (A) 0 %; HCT 41.1 % (34.0-46.0); HGB 13.2 gm/dL (11.4-16.0); Lymphocytes # (A) 1.2 k/uL (1.0-4.8); Lymphocytes % (A) 8 %; MCH 35.9 pg (25.0-35.0); MCHC 32.2 g/dL (31.0-37.0); MCV 111.5 fL (80.0-100.0); Macrocytosis Marked; Mean Platelet Volume 7.7; Monocytes # (A) 0.4 k/uL (0-1.0); Monocytes % (A) 3 %; Neutrophils # (A) 12.4 k/uL (1.3-7.7); Neutrophils % (A) 88 %; Platelet Count 308 k/uL (150-450); RBC 3.68 m/uL (3.80-5.40); WBC 14.1 k/uL (3.8-10.6)
--- NOTE | 2020-10-16 14:08 | XR ---
EXAMINATION TYPE: XR chest 2V DATE OF EXAM: 10/16/2020 COMPARISON: 09/11/2020 TECHNIQUE: PA and lateral views submitted. HISTORY: Cough FINDINGS: Heart is enlarged and there is patchy bilateral infiltrate greater on the right lower lobe. No pneumo thorax or pleural effusion. Arthropathy shoulders. IMPRESSION: 1. Patchy bilateral infiltrate correlate for pneumonia.
[2020-10-16 14:16] LABS: ALT 14 U/L (4-34); AST 23 U/L (14-36); African American GFR (CKD) >90 (>60 ml/min/1.73 sqM); Albumin 4.1 g/dL (3.5-5.0); Alkaline Phosphatase 91 U/L (38-126); Anion Gap 10 mmol/L; Blood Urea Nitrogen 18 mg/dL (7-17); Calcium 9.1 mg/dL (8.4-10.2); Carbon Dioxide 25 mmol/L (22-30); Chloride 107 mmol/L (98-107); Glucose 122 mg/dL (74-99); Lipase 42 U/L (23-300); Non-African American GFR(CKD) >90 (>60 ml/min/1.73 sqM); Potassium 3.6 mmol/L (3.5-5.1); Sodium 142 mmol/L (137-145); Total Bilirubin 0.8 mg/dL (0.2-1.3); Total Protein 7.6 g/dL (6.3-8.2)
[2020-10-16 14:36] LABS: Anisocytosis (M) Present; Poikilocytosis (M) Present; Polychromasia Present
--- NOTE | 2020-10-16 14:42 | ED ---
General Adult HPI - General Chief complaint: Nausea/Vomiting/Diarrhea Stated complaint: nausea/vomiting Time Seen by Provider: 10/16/20 12:50 Source: EMS Mode of arrival: EMS Limitations: no limitations - History of Present Illness Initial comments: Patient is a 50-year-old female past medical history A. fib, coronary artery disease, hypertension who presents to emergency room with reported nausea or vomiting. Patient presents today reporting 3 days worth of myalgias, cough, abdominal pain and vomiting. She denies any fevers or chills. No sick contacts or similar symptoms. No recent travel. Denies any chest pain or shortness of breath. Not take any medications at home for her symptoms. Denies eating any tainted foods. Admits to left upper quadrant abdominal pain. No history of similar in the past. No other alleviating, precipitating or modifying factors - Related Data Home Medications Medication Instructions Recorded Confirmed Pramipexole [Mirapex] 0.25 mg PO HS 06/21/17 10/16/20 ALPRAZolam [Xanax] 0.5 mg PO TID 09/18/18 10/16/20 Phenytoin Sodium Extended 300 mg PO HS 02/15/19 10/16/20 [Dilantin] FLUoxetine HCL 40 mg PO BID 10/19/19 10/16/20 Gabapentin 800 mg PO QID 11/30/19 10/16/20 QUEtiapine FUMARATE [SEROquel] 300 mg PO HS 11/30/19 10/16/20 Albuterol Sulfate [Ventolin HFA] 2 puff INHALATION RT-QID PRN 03/16/20 10/16/20 Nicotine Polacrilex [Nicotine Gum] 4 mg BUCCAL Q2H PRN 03/16/20 10/16/20 Aspirin EC [Ecotrin] 325 mg PO DAILY 05/14/20 10/16/20 diphenhydrAMINE [Benadryl] 25 mg PO HS 05/14/20 10/16/20 Metoprolol Succinate (ER) [Toprol 50 mg PO DAILY 07/02/20 10/16/20 XL] amLODIPine [Norvasc] 5 mg PO DAILY 07/02/20 10/16/20 busPIRone HCL [Buspar] 30 mg PO TID 07/02/20 10/16/20 levETIRAcetam [Keppra] 750 mg PO TID 07/02/20 10/16/20 Topiramate [Topamax] 50 mg PO BID 09/09/20 10/16/20 Topiramate [Topamax] 100 mg PO BID 09/09/20 10/16/20 HYDROcodone/APAP 5-325MG [Topsham 1 tab PO DAILY PRN 09/23/20 10/16/20 5-325] Phenytoin Sodium Extended 200 mg PO QAM 09/23/20 10/16/20 [Dilantin] SUMAtriptan SUCCINATE [Imitrex] 100 mg PO BID PRN 10/16/20 10/16/20 Previous Rx's Medication Instructions Recorded Apixaban [Eliquis] 5 mg PO BID #60 tab 09/12/20 Allergies Allergy/AdvReac Type Severity Reaction Status Date / Time ibuprofen [From Motrin] Allergy Rash/Hives Verified 10/16/20 15:43 Latex, Natural Rubber Allergy Rash/Hives Verified 10/16/20 15:43 naproxen [From Naprosyn] Allergy Unknown Verified 10/16/20 15:43 tramadol Allergy Rash/Hives Verified 10/16/20 15:43 Penicillins AdvReac Vomiting Verified 10/16/20 15:43 Review of Systems ROS Statement: Those systems with pertinent positive or pertinent negative responses have been documented in the HPI. ROS Other: All systems not noted in ROS Statement are negative. Past Medical History Past Medical History: COPD Additional Past Medical History / Comment(s): Pt uses home oxygen @ 4 L @ hs & prn, TIA, vertigo, bronchitis, gastric ulcer, seizure-last time 09/05/20, chronic low back pain/bulging discs, migraines, hypothyroid, hospitalized in May 2020 for acute resp. failure and positive blood culture. History of Any Multi-Drug Resistant Organisms: None Reported Past Surgical History: Section, Cholecystectomy, Heart Catheterization With Stent, Tubal Ligation Additional Past Surgical History / Comment(s): C-Sections x 3. PAIN CLINIC PROCEDURES Past Anesthesia/Blood Transfusion Reactions: Motion Sickness Date of Last Stent Placement:: 2003 Past Psychological History: Anxiety, Bipolar, Depression Smoking Status: Former smoker Past Alcohol Use History: None Reported Past Drug Use History: None Reported - Past Family History Father Family Medical History: AFIB Mother Family Medical History: AFIB, Diabetes Mellitus General Exam Limitations: no limitations General appearance: alert, in distress (vomiting) Head exam: Present: atraumatic, normocephalic, normal inspection Eye exam: Present: normal appearance, PERRL, EOMI. Absent: scleral icterus, conjunctival injection, periorbital swelling ENT exam: Present: normal exam, mucous membranes moist Neck exam: Present: normal inspection. Absent: tenderness, meningismus, lymphadenopathy Respiratory exam: Present: normal lung sounds bilaterally. Absent: respiratory distress, wheezes, rales, rhonchi, stridor Cardiovascular Exam: Present: regular rate, normal rhythm, normal heart sounds. Absent: systolic murmur, diastolic murmur, rubs, gallop, clicks GI/Abdominal exam: Present: soft, normal bowel sounds. Absent: distended, tenderness, guarding, rebound, rigid Extremities exam: Present: normal inspection, full ROM, normal capillary refill. Absent: tenderness, pedal edema, joint swelling, calf tenderness Back exam: Present: normal inspection Neurological exam: Present: alert, oriented X3, CN II-XII intact Psychiatric exam: Present: normal affect, normal mood Skin exam: Present: warm, dry, intact, normal color. Absent: rash Course Vital Signs 10/16/20 10/16/20 10/16/20 12:49 13:57 16:58 Temperature 98.3 F 98.2 F Pulse Rate 95 93 Pulse Rate [ 100 Right] Respiratory 18 18 20 Rate Blood Pressure 120/73 118/96 Blood Pressure 149/92 [Right Arm] O2 Sat by Pulse 95 93 L 90 L Oximetry 10/16/20 17:16 Temperature Pulse Rate 102 H Pulse Rate [ Right] Respiratory 18 Rate Blood Pressure 124/88 Blood Pressure [Right Arm] O2 Sat by Pulse 94 L Oximetry EKG Findings - EKG Comments: EKG Findings:: EKG demonstrates normal sinus rhythm with a ventricular rate of 96. DE interval 154. QRS E4. QTC of 467. No acute ST segment elevations. Minimal ST depression in V5 and V6 Medical Decision Making - Medical Decision Making Upon arrival patient is placed in room 16. Thorough history and physical exam was performed. Peripheral IV is established. The patient was given a dose of Zofran for nausea and morphine for pain control. Laboratory studies were conducted. With blood cell count was 14.1. Coronavirus is not detected. Urinalysis is not a clean catch. Chest x-ray demonstrates patchy bilateral infiltrate. CT of the patient's abdomen and pelvis demonstrates right lower lobe pneumonia. She was given a dose of Benadryl and Reglan for nausea. She is reevaluated and continues to have vomiting. Patient was given a dose of Zofran. Upon reevaluation the patient continues to remain nauseated with vomiting. Because of this I did recommend hospitalization reports patient did agree to. We'll cover the patient with antibiotics. Discussed case with Dr. Waterman who agreed to admit the patient. She remained in stable condition awaiting a bed - Lab Data Result diagrams: 10/17/20 05:27 10/17/20 05:27 Lab Results 10/16/20 10/16/20 10/16/20 Range/Units 13:20 13:20 13:20 WBC 14.1 H (3.8-10.6) k/uL RBC 3.68 L (3.80-5.40) m/uL Hgb 13.2 (11.4-16.0) gm/dL Hct 41.1 (34.0-46.0) % MCV 111.5 H (80.0-100.0) fL MCH 35.9 H (25.0-35.0) pg MCHC 32.2 (31.0-37.0) g/dL RDW 16.0 H (11.5-15.5) % Plt Count 308 (150-450) k/uL MPV 7.7 Neutrophils % 88 % Lymphocytes % 8 % Monocytes % 3 % Eosinophils % 0 % Basophils % 0 % Neutrophils # 12.4 H (1.3-7.7) k/uL Lymphocytes # 1.2 (1.0-4.8) k/uL Monocytes # 0.4 (0-1.0) k/uL Eosinophils # 0.0 (0-0.7) k/uL Basophils # 0.0 (0-0.2) k/uL Manual Slide Review Performed Polychromasia Present Poikilocytosis (manual Present Anisocytosis (manual) Present Macrocytosis Marked A Sodium 142 (137-145) mmol/L Potassium 3.6 (3.5-5.1) mmol/L Chloride 107 (98-107) mmol/L Carbon Dioxide 25 (22-30) mmol/L Anion Gap 10 mmol/L BUN 18 H (7-17) mg/dL Creatinine 0.54 (0.52-1.04) mg/dL Est GFR (CKD-EPI)AfAm >90 (>60 ml/min/1.73 sqM) Est GFR (CKD-EPI)NonAf >90 (>60 ml/min/1.73 sqM) Glucose 122 H (74-99) mg/dL Plasma Lactic Acid Jordi 1.1 (0.7-2.0) mmol/L Calcium 9.1 (8.4-10.2) mg/dL Total Bilirubin 0.8 (0.2-1.3) mg/dL AST 23 (14-36) U/L ALT 14 (4-34) U/L Alkaline Phosphatase 91 (38-126) U/L Troponin I (0.000-0.034) ng/mL NT-Pro-B Natriuret Pep pg/mL Total Protein 7.6 (6.3-8.2) g/dL Albumin 4.1 (3.5-5.0) g/dL Lipase 42 (23-300) U/L Urine Color Urine Appearance (Clear) Urine pH (5.0-8.0) Ur Specific [place] (1.001-1.035) Urine Protein (Negative) Urine Glucose (UA) (Negative) Urine Ketones (Negative) Urine Blood (Negative) Urine Nitrite (Negative) Urine Bilirubin (Negative) Urine Urobilinogen (<2.0) mg/dL Ur Leukocyte Esterase (Negative) Ur Squamous Epith Cells (0-4) /hpf Amorphous Sediment (None) /hpf Urine Mucus (None) /hpf Coronavirus (PCR) (Not Detectd) 10/16/20 10/16/20 10/16/20 Range/Units 13:20 13:20 13:34 WBC (3.8-10.6) k/uL RBC (3.80-5.40) m/uL Hgb (11.4-16.0) gm/dL Hct (34.0-46.0) % MCV (80.0-100.0) fL MCH (25.0-35.0) pg MCHC (31.0-37.0) g/dL RDW (11.5-15.5) % Plt Count (150-450) k/uL MPV Neutrophils % % Lymphocytes % % Monocytes % % Eosinophils % % Basophils % % Neutrophils # (1.3-7.7) k/uL Lymphocytes # (1.0-4.8) k/uL Monocytes # (0-1.0) k/uL Eosinophils # (0-0.7) k/uL Basophils # (0-0.2) k/uL Manual Slide Review Polychromasia Poikilocytosis (manual Anisocytosis (manual) Macrocytosis Sodium (137-145) mmol/L Potassium (3.5-5.1) mmol/L Chloride (98-107) mmol/L Carbon Dioxide (22-30) mmol/L Anion Gap mmol/L BUN (7-17) mg/dL Creatinine (0.52-1.04) mg/dL Est GFR (CKD-EPI)AfAm (>60 ml/min/1.73 sqM) Est GFR (CKD-EPI)NonAf (>60 ml/min/1.73 sqM) Glucose (74-99) mg/dL Plasma Lactic Acid Jordi (0.7-2.0) mmol/L Calcium (8.4-10.2) mg/dL Total Bilirubin (0.2-1.3) mg/dL AST (14-36) U/L ALT (4-34) U/L Alkaline Phosphatase (38-126) U/L Troponin I <0.012 (0.000-0.034) ng/mL NT-Pro-B Natriuret Pep 493 pg/mL Total Protein (6.3-8.2) g/dL Albumin (3.5-5.0) g/dL Lipase (23-300) U/L Urine Color Light Brown Urine Appearance Turbid H (Clear) Urine pH 6.0 (5.0-8.0) Ur Specific [place] 1.033 (1.001-1.035) Urine Protein 2+ H (Negative) Urine Glucose (UA) Negative (Negative) Urine Ketones 1+ H (Negative) Urine Blood Small H (Negative) Urine Nitrite Negative (Negative) Urine Bilirubin Negative (Negative) Urine Urobilinogen <2.0 (<2.0) mg/dL Ur Leukocyte Esterase Negative (Negative) Ur Squamous Epith Cells 12 H (0-4) /hpf Amorphous Sediment Many H (None) /hpf Urine Mucus Many H (None) /hpf Coronavirus (PCR) (Not Detectd) 10/16/20 Range/Units 15:05 WBC (3.8-10.6) k/uL RBC (3.80-5.40) m/uL Hgb (11.4-16.0) gm/dL Hct (34.0-46.0) % MCV (80.0-100.0) fL MCH (25.0-35.0) pg MCHC (31.0-37.0) g/dL RDW (11.5-15.5) % Plt Count (150-450) k/uL MPV Neutrophils % % Lymphocytes % % Monocytes % % Eosinophils % % Basophils % % Neutrophils # (1.3-7.7) k/uL Lymphocytes # (1.0-4.8) k/uL Monocytes # (0-1.0) k/uL Eosinophils # (0-0.7) k/uL Basophils # (0-0.2) k/uL Manual Slide Review Polychromasia Poikilocytosis (manual Anisocytosis (manual) Macrocytosis Sodium (137-145) mmol/L Potassium (3.5-5.1) mmol/L Chloride (98-107) mmol/L Carbon Dioxide (22-30) mmol/L Anion Gap mmol/L BUN (7-17) mg/dL Creatinine (0.52-1.04) mg/dL Est GFR (CKD-EPI)AfAm (>60 ml/min/1.73 sqM) Est GFR (CKD-EPI)NonAf (>60 ml/min/1.73 sqM) Glucose (74-99) mg/dL Plasma Lactic Acid Jordi (0.7-2.0) mmol/L Calcium (8.4-10.2) mg/dL Total Bilirubin (0.2-1.3) mg/dL AST (14-36) U/L ALT (4-34) U/L Alkaline Phosphatase (38-126) U/L Troponin I (0.000-0.034) ng/mL NT-Pro-B Natriuret Pep pg/mL Total Protein (6.3-8.2) g/dL Albumin (3.5-5.0) g/dL Lipase (23-300) U/L Urine Color Urine Appearance (Clear) Urine pH (5.0-8.0) Ur Specific [place] (1.001-1.035) Urine Protein (Negative) Urine Glucose (UA) (Negative) Urine Ketones (Negative) Urine Blood (Negative) Urine Nitrite (Negative) Urine Bilirubin (Negative) Urine Urobilinogen (<2.0) mg/dL Ur Leukocyte Esterase (Negative) Ur Squamous Epith Cells (0-4) /hpf Amorphous Sediment (None) /hpf Urine Mucus (None) /hpf Coronavirus (PCR) Not Detected (Not Detectd) Disposition Clinical Impression: Abdominal pain, Nausea & vomiting Disposition: ADMITTED IP TO THIS [facility] Condition: Stable Is patient prescribed a controlled substance at d/c from ED?: No Decision to Admit Reason: Admit from EC Decision Date: 10/16/20 Decision Time: 16:30
[2020-10-16] MEDS ORDERED: METOCLOPRAMIDE 5 MG/ML 2 ML VIAL IVP STA (15:25)
[2020-10-16] MEDS ORDERED: diphenhydrAMINE 50 MG/ML 1 ML VIAL IVP STA (15:25)
[2020-10-16 15:26] LABS: Amorphous Sediment,Urine Many /hpf; Appearance,Urine Turbid (Clear); Bilirubin,Urine Negative (Negative); Blood,Urine Small (Negative); Color,Urine Light Brown; Glucose,Urine (UA) Negative (Negative); Ketones,Urine 1+ (Negative); Leukocyte Esterase,Urine Negative (Negative); Mucus,Urine Many /hpf; Nitrite,Urine Negative (Negative); Protein,Urine 2+ (Negative); Specific Gravity,Urine 1.033 (1.001-1.035); Squamous Epithelial Cell,Urine 12 /hpf (0-4); Urobilinogen,Urine <2.0 mg/dL (<2.0)
--- NOTE | 2020-10-16 15:47 | CT ---
EXAMINATION TYPE: CT abdomen pelvis w con DATE OF EXAM: 10/16/2020 COMPARISON: Prior CT 05/17/2020 HISTORY: Nausea/vomiting CT DLP: 1988.1 mGycm Automated exposure control for dose reduction was used. TECHNIQUE: Helical acquisition of images from the lung bases through the pelvis have been completed. CONTRAST: Performed without Oral Contrast and with IV Contrast, patient injected with 100 mL of Isovue 300. FINDINGS: 1 fluid-filled distal esophagus is noted, circumferential metallic density is present, ashley elate for any history of surgery. Right inguinal hernia is present containing fat LUNG BASES: There is airspace disease at the right lung base. No pleural or pericardial effusion. AORTA: No significant abnormality is appreciated. LIVER/GB: No significant interval change is appreciated, cysts present within the right lobe, patient is post cholecystectomy. PANCREAS: No significant abnormality is seen. SPLEEN: No significant abnormality is seen. ADRENALS: No significant abnormality is seen. KIDNEYS: No significant abnormality is seen. REPRODUCTIVE ORGANS: No significant abnormality is seen BOWEL: No significant abnormality is seen. FREE AIR: No Free Air visible. ASCITES: None visible. PELVIC ADENOPATHY: None visualized. RETROPERITONEAL ADENOPATHY: No Retroperitoneal Adenopathy visible. URINARY BLADDER: No significant abnormality is seen. OSSEOUS STRUCTURES: No significant abnormality is seen. IMPRESSION: RIGHT LOWER LOBE PNEUMONIA. CORRELATE FOR HISTORY OF POSTOP CHANGE TO THE ESOPHAGUS, CONSIDER DIRECT VISUALIZATION INDICATED.
[2020-10-16] MEDS ORDERED: NALOXONE 0.4 MG/ML 1 ML VIAL IV PRN (16:34)
[2020-10-16] MEDS: SODIUM CHLORIDE 0.9% 1,000 ML IV SCH (17:53)
[2020-10-16] MEDS ORDERED: NICOTINE POLACRILEX 2 MG GUM BUCCAL PRN (20:29)
[2020-10-16] MEDS ORDERED: ALBUTEROL NEBULIZED 2.5 MG/3 ML INHALATION PRN (20:29)
[2020-10-16] MEDS: GABAPENTIN 400 MG CAP PO SCH (21:05)
[2020-10-16] MEDS: FLUoxetine HCL 20 MG CAP PO SCH (21:05)
[2020-10-16] MEDS: ONDANSETRON 4 MG/2 ML VIAL IVP PRN (21:05)
[2020-10-16] MEDS: ALPRAZolam 0.5 MG TAB PO SCH (21:05)
[2020-10-16] MEDS: diphenhydrAMINE 25 MG CAP PO SCH (21:06)
[2020-10-16] MEDS: TOPIRAMATE 25 MG TAB PO SCH (21:06)
[2020-10-16] MEDS: APIXABAN 5 MG TAB PO SCH (21:06)
[2020-10-16] MEDS: busPIRone HCl 10 MG TAB PO SCH (21:15)
[2020-10-16] MEDS: PRAMIPEXOLE 0.25 MG TAB PO SCH (21:16)
[2020-10-16] MEDS: PHENYTOIN SODIUM EXTENDED 100 MG CAP PO SCH (21:16)
[2020-10-16] MEDS: TOPIRAMATE 100 MG TAB PO SCH (21:16)
[2020-10-16] MEDS: QUEtiapine 100 MG TAB PO SCH (21:16)
[2020-10-17 05:50] LABS: Glucose,Whole Blood 82 mg/dL (75-99)
[2020-10-17] MEDS: ONDANSETRON 4 MG/2 ML VIAL IVP PRN (05:52)
[2020-10-17 06:22] LABS: Basophils % (A) 0 %; Eosinophils # (A) 0.1 k/uL (0-0.7); Eosinophils % (A) 1 %; HCT 38.6 % (34.0-46.0); HGB 12.6 gm/dL (11.4-16.0); Lymphocytes # (A) 1.8 k/uL (1.0-4.8); Lymphocytes % (A) 18 %; MCH 36.5 pg (25.0-35.0); MCHC 32.6 g/dL (31.0-37.0); Macrocytosis Marked; Mean Platelet Volume 7.4; Monocytes # (A) 0.4 k/uL (0-1.0); Monocytes % (A) 4 %; Neutrophils # (A) 7.6 k/uL (1.3-7.7); Neutrophils % (A) 75 %; Platelet Count 263 k/uL (150-450); RBC 3.45 m/uL (3.80-5.40); RDW 15.2 % (11.5-15.5); WBC 10.2 k/uL (3.8-10.6)
[2020-10-17 06:27] LABS: African American GFR (CKD) >90 (>60 ml/min/1.73 sqM); Anion Gap 5 mmol/L; Blood Urea Nitrogen 14 mg/dL (7-17); Calcium 8.7 mg/dL (8.4-10.2); Carbon Dioxide 30 mmol/L (22-30); Chloride 108 mmol/L (98-107); Glucose 83 mg/dL (74-99); Non-African American GFR(CKD) >90 (>60 ml/min/1.73 sqM); Potassium 3.9 mmol/L (3.5-5.1); Sodium 143 mmol/L (137-145)
[2020-10-17 06:39] LABS: MCV 112.1 fL (80.0-100.0)
[2020-10-17] MEDS: GABAPENTIN 400 MG CAP PO SCH ×3 (09:46→22:35)
[2020-10-17] MEDS: ASPIRIN 325 MG TAB PO SCH (09:47)
[2020-10-17] MEDS: amLODIPine 5 MG TAB PO SCH (09:47)
[2020-10-17] MEDS: ALPRAZolam 0.5 MG TAB PO SCH ×3 (09:47→22:38)
[2020-10-17] MEDS: PHENYTOIN SODIUM EXTENDED 100 MG CAP PO SCH ×2 (09:47→22:37)
[2020-10-17] MEDS: APIXABAN 5 MG TAB PO SCH ×2 (09:47→22:36)
[2020-10-17] MEDS: FLUoxetine HCL 20 MG CAP PO SCH ×2 (09:47→22:36)
[2020-10-17] MEDS: TOPIRAMATE 25 MG TAB PO SCH ×2 (09:47→22:42)
[2020-10-17] MEDS: METOPROLOL SUCCINATE (ER) 50 MG TAB.ER.24H PO SCH (09:47)
[2020-10-17] MEDS: busPIRone HCl 10 MG TAB PO SCH ×3 (09:49→22:38)
[2020-10-17] MEDS: TOPIRAMATE 100 MG TAB PO SCH ×2 (09:50→22:37)
[2020-10-17 11:14] LABS: Glucose,Whole Blood 89 mg/dL (75-99)
[2020-10-17] MEDS: SODIUM CHLORIDE 0.9% 1,000 ML IV SCH (15:17)
[2020-10-17 17:10] LABS: Glucose,Whole Blood 78 mg/dL (75-99)
[2020-10-17] MEDS: HYDROcodone/APAP 5-325MG 1 EACH TAB PO PRN (18:24)
--- NOTE | 2020-10-17 20:26 | HP ---
HISTORY AND PHYSICAL CHIEF COMPLAINT: Intractable nausea and vomiting and abdominal pain. HISTORY OF PRESENT ILLNESS: This is another admission for this 50-year-old obese white female with a history of hypertension, bipolar disorder, COPD, seizure disorder, general debility and failure to thrive. She presented to the emergency room with a 3- or 4-day history of crampy abdominal pain with nausea and vomiting. She was not febrile. She has had no hematemesis, melena, hematochezia, jaundice, etc. In the emergency room her white count was 14,100. BNP was slightly elevated at 493, but she was not particularly short of breath. REVIEW OF SYSTEMS: She denied any focal neurologic deficits, headaches, hemoptysis, orthopnea, PND, chills, fever, dysuria, flank pain, incontinence, renal failure, etc. Past medical history, family history, and personal and social histories reveal that she is on: 1. Amlodipine 5 mg once a day. 2. Topamax 50 mg twice a day. 3. Eliquis 5 mg twice a day. 4. Montelukast 10 mg once a day. 5. BuSpar 30 mg t.i.d. p.r.n. 6. Xanax 0.5 t.i.d. p.r.n. 7. ProAir HFA. 8. Levothyroxine 0.025 once a day. 9. Imitrex p.r.n. 10.Quetiapine 300 mg at bedtime. 11.Nicotine gum. 12.Fluoxetine 40 mg once a day. 13.Lasix 20 mg once a day. 14.Updrafts with DuoNeb. 15.Dilantin 200 mg in the morning and 300 at night. 16.Keppra 750 mg t.i.d. 17.Metoprolol 50 mg once a day. 18.Vitamin D. 19.Gabapentin 800 mg 4 times a day. 20.Pramipexole 0.25 mg at bedtime. 21.Vicodin 5 once a day as needed. ALLERGIES: CHANTIX, NSAIDs, PENICILLIN and LASIX. She denies current smoking and she does not abuse alcohol. PHYSICAL EXAMINATION: Blood pressure 134/78 with a pulse of 92, respirations 35, and she is afebrile. In general she appeared to be weak, pale and dehydrated. She was obese. Head, ears, eyes, nose, mouth and throat were normal except for dry mucous membranes. Neck veins could not be assessed. Chest was clear to auscultation. Cardiac exam demonstrated sinus tachycardia. Abdomen was protuberant, soft and nontender without any masses. Bowel sounds were present. Extremities were normal. Neurologically she was intact. She is admitted to the hospital with the diagnoses: 1. Intractable nausea and vomiting. 2. Dehydration. 3. Leukocytosis. 4. History of hypertension. 5. History of seizure disorder. 6. Bipolar disorder. 7. Chronic obstructive pulmonary disease. 8. History of congestive heart failure. PLAN: 1. Bedrest. 2. IV fluids. 3. Antiemetics. 4. Rehydration. MMODL / IJN: [id number] /
--- NOTE | 2020-10-17 20:35 | PN ---
PROGRESS NOTE DATE OF SERVICE: 10/17/2020 CHIEF COMPLAINT: Abdominal pain and intractable nausea and vomiting. HISTORY OF PRESENT ILLNESS: This lady is doing slightly better. She is not running a fever. She still has crampy pain, but she has not been vomiting. PHYSICAL EXAMINATION: Chest is clear. The cardiac exam is normal. Abdomen is protuberant, soft and nontender. Bowel sounds are present. IMPRESSION: 1. Intractable nausea and vomiting. 2. Dehydration. 3. Probable viral gastroenteritis. PLAN: Continue with IV fluids and advance diet. MMODL / IJN: [id number] /
[2020-10-17] MEDS: diphenhydrAMINE 25 MG CAP PO SCH (22:36)
[2020-10-17] MEDS: QUEtiapine 100 MG TAB PO SCH (22:37)
[2020-10-17] MEDS: PRAMIPEXOLE 0.25 MG TAB PO SCH (22:37)
[2020-10-17 23:47] LABS: Glucose,Whole Blood 103 mg/dL (75-99)
[2020-10-18] MEDS: HYDROcodone/APAP 5-325MG 1 EACH TAB PO PRN (01:14)
[2020-10-18] MEDS: GABAPENTIN 400 MG CAP PO SCH ×3 (01:14→13:20)
[2020-10-18 06:14] LABS: Glucose,Whole Blood 104 mg/dL (75-99)
[2020-10-18] MEDS: TOPIRAMATE 25 MG TAB PO SCH (09:15)
[2020-10-18] MEDS: amLODIPine 5 MG TAB PO SCH (09:15)
[2020-10-18] MEDS: APIXABAN 5 MG TAB PO SCH (09:15)
[2020-10-18] MEDS: FLUoxetine HCL 20 MG CAP PO SCH (09:15)
[2020-10-18] MEDS: ASPIRIN 325 MG TAB PO SCH (09:15)
[2020-10-18] MEDS: METOPROLOL SUCCINATE (ER) 50 MG TAB.ER.24H PO SCH (09:15)
[2020-10-18] MEDS: busPIRone HCl 10 MG TAB PO SCH (09:16)
[2020-10-18] MEDS: ALPRAZolam 0.5 MG TAB PO SCH (09:16)
[2020-10-18] MEDS: PHENYTOIN SODIUM EXTENDED 100 MG CAP PO SCH (09:17)
[2020-10-18] MEDS: TOPIRAMATE 100 MG TAB PO SCH (09:18)
[2020-10-18 10:50] VITALS: BP 151/82; PULSE 62; RESP 20; TEMP 98
[2020-10-18 11:49] LABS: Glucose,Whole Blood 94 mg/dL (75-99)
[2020-10-18] MEDS: SODIUM CHLORIDE 0.9% 1,000 ML IV SCH (12:45)
--- NOTE | 2020-10-18 19:42 | DS ---
DISCHARGE SUMMARY DATE OF SERVICE: 10/18/2020 CHIEF COMPLAINT: Nausea, vomiting and dehydration. HISTORY OF PRESENT ILLNESS AND PHYSICAL EXAMINATION: Details of this lady's history and physical can be found in the initial workup. LABORATORY STUDIES: When she was in the hospital she had laboratory studies, details of which can be found in the laboratory section of her chart. COURSE IN THE HOSPITAL: After admission she was placed on bedrest, started on intravenous fluids, and she was rehydrated. She was given antiemetics and her nausea stopped. Diet was advanced and she was doing well. It was felt that she could go home on October 18. She will go home on her usual activity, diet and her regular medications. She will follow up in the office in several days. FINAL DIAGNOSES: 1. Intractable nausea and vomiting. 2. Viral gastroenteritis. 3. Dehydration. 4. History of congestive heart failure. OPERATIONS: None. CONSULTATIONS: None. She is improved. MMJAVI / ANGELA: [id number] /
== END 2020-10-18 14:11 | disposition home or self-care (01) ==
LOC: EC 12:40 → 1SOBS 16:35
PROVIDERS: ADMIT Family Medicine; ATTEND Family Medicine
DX: A08.4 Viral intestinal infection, unspecified (principal); E86.0 Dehydration; I11.0 Hypertensive heart disease with heart failure; I50.9 Heart failure, unspecified; E66.9 Obesity, unspecified; Z68.41 Body mass index [BMI] 40.0-44.9, adult; J44.9 Chronic obstructive pulmonary disease, unspecified; G40.909 Epilepsy, unspecified, not intractable, without status epilepticus; R62.7 Adult failure to thrive; R53.81 Other malaise; E03.9 Hypothyroidism, unspecified; G43.909 Migraine, unspecified, not intractable, without status migrainosus; G89.29 Other chronic pain; M54.5 Low back pain; F41.9 Anxiety disorder, unspecified; F31.9 Bipolar disorder, unspecified; I25.10 Atherosclerotic heart disease of native coronary artery without angina pectoris; T75.3XXA Motion sickness, initial encounter; Z79.899 Other long term (current) drug therapy; Z79.01 Long term (current) use of anticoagulants; Z79.890 Hormone replacement therapy; Z79.891 Long term (current) use of opiate analgesic; Z88.8 Allergy status to other drugs, medicaments and biological substances; Z88.0 Allergy status to penicillin; D72.829 Elevated white blood cell count, unspecified; I48.91 Unspecified atrial fibrillation; Z79.82 Long term (current) use of aspirin; Z91.040 Latex allergy status; Z86.73 Personal history of transient ischemic attack (TIA), and cerebral infarction without residual deficits; Z87.11 Personal history of peptic ulcer disease; Z99.81 Dependence on supplemental oxygen; Z90.49 Acquired absence of other specified parts of digestive tract; Z87.09 Personal history of other diseases of the respiratory system; Z87.891 Personal history of nicotine dependence; Z20.828 Contact with and (suspected) exposure to other viral communicable diseases; Z83.3 Family history of diabetes mellitus; Z82.49 Family history of ischemic heart disease and other diseases of the circulatory system
CPT/HCPCS: 96365; 96366; 96376 ×2; 96375; 99285; 36415; 93005; 80186; 83880; 80053; 80048; 83605; 83690; 84484; 85025 ×2; 81001; 87635; 71046; 74177; G0378 ×3; J1200; J2765; J2405 ×2; J0696; Q9967

== ENCOUNTER 2020-10-26 20:23 | Observation (INO) | payer OTHER ==
--- NOTE | 2020-10-26 20:58 | ED ---
General Adult HPI - General Chief complaint: Shortness of Breath Stated complaint: SOB Time Seen by Provider: 10/26/20 20:42 Source: EMS Mode of arrival: EMS Limitations: no limitations - History of Present Illness Initial comments: Dictation was produced using Zoomph dictation software. please excuse any grammatical, word or spelling errors. This patient was cared for during a federal and state declared state of emergency secondary to Covid 19 Chief Complaint: 50-year-old female presents to the emergency department for weakness, difficulty in breathing and episode of unresponsiveness. History of Present Illness: 50-year-old female she is obese. She wears oxygen at home chronically. She smokes or nasal cannula at 3-4 L. She is also supposed be on CPAP whenever she sleeps. Patient was found at home without her oxygen sleeping. Not been using her oxygen and has not been compliant with her CPAP machine. She is found to be unresponsive at home. EMS, patient is brought to the emergency department. Patient is a poor historian. She is very sleepy at bedside. She does state that she feels mildly short of breath. She denies any numbness to any paresthesias. No chest pain or pain complaints. The ROS documented in this emergency department record has been reviewed and confirmed by me. Those systems with pertinent positive or negative responses have been documented in the HPI. All other systems are other negative and/or noncontributory. PHYSICAL EXAM: General Impression: Alert and oriented x3, sleepy, obese HEENT: Normocephalic atraumatic, extra-ocular movements intact, pupils equal and reactive to light bilaterally, mucous membranes moist. Cardiovascular: Heart regular rate and rhythm Chest: Able to complete full sentences, no retractions, no tachypnea, auscultation to the lungs limited secondary to body habitus Abdomen: abdomen soft, non-tender, non-distended, no organomegaly Musculoskeletal: Pulses present and equal in all extremities, no peripheral edema Motor: no focal deficits noted Neurological: CN II-XII grossly intact, no focal motor or sensory deficits noted Skin: Intact with no visualized rashes Psych: Normal affect and mood ED course: 50-year-old female presents to the emergency department for episode of unresponsiveness as upon arrival are within acceptable limits per she is 90% on 15 L nonrebreather. Patient was evaluated at bedside approximately 8:40 PM. She was taken off her nonrebreather placed on 3 L nasal cannula with good waveform and 96% oxygen. Laboratory evaluation obtained. Mild leukocytosis of 11 hemoglobin stable. Macrocytosis. PH is 7.28 with a pCO2 59. Metabolic panel is unremarkable. Ammonia level XLVI. Patient placed on CPAP for hypercarbia. She is given lactulose for ammonia. Patient be admitted. Case discussed reviewed and is willing to accept patients care. Pulmonology on consult. EKG interpretation: Ventricular rate 79, normal sinus rhythm, NH interval 172, QRS 84, QTC 447. No NH prolongation, no QTC prolongation, no ST or T-wave changes noted. Overall, this EKG is unremarkable - Related Data Home Medications Medication Instructions Recorded Confirmed Pramipexole [Mirapex] 0.25 mg PO HS 06/21/17 10/16/20 ALPRAZolam [Xanax] 0.5 mg PO TID 09/18/18 10/16/20 Phenytoin Sodium Extended 300 mg PO HS 02/15/19 10/16/20 [Dilantin] FLUoxetine HCL 40 mg PO BID 10/19/19 10/16/20 Gabapentin 800 mg PO QID 11/30/19 10/16/20 QUEtiapine FUMARATE [SEROquel] 300 mg PO HS 11/30/19 10/16/20 Albuterol Sulfate [Ventolin HFA] 2 puff INHALATION RT-QID PRN 03/16/20 10/16/20 Nicotine Polacrilex [Nicotine Gum] 4 mg BUCCAL Q2H PRN 03/16/20 10/16/20 Aspirin EC [Ecotrin] 325 mg PO DAILY 05/14/20 10/16/20 diphenhydrAMINE [Benadryl] 25 mg PO HS 05/14/20 10/16/20 Metoprolol Succinate (ER) [Toprol 50 mg PO DAILY 07/02/20 10/16/20 XL] amLODIPine [Norvasc] 5 mg PO DAILY 07/02/20 10/16/20 busPIRone HCL [Buspar] 30 mg PO TID 07/02/20 10/16/20 levETIRAcetam [Keppra] 750 mg PO TID 07/02/20 10/16/20 Topiramate [Topamax] 50 mg PO BID 09/09/20 10/16/20 Topiramate [Topamax] 100 mg PO BID 09/09/20 10/16/20 HYDROcodone/APAP 5-325MG [[place] 1 tab PO DAILY PRN 09/23/20 10/16/20 5-325] Phenytoin Sodium Extended 200 mg PO QAM 09/23/20 10/16/20 [Dilantin] SUMAtriptan SUCCINATE [Imitrex] 100 mg PO BID PRN 10/16/20 10/16/20 Previous Rx's Medication Instructions Recorded Apixaban [Eliquis] 5 mg PO BID #60 tab 09/12/20 Allergies Allergy/AdvReac Type Severity Reaction Status Date / Time ibuprofen [From Motrin] Allergy Rash/Hives Verified 10/26/20 22:04 Latex, Natural Rubber Allergy Rash/Hives Verified 10/26/20 22:04 naproxen [From Naprosyn] Allergy Unknown Verified 10/26/20 22:04 tramadol Allergy Rash/Hives Verified 10/26/20 22:04 Penicillins AdvReac Vomiting Verified 10/26/20 22:04 Review of Systems ROS Statement: Those systems with pertinent positive or pertinent negative responses have been documented in the HPI. ROS Other: All systems not noted in ROS Statement are negative. Past Medical History Past Medical History: COPD Additional Past Medical History / Comment(s): Pt uses home oxygen @ 4 L @ hs & prn, TIA, vertigo, bronchitis, gastric ulcer, seizure-last time 09/05/20, chronic low back pain/bulging discs, migraines, hypothyroid, hospitalized in May 2020 for acute resp. failure and positive blood culture. History of Any Multi-Drug Resistant Organisms: None Reported Past Surgical History: Section, Cholecystectomy, Heart Catheterization With Stent, Tubal Ligation Additional Past Surgical History / Comment(s): C-Sections x 3. PAIN CLINIC PROCEDURES Past Anesthesia/Blood Transfusion Reactions: Motion Sickness Date of Last Stent Placement:: 2003 Past Psychological History: Anxiety, Bipolar, Depression Smoking Status: Former smoker Past Alcohol Use History: None Reported Past Drug Use History: None Reported - Past Family History Father Family Medical History: AFIB Mother Family Medical History: AFIB, Diabetes Mellitus General Exam Limitations: no limitations Course Vital Signs 10/26/20 10/26/20 20:27 20:45 Temperature 99.3 F Pulse Rate 79 Respiratory 20 20 Rate Blood Pressure 116/70 O2 Sat by Pulse 98 Oximetry Medical Decision Making - Lab Data Result diagrams: 10/26/20 21:27 10/26/20 21:27 Lab Results 10/26/20 10/26/20 10/26/20 Range/Units 21: 21: 21: WBC 11.7 H (3.8-10.6) k/uL RBC 3.73 L (3.80-5.40) m/uL Hgb 14.0 (11.4-16.0) gm/dL Hct 42.6 (34.0-46.0) % MCV 114.0 H (80.0-100.0) fL MCH 37.6 H (25.0-35.0) pg MCHC 33.0 (31.0-37.0) g/dL RDW 15.5 (11.5-15.5) % Plt Count 321 (150-450) k/uL MPV 7.5 Hypochromasia Slight Macrocytosis Marked A VBG pH 7.28 L (7.31-7.41) VBG pCO2 59 H (37-51) mmHg VBG HCO3 27 (24-28) mmol/L Sodium 140 (137-145) mmol/L Potassium 4.0 (3.5-5.1) mmol/L Chloride 104 (98-107) mmol/L Carbon Dioxide 31 H (22-30) mmol/L Anion Gap 5 mmol/L BUN 5 L (7-17) mg/dL Creatinine 0.89 (0.52-1.04) mg/dL Est GFR (CKD-EPI)AfAm 87 (>60 ml/min/1.73 sqM) Est GFR (CKD-EPI)NonAf 75 (>60 ml/min/1.73 sqM) Glucose 135 H (74-99) mg/dL Calcium 8.6 (8.4-10.2) mg/dL Ammonia (<30) umol/L 10/26/20 Range/Units 21:27 WBC (3.8-10.6) k/uL RBC (3.80-5.40) m/uL Hgb (11.4-16.0) gm/dL Hct (34.0-46.0) % MCV (80.0-100.0) fL MCH (25.0-35.0) pg MCHC (31.0-37.0) g/dL RDW (11.5-15.5) % Plt Count (150-450) k/uL MPV Hypochromasia Macrocytosis VBG pH (7.31-7.41) VBG pCO2 (37-51) mmHg VBG HCO3 (24-28) mmol/L Sodium (137-145) mmol/L Potassium (3.5-5.1) mmol/L Chloride (98-107) mmol/L Carbon Dioxide (22-30) mmol/L Anion Gap mmol/L BUN (7-17) mg/dL Creatinine (0.52-1.04) mg/dL Est GFR (CKD-EPI)AfAm (>60 ml/min/1.73 sqM) Est GFR (CKD-EPI)NonAf (>60 ml/min/1.73 sqM) Glucose (74-99) mg/dL Calcium (8.4-10.2) mg/dL Ammonia 46 H (<30) umol/L Disposition Clinical Impression: Encephalopathy, Hypercarbia, Hyperammonemia Disposition: ADMITTED IP TO THIS HOSP Condition: Fair Referrals: Ty Aponte MD [Primary Care Provider] - 1-2 days Decision Time: 22:05
[2020-10-26 21:36] LABS: Basophils # (A) 0.1 k/uL (0-0.2); Basophils % (A) 0 %; Eosinophils % (A) 0 %; HCT 42.6 % (34.0-46.0); Hypochromasia Slight; Lymphocytes # (A) 0.9 k/uL (1.0-4.8); Lymphocytes % (A) 8 %; MCH 37.6 pg (25.0-35.0); Macrocytosis Marked; Mean Platelet Volume 7.5; Monocytes # (A) 0.5 k/uL (0-1.0); Monocytes % (A) 5 %; Neutrophils # (A) 10.1 k/uL (1.3-7.7); Neutrophils % (A) 86 %; Platelet Count 321 k/uL (150-450); RBC 3.73 m/uL (3.80-5.40); RDW 15.5 % (11.5-15.5); WBC 11.7 k/uL (3.8-10.6)
[2020-10-26 21:47] LABS: Calcium 8.6 mg/dL (8.4-10.2); VBG PH 7.28 (7.31-7.41)
[2020-10-26] MEDS ORDERED: LACTULOSE 20 GM/30 ML CUP PO ONE (21:55)
[2020-10-26] MEDS ORDERED: NALOXONE 0.4 MG/ML 1 ML VIAL IV PRN (22:01)
[2020-10-26] MEDS: SODIUM CHLORIDE 0.9% 1,000 ML IV SCH (22:17)
[2020-10-27] MEDS ORDERED: ALBUTEROL NEBULIZED 2.5 MG/3 ML INHALATION PRN (09:40)
--- NOTE | 2020-10-27 13:43 | P.CNPUL ---
History of Present Illness Consult date: 10/27/20 Requesting physician: Ty Aponte Reason for consult: COPD Chief complaint: Mental status change History of present illness: This is a 50-year-old female familiar to my service, known history of COPD, obesity, history of pulmonary embolism, patient has chronic hypoxic respiratory failure maintained on 3 L nasal cannula at home, and she is supposed to be on CPAP at night. Patient was found at home without her oxygen, patient has not been compliant with her oxygen or CPAP machine. Found unresponsive, EMS brought the patient to the ER, patient was very sleepy at the time. But she was awake lethargic, and could not give much history. Patient was placed briefly on CPAP, became more responsive, and shortly after she was transitioned to 4 L nasal cannula. She is presently on 4 L nasal cannula, O2 saturations 91%. Looking back at her previous admission, I saw this patient back on 09/09/20, NSR mostly for acute pulmonary embolism. Looking at my notes, the patient had COPD, she had chronic hypoxic respiratory failure usually maintained on 4 L nasal cannula, she has chronic atrial fibrillation, previous CVA, hypertension, history of seizure disorder. She is also known to have history of chronic pain syndrome. On her last admission, patient had to be placed on high flow nasal cannula, and eventually discharged home on 4 L nasal cannula. During her last admission, patient did have acute mental status change felt to be related to acute toxic metabolic encephalopathy and hypoxia on presentation. But her mental status improved significantly by the time she was discharged home. No documented seizures at home. Although the patient is known to have history of seizures and maintained on Keppra and phenytoin. Patient was supposed to be on Eliquis, she is on 5 mg twice a day, and I'm not certain whether the patient is compliant with any of her medications. During this admission, the patient had no chest x- ray, no CT of the chest, she was admitted mostly for observation overnight Review of Systems Constitutional: Mostly generalized weakness and chronic back pain. No fever no chills. HEENT: Negative. Pulmonary: As noted in HPI. Cardiac: Negative. GI: Negative. Genitourinary: Negative Musculoskeletal: Chronic low back pain being followed at the pain clinic. Skin: Negative. Neurologic: History of seizure disorder. Maintained on antiseizure medications. History of migraine cephalgia. Endocrine: No heat or cold intolerance. Psychiatric: No symptoms of active depression. Past Medical History Past Medical History: COPD Additional Past Medical History / Comment(s): Pt uses home oxygen @ 4 L @ hs & prn, TIA, vertigo, bronchitis, gastric ulcer, seizure-last time 09/05/20, chronic low back pain/bulging discs, migraines, hypothyroid, hospitalized in May 2020 for acute resp. failure and positive blood culture. History of Any Multi-Drug Resistant Organisms: None Reported Past Surgical History: Section, Cholecystectomy, Heart Catheterization With Stent, Tubal Ligation Additional Past Surgical History / Comment(s): C-Sections x 3. PAIN CLINIC PROCEDURES Past Anesthesia/Blood Transfusion Reactions: Motion Sickness Date of Last Stent Placement:: 2003 Past Psychological History: Anxiety, Bipolar, Depression Additional Psychological History / Comment(s): Pt resides with her 17 year old daughter. She uses a cane to ambulate. She does not drive, her sister or other family take her to appts. She has home oxygen and a nebulizer. Smoking Status: Never smoker Past Alcohol Use History: None Reported Additional Past Alcohol Use History / Comment(s): Pt started smoking in 1985 and quit in 2018, quit vaping 2019. Past Drug Use History: None Reported - Past Family History Father Family Medical History: AFIB Mother Family Medical History: AFIB, Diabetes Mellitus Medications and Allergies Home Medications Medication Instructions Recorded Confirmed Type Pramipexole [Mirapex] 0.25 mg PO HS 06/21/17 10/26/20 History ALPRAZolam [Xanax] 0.5 mg PO TID 09/18/18 10/26/20 History Phenytoin Sodium Extended 300 mg PO HS 02/15/19 10/26/20 History [Dilantin] FLUoxetine HCL 40 mg PO BID 10/19/19 10/26/20 History Gabapentin 800 mg PO QID 11/30/19 10/26/20 History QUEtiapine FUMARATE [SEROquel] 300 mg PO HS 11/30/19 10/26/20 History Nicotine Polacrilex [Nicotine Gum] 4 mg BUCCAL Q2H PRN 03/16/20 10/26/20 History Metoprolol Succinate (ER) [Toprol 50 mg PO DAILY 07/02/20 10/26/20 History XL] amLODIPine [Norvasc] 5 mg PO DAILY 07/02/20 10/26/20 History busPIRone HCL [Buspar] 30 mg PO TID 07/02/20 10/26/20 History levETIRAcetam [Keppra] 750 mg PO TID 07/02/20 10/26/20 History Topiramate [Topamax] 50 mg PO BID 09/09/20 10/26/20 History Topiramate [Topamax] 100 mg PO BID 09/09/20 10/26/20 History Apixaban [Eliquis] 5 mg PO BID #60 tab 09/12/20 10/26/20 Rx HYDROcodone/APAP 5-325MG [[place] 1 tab PO DAILY PRN 09/23/20 10/26/20 History 5-325] Phenytoin Sodium Extended 200 mg PO QAM 09/23/20 10/26/20 History [Dilantin] SUMAtriptan SUCCINATE [Imitrex] 100 mg PO BID PRN 10/16/20 10/26/20 History Albuterol Sulfate [Proair Hfa] 2 puff INHALATION RT-QID PRN 10/26/20 10/26/20 History Ergocalciferol [Vitamin D2] 50,000 unit PO Q30D 10/26/20 10/26/20 History Levothyroxine Sodium [Synthroid] 25 mcg PO DAILY 10/26/20 10/26/20 History Allergies Allergy/AdvReac Type Severity Reaction Status Date / Time ibuprofen [From Motrin] Allergy Rash/Hives Verified 10/26/20 22:04 Latex, Natural Rubber Allergy Rash/Hives Verified 10/26/20 22:04 naproxen [From Naprosyn] Allergy Unknown Verified 10/26/20 22:04 tramadol Allergy Rash/Hives Verified 10/26/20 22:04 Penicillins AdvReac Vomiting Verified 10/26/20 22:04 Physical Exam Vitals: Vital Signs Temp Pulse Pulse Resp BP BP Pulse Ox 10/27/20 08:46 98.1 F 67 16 103/47 91 L 10/27/20 03:00 97.9 F 74 16 112/77 95 10/27/20 01:15 98.8 F 76 16 109/75 96 10/27/20 00:39 74 16 112/77 95 10/27/20 00:00 75 19 106/74 94 L 10/26/20 22:56 99.0 F 78 18 101/74 93 L 10/26/20 22:00 80 20 98/75 91 L 10/26/20 20:45 20 10/26/20 20:27 99.3 F 79 20 116/70 98 Intake and Output 10/26/20 10/27/20 10/27/20 22:59 06:59 14:59 Intake Total 500 360 Balance 500 360 Intake: Intake, IV Titration 500 Amount Sodium Chloride 0.9% 1, 500 000 ml @ 20 mls/hr IV . Q24H [facility] Rx#:[id number] Oral 360 Other: Voiding Method Bedpan Toilet # Voids 1 # Bowel Movements 1 Weight 104.326 kg 104.326 kg GENERAL EXAM: Revealed a 49-year-old female in no distress. Head: Atraumatic, normocephalic. EENT: PERRLA, EOMI, no icterus, no neck masses, no JVD, no stridor. CHEST: No chest wall deformity. Symmetrical expansion. LUNGS: Equal air entry with no crackles, wheeze, rhonchi or dullness. CVS: Regular rate and rhythm, normal S1 and S2, no gallops, no murmurs, no rubs ABDOMEN: Soft, nontender. No hepatosplenomegaly, normal bowel sounds, no guarding or rigidity. EXTREMITIES: No clubbing, no edema, no cyanosis, 2+ pulses and upper and lower extremities. MUSCULOSKELETAL: Muscle strength and tone normal. SPINE: No scoliosis or deformity SKIN: No rashes CENTRAL NERVOUS SYSTEM: Alert and oriented -3. No focal deficits, tone is normal in all 4 extremities. PSYCHIATRIC: Alert and oriented -3. Appropriate affect. Intact judgment and insight. Results - Laboratory Findings CBC and BMP: 10/26/20 21:27 10/26/20 21:27 Abnormal lab findings: Abnormal Labs 10/26/20 10/26/20 10/26/20 21:27 21:27 21:27 WBC 11.7 H RBC 3.73 L MCV 114.0 H MCH 37.6 H Neutrophils # 10.1 H Lymphocytes # 0.9 L Macrocytosis Marked A VBG pH 7.28 L VBG pCO2 59 H Carbon Dioxide 31 H BUN 5 L Glucose 135 H Ammonia 12/19/20 21:27 WBC RBC MCV MCH Neutrophils # Lymphocytes # Macrocytosis VBG pH VBG pCO2 Carbon Dioxide BUN Glucose Ammonia 46 H Assessment and Plan Assessment: Acute on chronic hypoxic respiratory failure , mostly because of noncompliance with her oxygen. Acute mental status change, most likely secondary to acute toxic metabolic encephalopathy secondary to hypoxia on presentation. History of COPD. Presently inactive. History of chronic atrial fibrillation. History of coronary artery disease and history of diastolic congestive heart failure. Chronic diastolic congestive heart failure. Dyslipidemia. History of hypertension. History of seizure disorder. History of chronic low back pain. History of hypothyroidism. Recommendation: Patient is to be resumed on her home meds. Resume anticoagulations therapy. Resume oxygen therapy. Resume bronchodilators. Resume seizure medications. Consider discharge planning in the next 24 hours. Considering the patient is noncompliant, may have to consider placement on this patient, and I will strongly suggest licensed master social worker evaluation. Time with Patient: Greater than 30
[2020-10-27] MEDS: FLUoxetine HCL 20 MG CAP PO SCH (20:18)
[2020-10-27] MEDS: APIXABAN 5 MG TAB PO SCH (20:18)
[2020-10-27] MEDS ORDERED: PHENYTOIN SODIUM EXTENDED 100 MG CAP PO SCH (21:00)
[2020-10-27] MEDS: SODIUM CHLORIDE 0.9% 1,000 ML IV SCH (21:01)
[2020-10-28] MEDS ORDERED: LEVOTHYROXINE 25 MCG TAB PO SCH (06:30)
--- NOTE | 2020-10-28 08:23 | P.PN ---
Subjective Progress Note Date: 10/28/20 Principal diagnosis: Acute on chronic hypercapnic respiratory failure This is a 50-year-old female familiar to my service, known history of COPD, obesity, history of pulmonary embolism, patient has chronic hypoxic respiratory failure maintained on 3 L nasal cannula at home, and she is supposed to be on CPAP at night. Patient was found at home without her oxygen, patient has not been compliant with her oxygen or CPAP machine. Found unresponsive, EMS brought the patient to the ER, patient was very sleepy at the time. But she was awake lethargic, and could not give much history. Patient was placed briefly on CPAP, became more responsive, and shortly after she was transitioned to 4 L nasal cannula. She is presently on 4 L nasal cannula, O2 saturations 91%. Looking back at her previous admission, I saw this patient back on 09/09/20, NSR mostly for acute pulmonary embolism. Looking at my notes, the patient had COPD, she had chronic hypoxic respiratory failure usually maintained on 4 L nasal cannula, she has chronic atrial fibrillation, previous CVA, hypertension, history of seizure disorder. She is also known to have history of chronic pain syndrome. On her last admission, patient had to be placed on high flow nasal cannula, and eventually discharged home on 4 L nasal cannula. During her last admission, patient did have acute mental status change felt to be related to acute toxic metabolic encephalopathy and hypoxia on presentation. But her mental status improved significantly by the time she was discharged home. No documented seizures at home. Although the patient is known to have history of seizures and maintained on Keppra and phenytoin. Patient was supposed to be on Eliquis, she is on 5 mg twice a day, and I'm not certain whether the patient is compliant with any of her medications. During this admission, the patient had no chest x-ray, no CT of the chest, she was admitted mostly for observation overnight On 10/28/2020 patient was seen in reevaluation in observation unit, she is awake and alert, she is currently on 4 L of oxygen. She did wear a CPAP at night, the pressure of 15 cm of water, she has been switched over to 4 L of oxygen and this is when she wears at home on a regular basis, she is awake and alert, oriented 3, in no acute distress, lung sounds are clear to auscultation, no rhonchi or wheezes, she's had no acute events overnight, no cough or congestion. Chest x- ray is pending. Morning level is pending. Objective - Vital Signs Vital signs: Vital Signs Temp 97.3 F L 10/28/20 03:10 Pulse 56 L 10/28/20 03:10 Resp 16 10/27/20 14:29 BP 114/80 10/28/20 03:10 Pulse Ox 95 10/28/20 03:10 Intake & Output 10/27/20 10/28/20 10/28/20 18:59 06:59 18:59 Intake Total 600 300 Balance 600 300 Intake: Oral 600 300 Other: Voiding Method Toilet Toilet # Voids 1 1 # Bowel Movements 1 - Exam GENERAL EXAM: Alert, pleasant, 50-year-old obese white female on 4 L of oxygen comfortable in no apparent distress. HEAD: Normocephalic/atraumatic. EYES: Normal reaction of pupils, equal size. Conjunctiva pink, sclera white. NOSE: Clear with pink turbinates. THROAT: No erythema or exudates. NECK: No masses, no JVD, no thyroid enlargement, no adenopathy. CHEST: No chest wall deformity. Symmetrical expansion. LUNGS: Equal air entry with no crackles, wheeze, rhonchi or dullness. CVS: Regular rate and rhythm, normal S1 and S2, no gallops, no murmurs, no rubs ABDOMEN: Soft, nontender. No hepatosplenomegaly, normal bowel sounds, no guarding or rigidity. EXTREMITIES: No clubbing, no edema, no cyanosis, 2+ pulses and upper and lower extremities. MUSCULOSKELETAL: Muscle strength and tone normal. SPINE: No scoliosis or deformity SKIN: No rashes CENTRAL NERVOUS SYSTEM: Alert and oriented -3. No focal deficits, tone is normal in all 4 extremities. PSYCHIATRIC: Alert and oriented -3. Appropriate affect. Intact judgment and insight. - Labs CBC & Chem 7: 10/26/20 21:27 10/26/20 21:27 Assessment and Plan Plan: Acute on chronic hypoxic respiratory failure , mostly because of noncompliance with her oxygen. Acute mental status change, most likely secondary to acute toxic metabolic encephalopathy secondary to hypoxia on presentation. History of COPD. Presently inactive. History of chronic atrial fibrillation. History of coronary artery disease and history of diastolic congestive heart failure. Chronic diastolic congestive heart failure. Dyslipidemia. History of hypertension. History of seizure disorder. History of chronic low back pain. History of hypothyroidism. Plan: Patient is awake and alert, she did wear her CPAP at night, she is back on 4 L of oxygen, and this is what she usually wears at home, chest x-ray will be obtained, ammonia level will be obtained. If they are within normal limits patient can be considered for discharge home today from pulmonary perspective. Will need outpatient follow-up with Dr. Nogueira in the office in 7-10 days I performed a history & physical examination of the patient and discussed their management with my nurse practitioner, Johanna Tsang. I reviewed the nurse practitioner's note and agree with the documented findings and plan of care. Lung sounds are positive for diminished breath sounds. The findings and the impression was discussed with the patient. I attest to the documentation by the nurse practitioner. Time with Patient: Less than 30
[2020-10-28] MEDS: APIXABAN 5 MG TAB PO SCH (08:43)
[2020-10-28] MEDS: FLUoxetine HCL 20 MG CAP PO SCH (08:43)
--- NOTE | 2020-10-28 08:47 | XR ---
EXAMINATION TYPE: XR chest 1V portable DATE OF EXAM: 10/28/2020 COMPARISON: Prior chest x-ray 10/16/2020 HISTORY: Shortness of breath TECHNIQUE: Single frontal view of the chest is obtained. FINDINGS: There is no pleural effusion or pneumothorax seen. Patchy basilar density is present but l ikely improved. The cardiac silhouette size is stable. The osseous structures are intact. IMPRESSION: There is some improvement in aeration.
[2020-10-28] MEDS ORDERED: PHENYTOIN SODIUM EXTENDED 100 MG CAP PO SCH (09:00)
[2020-10-28 14:27] VITALS: BP 115/65; PULSE 66; RESP 16; TEMP 98.4
--- NOTE | 2020-10-28 19:52 | HP ---
HISTORY AND PHYSICAL CHIEF COMPLAINT: Lethargy, shortness of breath, congestive heart failure and respiratory failure. HISTORY OF PRESENT ILLNESS: This is another admission for this 50-year-old obese white female. She apparently was found at home unresponsive. She was without her usual nasal oxygen. She is also known to take a significant amount of medications, which may have been a factor in her lethargy and drowsiness. REVIEW OF SYSTEMS: Unobtainable. Past medical history, family history, and personal and social histories are unchanged from her recent admitting and discharge summaries. She has takes numerous medications for various problems, including COPD, seizure disorder, obesity, hypertension, depression, arthritis, COPD, history of pulmonary embolism, congestive heart failure and probable pickwickian syndrome. She is on numerous medications, including levothyroxine, Lomotil, Zofran, aspirin, gabapentin, Xanax, pramipexole, amlodipine, topiramate, Eliquis, BuSpar, ProAir HFA, Seroquel, fluoxetine, DuoNeb, Dilantin, metoprolol and vitamin D. She has numerous ALLERGIES, INCLUDING CHANTIX, NSAIDS, LASIX AND PENICILLIN. She is a former smoker and she does not drink. PHYSICAL EXAMINATION: Blood pressure is 100/55 with a pulse of 64, respirations of 8, and she is semi-alert. She is overweight. Skin is dry and skin color is normal. Head, ears, eyes, nose, mouth and throat are normal. Neck veins cannot be assessed. Chest demonstrates shallow breath sounds with bradycardia. The abdomen is protuberant, soft and nontender without visceromegaly or masses. Bowel sounds are present. Extremities are normal. Neurologically she is lethargic but intact. She is admitted to the hospital with the diagnoses: 1. Hypoxia. 2. Coma. 3. Lethargy. 4. Mental status changes. 5. Obesity. 6. Congestive heart failure. 7. Pickwickian syndrome. 8. History of seizure disorder. 9. Chronic obstructive pulmonary disease. PLAN: 1. Bedrest. 2. IV fluids. 3. Withhold sedatives. 4. Nasal oxygen. MMODL / IJN: [id number] /
--- NOTE | 2020-10-28 19:54 | PN ---
PROGRESS NOTE DATE OF SERVICE: 10/27/2020 CHIEF COMPLAINT: Lethargy and hypoxia with congestive heart failure. HISTORY OF PRESENT ILLNESS: This lady is becoming a little bit more awake and alert. She denies any headaches, neurologic problems, chest pain, etc. PHYSICAL EXAMINATION: Her vital signs are normal. Breath sounds are shallow, but they are clear. Cardiac exam is normal. Abdomen is protuberant, soft and nontender. IMPRESSION: Lethargy, mental status changes, respiratory insufficiency. PLAN: 1. Continue with IV fluids. 2. Continue to withhold anything likely to make her more sedated. 3. Increase activity. 4. Probably home tomorrow. MMODL / IJN: [id number] /
--- NOTE | 2020-10-28 21:59 | DS ---
DISCHARGE SUMMARY DATE OF SERVICE: 10/28/2020 CHIEF COMPLAINT: Lethargy and hypoxia. HISTORY OF PRESENT ILLNESS AND PHYSICAL EXAMINATION: Details of this lady's history and physical can be found in the initial workup. LABORATORY STUDIES: While she was in the hospital she had laboratory studies, details of which can be found in the laboratory section of her chart. COURSE IN THE HOSPITAL: After admission she was placed on bedrest and started intravenous fluids and nasal oxygen. Some of her medications were withheld and she became much more awake and alert. She was doing well and it was felt that she could be discharged home on 10/28/2020. She will go home without some of the medications that did make her groggy. We will see her in several days. FINAL DIAGNOSES: 1. Lethargy. 2. Hypoxia. 3. Respiratory failure. 4. Obesity. 5. Pickwickian syndrome. 6. Congestive heart failure. 7. History of seizure disorder. 8. History of pulmonary embolism. OPERATIONS: None. CONSULTATIONS: None. She is improved. AMAURY / RENEN: [id number] /
== END 2020-10-28 16:42 | disposition home health service (06) ==
LOC: EC 20:23 → 1SOBS 22:02
PROVIDERS: ADMIT Family Medicine; ATTEND Family Medicine
DX: J96.21 Acute and chronic respiratory failure with hypoxia (principal); J96.22 Acute and chronic respiratory failure with hypercapnia; E72.20 Disorder of urea cycle metabolism, unspecified; Z91.19 Patient's noncompliance with other medical treatment and regimen; E66.2 Morbid (severe) obesity with alveolar hypoventilation; Z68.41 Body mass index [BMI] 40.0-44.9, adult; Z99.81 Dependence on supplemental oxygen; D72.829 Elevated white blood cell count, unspecified; I48.20 Chronic atrial fibrillation, unspecified; I25.10 Atherosclerotic heart disease of native coronary artery without angina pectoris; E78.5 Hyperlipidemia, unspecified; F31.9 Bipolar disorder, unspecified; D75.89 Other specified diseases of blood and blood-forming organs; J44.9 Chronic obstructive pulmonary disease, unspecified; Z86.73 Personal history of transient ischemic attack (TIA), and cerebral infarction without residual deficits; R42 Dizziness and giddiness; R41.82 Altered mental status, unspecified; G89.4 Chronic pain syndrome; G40.909 Epilepsy, unspecified, not intractable, without status epilepticus; Z86.711 Personal history of pulmonary embolism; I11.0 Hypertensive heart disease with heart failure; I50.32 Chronic diastolic (congestive) heart failure; Z87.09 Personal history of other diseases of the respiratory system; Z87.11 Personal history of peptic ulcer disease; M54.5 Low back pain; G43.909 Migraine, unspecified, not intractable, without status migrainosus; E03.9 Hypothyroidism, unspecified; Z90.49 Acquired absence of other specified parts of digestive tract; Z98.891 History of uterine scar from previous surgery; Z95.5 Presence of coronary angioplasty implant and graft; Z98.51 Tubal ligation status; Z98.890 Other specified postprocedural states; F41.9 Anxiety disorder, unspecified; Z87.891 Personal history of nicotine dependence; Z82.49 Family history of ischemic heart disease and other diseases of the circulatory system; Z83.3 Family history of diabetes mellitus; Z79.890 Hormone replacement therapy; Z79.01 Long term (current) use of anticoagulants; Z79.82 Long term (current) use of aspirin; Z79.899 Other long term (current) drug therapy; Z88.5 Allergy status to narcotic agent; Z88.0 Allergy status to penicillin; Z88.6 Allergy status to analgesic agent; Z91.040 Latex allergy status; Z88.8 Allergy status to other drugs, medicaments and biological substances
CPT/HCPCS: 99285; 36415; 94660 ×2; 93005; 80048; 82140 ×2; 82803; 84484; 85025; 71045; G0378 ×3

== ENCOUNTER → 2020-11-20 | Outpatient (CLI) | payer OTHER ==
[2020-11-20 14:40] VITALS: BP 146/76; PULSE 77; RESP 16; TEMP 98.4
--- NOTE | 2020-11-20 15:00 | P.PN ---
Subjective Progress Note Date: 11/20/20 This is 50 years old female who was seen previously at our pain clinic at [facility], patient had history of severe neck pain and headache and she was diagnosed with occipital neuralgia we did occipital nerve block which helped her neck pain significantly, she was seen later on secondary to severe low back pain with radiation to the lower extremity, associated with numbness and tingling sensation and patient was diagnosed with lumbar radiculopathy, we ordered MRI of the lumbar spine but it was not done until now, she to continue to have severe pain in the low back area with radiation to the lower extremity associated with severe numbness and tingling sensation in the pain is constant and increases with any activity, she is ambulating using a cane she has difficulty doing activities of daily livings, she continues to use Neurontin 800 every 6 hours. Objective - Vital Signs Vital signs: Vital Signs Temp 98.4 F 11/20/20 14:21 Pulse 77 11/20/20 14: Resp 16 11/20/20 14:21 BP 146/76 11/20/20 14:21 Pulse Ox 94 L 11/20/20 14:21 - Exam -Constitutiona : Cooperative , not in acute distress . -HEENT : nech : supple , no Lymphadenopathy , normal thyroid size . : eyes : no ptosis , no icterus, no photophobia . - neurologic : Cranial nerve II to XII intact , no focal neurological deffecit . -psychatric : alert , oriented X 3 , appropriate affect , intact judgment and insight . -Lymphatic : no Lymphadenopathy . - musculoskeltal : Cervical Spine motor stregnth in the deltoid and biceps, normal right side , normal Left side motor stregnth biceps and the wrist extensors normal right side ,normal left side . motor stregnth in the triceps muscle . normal Right side , normal Left side Lumber spine moter stegnth lower extremities ,thigh and legs 5/5 Right side , 4/5 Left side deep tendon reflexes : normal Knee Jerk , normal ankle Jerk lumber facet Loading Test =positive Right , positive Left Range of motion of the lumbar spine Flexion 30 degrees, extension 10 degrees strait leg raising test = positive at 30 degree bilateral Fabere test= positive Right , and positive LT . tenderness over the Sacroiliac joint on the Right , and Left sides Assessment and Plan Plan: Assessment and plan=1-lumbar radiculopathy. 2-lumbar spondylosis. We will order MRI of the lumbar spine to evaluate and determine orientation will follow up in the pain clinic after she gets the MRI results - PQRS measures = - Patient's medications are documented in the chart. -Tobacco use is negative and counseling.Given. -Patient's has not received pneumococcal vaccine. -Advanced care planning discussed, patient not eligible. -Opiate contract not signed. -Pain positive and follow-up visit/procedure is scheduled. -Patient's blood pressure measured [ 146/76 ] , and documented in the record ,and patient will follow up with the primary care. -Patient's weight was measured and body mass index [ ] above the normal limits and counseling was done. and patient instructed to follow-up with the primary care physician. -Patient was not identified as an unhealthy alcohol user Time with Patient: Less than 30
== END | disposition home or self-care (01) ==
LOC: PNWHC3 13:52
PROVIDERS: ATTEND Specialist
DX: M47.26 Other spondylosis with radiculopathy, lumbar region (principal); Z79.899 Other long term (current) drug therapy
CPT/HCPCS: 99211

== ENCOUNTER 2020-12-17 16:33 | Inpatient (IN) | payer OTHER ==
[2020-12-17] MEDS ORDERED: IPRATROPIUM-ALBUTEROL 3 ML NEB INHALATION STA (16:51)
[2020-12-17] MEDS ORDERED: ACETAMINOPHEN TAB 500 MG TAB PO STA (16:53)
--- NOTE | 2020-12-17 17:24 | ED ---
General Adult HPI - General Chief complaint: Fever Stated complaint: Coughing up blood Time Seen by Provider: 12/17/20 16:40 Source: patient, EMS, RN notes reviewed, old records reviewed Mode of arrival: EMS Limitations: altered mental status - History of Present Illness Initial comments: This is a 50-year-old female who presents emergency Department complaining that she was recently admitted for pneumonia. Patient states over the last few days she has had increased cough today she was coughing up some blood. Patient states she is on eliquis for atrial fibrillation. Patient denies any chest pain or palpitations. Patient states she is mildly short of breath. Patient denies headache patient denies numbness weakness per patient denies any abdominal pain patient denies nausea vomiting diarrhea. - Related Data Home Medications Medication Instructions Recorded Confirmed Pramipexole [Mirapex] 0.25 mg PO HS 06/21/17 11/18/20 Phenytoin Sodium Extended 300 mg PO HS 02/15/19 11/18/20 [Dilantin] FLUoxetine HCL 40 mg PO BID 10/19/19 11/18/20 Gabapentin 800 mg PO QID 11/30/19 11/18/20 QUEtiapine FUMARATE [SEROquel] 300 mg PO HS 11/30/19 11/18/20 Nicotine Polacrilex [Nicotine Gum] 4 mg BUCCAL Q2H PRN 03/16/20 11/18/20 Metoprolol Succinate (ER) [Toprol 50 mg PO DAILY 07/02/20 11/18/20 XL] amLODIPine [Norvasc] 5 mg PO DAILY 07/02/20 11/18/20 levETIRAcetam [Keppra] 750 mg PO TID 07/02/20 11/18/20 Topiramate [Topamax] 50 mg PO BID 09/09/20 11/18/20 Topiramate [Topamax] 100 mg PO BID 09/09/20 11/18/20 Phenytoin Sodium Extended 200 mg PO QAM 09/23/20 11/18/20 [Dilantin] SUMAtriptan SUCCINATE [Imitrex] 100 mg PO BID PRN 10/16/20 11/18/20 Albuterol Sulfate [Proair Hfa] 2 puff INHALATION RT-QID PRN 10/26/20 11/18/20 Ergocalciferol [Vitamin D2 50,000 unit PO Q30D 10/26/20 11/18/20 (DRISDOL)] Levothyroxine Sodium [Synthroid] 25 mcg PO DAILY 10/26/20 11/18/20 ALPRAZolam [Xanax] 0.25 mg PO TID PRN 11/18/20 11/18/20 Previous Rx's Medication Instructions Recorded Apixaban [Eliquis] 5 mg PO BID #60 tab 09/12/20 Allergies Allergy/AdvReac Type Severity Reaction Status Date / Time ibuprofen [From Motrin] Allergy Rash/Hives Verified 11/18/20 15:24 Latex, Natural Rubber Allergy Rash/Hives Verified 11/18/20 15:24 naproxen [From Naprosyn] Allergy Unknown Verified 11/18/20 15:24 tramadol Allergy Rash/Hives Verified 11/18/20 15:24 Penicillins AdvReac Vomiting Verified 11/18/20 15:24 Review of Systems ROS Statement: Those systems with pertinent positive or pertinent negative responses have been documented in the HPI. ROS Other: All systems not noted in ROS Statement are negative. Past Medical History Past Medical History: COPD Additional Past Medical History / Comment(s): Pt uses home oxygen @ 4 L @ hs & prn, TIA, vertigo, bronchitis, gastric ulcer, seizure-last time 09/05/20, chronic low back pain/bulging discs, migraines, hypothyroid, hospitalized in May 2020 for acute resp. failure and positive blood culture. History of Any Multi-Drug Resistant Organisms: None Reported Past Surgical History: Section, Cholecystectomy, Heart Catheterization With Stent, Tubal Ligation Additional Past Surgical History / Comment(s): C-Sections x 3. PAIN CLINIC PROC EDURES Past Anesthesia/Blood Transfusion Reactions: Motion Sickness Date of Last Stent Placement:: 2003 Past Psychological History: Anxiety, Bipolar, Depression Smoking Status: Vaper Past Alcohol Use History: None Reported - Past Family History Father Family Medical History: AFIB Mother Family Medical History: AFIB, Diabetes Mellitus General Exam - General Exam Comments Initial Comments: GENERAL: Patient is well-developed and well-nourished. Patient is nontoxic and well- hydrated and is in mild distress. ENT: Neck is soft and supple. No significant lymphadenopathy is noted. Oropharynx is clear. Moist mucous membranes. Neck has full range of motion without eliciting any pain. EYES: The sclera were anicteric and conjunctiva were pink and moist. Extraocular movements were intact and pupils were equal round and reactive to light. Eyelids were unremarkable. PULMONARY: Unlabored respirations. Good breath sounds bilaterally. No audible rales rhonchi or wheezing was noted. CARDIOVASCULAR: There is a regular rate and rhythm without any murmurs gallops or rubs. ABDOMEN: Soft and nontender with normal bowel sounds. SKIN: Skin is clear with no lesions or rashes and otherwise unremarkable. NEUROLOGIC: Patient is alert and oriented x3. Cranial nerves II through XII are grossly intact. Motor and sensory are also intact. Normal speech, volume and content. Symmetrical smile. MUSCULOSKELETAL: Normal extremities with adequate strength and full range of motion. 1+ edema bilaterally. Patient has no calf tenderness. LYMPHATICS: No significant lymphadenopathy is noted PSYCHIATRIC: Normal psychiatric evaluation. Limitations: altered mental status Course Vital Signs 12/17/20 12/17/20 12/17/20 16:38 17:00 17:07 Temperature 100.3 F H Pulse Rate 95 92 90 Respiratory 20 18 18 Rate Blood Pressure 111/69 O2 Sat by Pulse 85 L Oximetry 12/17/20 12/17/20 12/17/20 17:49 18:00 18:08 Temperature Pulse Rate 88 88 Respiratory 18 18 20 Rate Blood Pressure 98/68 O2 Sat by Pulse 91 L 91 L Oximetry 12/17/20 19:15 Temperature 98.3 F Pulse Rate Respiratory 20 Rate Blood Pressure O2 Sat by Pulse Oximetry Medical Decision Making - Medical Decision Making EKG shows normal sinus rhythm at 88 bpm NV interval is 136 QRS is 84 QT interval 372 QTC is 450. Patient's EKG shows no ST segment elevation or depression. Chest x-ray shows bilateral basilar mostly on the right. CT shows no PE and similar basal infiltrates in the bases. I spoke with Dr. Schaefer and he agreed to admit the patient admitted the patient I consult pulmonary and continued antibiotics on the floor. I gave the patient dose of Rocephin emergency department - Lab Data Result diagrams: 12/17/20 18:02 12/17/20 18:02 Lab Results 12/17/20 12/17/20 12/17/20 Range/Units 17:56 18:02 18:02 WBC 11.6 H (3.8-10.6) k/uL RBC 3.22 L (3.80-5.40) m/uL Hgb 12.2 (11.4-16.0) gm/dL Hct 35.6 (34.0-46.0) % MCV 110.7 H (80.0-100.0) fL MCH 37.8 H (25.0-35.0) pg MCHC 34.2 (31.0-37.0) g/dL RDW 15.2 (11.5-15.5) % Plt Count 218 (150-450) k/uL MPV 7.7 Neutrophils % 83 % Lymphocytes % 11 % Monocytes % 4 % Eosinophils % 1 % Basophils % 0 % Neutrophils # 9.6 H (1.3-7.7) k/uL Lymphocytes # 1.3 (1.0-4.8) k/uL Monocytes # 0.4 (0-1.0) k/uL Eosinophils # 0.1 (0-0.7) k/uL Basophils # 0.0 (0-0.2) k/uL Manual Slide Review Performed Macrocytosis Marked A PT 11.9 (9.0-12.0) sec INR 1.1 (<1.2) APTT 27.6 (22.0-30.0) sec D-Dimer 1.38 H (<0.60) mg/L FEU Sodium 136 L (137-145) mmol/L Potassium 4.1 (3.5-5.1) mmol/L Chloride 103 (98-107) mmol/L Carbon Dioxide 22 (22-30) mmol/L Anion Gap 11 mmol/L BUN 17 (7-17) mg/dL Creatinine 0.62 (0.52-1.04) mg/dL Est GFR (CKD-EPI)AfAm >90 (>60 ml/min/1.73 sqM) Est GFR (CKD-EPI)NonAf >90 (>60 ml/min/1.73 sqM) Glucose 118 H (74-99) mg/dL Plasma Lactic Acid Jordi (0.7-2.0) mmol/L Calcium 8.6 (8.4-10.2) mg/dL Total Bilirubin 0.9 (0.2-1.3) mg/dL AST 24 (14-36) U/L ALT 11 (4-34) U/L Alkaline Phosphatase 66 (38-126) U/L Troponin I (0.000-0.034) ng/mL NT-Pro-B Natriuret Pep pg/mL Total Protein 7.2 (6.3-8.2) g/dL Albumin 3.8 (3.5-5.0) g/dL 12/17/20 12/17/20 12/17/20 Range/Units 18:02 18:02 18:02 WBC (3.8-10.6) k/uL RBC (3.80-5.40) m/uL Hgb (11.4-16.0) gm/dL Hct (34.0-46.0) % MCV (80.0-100.0) fL MCH (25.0-35.0) pg MCHC (31.0-37.0) g/dL RDW (11.5-15.5) % Plt Count (150-450) k/uL MPV Neutrophils % % Lymphocytes % % Monocytes % % Eosinophils % % Basophils % % Neutrophils # (1.3-7.7) k/uL Lymphocytes # (1.0-4.8) k/uL Monocytes # (0-1.0) k/uL Eosinophils # (0-0.7) k/uL Basophils # (0-0.2) k/uL Manual Slide Review Macrocytosis PT (9.0-12.0) sec INR (<1.2) APTT (22.0-30.0) sec D-Dimer (<0.60) mg/L FEU Sodium (137-145) mmol/L Potassium (3.5-5.1) mmol/L Chloride (98-107) mmol/L Carbon Dioxide (22-30) mmol/L Anion Gap mmol/L BUN (7-17) mg/dL Creatinine (0.52-1.04) mg/dL Est GFR (CKD-EPI)AfAm (>60 ml/min/1.73 sqM) Est GFR (CKD-EPI)NonAf (>60 ml/min/1.73 sqM) Glucose (74-99) mg/dL Plasma Lactic Acid Jordi 1.4 (0.7-2.0) mmol/L Calcium (8.4-10.2) mg/dL Total Bilirubin (0.2-1.3) mg/dL AST (14-36) U/L ALT (4-34) U/L Alkaline Phosphatase (38-126) U/L Troponin I <0.012 (0.000-0.034) ng/mL NT-Pro-B Natriuret Pep 1560 pg/mL Total Protein (6.3-8.2) g/dL Albumin (3.5-5.0) g/dL Disposition Clinical Impression: Pneumonia Disposition: ADMITTED IP TO THIS HOSP Referrals: Ty Aponte MD [Primary Care Provider] - 1-2 days Time of Disposition: 20:25
[2020-12-17 18:07] LABS: Basophils % (A) 0 %; Eosinophils # (A) 0.1 k/uL (0-0.7); Eosinophils % (A) 1 %; HCT 35.6 % (34.0-46.0); HGB 12.2 gm/dL (11.4-16.0); Lymphocytes # (A) 1.3 k/uL (1.0-4.8); Lymphocytes % (A) 11 %; MCH 37.8 pg (25.0-35.0); MCHC 34.2 g/dL (31.0-37.0); MCV 110.7 fL (80.0-100.0); Macrocytosis Marked; Mean Platelet Volume 7.7; Monocytes # (A) 0.4 k/uL (0-1.0); Monocytes % (A) 4 %; Neutrophils # (A) 9.6 k/uL (1.3-7.7); Neutrophils % (A) 83 %; Platelet Count 218 k/uL (150-450); RBC 3.22 m/uL (3.80-5.40); RDW 15.2 % (11.5-15.5); WBC 11.6 k/uL (3.8-10.6)
[2020-12-17 18:19] LABS: ALT 11 U/L (4-34); AST 24 U/L (14-36); African American GFR (CKD) >90 (>60 ml/min/1.73 sqM); Albumin 3.8 g/dL (3.5-5.0); Alkaline Phosphatase 66 U/L (38-126); Anion Gap 11 mmol/L; Blood Urea Nitrogen 17 mg/dL (7-17); Calcium 8.6 mg/dL (8.4-10.2); Carbon Dioxide 22 mmol/L (22-30); Chloride 103 mmol/L (98-107); Glucose 118 mg/dL (74-99); Non-African American GFR(CKD) >90 (>60 ml/min/1.73 sqM); Potassium 4.1 mmol/L (3.5-5.1); Sodium 136 mmol/L (137-145); Total Bilirubin 0.9 mg/dL (0.2-1.3); Total Protein 7.2 g/dL (6.3-8.2)
[2020-12-17 18:32] LABS: INR 1.1 (<1.2); Partial Thromboplastin Time 27.6 sec (22.0-30.0); Prothrombin Time 11.9 sec (9.0-12.0)
[2020-12-17 18:35] LABS: D-Dimer 1.38 mg/L FEU (<0.60)
--- NOTE | 2020-12-17 18:55 | XR ---
EXAMINATION TYPE: XR chest 2V DATE OF EXAM: 12/17/2020 COMPARISON: NONE HISTORY: Shortness of breath and hemoptysis. TECHNIQUE: Frontal and lateral views of the chest are obtained. FINDINGS: There is moderate right greater than left bibasilar opacities. No pleural effusion, or pne umothorax seen. The cardiac silhouette size is enlarged. The osseous structures are intact. IMPRESSION: Moderate bibasilar opacities, may represent infiltrates or aspiration changes.
--- NOTE | 2020-12-17 19:59 | CT ---
EXAMINATION TYPE: CT chest angio for PE DATE OF EXAM: 12/17/2020 COMPARISON: CT 09/08/2020. Same-day radiograph. HISTORY: SOB, elevated d-dimer, coughing up blood CT DLP: 746.9 mGycm Automated exposure control for dose reduction was used. CONTRAST: CT Chest for pulmonary embolism performed with with IV Contrast, patient injected with 100 mL of Isov ue 370. FINDINGS: LUNGS: There is diffuse moderate patchy opacities in the bilateral lower and right lobes. There is no pleural effusion or pneumothorax seen. The tracheobronchial tree is patent. MEDIASTINUM: There is satisfactory enhancement of the pulmonary artery and its branches, there is no CT evidence for pulmonary embolism. There are no greater than 1 cm hilar or mediastinal lymph nodes. No pericardial effusion is seen. OTHER: No additional significant abnormality is seen. IMPRESSION: No acute PE. Moderate bibasilar opacities, concerning for infiltrates versus aspiration changes.
[2020-12-17] MEDS ORDERED: cefTRIAXone IN SWFI 1,000 MG/10 ML SYRINGE IVP STA (20:22)
[2020-12-17] MEDS ORDERED: PNEUMONIA PROTOCOL UTILIZED 1 EACH MISC PO PRN (20:26)
[2020-12-17] MEDS ORDERED: AZITHROMYCIN 500 MG in SODIUM CHLORIDE 0.9% 250 ML IVPB STA (20:26)
[2020-12-17] MEDS ORDERED: CEFEPIME 2 GM in SODIUM CHLORIDE 0.9% 100 ML IVPB STA (20:26)
[2020-12-17] MEDS ORDERED: IPRATROPIUM-ALBUTEROL 3 ML NEB INHALATION PRN (20:26)
[2020-12-18] MEDS: CEFEPIME 2 GM in SODIUM CHLORIDE 0.9% 100 ML IVPB SCH ×3 (05:09→22:52)
--- NOTE | 2020-12-18 08:34 | XR ---
EXAMINATION TYPE: XR chest 2V DATE OF EXAM: 12/18/2020 COMPARISON: 12/17/2020 TECHNIQUE: PA and lateral views submitted. HISTORY: Shortness of breath FINDINGS: There are bilateral patchy perihilar lower lobe infiltrates. Coarsened interstitium with no pneumotho rax. No sizable pleural effusion. Heart is enlarged. Osseous structures stable chronic rib deformity noted posterior laterally on the left at the approximate level of the left sixth rib. Most likely the basis of remote trauma IMPRESSION: 1. Diffuse mixed interstitial and alveolar areas of interval trait for which pneumonia is favored inc luding atypical pneumonia.
[2020-12-18] MEDS ORDERED: ACETAMINOPHEN TAB 325 MG TAB PO STA (08:56)
[2020-12-18] MEDS ORDERED: BUTALB/APAP/CAFF 50-325-40MG TAB PO PRN (10:14)
[2020-12-18] MEDS ORDERED: ALPRAZolam 0.25 MG TAB PO PRN (10:14)
[2020-12-18] MEDS ORDERED: SUMAtriptan succinate 50 MG TAB PO PRN (10:14)
[2020-12-18] MEDS ORDERED: ONDANSETRON 4 MG TAB PO PRN (10:14)
[2020-12-18] MEDS: PANTOPRAZOLE 40 MG/10 ML VIAL IVP SCH (13:18)
[2020-12-18] MEDS: GABAPENTIN 400 MG CAP PO SCH ×3 (13:18→21:33)
[2020-12-18 14:53] LABS: Appearance,Urine Clear (Clear); Bilirubin,Urine Negative (Negative); Blood,Urine Negative (Negative); Color,Urine Light Yellow; Glucose,Urine (UA) Negative (Negative); Ketones,Urine Negative (Negative); Leukocyte Esterase,Urine Negative (Negative); Nitrite,Urine Negative (Negative); PH, Urine 7.5 (5.0-8.0); Protein,Urine Negative (Negative); Specific Gravity,Urine 1.007 (1.001-1.035); Urobilinogen,Urine <2.0 mg/dL (<2.0)
--- NOTE | 2020-12-18 15:40 | P.CNPUL ---
History of Present Illness Consult date: 12/18/20 Requesting physician: Ty Aponte Reason for consult: cough Chief complaint: Hemoptysis History of present illness: 50-year-old white female patient with past medical history of COPD on home oxygen at 3-4 L/m, chronic A. fib on Eliquis, history of CVA/TIA, hypertension, chronic CHF, previous history of gastric ulcer, chronic back pain, seizure disorder, hypothyroidism and history of recurrent urinary tract infections, who was brought into the emergency department on 12/27/2020 per EMS for evaluation of increased cough, and apparently patient has coughed up some blood. She is currently on Eliquis history of A. fib and history of CVA/TIA. Denied any fever or chills, no chest congestion or phlegm production. She was tested for COVID 19 which was negative, chest x-ray showed moderate bibasilar opacities. Today's labs showed white blood cell count of 11.6, hemoglobin of 12.2, d-dimer of 1.8, electrolytes and renal profile were unremarkable, plasma lactic acid was within normal limits at 1.4, LFTs are within normal limits, proBNP was 1560, troponin was less than 0.012. Urinalysis was negative for infection. D-dimer was 1.38, CTA chest completed, doing no evidence of acute pulmonary embolism, moderate bibasilar opacities. Patient continues on Eliquis. Hemoglobin is 12.2. During our evaluation patient states she was actually throwing up blood and passing black bowel movements. Review of Systems All systems: negative Constitutional: Reports weakness Eyes: denies blurred vision, denies pain Ears, nose, mouth and throat: Denies headache, Denies sore throat Cardiovascular: Denies chest pain, Denies shortness of breath Respiratory: Reports dyspnea, Reports hemoptysis Gastrointestinal: Reports hematemesis, Reports melena Genitourinary: Denies dysuria, Denies hematuria Musculoskeletal: Denies myalgias Integumentary: Denies pruritus, Denies rash Neurological: Denies numbness, Denies weakness Psychiatric: Denies anxiety, Denies depression Endocrine: Denies fatigue, Denies weight change Past Medical History Past Medical History: COPD Additional Past Medical History / Comment(s): Pt uses home oxygen @ 4 L @ hs & prn, TIA, vertigo, bronchitis, gastric ulcer, seizure-last time 09/05/20, chronic low back pain/bulging discs, migraines, hypothyroid, hospitalized in May 2020 for acute resp. failure and positive blood culture. History of Any Multi-Drug Resistant Organisms: None Reported Past Surgical History: Section, Cholecystectomy, Heart Catheterization With Stent, Tubal Ligation Additional Past Surgical History / Comment(s): C-Sections x 3. PAIN CLINIC PROCEDURES Past Anesthesia/Blood Transfusion Reactions: Motion Sickness Date of Last Stent Placement:: 2003 Past Psychological History: Anxiety, Bipolar, Depression Additional Psychological History / Comment(s): Pt resides with her 17 year old daughter. She uses a cane to ambulate. She does not drive, her sister or other family take her to appts. She has home oxygen and a nebulizer. Smoking Status: Former smoker Past Alcohol Use History: None Reported Additional Past Alcohol Use History / Comment(s): Pt started smoking in 1985 and quit in 2018, quit vaping 2019. Past Drug Use History: None Reported - Past Family History Father Family Medical History: AFIB Mother Family Medical History: AFIB, Diabetes Mellitus Medications and Allergies Home Medications Medication Instructions Recorded Confirmed Type Pramipexole [Mirapex] 0.25 mg PO HS 06/21/17 12/17/20 History Phenytoin Sodium Extended 300 mg PO HS 02/15/19 12/17/20 History [Dilantin] FLUoxetine HCL 40 mg PO BID 10/19/19 12/17/20 History Gabapentin 800 mg PO QID 11/30/19 12/17/20 History QUEtiapine FUMARATE [SEROquel] 300 mg PO HS 11/30/19 12/17/20 History Nicotine Polacrilex [Nicotine Gum] 4 mg BUCCAL Q2H PRN 03/16/20 12/17/20 History Metoprolol Succinate (ER) [Toprol 50 mg PO DAILY 07/02/20 12/17/20 History XL] amLODIPine [Norvasc] 5 mg PO DAILY 07/02/20 12/17/20 History levETIRAcetam [Keppra] 750 mg PO TID 07/02/20 12/17/20 History Topiramate [Topamax] 50 mg PO BID 09/09/20 12/17/20 History Topiramate [Topamax] 100 mg PO BID 09/09/20 12/17/20 History Apixaban [Eliquis] 5 mg PO BID #60 tab 09/12/20 12/17/20 Rx Phenytoin Sodium Extended 200 mg PO QAM 09/23/20 12/17/20 History [Dilantin] SUMAtriptan SUCCINATE [Imitrex] 100 mg PO BID PRN 10/16/20 12/17/20 History Albuterol Sulfate [Proair Hfa] 2 puff INHALATION RT-QID PRN 10/26/20 12/17/20 History Ergocalciferol [Vitamin D2 50,000 unit PO Q30D 10/26/20 12/17/20 History (DRISDOL)] Levothyroxine Sodium [Synthroid] 25 mcg PO DAILY 10/26/20 12/17/20 History ALPRAZolam [Xanax] 0.25 mg PO BID PRN 11/18/20 12/17/20 History Butalbital/Aspirin/Caffeine 1 tab PO BID PRN 12/17/20 12/17/20 History [Bmiehw-Fafyryl-Mwjnqbhv 50-325-40 mg] HYDROcodone/APAP 5-325MG [[place]kelman 1 tab PO DAILY PRN 12/17/20 12/17/20 History 5-325] Ondansetron HCl [Zofran] 4 mg PO Q8H PRN 12/17/20 12/17/20 History Allergies Allergy/AdvReac Type Severity Reaction Status Date / Time ibuprofen [From Motrin] Allergy Rash/Hives Verified 12/17/20 20:55 Latex, Natural Rubber Allergy Rash/Hives Verified 12/17/20 20:55 naproxen [From Naprosyn] Allergy Unknown Verified 12/17/20 20:55 tramadol Allergy Rash/Hives Verified 12/17/20 20:55 Penicillins AdvReac Vomiting Verified 12/17/20 20:55 Physical Exam Vitals: Vital Signs Temp Pulse Pulse Resp BP BP Pulse Ox 12/18/20 14:24 98.1 F 80 17 103/64 92 L 12/18/20 14:00 16 12/18/20 08:00 18 12/18/20 07:00 98.3 F 82 18 121/76 92 L 12/18/20 01:38 98.1 F 76 18 101/64 93 L 12/17/20 22:40 98 F 75 20 101/66 91 L 12/17/20 22:10 97.5 F L 84 20 118/77 92 L 12/17/20 20:58 98.2 F 77 22 104/56 91 L 12/17/20 19:15 98.3 F 20 12/17/20 18:08 20 12/17/20 18:00 88 18 91 L 12/17/20 17:49 88 18 98/68 91 L 12/17/20 17:07 90 18 12/17/20 17:00 92 18 12/17/20 16:38 100.3 F H 95 20 111/69 85 L Intake and Output 12/18/20 12/18/20 12/18/20 06:59 14:59 22:59 Intake Total 444 Balance 444 Intake: Oral 444 Other: # Voids 3 1 GENERAL EXAM: Alert, very pleasant, 50-year-old white female, on 5 L of oxygen pulse ox of 92% comfortable in no apparent distress. HEAD: Normocephalic/atraumatic. EYES: Normal reaction of pupils, equal size. Conjunctiva pink, sclera white. NOSE: Clear with pink turbinates. THROAT: No erythema or exudates. NECK: No masses, no JVD, no thyroid enlargement, no adenopathy. CHEST: No chest wall deformity. Symmetrical expansion. LUNGS: Equal air entry with no crackles, wheeze, rhonchi or dullness. CVS: Regular rate and rhythm, normal S1 and S2, no gallops, no murmurs, no rubs ABDOMEN: Soft, nontender. No hepatosplenomegaly, normal bowel sounds, no guarding or rigidity. EXTREMITIES: No clubbing, no edema, no cyanosis, 2+ pulses and upper and lower extremities. MUSCULOSKELETAL: Muscle strength and tone normal. SPINE: No scoliosis or deformity SKIN: No rashes CENTRAL NERVOUS SYSTEM: Alert and oriented -3. No focal deficits, tone is normal in all 4 extremities. PSYCHIATRIC: Alert and oriented -3. Appropriate affect. Intact judgment and insight. Results - Laboratory Findings CBC and BMP: 12/17/20 18:02 12/17/20 18:02 PT/INR, D-dimer PT 11.9 sec (9.0-12.0) 12/17/20 17:56 INR 1.1 (<1.2) 12/17/20 17:56 D-Dimer 1.38 mg/L FEU (<0.60) H 12/17/20 17:56 Abnormal lab findings: Abnormal Labs 12/17/20 0212/17/20 17:56 18:02 18:02 WBC 11.6 H RBC 3.22 L MCV 110.7 H MCH 37.8 H Neutrophils # 9.6 H Macrocytosis Marked A D-Dimer 1.38 H Sodium 136 L Glucose 118 H - Diagnostic Findings Chest x-ray: report reviewed, image reviewed CT scan - chest: report reviewed, image reviewed Assessment and Plan Plan: Assessment: #1. Acute on chronic hypoxic respiratory failure secondary to possibility of aspiration pneumonia. Possible hemoptysis although from the history given by the patient and may actually have hematemesis #2. Hematemesis, and black tarry schools, possibility of GI bleeding #3. History of COPD with chronic hypoxic respiratory failure #4. A. fib on Eliquis #5. Recurrent urinary tract infection history of #6. Elevated d-dimer with no CT evidence of pulmonary embolism #7. Hypertension #8. History of a gastric ulcer #9. Seizure disorder #10. Chronic pain #11. Anxiety/depression Plan: Continue with current antibiotics, patient is currently on azithromycin and cefepime, chest x-ray and CTA chest have been reviewed, patient was seen and examined by Dr. Carlisle. We'll place Eliquis on hold, patient states she was actually throwing up blood, and passing black tarry stools, consult GI service for evaluation. Continue monitoring H&H. We'll continue to follow I performed a history & physical examination of the patient and discussed their management with my nurse practitioner, Johanna Tsang. I reviewed the nurse practitioner's note and agree with the documented findings and plan of care. Lung sounds are positive for clear breath sounds. The findings and the impression was discussed with the patient. I attest to the documentation by the nurse practitioner. Time with Patient: Greater than 30
--- NOTE | 2020-12-18 18:38 | HP ---
HISTORY AND PHYSICAL CHIEF COMPLAINT: Hemoptysis. HISTORY OF PRESENT ILLNESS: This is another recent admission for this 50-year-old obese white female. She stated that she had coughed up some bright red blood and was short of breath. She came to the emergency room, where it was suggested that she may have a right lower lobe pneumonitis. REVIEW OF SYSTEMS: She has had no syncope, recent seizures, change in vision or hearing, chest pain, syncope, palpitations, abdominal pain, nausea, vomiting, diarrhea, melena, urinary complaints, etc. Past medical history, family history, and personal and social histories are otherwise unremarkable and unchanged from her recent admitting and discharge summaries. She has numerous problems, including seizure disorder, depression, tendency to abuse narcotics, hypertension. Her medications can be found in the med rec part of her chart and are extensive. She is ALLERGIC to CHANTIX, NAPROSYN, TRAMADOL, MOTRIN, LASIX AND PENICILLIN. She continues to smoke. PHYSICAL EXAMINATION: Blood pressure is 142/74 with a pulse of 80. She is afebrile. In general she appeared to be obese and slightly lethargic. Skin color was normal. Skin was warm and dry. Head, ears, eyes, nose, mouth and throat were normal. Carotids could not be assessed. Chest demonstrated scattered rales and occasional rhonchi. Cardiac exam demonstrated what sounded like sinus rhythm, and no murmurs or extra sounds. The abdomen was protuberant, soft and nontender. Extremities were normal. Neurologically she was intact. She is admitted to the hospital with the diagnoses: 1. Hemoptysis. 2. Right lower lobe pneumonitis. 3. Chronic obstructive pulmonary disease. 4. Hypertension. 5. Congestive heart failure. 6. Analgesic abuse. PLAN: 1. Bedrest. 2. IV fluids. 3. Updrafts. 4. IV antibiotics. 5. Consult with Pulmonology and Infectious Disease. MMODL / IJN: [id number] /
--- NOTE | 2020-12-18 18:44 | PN ---
PROGRESS NOTE CHIEF COMPLAINT: Hemoptysis and right lower lobe pneumonitis. HISTORY OF PRESENT ILLNESS: This lady is complaining of quite a bit of headache and would like her analgesics restored. She has had no fever or chills and she has not coughed up any more blood. PHYSICAL EXAMINATION: Her color is good. She is afebrile. Chest is clear. Cardiac exam is normal. Abdomen is soft, nontender but protuberant. IMPRESSION: 1. Hemoptysis. 2. Right lower lobe pneumonitis. 3. Headache. 4. Chronic obstructive pulmonary disease. 5. Hypertension. 6. Congestive heart failure. 7. Seizure disorder. PLAN: Consult Pulmonology and Infectious Disease. MMODL / IJN: [id number] /
[2020-12-18] MEDS ORDERED: AZITHROMYCIN 500 MG in SODIUM CHLORIDE 0.9% 250 ML IVPB SCH (21:00)
[2020-12-18] MEDS ORDERED: APIXABAN 5 MG TAB PO SCH (21:00)
[2020-12-18] MEDS ORDERED: VANCOMYCIN IV PER PHARMACY 1 EACH MISC MISCELLANE PRN (21:17)
[2020-12-18] MEDS: PHENYTOIN SODIUM EXTENDED 100 MG CAP PO SCH (21:32)
[2020-12-18] MEDS: TOPIRAMATE 25 MG TAB PO SCH (21:32)
[2020-12-18] MEDS: TOPIRAMATE 100 MG TAB PO SCH (21:32)
[2020-12-18] MEDS: QUEtiapine 100 MG TAB PO SCH (21:34)
[2020-12-18] MEDS: FLUoxetine HCL 20 MG CAP PO SCH (21:34)
[2020-12-18] MEDS: PRAMIPEXOLE 0.25 MG TAB PO SCH (21:34)
[2020-12-18] MEDS: VANCOMYCIN 1,750 MG in SODIUM CHLORIDE 0.9% 500 ML 500 ML IVPB SCH (22:51)
--- NOTE | 2020-12-18 23:16 | CONS ---
CONSULTATION DATE OF SERVICE: 12/18/2020. REASON FOR CONSULTATION: Bacteremia. HISTORY OF PRESENT ILLNESS: The patient is a 50-year-old female, past medical history significant for COPD, pneumonia, presenting to the hospital with increasing shortness of breath and cough, cough has been moderate in intensity with occasional purulent sputum production and did have some hemoptysis. The patient denies having any pleuritic chest pain. Did have some nausea, vomiting. Also complaining of some hematemesis and diarrhea. With these symptoms, the patient presented to hospital. On arrival to the ER, the patient was afebrile with temperature a 100.3 degrees Fahrenheit. The patient did have hypoxemia with O2 sats of 85% on room air. The patient did have white count of 11.6 with left shift. Urine was negative. Thompson PCR came back negative. The patient did have a chest x-ray followed by CT angiogram on the chest which did show moderate bibasilar opacity concerning for versus aspiration changes. The patient has been treated with cefepime and Zithromax. She did have blood cultures drawn which came back positive with gram-positive cocci that has prompted this infectious disease consultation. REVIEW OF SYSTEMS: Positive points have been mentioned in HPI. Rest of systems negative. PAST MEDICAL HISTORY: COPD, TIA, seizure disorder, peptic ulcer disease, migraine headache, hypothyroidism. PAST SURGICAL HISTORY: , cholecystectomy, PTCA with stent, tubal ligation. SOCIAL HISTORY: Positive for . FAMILY HISTORY: Father history of Afib, mother history of diabetes and Afib. ALLERGIES: TO PENICILLIN, TRAMADOL, NAPROXEN, IBUPROFEN, LATEX. MEDICATIONS: Currently include the patient is on: Fioricet, [place], DuoNeb, Xanax, Norvasc, cefepime, , Neurontin, Keppra, Synthroid, Toprol-XL, Protonix, Zofran, Dilantin, Seroquel, Imitrex, Topamax. PHYSICAL EXAMINATION: Blood pressure 111/72 with a pulse of 83, temperature 98.4. She is 93% on 5 L nasal cannula. General description is a middle-aged female up in the room in no distress. No tachypnea or accessory muscles of respiration use. HEENT: Examination shows slight pallor. No scleral icterus. Oral mucous membranes dry. NECK: Trachea central. No thyromegaly. LUNGS: Unlabored breathing with decreased breath sounds in the bases. No wheeze or crackles. HEART S1, S2. Regular rate and rhythm. ABDOMEN: Soft. No tenderness. No guarding. No rigidity. EXTREMITIES: No edema of the feet. SKIN examination: No rash or mass palpable. NEUROLOGICAL: Patient is awake, alert, oriented times three. Mood and affect normal. LABS: Hemoglobin is 12.1, white count 11.6, BUN of 17, creatinine 0.62. Procalcitonin 2.49. Urine was negative. Thompson PCR was negative. Blood cultures with Gram-positive cocci. DIAGNOSTIC IMPRESSION AND PLAN: Patient admitted to the hospital with increasing shortness of breath, cough, hemoptysis with fever, hypoxemia with evidence of bibasilar infiltrate/pneumonia. The source of bacteremia is likely pneumonia with concern for possible strep pneumo versus MRSA. PLAN: 1. We will try to obtain sputum for Gram stain and culture. 2. Blood cultures will be repeated to document clearance of bacteremia. 3. We will add vancomycin, pharmacy to dose target of 15 while watching his kidney function closely. 4. We will follow on clinical condition and culture to further adjust medication if needed. Thank you for this consultation. We will follow this patient along with you. MMODL / IJN: [id number] /
[2020-12-19] MEDS: CEFEPIME 2 GM in SODIUM CHLORIDE 0.9% 100 ML IVPB SCH ×2 (05:36→16:00)
[2020-12-19] MEDS: LEVOTHYROXINE 25 MCG TAB PO SCH (05:36)
[2020-12-19] MEDS: PANTOPRAZOLE 40 MG/10 ML VIAL IVP SCH (08:26)
[2020-12-19] MEDS: GABAPENTIN 400 MG CAP PO SCH ×4 (08:26→21:16)
[2020-12-19] MEDS: METOPROLOL SUCCINATE (ER) 50 MG TAB.ER.24H PO SCH (08:26)
[2020-12-19] MEDS: FLUoxetine HCL 20 MG CAP PO SCH ×2 (08:26→21:15)
[2020-12-19] MEDS: amLODIPine 5 MG TAB PO SCH (08:27)
[2020-12-19] MEDS: TOPIRAMATE 100 MG TAB PO SCH ×2 (08:28→21:16)
[2020-12-19] MEDS: PHENYTOIN SODIUM EXTENDED 100 MG CAP PO SCH ×2 (08:28→21:15)
[2020-12-19] MEDS: TOPIRAMATE 25 MG TAB PO SCH ×2 (08:29→21:16)
[2020-12-19] MEDS: VANCOMYCIN 1,750 MG in SODIUM CHLORIDE 0.9% 500 ML 500 ML IVPB SCH ×2 (09:01→21:14)
[2020-12-19 09:30] LABS: Basophils % (A) 0 %; Eosinophils # (A) 0.2 k/uL (0-0.7); Eosinophils % (A) 2 %; HCT 36.6 % (34.0-46.0); HGB 11.6 gm/dL (11.4-16.0); Lymphocytes # (A) 1.2 k/uL (1.0-4.8); Lymphocytes % (A) 18 %; MCH 35.6 pg (25.0-35.0); MCHC 31.6 g/dL (31.0-37.0); MCV 112.7 fL (80.0-100.0); Macrocytosis Marked; Mean Platelet Volume 7.8; Monocytes # (A) 0.2 k/uL (0-1.0); Monocytes % (A) 4 %; Neutrophils # (A) 4.9 k/uL (1.3-7.7); Neutrophils % (A) 74 %; Platelet Count 249 k/uL (150-450); RBC 3.25 m/uL (3.80-5.40); RDW 15.1 % (11.5-15.5); WBC 6.7 k/uL (3.8-10.6)
[2020-12-19 09:39] LABS: African American GFR (CKD) >90 (>60 ml/min/1.73 sqM); Anion Gap 8 mmol/L; Blood Urea Nitrogen 5 mg/dL (7-17); Calcium 8.4 mg/dL (8.4-10.2); Carbon Dioxide 21 mmol/L (22-30); Chloride 109 mmol/L (98-107); Glucose 120 mg/dL (74-99); Non-African American GFR(CKD) >90 (>60 ml/min/1.73 sqM); Potassium 3.8 mmol/L (3.5-5.1); Sodium 138 mmol/L (137-145)
[2020-12-19 11:18] LABS: Poikilocytosis (M) Present
--- NOTE | 2020-12-19 14:58 | PN ---
PROGRESS NOTE CHIEF COMPLAINT: Cough, shortness of breath, pneumonitis and hemoptysis. HISTORY OF PRESENT ILLNESS: This lady is still complaining of a headache and abdominal pain. Her temperature has been down. She has been seen by Pulmonology and Infectious Disease. PHYSICAL EXAMINATION: Head, ears, eyes, nose, mouth are normal. Neck is supple. There is no neck vein distention that can be detected. Chest demonstrates decreased breath sounds with scattered rales and rhonchi bilaterally. Cardiac exam is normal. Abdomen is soft. IMPRESSION: Cough, shortness of breath, pneumonitis and hemoptysis with headache. PLAN: Continue with IV fluids, antibiotics and updrafts. MMODL / IJN: [id number] /
--- NOTE | 2020-12-19 15:57 | P.PN ---
Subjective Progress Note Date: 12/19/20 50-year-old white female patient with past medical history of COPD on home oxyg en at 3-4 L/m, chronic A. fib on Eliquis, history of CVA/TIA, hypertension, chronic CHF, previous history of gastric ulcer, chronic back pain, seizure disorder, hypothyroidism and history of recurrent urinary tract infections, who was brought into the emergency department on 12/27/2020 per EMS for evaluation of increased cough, and apparently patient has coughed up some blood. She is currently on Eliquis history of A. fib and history of CVA/TIA. Denied any fever or chills, no chest congestion or phlegm production. She was tested for COVID 19 which was negative, chest x-ray showed moderate bibasilar opacities. Today's labs showed white blood cell count of 11.6, hemoglobin of 12.2, d-dimer of 1.8, electrolytes and renal profile were unremarkable, plasma lactic acid was within normal limits at 1.4, LFTs are within normal limits, proBNP was 1560, troponin was less than 0.012. Urinalysis was negative for infection. D-dimer was 1.38, CTA chest completed, doing no evidence of acute pulmonary embolism, moderate bibasilar opacities. Patient continues on Eliquis. Hemoglobin is 12.2. During our evaluation patient states she was actually throwing up blood and passing black bowel movements. On 12/19/2020 the patient is being seen for a follow-up and she has no specific complaints. No evidence of any GI bleed. No melanotic stools. She did not cough up any blood. She did not throw up any blood. She was seen by gastroenterology. The patient is currently on IV cefepime. He is also on vancomycin.. We suspected lower lobe pneumonia and for that reason the patient was covered with broad-spectrum antibiotics. She is resting comfortably in bed on 5 L O2 by nasal cannula. I do not appreciate a GI consultation yet. ID consultation was appreciated and the patient was asked to complete this current antibiotic coverage. For now, the blood cultures are negative and there is only one culture that showing gram-positive cocci in groups, awaiting final cultures and sensitivities. Objective - Vital Signs Vital signs: Vital Signs Temp 98.1 F 12/19/20 14:52 Pulse 64 12/19/20 14:52 Resp 17 12/19/20 14:52 BP 101/71 12/19/20 14:52 Pulse Ox 92 L 12/19/20 14:52 Intake & Output 12/18/20 12/19/20 12/19/20 18:59 06:59 18:59 Intake Total 444 444 Balance 444 444 Intake: Oral 444 444 Other: Voiding Method Toilet # Voids 1 2 1 - Exam GENERAL EXAM: Alert, very pleasant, 50-year-old white female, on 5 L of oxygen pulse ox of 92% comfortable in no apparent distress. HEAD: Normocephalic/atraumatic. EYES: Normal reaction of pupils, equal size. Conjunctiva pink, sclera white. NOSE: Clear with pink turbinates. THROAT: No erythema or exudates. NECK: No masses, no JVD, no thyroid enlargement, no adenopathy. CHEST: No chest wall deformity. Symmetrical expansion. LUNGS: Equal air entry with no crackles, wheeze, rhonchi or dullness. CVS: Regular rate and rhythm, normal S1 and S2, no gallops, no murmurs, no rubs ABDOMEN: Soft, nontender. No hepatosplenomegaly, normal bowel sounds, no guarding or rigidity. EXTREMITIES: No clubbing, no edema, no cyanosis, 2+ pulses and upper and lower extremities. MUSCULOSKELETAL: Muscle strength and tone normal. SPINE: No scoliosis or deformity SKIN: No rashes CENTRAL NERVOUS SYSTEM: Alert and oriented -3. No focal deficits, tone is normal in all 4 extremities. PSYCHIATRIC: Alert and oriented -3. Appropriate affect. Intact judgment and insight. - Labs CBC & Chem 7: 12/19/20 08:54 12/19/20 08:54 Labs: Abnormal Lab Results - Last 24 Hours (Table) 12/18/20 12/19/20 12/19/20 Range/Units 12:20 08:54 08:54 RBC 3.25 L (3.80-5.40) m/uL MCV 112.7 H (80.0-100.0) fL MCH 35.6 H (25.0-35.0) pg Macrocytosis Marked A Chloride 109 H (98-107) mmol/L Carbon Dioxide 21 L (22-30) mmol/L BUN 5 L (7-17) mg/dL Creatinine 0.49 L (0.52-1.04) mg/dL Glucose 120 H (74-99) mg/dL Procalcitonin 2.49 H (0.02-0.09) ng/mL Microbiology - Last 24 Hours (Table) 12/18/20 12:05 Blood Culture - Preliminary Blood No Growth after 24 hours 12/18/20 11:48 Blood Culture - Preliminary Blood No Growth after 24 hours 12/18/20 12:20 Blood Culture - Final Blood 12/17/20 20:54 Blood Culture Gram Stain - Preliminary Blood 12/17/20 20:54 Blood Culture - Preliminary Blood No Growth after 24 hours 12/17/20 18:03 Blood Culture - Preliminary Blood No Growth after 24 hours 12/17/20 20:54 Blood Culture - Final Blood Assessment and Plan Plan: #1. Acute on chronic hypoxic respiratory failure secondary to possibility of aspiration pneumonia. Possible hemoptysis although from the history given by the patient and may actually have hematemesis. There is also a positive blood culture with gram-positive bacteria in groups. Awaiting further cultures and sensitivities. Infectious diseases on the case. Repeat blood cultures of been negative and the patient is currently on a combination of cefepime and vancomycin. #2. Hematemesis, and black tarry schools, possibility of GI bleeding, currently inactive in stable and the hemoglobin is at 11.6 and the patient is currently off anticoagulants. #3. History of COPD with chronic hypoxic respiratory failure #4. A. fib #5. Recurrent urinary tract infection history of #6. Elevated d-dimer with no CT evidence of pulmonary embolism #7. Hypertension #8. History of a gastric ulcer #9. Seizure disorder #10. Chronic pain #11. Anxiety/depression Plan: Continue with current antibiotics, awaiting final cultures and sensitivities and the blood. Continue cefepime vancomycin. Repeat chest x-ray. Attempt to wean down the FiO2 as tolerated to maintain a saturation above 90%. ID consultation was appreciated. Awaiting GI consultation. No signs of any GI bleed for now. Repeat chest x-ray in the morning.
[2020-12-19] MEDS: QUEtiapine 100 MG TAB PO SCH (21:15)
[2020-12-19] MEDS: PRAMIPEXOLE 0.25 MG TAB PO SCH (21:16)
--- NOTE | 2020-12-19 23:27 | PN ---
PROGRESS NOTE DATE OF SERVICE: 12/19/2020 REASON FOR FOLLOWUP: Bacteremia. INTERVAL HISTORY: The patient is currently afebrile. The patient is breathing comfortably. The patient continues to have a cough but is not bringing up any sputum. The patient denies having any chest pain. No nausea, no vomiting. No abdominal pain or diarrhea. PHYSICAL EXAMINATION: Blood pressure 101/71, pulse of 64, temperature 98.1. She is 92% on 5 L nasal cannula. General description is a middle-aged female up in the bed in no distress. RESPIRATORY SYSTEM: Unlabored breathing with decreased intensity of breath sounds. No wheeze. HEART: S1, S2. Regular rate and rhythm. ABDOMEN: Soft. No tenderness. LABS: Hemoglobin 11.6, white count 6.7. BUN of 5, creatinine 0.49. Blood culture from yesterday positive as well. DIAGNOSTIC IMPRESSION AND PLAN: Patient with Gram-positive bacteremia, concerning for possible pneumonia in this patient who presented to hospital with increasing shortness of breath, cough and hemoptysis. Blood culture was repeated to document clearance of bacteremia. Patient is covered with vancomycin. Antibiotic to be adjusted further based on culture report. Continue with supportive care. MMODL / IJN: [id number] /
[2020-12-20] MEDS: CEFEPIME 2 GM in SODIUM CHLORIDE 0.9% 100 ML IVPB SCH ×4 (02:03→23:00)
[2020-12-20] MEDS: HYDROcodone/APAP 5-325MG 1 EACH TAB PO PRN (02:08)
[2020-12-20] MEDS: LEVOTHYROXINE 25 MCG TAB PO SCH (05:33)
[2020-12-20] MEDS: TOPIRAMATE 25 MG TAB PO SCH ×2 (09:13→22:57)
[2020-12-20] MEDS: METOPROLOL SUCCINATE (ER) 50 MG TAB.ER.24H PO SCH (09:13)
[2020-12-20] MEDS: PHENYTOIN SODIUM EXTENDED 100 MG CAP PO SCH ×2 (09:13→23:00)
[2020-12-20] MEDS: FLUoxetine HCL 20 MG CAP PO SCH ×2 (09:13→22:58)
[2020-12-20] MEDS: amLODIPine 5 MG TAB PO SCH (09:13)
[2020-12-20] MEDS: TOPIRAMATE 100 MG TAB PO SCH ×2 (09:13→22:58)
[2020-12-20] MEDS: GABAPENTIN 400 MG CAP PO SCH ×4 (09:14→22:58)
[2020-12-20] MEDS: PANTOPRAZOLE 40 MG/10 ML VIAL IVP SCH (09:14)
--- NOTE | 2020-12-20 09:38 | XR ---
EXAMINATION TYPE: XR chest 2V DATE OF EXAM: 12/20/2020 COMPARISON: 12/18/2020 TECHNIQUE: PA and lateral views submitted. HISTORY: Pneumonia FINDINGS: Heart size is mildly enlarged and there is a diffuse interstitial pattern with bilateral patchy infil trate. No sizable pleural effusion. Biapical pleural thickening. Arthropathy of the shoulders. Remote rib fracture noted on the left. IMPRESSION: 1. Diffuse mixed alveolar and interstitial pattern correlate for pneumonia including atypical pneumon ia otherwise consider CHF.
[2020-12-20] MEDS: VANCOMYCIN 1,750 MG in SODIUM CHLORIDE 0.9% 500 ML 500 ML IVPB SCH (10:20)
[2020-12-20] MEDS ORDERED: guaiFENesin-DM 100-10MG/5ML 10 ML CUP PO PRN (10:20)
--- NOTE | 2020-12-20 10:25 | P.PN ---
Subjective This is a pleasant 50 years old female with past medical history of chronic obstructive pulmonary disease on 4 L oxygen via nasal cannula. Other medical problems as below. She presents to the hospital because of increasing dyspnea associated with hemoptysis and fever On admission she had a fever of 100.3 and she was saturating 84% on 4 L oxygen via nasal cannula, currently she is saturating 91% on 5 L oxygen, patient is afebrile and blood pressure 104/69. Echocardiogram performed 09/2020 showing severe LVH and ejection fraction 50-55% Lap showing leukocytosis of 11.6 came back to 6.7 yesterday. D-dimer was elevated at 1.3. BMP is unremarkable, liver enzymes not elevated. Troponin is negative less than 0.012. Procalcitonin is elevated 2.4. Urinalysis is not suspicious of infection. Thompson virus not detected Blood culture was positive with coagulase negative staph 2 Chest x-ray showing diffuse mixed interstitial and alveolar area of interval trait for which pneumonia is favored including atypical pneumonia, repeat chest x-ray showing improvement upon my review by myself, final report is pending CTA of the chest showing no PE, moderate bibasilar opacity concerning for infiltrate versus aspiration changes Patient is already on IV vancomycin and cefepime GI team also consulted for black tarry stool Today patient is counseled, feels comfortable no respiratory distress however she has bouts of severe coughing with throat pain. Robitussin and lozenges been added. No significant dyspnea, no chest pain. No other GI or urinary complaints. No endocrine weakness Review of systems CONSTITUTIONAL: No fever, no malaise, no fatigue. HEENT: No recent visual problems or hearing problems. Denied any sore throat. CARDIOVASCULAR: No orthopnea, PND, no palpitations, no syncope. PULMONARY: No shortness of breath, no cough, no hemoptysis. GASTROINTESTINAL: No diarrhea, no nausea, no vomiting, no abdominal pain. Normoactive bowel sounds. NEUROLOGICAL: No headaches, no weakness, no numbness. Active Medications Generic Name Dose Route Start Last Admin Trade Name Freq PRN Reason Stop Dose Admin Acetaminophen/Butalbital/Caffeine 1 each 12/18/20 10:14 Butalb/Apap/Caff 50-325-40mg Tab PO BID PRN Migraine Headache Hydrocodone Bitart/Acetaminophen 1 each 12/18/20 10:14 12/20/20 02:08 Hydrocodone/Apap 5-325mg 1 Each Tab PO 1 each DAILY PRN Administration Pain Albuterol/Ipratropium 3 ml 12/17/20 20:26 Ipratropium-Albuterol 3 Ml Neb INHALATION RT-Q4H PRN shortness of breath Alprazolam 0.25 mg 12/18/20 10:14 Alprazolam 0.25 Mg Tab PO BID PRN Anxiety Amlodipine Besylate 5 mg 12/19/20 09:00 12/20/20 09:13 Amlodipine 5 Mg Tab PO 5 mg DAILY IGNACIO Administration Fluoxetine HCl 40 mg 12/18/20 21:00 12/20/20 09:13 Fluoxetine Hcl 20 Mg Cap PO 40 mg BID IGNACIO Administration Gabapentin 800 mg 12/18/20 13:00 12/20/20 09:14 Gabapentin 400 Mg Cap PO 800 mg QID IGNACIO Administration Guaifenesin/Dextromethorphan 10 ml 12/20/20 10:20 Guaifenesin-Dm 100-10mg/5ml 10 Ml Cup PO Q6H PRN Cough Cefepime HCl 2 gm/ Sodium 100 mls @ 25 mls/hr 12/18/20 06:00 12/20/20 05:34 Chloride IVPB 25 mls/hr Q8H IGNACIO Administration Vancomycin HCl 1,750 mg/ 500 mls @ 167 mls/hr 12/18/20 21:30 12/20/20 10:20 Sodium Chloride IVPB 167 mls/hr Q12H IGNACIO Administration Levetiracetam 750 mg 12/18/20 16:00 12/20/20 09:13 Levetiracetam 750 Mg Tab PO 750 mg TID IGNACIO Administration Levothyroxine Sodium 25 mcg 12/19/20 06:30 12/20/20 05:33 Levothyroxine 25 Mcg Tab PO 25 mcg DAILY@0630 IGNACIO Administration Metoprolol Succinate 50 mg 12/19/20 09:00 12/20/20 09:13 Metoprolol Succinate (Er) 50 Mg Tab.Er.24h PO 50 mg DAILY IGNACIO Administration Miscellaneous Information 1 each 12/17/20 20:26 Pneumonia Protocol Utilized 1 Each Misc PO ONCE PRN Per Protocol Miscellaneous Information 0 each 12/21/20 08:30 Vancomycin Trough Due 1 Each Misc MISCELLANE 12/21/20 08:31 DIRECTED ONE Ondansetron HCl 4 mg 12/18/20 10:14 Ondansetron 4 Mg Tab PO Q8H PRN Nausea And Vomiting Pantoprazole Sodium 40 mg 12/18/20 12:15 12/20/20 09:14 Pantoprazole 40 Mg/10 Ml Vial IVP 40 mg DAILY IGNACIO Administration Phenytoin Sodium 200 mg 12/19/20 09:00 12/20/20 09:13 Phenytoin Sodium Extended 100 Mg Cap PO 200 mg QAM IGNACIO Administration Phenytoin Sodium 300 mg 12/18/20 21:00 12/19/20 21:15 Phenytoin Sodium Extended 100 Mg Cap PO 300 mg HS IGNACIO Administration Pramipexole Dihydrochloride 0.25 mg 12/18/20 21:00 12/19/20 21:16 Pramipexole 0.25 Mg Tab PO 0.25 mg HS IGNACIO Administration Quetiapine Fumarate 300 mg 12/18/20 21:00 12/19/20 21:15 Quetiapine 100 Mg Tab PO 300 mg HS IGNACIO Administration Sumatriptan Succinate 100 mg 12/18/20 10:14 Sumatriptan Succinate 50 Mg Tab PO BID PRN Migraine Headache Topiramate 50 mg 12/18/20 21:00 12/20/20 09:13 Topiramate 25 Mg Tab PO 50 mg BID IGNACIO Administration Topiramate 100 mg 12/18/20 21:00 12/20/20 09:13 Topiramate 100 Mg Tab PO 100 mg BID IGNACIO Administration Objective - Vital Signs Vital signs: Vital Signs Temp 97.9 F 12/20/20 07:00 Pulse 102 H 12/20/20 08:00 Resp 20 12/20/20 08:00 BP 104/69 12/20/20 07:00 Pulse Ox 91 L 12/20/20 07:00 Intake & Output 12/19/20 12/20/20 12/20/20 18:59 06:59 18:59 Intake Total 444 Balance 444 Intake: Oral 444 Other: Voiding Method Toilet Toilet Toilet # Voids 1 1 1 - Exam CONSTITUTIONAL: No fever, no malaise, no fatigue. HEENT: No recent visual problems or hearing problems. Denied any sore throat. CARDIOVASCULAR: No orthopnea, PND, no palpitations, no syncope. PULMONARY: No shortness of breath, no cough, no hemoptysis. GASTROINTESTINAL: No diarrhea, no nausea, no vomiting, no abdominal pain. Normoactive bowel sounds. NEUROLOGICAL: No headaches, no weakness, no numbness. HEMATOLOGICAL: Denies any bleeding or petechiae. GENITOURINARY: Denies any burning micturition, frequency, or urgency. MUSCULOSKELETAL/RHEUMATOLOGICAL: Denies any joint pain, swelling, or any muscle pain. ENDOCRINE: Denies any polyuria or polydipsia. - Labs CBC & Chem 7: 12/19/20 08:54 12/19/20 08:54 Labs: Abnormal Lab Results - Last 24 Hours (Table) 12/19/20 12/19/20 Range/Units 08:54 08:54 RBC 3.25 L (3.80-5.40) m/uL MCV 112.7 H (80.0-100.0) fL MCH 35.6 H (25.0-35.0) pg Macrocytosis Marked A Chloride 109 H (98-107) mmol/L Carbon Dioxide 21 L (22-30) mmol/L BUN 5 L (7-17) mg/dL Creatinine 0.49 L (0.52-1.04) mg/dL Glucose 120 H (74-99) mg/dL Microbiology - Last 24 Hours (Table) 12/18/20 12:20 Blood Culture Gram Stain - Preliminary Blood Blood Culture - Preliminary Coagulase Negative Staph 12/17/20 20:54 Blood Culture - Preliminary Blood No Growth after 48 hours 12/17/20 20:54 Blood Culture Gram Stain - Preliminary Blood Blood Culture - Preliminary Coagulase Negative Staph 12/17/20 18:03 Blood Culture - Preliminary Blood No Growth after 48 hours 12/18/20 12:05 Blood Culture - Preliminary Blood No Growth after 24 hours 12/18/20 11:48 Blood Culture - Preliminary Blood No Growth after 24 hours 12/18/20 12:20 Blood Culture - Final Blood Assessment and Plan Assessment: Acute and chronic hypoxic respiratory failure, she was on 4 L at home. Currently on 5 L oxygen and saturating 91% Community-acquired pneumonia Sepsis with fever and leukocytosis Bacteremia with coagulase negative staph COPD with no acute exacerbation Hemoptysis secondary to above black tarry stool , rule out GI bleed History of TIA History of vertigo History of gastric ulcer History of seizure Chronic low back pain Migraine status post occipital pain injection Hypothyroidism History of coronary artery disease status post stent History of anxiety and depression and bipolar, active issue Plan: This is a pleasant 50 years old female who presents with pneumonia andrespiratory failure. Continue with IV vancomycin and cefepime. Follow-up cultures. Repeat blood culture . We'll check speech team for swallow evaluation Follow-up GI consult, continue with Protonix. We'll check for iron study and occult blood in stool Labs and medication were reviewed.. Continue same treatment. Continue with symptomatic treatment. Resume home medication. Monitor lytes and vitals. DVT and GI prophylaxis. Further recommendations depends on the clinical course of the patient DVT prophylaxis: no Subcutaneous heparin due to hemoptysis and possible GI bleed GI Prophylaxis: Ppi PT: Recommended walker prognosis is guarded
[2020-12-20 10:36] LABS: African American GFR (CKD) >90 (>60 ml/min/1.73 sqM); Anion Gap 12 mmol/L; Blood Urea Nitrogen 4 mg/dL (7-17); Calcium 8.4 mg/dL (8.4-10.2); Carbon Dioxide 16 mmol/L (22-30); Chloride 111 mmol/L (98-107); Glucose 119 mg/dL (74-99); Non-African American GFR(CKD) >90 (>60 ml/min/1.73 sqM); Sodium 139 mmol/L (137-145)
[2020-12-20 10:43] LABS: Magnesium 1.9 mg/dL (1.6-2.3); Potassium 4.7 mmol/L (3.5-5.1)
[2020-12-20 11:00] LABS: HCT 38.1 % (34.0-46.0); MCH 37.6 pg (25.0-35.0); MCHC 34.1 g/dL (31.0-37.0); MCV 110.4 fL (80.0-100.0); Macrocytosis Marked; Mean Platelet Volume 8.6; Platelet Count 247 k/uL (150-450); RBC 3.45 m/uL (3.80-5.40); RDW 15.4 % (11.5-15.5); WBC 5.6 k/uL (3.8-10.6)
[2020-12-20 11:41] LABS: Eosinophils # (M) 0.22 k/uL (0-0.7); Lymphocytes # (M) 1.34 k/uL (1.0-4.8); Monocytes # (M) 0.39 k/uL (0-1.0); Myelocytes # (M) 0.06 k/uL (0); Myelocytes % 1 %; Neutrophils # (M) 3.64 k/uL (1.3-7.7); Neutrophils % (M) 65 %; Nucleated Red Blood Cells 0 /100 WBC (0-0); Total Cells Counted 200
[2020-12-20 11:42] LABS: Poikilocytosis (M) Present
[2020-12-20] MEDS ORDERED: FUROSEMIDE 10 MG/ML 4 ML VIAL IV STA (14:52)
--- NOTE | 2020-12-20 15:12 | P.PN ---
Subjective Progress Note Date: 12/20/20 50-year-old white female patient with past medical history of COPD on home oxyg en at 3-4 L/m, chronic A. fib on Eliquis, history of CVA/TIA, hypertension, chronic CHF, previous history of gastric ulcer, chronic back pain, seizure disorder, hypothyroidism and history of recurrent urinary tract infections, who was brought into the emergency department on 12/27/2020 per EMS for evaluation of increased cough, and apparently patient has coughed up some blood. She is currently on Eliquis history of A. fib and history of CVA/TIA. Denied any fever or chills, no chest congestion or phlegm production. She was tested for COVID 19 which was negative, chest x-ray showed moderate bibasilar opacities. Today's labs showed white blood cell count of 11.6, hemoglobin of 12.2, d-dimer of 1.8, electrolytes and renal profile were unremarkable, plasma lactic acid was within normal limits at 1.4, LFTs are within normal limits, proBNP was 1560, troponin was less than 0.012. Urinalysis was negative for infection. D-dimer was 1.38, CTA chest completed, doing no evidence of acute pulmonary embolism, moderate bibasilar opacities. Patient continues on Eliquis. Hemoglobin is 12.2. During our evaluation patient states she was actually throwing up blood and passing black bowel movements. On 12/19/2020 the patient is being seen for a follow-up and she has no specific complaints. No evidence of any GI bleed. No melanotic stools. She did not cough up any blood. She did not throw up any blood. She was seen by gastroenterology. The patient is currently on IV cefepime. He is also on vancomycin.. We suspected lower lobe pneumonia and for that reason the patient was covered with broad-spectrum antibiotics. She is resting comfortably in bed on 5 L O2 by nasal cannula. I do not appreciate a GI consultation yet. ID consultation was appreciated and the patient was asked to complete this current antibiotic coverage. For now, the blood cultures are negative and there is only one culture that showing gram-positive cocci in groups, awaiting final cultures and sensitivities. 12/20/2020, the patient is clinically unchanged and she remains on oxygen at 5 L by the chest x-ray was repeated and the patient is still persistent bilateral lower lobe pulmonary infiltrate. The pro-Level Was Elevated at 3. nasal cannula. The maze on a combination of cefepime and vancomycin. No signs of any GI bleeding. The patient continues to be afebrile. She is receiving antibioti cs. The chest x-ray was repeated and the patient has persistent infiltration of the lung bases bilaterally. The Pronestyl level was at 2.49 indicating an underlying infection probably pneumonia. The blood culture came back coagulase- negative staph. The patient has no specific complaints. I noted some non-anion gap metabolic acidosis developing in the serum bicarb is up 16 and this will be monitored. Creatinine stable at 0.48. Objective - Vital Signs Vital signs: Vital Signs Temp 97.9 F 12/20/20 07:00 Pulse 102 H 12/20/20 08:00 Resp 20 12/20/20 08:00 BP 104/69 12/20/20 07:00 Pulse Ox 91 L 12/20/20 07:00 Intake & Output 12/19/20 12/20/20 12/20/20 18:59 06:59 18:59 Intake Total 444 Balance 444 Intake: Oral 444 Other: Voiding Method Toilet Toilet Toilet # Voids 1 1 1 - Exam GENERAL EXAM: Alert, very pleasant, 50-year-old white female, on 5 L of oxygen pulse ox of 92% comfortable in no apparent distress. HEAD: Normocephalic/atraumatic. EYES: Normal reaction of pupils, equal size. Conjunctiva pink, sclera white. NOSE: Clear with pink turbinates. THROAT: No erythema or exudates. NECK: No masses, no JVD, no thyroid enlargement, no adenopathy. CHEST: No chest wall deformity. Symmetrical expansion. LUNGS: Equal air entry with no crackles, wheeze, rhonchi or dullness. CVS: Regular rate and rhythm, normal S1 and S2, no gallops, no murmurs, no rubs ABDOMEN: Soft, nontender. No hepatosplenomegaly, normal bowel sounds, no guarding or rigidity. EXTREMITIES: No clubbing, no edema, no cyanosis, 2+ pulses and upper and lower extremities. MUSCULOSKELETAL: Muscle strength and tone normal. SPINE: No scoliosis or deformity SKIN: No rashes CENTRAL NERVOUS SYSTEM: Alert and oriented -3. No focal deficits, tone is normal in all 4 extremities. PSYCHIATRIC: Alert and oriented -3. Appropriate affect. Intact judgment and insight. - Labs CBC & Chem 7: 12/20/20 10:07 12/20/20 10:07 Labs: Abnormal Lab Results - Last 24 Hours (Table) 12/20/20 12/20/20 Range/Units 10:07 10:07 RBC 3.45 L (3.80-5.40) m/uL MCV 110.4 H (80.0-100.0) fL MCH 37.6 H (25.0-35.0) pg Myelocytes # (Manual) 0.06 H (0) k/uL Macrocytosis Marked A Chloride 111 H (98-107) mmol/L Carbon Dioxide 16 L (22-30) mmol/L BUN 4 L (7-17) mg/dL Creatinine 0.48 L (0.52-1.04) mg/dL Glucose 119 H (74-99) mg/dL Microbiology - Last 24 Hours (Table) 12/18/20 11:48 Blood Culture - Preliminary Blood No Growth after 48 hours 12/18/20 12:05 Blood Culture - Preliminary Blood No Growth after 48 hours 12/18/20 12:20 Blood Culture Gram Stain - Preliminary Blood Blood Culture - Preliminary Coagulase Negative Staph 12/17/20 20:54 Blood Culture - Preliminary Blood No Growth after 48 hours 12/17/20 20:54 Blood Culture Gram Stain - Preliminary Blood Blood Culture - Preliminary Coagulase Negative Staph 12/17/20 18:03 Blood Culture - Preliminary Blood No Growth after 48 hours 12/18/20 12:20 Blood Culture - Final Blood Assessment and Plan Plan: #1. Acute on chronic hypoxic respiratory failure secondary to possibility of aspiration pneumonia. Possible hemoptysis although from the history given by the patient and may actually have hematemesis. There is also a positive blood culture with gram-positive bacteria in groups tobecoagulase-negative staph. Awaiting further cultures and sensitivities. Infectious diseases on the case. Repeat blood cultures of been negative and the patient is currently on a combination of cefepime and vancomycin was discontinued. #2. Hematemesis, and black tarry schools, possibility of GI bleeding, currently inactive in stable and the hemoglobin is at 11.6 and the patient is currently off anticoagulants. #3. History of COPD with chronic hypoxic respiratory failure #4. A. fib #5. Recurrent urinary tract infection history of #6. Elevated d-dimer with no CT evidence of pulmonary embolism #7. Hypertension #8. History of a gastric ulcer #9. Seizure disorder #10. Chronic pain #11. Anxiety/depression Plan: Keep same antibiotic coverage, vancomycin was discontinued Pro-calcitonin level is elevated Blood cultures positive for coagulase negative staph consistent with contamination Chest x-ray findings are stable Repeat chest x-ray in the morning Repeat pro-calcitonin level Monitor serum bicarb level We'll continue to follow.
--- NOTE | 2020-12-20 16:10 | P.CONS ---
History of Present Illness - Reason for Consult Consult date: 12/19/20 Melena Requesting physician: Ty Aponte - Chief Complaint Hemoptysis - History of Present Illness 50-year-old female with multiple medical comorbidities including COPD on home oxygen, atrial fibrillation on anticoagulation therapy, prior CVA/TIA, chronic back pain, seizure disorder, hypothyroidism, recurrent urinary tract infections, hypertension and a history of peptic ulcer disease who was recently treated for pneumonia who presented to the hospital for hemoptysis. The patient reports that she was coughing up blood at home. She noted some dark-colored bowel movements earlier in the week and presented for further evaluation. CT scan of the chest was negative for pulmonary embolization. She reports that the episodes of coughing up blood were earlier in the week approximately at the same time as the dark-colored bowel movements. She reports a bloody nose at home. In total she had 3 dark bowel movements and no further episodes since that time. She denies any abdominal pain. She reports a colonoscopy was performed 10 years ago for family history of colon cancer and that she had a history of peptic ulcer disease approximate the same time. Hemoglobin was stable on presentation at 11.6 with no elevation in the BUN at 5 and WBC 6.7 and platelet count 249,000. Review of Systems REVIEW OF SYSTEMS: CONSTITUTIONAL: Denies any fevers, chills, weight change or fatigue. CARDIOVASCULAR: Denies any chest pain, palpitations high or low blood pressures RESPIRATORY: She reports shortness of breath, hemoptysis or cough. GENITOURINARY: No dysuria or hematuria, history of recurrent UTIs. MUSCULOSKELETAL: No weakness reported. SKIN: Denies any new rashes or lesions, jaundice or pallor. PSYCHIATRIC: Denies any depression or anxiety. NEUROLOGY: Denies headache, denies any new focal deficits. EARS/NOSE/THROAT: No recent hearing change, congestion, nasal discharge or sore throat. EYES: No pain in eyes, discharge or change in vision. GASTROINTESTINAL: As per HPI. Past Medical History Past Medical History: COPD Additional Past Medical History / Comment(s): Pt uses home oxygen @ 4 L @ hs & prn, TIA, vertigo, bronchitis, gastric ulcer, seizure-last time 09/05/20, chronic low back pain/bulging discs, migraines, hypothyroid, hospitalized in May 2020 for acute resp. failure and positive blood culture. History of Any Multi-Drug Resistant Organisms: None Reported Past Surgical History: Section, Cholecystectomy, Heart Catheterization With Stent, Tubal Ligation Additional Past Surgical History / Comment(s): C-Sections x 3. PAIN CLINIC PROCEDURES Past Anesthesia/Blood Transfusion Reactions: Motion Sickness Date of Last Stent Placement:: 2003 Past Psychological History: Anxiety, Bipolar, Depression Additional Psychological History / Comment(s): Pt resides with her 17 year old daughter. She uses a cane to ambulate. She does not drive, her sister or other family take her to appts. She has home oxygen and a nebulizer. Smoking Status: Former smoker Past Alcohol Use History: None Reported Additional Past Alcohol Use History / Comment(s): Pt started smoking in 1985 and quit in 2018, quit vaping 2019. Past Drug Use History: None Reported - Past Family History Father Family Medical History: AFIB Mother Family Medical History: AFIB, Diabetes Mellitus Medications and Allergies Home Medications Medication Instructions Recorded Confirmed Type Pramipexole [Mirapex] 0.25 mg PO HS 06/21/17 12/17/20 History Phenytoin Sodium Extended 300 mg PO HS 02/15/19 12/17/20 History [Dilantin] FLUoxetine HCL 40 mg PO BID 10/19/19 12/17/20 History Gabapentin 800 mg PO QID 11/30/19 12/17/20 History QUEtiapine FUMARATE [SEROquel] 300 mg PO HS 11/30/19 12/17/20 History Nicotine Polacrilex [Nicotine Gum] 4 mg BUCCAL Q2H PRN 03/16/20 12/17/20 History Metoprolol Succinate (ER) [Toprol 50 mg PO DAILY 07/02/20 12/17/20 History XL] amLODIPine [Norvasc] 5 mg PO DAILY 07/02/20 12/17/20 History levETIRAcetam [Keppra] 750 mg PO TID 07/02/20 12/17/20 History Topiramate [Topamax] 50 mg PO BID 09/09/20 12/17/20 History Topiramate [Topamax] 100 mg PO BID 09/09/20 12/17/20 History Apixaban [Eliquis] 5 mg PO BID #60 tab 09/12/20 12/17/20 Rx Phenytoin Sodium Extended 200 mg PO QAM 09/23/20 12/17/20 History [Dilantin] SUMAtriptan SUCCINATE [Imitrex] 100 mg PO BID PRN 10/16/20 12/17/20 History Albuterol Sulfate [Proair Hfa] 2 puff INHALATION RT-QID PRN 10/26/20 12/17/20 History Ergocalciferol [Vitamin D2 50,000 unit PO Q30D 10/26/20 12/17/20 History (DRISDOL)] Levothyroxine Sodium [Synthroid] 25 mcg PO DAILY 10/26/20 12/17/20 History ALPRAZolam [Xanax] 0.25 mg PO BID PRN 11/18/20 12/17/20 History Butalbital/Aspirin/Caffeine 1 tab PO BID PRN 12/17/20 12/17/20 History [Ibinam-Xtjjdwk-Aqsnduds 50-325-40 mg] HYDROcodone/APAP 5-325MG [[place] 1 tab PO DAILY PRN 12/17/20 12/17/20 History 5-325] Ondansetron HCl [Zofran] 4 mg PO Q8H PRN 12/17/20 12/17/20 History Allergies Allergy/AdvReac Type Severity Reaction Status Date / Time ibuprofen [From Motrin] Allergy Rash/Hives Verified 12/17/20 20:55 Latex, Natural Rubber Allergy Rash/Hives Verified 12/17/20 20:55 naproxen [From Naprosyn] Allergy Unknown Verified 12/17/20 20:55 tramadol Allergy Rash/Hives Verified 12/17/20 20:55 Penicillins AdvReac Vomiting Verified 12/17/20 20:55 Physical Exam Vitals: Vital Signs Temp Pulse Resp BP Pulse Ox 12/19/20 08:00 16 12/19/20 07:00 98 F 86 16 124/76 95 12/19/20 01:31 98.1 F 91 20 129/82 91 L 12/18/20 20:00 98.4 F 86 20 111/72 93 L 12/18/20 19:38 95 12/18/20 14:24 98.1 F 80 17 103/64 92 L 12/18/20 14:00 16 Intake and Output 12/18/20 12/19/20 12/19/20 22:59 06:59 14:59 Other: Voiding Method Toilet # Voids 1 2 On physical examination, patient appears comfortable in no apparent distress. HEAD: Normocephalic, atraumatic. EYES: No scleral icterus. No conjunctival injection. MOUTH: No lesions, tongue midline. NECK: Trachea midline, no gross abnormalities. CHEST: Decreased air entry in all lung crocker. HEART: S1-S2 appreciated. ABDOMEN: Soft, nontender to palpation. Bowel sounds are positive. No organomegaly. No guarding or rigidity. EXTREMITIES: No pedal edema. SKIN: No rashes, no jaundice. NEUROLOGIC: Alert and oriented x3. No focal deficits. Results CBC & Chem 7: 12/20/20 10:07 12/20/20 10:07 Labs: Abnormal Lab Results - Last 24 Hours (Table) 12/18/20 12/19/20 12/19/20 Range/Units 12:20 08:54 08:54 RBC 3.25 L (3.80-5.40) m/uL MCV 112.7 H (80.0-100.0) fL MCH 35.6 H (25.0-35.0) pg Macrocytosis Marked A Chloride 109 H (98-107) mmol/L Carbon Dioxide 21 L (22-30) mmol/L BUN 5 L (7-17) mg/dL Creatinine 0.49 L (0.52-1.04) mg/dL Glucose 120 H (74-99) mg/dL Procalcitonin 2.49 H (0.02-0.09) ng/mL Microbiology - Last 24 Hours (Table) 12/17/20 20:54 Blood Culture Gram Stain - Preliminary Blood 12/17/20 20:54 Blood Culture - Preliminary Blood No Growth after 24 hours 12/17/20 18:03 Blood Culture - Preliminary Blood No Growth after 24 hours 12/17/20 20:54 Blood Culture - Final Blood Chest x-ray: report reviewed Assessment and Plan (1) Melena Narrative/Plan: 50-year-old with multiple medical comorbidities including COPD on oxygen therapy at home who presented to the hospital for evaluation of hemoptysis. She had also noted some dark-colored bowel movements. She reports a remote history of peptic ulcer disease approximately 10 years ago at which time she had an EGD and also had a colonoscopy around the same time as she has a family history of colon cancer. Hemoglobin stable at 11.6 on presentation with no elevation in her BUN currently at 5. Unclear if her symptoms are secondary to hemoptysis and swallowing blood, she also reports a history of epistaxis, or secondary to esophagitis, gastritis, peptic ulcer disease or other possible upper GI bleed although normal BUN makes this less likely. Current Visit: Yes Status: Acute Code(s): K92.1 - MELENA SNOMED Code(s): 2152502 (2) Family history of colon cancer in father Current Visit: Yes Status: Acute Code(s): Z80.0 - FAMILY HISTORY OF MALIGNANT NEOPLASM OF DIGESTIVE ORGANS SNOMED Code(s): 442363347 Plan: Supportive care Okay for diet as tolerated Continue Protonix daily Continue to monitor hemoglobin and hematocrit transfuse as needed Continue management as per recommendations by the infectious disease and pulmonology services Extensive discussion with the patient regarding her symptoms, at this time we will continue to treat conservatively even the patient's requirement for oxygen therapy and current treatment for possible aspiration pneumonia, if signs or symptoms of GI bleeding develop or other fall in hemoglobin will reevaluate at that time Patient does need repeat screening colonoscopy in the outpatient setting given her family history of colon cancer which could be done on a nonemergent basis Thank you for allowing us to participate in the care of the patient we will continue to follow-up
--- NOTE | 2020-12-20 16:42 | P.PN ---
Subjective Progress Note Date: 12/20/20 Principal diagnosis: Ammonia, black tarry stools 50-year-old female who is being seen for follow-up for complaints of black tarry stools 1 day. Patient was admitted to the hospital with complaints of shortness of breath and increased cough who was recently diagnosed with pneum onia. The patient states she has had no further signs of GI bleed. She denies any abdominal pain, nausea, or vomiting. She is tolerating a regular diet. She has had bowel movements which she reports is brown. Had no acute changes through the night. Objective - Vital Signs Vital signs: Vital Signs Temp 97.9 F 12/20/20 07:00 Pulse 102 H 12/20/20 08:00 Resp 20 12/20/20 08:00 BP 104/69 12/20/20 07:00 Pulse Ox 91 L 12/20/20 07:00 Intake & Output 12/19/20 12/20/20 12/20/20 18:59 06:59 18:59 Intake Total 444 Balance 444 Intake: Oral 444 Other: Voiding Method Toilet Toilet Toilet # Voids 1 1 1 - Exam General appearance: The patient is alert, oriented, appears in no acute distress. HET: Head is normocephalic and atraumatic. Conjunctiva pink. Sclera anicteric. Neck: Supple without lymphadenopathy. Abdomen: Soft, nontender, nondistended with bowel sounds. No guarding or rigidity. Extremities: Normal skin color and turgor. No pedal edema Skin: No rashes, no jaundice Neurological: No focal deficits. Alert and oriented 3. - Labs CBC & Chem 7: 12/20/20 10:07 12/20/20 10:07 Labs: Microbiology - Last 24 Hours (Table) 12/18/20 12:20 Blood Culture Gram Stain - Preliminary Blood Blood Culture - Preliminary Coagulase Negative Staph 12/17/20 20:54 Blood Culture - Preliminary Blood No Growth after 48 hours 12/17/20 20:54 Blood Culture Gram Stain - Preliminary Blood Blood Culture - Preliminary Coagulase Negative Staph 12/17/20 18:03 Blood Culture - Preliminary Blood No Growth after 48 hours 12/18/20 12:05 Blood Culture - Preliminary Blood No Growth after 24 hours 12/18/20 11:48 Blood Culture - Preliminary Blood No Growth after 24 hours 12/18/20 12:20 Blood Culture - Final Blood Assessment and Plan (1) Melena Narrative/Plan: 50-year-old with multiple medical comorbidities including COPD on oxygen therapy at home who presented to the hospital for evaluation of hemoptysis. She had also noted some dark-colored bowel movements. She reports a remote history of peptic ulcer disease approximately 10 years ago at which time she had an EGD and also had a colonoscopy around the same time as she has a family history of colon cancer. Hemoglobin stable at 11.6 on presentation with no elevation in her BUN currently at 5. Unclear if her symptoms are secondary to hemoptysis and swallowing blood, she also reports a history of epistaxis, or secondary to esophagitis, gastritis, peptic ulcer disease or other possible upper GI bleed although normal BUN makes this less likely. Current Visit: Yes Status: Acute Code(s): K92.1 - MELENA SNOMED Code(s): 3655795 (2) Family history of colon cancer in father Current Visit: Yes Status: Acute Code(s): Z80.0 - FAMILY HISTORY OF MALIGNANT NEOPLASM OF DIGESTIVE ORGANS SNOMED Code(s): 765203004 Plan: Supportive care Okay for diet as tolerated Continue Protonix daily Continue to monitor hemoglobin and hematocrit transfuse as needed Continue management as per recommendations by the infectious disease and pulmonology services Extensive discussion with the patient regarding her symptoms, at this time we will continue to treat conservatively even the patient's requirement for oxygen therapy and current treatment for possible aspiration pneumonia, if signs or symptoms of GI bleeding develop or other fall in hemoglobin will reevaluate at that time Patient does need repeat screening colonoscopy in the outpatient setting given her family history of colon cancer which could be done on a nonemergent basis Thank you for allowing us to participate in the care of the patient we will sign off at this time
--- NOTE | 2020-12-20 18:39 | PN ---
PROGRESS NOTE DATE OF SERVICE: 12/20/2020 REASON FOR FOLLOWUP: 1. Bacteremia. 2. Pneumonia. INTERVAL HISTORY: The patient is currently afebrile. The patient is breathing comfortably. The patient denies having any chest pain. She continues to have a cough but not bringing up any sputum. No nausea, no vomiting, no abdominal pain or diarrhea. PHYSICAL EXAMINATION: Blood pressure 114/56, pulse of 81, temperature 98.2. She is 96% on 5 L nasal cannula. General description is a middle-aged female up in the bed in no distress. RESPIRATORY SYSTEM: Unlabored breathing with decreased intensity of breath sounds. No wheeze. HEART: S1, S2. Regular rate and rhythm. ABDOMEN: Soft. No tenderness. LABS: Hemoglobin is 13, white count 5.6. BUN of 4, creatinine 0.48. Blood culture came back positive with coagulase-negative Staph. DIAGNOSTIC IMPRESSION AND PLAN: Patient with positive blood cultures for coagulase-negative Staphylococcus, likely skin contaminant. Vancomycin will be discontinued, but the patient is with cough and hemoptysis concerning for pneumonia, covered with cefepime. Try to obtain a sputum sample to narrow down her antibiotics. Continue with supportive care. MMODL / IJN: [id number] /
[2020-12-20] MEDS: QUEtiapine 100 MG TAB PO SCH (22:57)
[2020-12-20] MEDS: PRAMIPEXOLE 0.25 MG TAB PO SCH (22:59)
[2020-12-21 02:19] LABS: % Iron Saturation 51.87 (12.00-45.00)
[2020-12-21 03:56] LABS: Ferritin 337.7 ng/mL (10.0-291.0)
[2020-12-21] MEDS: CEFEPIME 2 GM in SODIUM CHLORIDE 0.9% 100 ML IVPB SCH ×3 (05:17→22:00)
[2020-12-21] MEDS: LEVOTHYROXINE 25 MCG TAB PO SCH (05:17)
[2020-12-21] MEDS: HYDROcodone/APAP 5-325MG 1 EACH TAB PO PRN (05:20)
[2020-12-21] MEDS ORDERED: VANCOMYCIN TROUGH DUE 1 EACH MISC MISCELLANE ONE (08:30)
[2020-12-21] MEDS: METOPROLOL SUCCINATE (ER) 50 MG TAB.ER.24H PO SCH (08:33)
[2020-12-21] MEDS: PANTOPRAZOLE 40 MG/10 ML VIAL IVP SCH (08:33)
[2020-12-21] MEDS: amLODIPine 5 MG TAB PO SCH (08:34)
[2020-12-21] MEDS: FLUoxetine HCL 20 MG CAP PO SCH ×2 (08:34→22:06)
[2020-12-21] MEDS: GABAPENTIN 400 MG CAP PO SCH ×4 (08:34→22:02)
[2020-12-21] MEDS: PHENYTOIN SODIUM EXTENDED 100 MG CAP PO SCH ×2 (08:34→22:05)
[2020-12-21] MEDS: TOPIRAMATE 25 MG TAB PO SCH ×2 (08:35→22:02)
[2020-12-21] MEDS: TOPIRAMATE 100 MG TAB PO SCH ×2 (08:35→22:06)
[2020-12-21 08:49] LABS: HCT 34.3 % (37.2-46.3); HGB 11.3 g/dL (12.0-15.0); MCH 36.3 pg (27.0-32.0); MCHC 32.9 g/dL (32.0-37.0); MCV 110.3 fL (80.0-97.0); Mean Platelet Volume 10.4 fL (9.5-12.2); Platelet Count 245 X 10*3/uL (140-440); RBC 3.11 X 10*6/uL (4.10-5.20); RDW 13.9 % (11.5-14.5); WBC 4.59 X 10*3/uL (4.50-10.00)
--- NOTE | 2020-12-21 08:51 | XR ---
EXAMINATION TYPE: XR chest 2V DATE OF EXAM: 12/21/2020 COMPARISON: 12/20/2020 HISTORY: 50-year-old female pneumonia TECHNIQUE: Frontal and lateral views FINDINGS: Heart borderline enlarged. Diffuse interstitial opacities persist. Some patchy medial right basilar o pacity is relatively similar. No sizable effusion. IMPRESSION: Borderline cardiomegaly and persistent diffuse interstitial changes. More focal patchy medial right b asilar opacity also persists.
[2020-12-21 09:31] LABS: African American GFR (CKD) 122.3 (60.0-200.0); Anion Gap 7.5 mmol/L (4.00-12.00); Calcium 8.5 mg/dL (8.7-10.3); Carbon Dioxide 26.5 mmol/L (21.6-31.8); Magnesium 1.8 mg/dL (1.5-2.4); Non-African American GFR(CKD) 105.5 (60.0-200.0); Potassium 3.6 mmol/L (3.5-5.5)
[2020-12-21 11:51] LABS: Basophils # (A) 0.03 X 10*3/uL (0.00-0.10); Basophils % (A) 0.7 %; Eosinophils # (A) 0.23 X 10*3/uL (0.04-0.35); Lymphocytes # (A) 1.53 X 10*3/uL (0.90-5.00); Lymphocytes % (A) 33.3 %; Monocytes # (A) 0.45 X 10*3/uL (0.20-1.00); Monocytes % (A) 9.8 %; Neutrophils # (A) 2.29 X 10*3/uL (1.80-7.70); Neutrophils % (A) 49.9 %
[2020-12-21 11:52] LABS: Anisocytosis (M) 2+; Macrocytosis (M) 2+
[2020-12-21] MEDS ORDERED: FUROSEMIDE 10 MG/ML 4 ML VIAL IV STA (14:52)
--- NOTE | 2020-12-21 14:52 | P.PN ---
Subjective Progress Note Date: 12/21/20 50-year-old white female patient with past medical history of COPD on home oxyg en at 3-4 L/m, chronic A. fib on Eliquis, history of CVA/TIA, hypertension, chronic CHF, previous history of gastric ulcer, chronic back pain, seizure disorder, hypothyroidism and history of recurrent urinary tract infections, who was brought into the emergency department on 12/27/2020 per EMS for evaluation of increased cough, and apparently patient has coughed up some blood. She is currently on Eliquis history of A. fib and history of CVA/TIA. Denied any fever or chills, no chest congestion or phlegm production. She was tested for COVID 19 which was negative, chest x-ray showed moderate bibasilar opacities. Today's labs showed white blood cell count of 11.6, hemoglobin of 12.2, d-dimer of 1.8, electrolytes and renal profile were unremarkable, plasma lactic acid was within normal limits at 1.4, LFTs are within normal limits, proBNP was 1560, troponin was less than 0.012. Urinalysis was negative for infection. D-dimer was 1.38, CTA chest completed, doing no evidence of acute pulmonary embolism, moderate bibasilar opacities. Patient continues on Eliquis. Hemoglobin is 12.2. During our evaluation patient states she was actually throwing up blood and passing black bowel movements. On 12/19/2020 the patient is being seen for a follow-up and she has no specific complaints. No evidence of any GI bleed. No melanotic stools. She did not cough up any blood. She did not throw up any blood. She was seen by gastroenterology. The patient is currently on IV cefepime. He is also on vancomycin.. We suspected lower lobe pneumonia and for that reason the patient was covered with broad-spectrum antibiotics. She is resting comfortably in bed on 5 L O2 by nasal cannula. I do not appreciate a GI consultation yet. ID consultation was appreciated and the patient was asked to complete this current antibiotic coverage. For now, the blood cultures are negative and there is only one culture that showing gram-positive cocci in groups, awaiting final cultures and sensitivities. 12/20/2020, the patient is clinically unchanged and she remains on oxygen at 5 L by the chest x-ray was repeated and the patient is still persistent bilateral lower lobe pulmonary infiltrate. The pro-Level Was Elevated at 3. nasal cannula. The maze on a combination of cefepime and vancomycin. No signs of any GI bleeding. The patient continues to be afebrile. She is receiving antibioti cs. The chest x-ray was repeated and the patient has persistent infiltration of the lung bases bilaterally. The Pronestyl level was at 2.49 indicating an underlying infection probably pneumonia. The blood culture came back coagulase- negative staph. The patient has no specific complaints. I noted some non-anion gap metabolic acidosis developing in the serum bicarb is up 16 and this will be monitored. Creatinine stable at 0.48. 12/21/2020 the patient is 5 L. Chest x-ray findings are stable. No major changes or hemoptysis. No pleurisy. No altered mentation. He remains on a combination of cefepime and vancomycin. No signs of any GI bleeding. No melanotic stools. Hemodynamically stable. Note that the patient's pro- calcitonin level was at 2.49 and she is progressively down to 1.05. On today's evaluation, I was in The Patient's Platelet Count to 4 L Minute Nasal Cannula. She Was Able to Tolerate That without Any Major Difficulties. Objective - Vital Signs Vital signs: Vital Signs Temp 98.1 F 12/21/20 07:00 Pulse 67 12/21/20 07:00 Resp 16 12/21/20 08:00 BP 111/69 12/21/20 07:00 Pulse Ox 94 L 12/21/20 07:00 Intake & Output 12/20/20 12/21/20 12/21/20 18:59 06:59 18:59 Intake Total 870 Balance 870 Intake: Oral 870 Other: Voiding Method Toilet Toilet # Voids 2 3 - Exam GENERAL EXAM: Alert, very pleasant, 50-year-old white female, on 5 L of oxygen pulse ox of 92% comfortable in no apparent distress. HEAD: Normocephalic/atraumatic. EYES: Normal reaction of pupils, equal size. Conjunctiva pink, sclera white. NOSE: Clear with pink turbinates. THROAT: No erythema or exudates. NECK: No masses, no JVD, no thyroid enlargement, no adenopathy. CHEST: No chest wall deformity. Symmetrical expansion. LUNGS: Equal air entry with no crackles, wheeze, rhonchi or dullness. CVS: Regular rate and rhythm, normal S1 and S2, no gallops, no murmurs, no rubs ABDOMEN: Soft, nontender. No hepatosplenomegaly, normal bowel sounds, no guarding or rigidity. EXTREMITIES: No clubbing, no edema, no cyanosis, 2+ pulses and upper and lower extremities. MUSCULOSKELETAL: Muscle strength and tone normal. SPINE: No scoliosis or deformity SKIN: No rashes CENTRAL NERVOUS SYSTEM: Alert and oriented -3. No focal deficits, tone is normal in all 4 extremities. PSYCHIATRIC: Alert and oriented -3. Appropriate affect. Intact judgment and insight. - Labs CBC & Chem 7: 12/21/20 05:29 12/21/20 05:29 Labs: Abnormal Lab Results - Last 24 Hours (Table) 12/20/20 12/20/20 12/21/20 Range/Units 17:20 17:20 05:29 RBC (4.10-5.20) X 10*6/uL Hgb (12.0-15.0) g/dL Hct (37.2-46.3) % MCV (80.0-97.0) fL MCH (27.0-32.0) pg Immature Gran # (0.00-0.04) X 10*3/uL BUN 6.0 L (9.0-27.0) mg/dL BUN/Creatinine Ratio 10.00 L (12.00-20.00) Ratio Glucose 115 H (70-110) mg/dL Calcium 8.5 L (8.7-10.3) mg/dL % Saturation 51.87 H (12.00-45.00) Ferritin 337.7 H (10.0-291.0) ng/mL Procalcitonin 1.05 H (0.02-0.09) ng/mL 12/21/20 Range/Units 05:29 RBC 3.11 L (4.10-5.20) X 10*6/uL Hgb 11.3 L (12.0-15.0) g/dL Hct 34.3 L (37.2-46.3) % MCV 110.3 H (80.0-97.0) fL MCH 36.3 H (27.0-32.0) pg Immature Gran # 0.06 H (0.00-0.04) X 10*3/uL BUN (9.0-27.0) mg/dL BUN/Creatinine Ratio (12.00-20.00) Ratio Glucose (70-110) mg/dL Calcium (8.7-10.3) mg/dL % Saturation (12.00-45.00) Ferritin (10.0-291.0) ng/mL Procalcitonin (0.02-0.09) ng/mL Microbiology - Last 24 Hours (Table) 12/18/20 12:05 Blood Culture - Preliminary Blood No Growth after 72 hours 12/18/20 11:48 Blood Culture - Preliminary Blood No Growth after 72 hours 12/20/20 10:07 Blood Culture - Preliminary Blood No Growth after 24 hours 12/17/20 20:54 Blood Culture - Preliminary Blood No Growth after 72 hours 12/18/20 12:20 Blood Culture Gram Stain - Final Blood Blood Culture - Final Coagulase Negative Staph 12/17/20 20:54 Blood Culture Gram Stain - Final Blood Blood Culture - Final Coagulase Negative Staph 12/17/20 18:03 Blood Culture - Preliminary Blood No Growth after 72 hours Assessment and Plan Plan: #1. Acute on chronic hypoxic respiratory failure secondary to possibility of aspiration pneumonia. Possible hemoptysis although from the history given by the patient and may actually have hematemesis. There is also a positive blood culture with gram-positive bacteria in groups tobecoagulase-negative staph. Awaiting further cultures and sensitivities. Infectious diseases on the case. Repeat blood cultures of been negative and the patient is currently on a combination of cefepime and vancomycin was discontinued. #2. Hematemesis, and black tarry schools, possibility of GI bleeding, currently inactive in stable and the hemoglobin is at 11.6 and the patient is currently off anticoagulants. #3. History of COPD with chronic hypoxic respiratory failure #4. A. fib #5. Recurrent urinary tract infection history of #6. Elevated d-dimer with no CT evidence of pulmonary embolism #7. Hypertension #8. History of a gastric ulcer #9. Seizure disorder #10. Chronic pain #11. Anxiety/depression Plan: Keep same antibiotic coverage, vancomycin was discontinued Pro-calcitonin level was elevated and is gradually improving. The patient is currently on 4 L of Oxymizer by nasal cannula. Blood cultures positive for coagulase negative staph consistent with contamination Chest x-ray findings are stable Repeat chest x-ray in the morning Additional dose of Lasix 40 mg IV We'll continue to follow.
[2020-12-21] MEDS: ENOXAPARIN 40 MG/0.4 ML SYRINGE SQ SCH (16:22)
--- NOTE | 2020-12-21 16:53 | PN ---
PROGRESS NOTE DATE OF SERVICE: 12/21/2020 I am covering for Dr. Aponte. This 50-year-old woman with a past medical history of multiple medical problems including acute bilateral pneumonia, acute hypoxic respiratory failure. The patient on broad spectrum IV antibiotics. Multiple consultants are following the patient closely. There is no history of any chest pain, palpitations. Past medical history reviewed. REVIEW OF SYSTEMS: CARDIOVASCULAR: No angina. No palpitations. RESPIRATORY: As mentioned earlier. GI as mentioned earlier. : No dysuria. NERVOUS SYSTEM: No focal deficits. CURRENT MEDICATIONS: Reviewed and include: Fioricet. Polaris, Xanax, Neurontin, Keppra, Toprol-XL. Doses are reviewed. PHYSICAL EXAM: Patient is alert, oriented x3. Pulse 67. Blood pressure 111/69, respirations 16, temperature 98.1, pulse ox 98% on 4 L. HEENT: Conjunctivae normal. NECK: No JVD. CARDIOVASCULAR: S1, S2. RESPIRATION: Breath sounds diminished in the bases. Scattered rhonchi and crackles. ABDOMEN: Soft, obese, nontender. LEGS are no edema. No swelling. LABS: WBC 4.2, hemoglobin 11.3. Sodium 141. Covid 19 was negative. ASSESSMENT: 1. Acute bilateral pneumonia possibly community-acquired, possibly gram-negative with acute hypoxic respiratory failure. 2. Chronic hypoxic respiratory failure, on 4 L nasal cannula. 3. Sepsis, with fever, present on admission. 4. Bacteremia. 5. Chronic obstructive pulmonary disease with no acute exacerbation. 6. Hemoptysis secondary to above. 7. Black tarry stools, gastrointestinal bleed ruled out. 8. History of transient ischemic attack. 9. History of vertigo. 10.History of gastric ulcer. 11.History of seizure. 12.Chronic low back pain. 13.History of migraine, status post occipital pain injection. 14.Hypothyroidism. 15.History of coronary artery disease, status post stent. 16.Anxiety, depression, bipolar. RECOMMENDATIONS AND DISCUSSION: I recommend to continue current management and symptomatic treatment. Continue the bronchodilators. Continue the rest of medications. Covid 19 is negative. PE was also negative. I will repeat a D-dimer and continue to monitor. Recommend Lovenox as well. Further recommendations to follow. MMODL / IJN: [id number] /
[2020-12-21] MEDS: QUEtiapine 100 MG TAB PO SCH (22:05)
[2020-12-21] MEDS: PRAMIPEXOLE 0.25 MG TAB PO SCH (22:05)
--- NOTE | 2020-12-22 00:16 | PN ---
PROGRESS NOTE DATE OF SERVICE: 12/21/2020 REASON FOR FOLLOWUP: Pneumonia and bacteremia. INTERVAL HISTORY: The patient is currently afebrile. She has been complaining of headache today. She wants more pain medication. Denies having any chest pain or shortness of breath. Occasional cough. No abdominal pain. No diarrhea. PHYSICAL EXAMINATION: Blood pressure 95/60 with a pulse of 70, temperature 98. She is 95% on room air. General description: Patient is a middle-aged female lying in bed in no distress. Respiratory system: Unlabored breathing, decreased intensity of breath sounds. No wheeze. Heart S1, S2. Regular rate and rhythm. Abdomen soft, no tenderness. LABS: Hemoglobin 11.2, white count 4.59. BUN of 6, creatinine 0.6. DIAGNOSTIC IMPRESSION/PLAN: 1. Patient with positive blood cultures Coagulase negative Staph, likely skin contaminant. The patient is off vancomycin. 2. Pneumonia, covered with cefepime. Try to obtain a sputum to narrow down antibiotics. 3. Continue supportive care. MMODL / IJN: [id number] /
[2020-12-22] MEDS: LEVOTHYROXINE 25 MCG TAB PO SCH (05:45)
[2020-12-22] MEDS: CEFEPIME 2 GM in SODIUM CHLORIDE 0.9% 100 ML IVPB SCH ×3 (05:45→21:09)
[2020-12-22] MEDS: FLUoxetine HCL 20 MG CAP PO SCH ×2 (08:20→21:07)
[2020-12-22] MEDS: GABAPENTIN 400 MG CAP PO SCH ×4 (08:20→21:07)
[2020-12-22] MEDS: ENOXAPARIN 40 MG/0.4 ML SYRINGE SQ SCH (08:20)
[2020-12-22] MEDS: PANTOPRAZOLE 40 MG TABLET PO SCH (08:21)
[2020-12-22] MEDS: TOPIRAMATE 25 MG TAB PO SCH ×2 (08:22→21:09)
[2020-12-22] MEDS: PHENYTOIN SODIUM EXTENDED 100 MG CAP PO SCH ×2 (08:22→21:08)
[2020-12-22] MEDS: TOPIRAMATE 100 MG TAB PO SCH ×2 (08:23→21:09)
[2020-12-22] MEDS: METOPROLOL SUCCINATE (ER) 50 MG TAB.ER.24H PO SCH (09:13)
[2020-12-22 10:00] LABS: Basophils # (A) 0.03 X 10*3/uL (0.00-0.10); Basophils % (A) 0.6 %; Eosinophils % (A) 3.8 %; HGB 11.6 g/dL (12.0-15.0); Lymphocytes # (A) 1.34 X 10*3/uL (0.90-5.00); Lymphocytes % (A) 25.5 %; MCH 36.4 pg (27.0-32.0); MCHC 33.1 g/dL (32.0-37.0); MCV 109.7 fL (80.0-97.0); Mean Platelet Volume 10.2 fL (9.5-12.2); Monocytes # (A) 0.48 X 10*3/uL (0.20-1.00); Monocytes % (A) 9.1 %; Neutrophils # (A) 3.06 X 10*3/uL (1.80-7.70); Neutrophils % (A) 58.3 %; Platelet Count 254 X 10*3/uL (140-440); RBC 3.19 X 10*6/uL (4.10-5.20); RDW 13.6 % (11.5-14.5); WBC 5.25 X 10*3/uL (4.50-10.00)
[2020-12-22 10:07] LABS: African American GFR (CKD) 129.9 (60.0-200.0); Anion Gap 9.1 mmol/L (4.00-12.00); Calcium 8.3 mg/dL (8.7-10.3); Carbon Dioxide 28.9 mmol/L (21.6-31.8); Non-African American GFR(CKD) 112.1 (60.0-200.0); Potassium 3.6 mmol/L (3.5-5.5)
--- NOTE | 2020-12-22 10:29 | P.PN ---
Subjective Progress Note Date: 12/22/20 50-year-old white female patient with past medical history of COPD on home oxygen at 3-4 L/m, chronic A. fib on Eliquis, history of CVA/TIA, hypertension, chronic CHF, previous history of gastric ulcer, chronic back pain, seizure disorder, hypothyroidism and history of recurrent urinary tract infections, who was brought into the emergency department on 12/27/2020 per EMS for evaluation of increased cough, and apparently patient has coughed up some blood. She is currently on Eliquis history of A. fib and history of CVA/TIA. Denied any fever or chills, no chest congestion or phlegm production. She was tested for COVID 19 which was negative, chest x-ray showed moderate bibasilar opacities. Today's labs showed white blood cell count of 11.6, hemoglobin of 12.2, d-dimer of 1.8, electrolytes and renal profile were unremarkable, plasma lactic acid was within normal limits at 1.4, LFTs are within normal limits, proBNP was 1560, troponin was less than 0.012. Urinalysis was negative for infection. D-dimer was 1.38, CTA chest completed, doing no evidence of acute pulmonary embolism, moderate b ibasilar opacities. Patient continues on Eliquis. Hemoglobin is 12.2. During our evaluation patient states she was actually throwing up blood and passing black bowel movements. On 12/19/2020 the patient is being seen for a follow-up and she has no specific complaints. No evidence of any GI bleed. No melanotic stools. She did not cough up any blood. She did not throw up any blood. She was seen by gastroenterology. The patient is currently on IV cefepime. He is also on vancomycin.. We suspected lower lobe pneumonia and for that reason the patient was covered with broad-spectrum antibiotics. She is resting comfortably in bed on 5 L O2 by nasal cannula. I do not appreciate a GI consultation yet. ID consultation was appreciated and the patient was asked to complete this current antibiotic coverage. For now, the blood cultures are negative and there is only one culture that showing gram-positive cocci in groups, awaiting final cultures and sensitivities. 12/20/2020, the patient is clinically unchanged and she remains on oxygen at 5 L by the chest x-ray was repeated and the patient is still persistent bilateral lower lobe pulmonary infiltrate. The pro-Level Was Elevated at 3. nasal cannula. The maze on a combination of cefepime and vancomycin. No signs of any GI bleeding. The patient continues to be afebrile. She is receiving antibiotics. The chest x-ray was repeated and the patient has persistent infiltration of the lung bases bilaterally. The Pronestyl level was at 2.49 indicating an underlying infection probably pneumonia. The blood culture came back coagulase-negative staph. The patient has no specific complaints. I noted some non-anion gap metabolic acidosis developing in the serum bicarb is up 16 and this will be monitored. Creatinine stable at 0.48. 12/21/2020 the patient is 5 L. Chest x-ray findings are stable. No major changes or hemoptysis. No pleurisy. No altered mentation. He remains on a combination of cefepime and vancomycin. No signs of any GI bleeding. No melanotic stools. Hemodynamically stable. Note that the patient's pro- calcitonin level was at 2.49 and she is progressively down to 1.05. On today's evaluation, I was in The Patient's Platelet Count to 4 L Minute Nasal Cannula. She Was Able to Tolerate That without Any Major Difficulties. The patient is seen today 12/22/2020 in follow-up on the regular medical floor. She is awake and alert in no acute distress. Currently resting quite comfortably in bed. Laying flat. On 4 L nasal cannula. She does have a productive cough of clear phlegm. No hemoptysis. No hematemesis. Blood cultures reveal no growth. White count 5.25. Hemoglobin 11.6. Sodium 143. Potassium 3.6. Creatinine 0.5. Glucose 125. Remains on antibiotics in the form of cefepime. Continued on bronchodilators. Objective - Vital Signs Vital signs: Vital Signs Temp 98.1 F 12/22/20 07:00 Pulse 70 12/22/20 07:00 Resp 16 12/22/20 08:00 BP 117/71 12/22/20 07:00 Pulse Ox 94 L 12/22/20 07:00 Intake & Output 12/21/20 12/22/20 12/22/20 18:59 06:59 18:59 Intake Total 300 Output Total 200 600 Balance 100 -600 Intake: Oral 300 Output: Urine 200 600 Other: Voiding Method Toilet Toilet # Voids 1 2 # Bowel Movements 1 - Exam GENERAL EXAM: Alert, very pleasant, 50-year-old white female, on 4 L of oxygen pulse ox of 94% comfortable in no apparent distress. HEAD: Normocephalic/atraumatic. EYES: Normal reaction of pupils, equal size. Conjunctiva pink, sclera white. NOSE: Clear with pink turbinates. THROAT: No erythema or exudates. NECK: No masses, no JVD, no thyroid enlargement, no adenopathy. CHEST: No chest wall deformity. Symmetrical expansion. LUNGS: Equal air entry with crackles in the right lung base CVS: Regular rate and rhythm, normal S1 and S2, no gallops, no murmurs, no rubs ABDOMEN: Soft, nontender. No hepatosplenomegaly, normal bowel sounds, no guarding or rigidity. EXTREMITIES: No clubbing, no edema, no cyanosis, 2+ pulses and upper and lower extremities. MUSCULOSKELETAL: Muscle strength and tone normal. SPINE: No scoliosis or deformity SKIN: No rashes CENTRAL NERVOUS SYSTEM: Alert and oriented -3. No focal deficits, tone is normal in all 4 extremities. PSYCHIATRIC: Alert and oriented -3. Appropriate affect. Intact judgment and insight. - Labs CBC & Chem 7: 12/22/20 06:22 12/22/20 06:22 Labs: Abnormal Lab Results - Last 24 Hours (Table) 12/21/20 12/21/20 12/22/20 Range/Units 05:29 15:00 06:22 RBC (4.10-5.20) X 10*6/uL Hgb (12.0-15.0) g/dL Hct (37.2-46.3) % MCV (80.0-97.0) fL MCH (27.0-32.0) pg Absolute Nucleated RBC (0.00-0.00) X 10*3/uL Immature Gran # 0.06 H (0.00-0.04) X 10*3/uL NRBC/100 WBC Diff (0.0-0.0) /100 WBCS D-Dimer 3.01 H (<0.60) mg/L FEU BUN 8.0 L (9.0-27.0) mg/dL Creatinine 0.5 L (0.6-1.5) mg/dL Glucose 125 H (70-110) mg/dL Calcium 8.3 L (8.7-10.3) mg/dL 12/22/20 Range/Units 06:22 RBC 3.19 L (4.10-5.20) X 10*6/uL Hgb 11.6 L (12.0-15.0) g/dL Hct 35.0 L (37.2-46.3) % MCV 109.7 H (80.0-97.0) fL MCH 36.4 H (27.0-32.0) pg Absolute Nucleated RBC 0.02 H (0.00-0.00) X 10*3/uL Immature Gran # 0.14 H (0.00-0.04) X 10*3/uL NRBC/100 WBC Diff 0.4 H (0.0-0.0) /100 WBCS D-Dimer (<0.60) mg/L FEU BUN (9.0-27.0) mg/dL Creatinine (0.6-1.5) mg/dL Glucose (70-110) mg/dL Calcium (8.7-10.3) mg/dL Microbiology - Last 24 Hours (Table) 12/17/20 20:54 Blood Culture - Preliminary Blood No Growth after 96 hours 12/17/20 18:03 Blood Culture - Preliminary Blood No Growth after 96 hours 12/18/20 12:05 Blood Culture - Preliminary Blood No Growth after 72 hours 12/18/20 11:48 Blood Culture - Preliminary Blood No Growth after 72 hours 12/20/20 10:07 Blood Culture - Preliminary Blood No Growth after 24 hours Assessment and Plan Assessment: 1 Acute on chronic hypoxic respiratory failure secondary to possibility of aspiration pneumonia. Possible hemoptysis although from the history given by t he patient and may actually have hematemesis. There is also a positive blood culture with gram-positive bacteria in groups tobecoagulase-negative staph. Repeat blood cultures of been negative and the patient is currently on cefepime. 2 Hematemesis, and black tarry schools, possibility of GI bleeding, currently inactive in stable and the hemoglobin is at 11.6 and the patient is currently off anticoagulants. 3 History of COPD with chronic hypoxic respiratory failure 4 A. fib 5 Recurrent urinary tract infection history of 6 Elevated d-dimer with no CT evidence of pulmonary embolism 7 Hypertension 8 History of a gastric ulcer 9 Seizure disorder 10 Chronic pain 11 Anxiety/depression Plan: The patient was seen and evaluated by Dr. Cheyenne Petersen from the pulmonary standpoint Continue cefepime, bronchodilators Titrate down the FiO2 as tolerated We'll continue to follow I, the cosigning physician, performed a history & physical examination of the patient. Lungs sounds crackles in the right lung base Maintaining good O2 saturations in the 90s on 4 L/m per nasal cannula. I discussed the assessment and plan of care with my nurse practitioner, Anisha Evans. I attest to the above note as dictated by her.
[2020-12-22] MEDS: amLODIPine 5 MG TAB PO SCH (11:33)
--- NOTE | 2020-12-22 19:27 | PN ---
PROGRESS NOTE DATE OF SERVICE: 12/22/2020 I am covering for Dr. Aponte. This is a 50-year-old woman was admitted with acute bilateral pneumonia and acute hypoxic respiratory failure, is being closely monitored at this time. Covid-19 is negative, but D-dimer remains to be elevated. Patient is on subcu heparin at this time. Possibility of aspiration pneumonia was also considered. No chest pain. No palpitation. PAST MEDICAL HISTORY: Reviewed. REVIEW OF SYSTEMS: Cardiovascular system: No angina. RESPIRATORY: As mentioned earlier. GI: As mentioned earlier. : No dysuria. NERVOUS SYSTEM: No numbness or weakness. CURRENT MEDICATIONS: Reviewed and include: Fioricet. [place]. Xanax, Norvasc, Cefepime, Prozac, Neurontin and Keppra. Doses are reviewed. PHYSICAL EXAMINATION: Alert and oriented times three. Pulse 69, blood pressure 102/89, respirations 16, temperature 98.2, pulse ox 94% on 4 L. HEENT: Conjunctivae normal. NECK: No JVD. CARDIOVASCULAR: S1, S2. RESPIRATORY SYSTEM: Breath sounds diminished at the bases. Bilateral scattered rhonchi and crackles. ABDOMEN: Soft. Nontender. NERVOUS SYSTEM: No focal deficits. LABS: WBC 5.2, hemoglobin 11.6. Sodium 140, potassium 3.6. Other labs are noted. ASSESSMENT: 1. Acute bilateral pneumonia possibly community-acquired, possibly gram-negative with acute hypoxic respiratory failure, rule out aspiration. 2. Chronic hypoxic respiratory failure on 4 L nasal cannula. 3. Sepsis with fever, present on admission. 4. Bacteremia. 5. Chronic obstructive pulmonary disease with no acute exacerbation. 6. Hemoptysis secondary to above. 7. Black tarry stools with gastrointestinal bleed ruled out. 8. History of transient ischemic attack. 9. History of vertigo. 10.History of gastric ulcer. 11.History of seizure disorder. 12.Chronic low back pain. 13.History of migraine, status post occipital nerve injection. 14.Hypothyroidism. 15.History of coronary artery disease/stent. 16.Anxiety, depression, bipolar. 17.Coag-negative Staph from the blood. RECOMMENDATIONS AND DISCUSSION: Recommend to continue current medications, symptomatic treatment. Continue the broad- spectrum IV antibiotics. The blood cultures are showing consistent coag-negative Staph. I would also recommend a 2D echo with Doppler for completion. Dr. Roach thinks that the sepsis is possibly skin contamination. Patient is on vancomycin. The D-dimer is persistently elevated. Overall prognosis guarded because of multiple complex medical issues. Further recommendations to follow. Dr. Aponte will follow the patient tomorrow. MMODL / IJN: [id number] /
[2020-12-22] MEDS: PRAMIPEXOLE 0.25 MG TAB PO SCH (21:08)
[2020-12-22] MEDS: QUEtiapine 100 MG TAB PO SCH (21:08)
--- NOTE | 2020-12-22 23:22 | PN ---
PROGRESS NOTE DATE OF SERVICE: 12/22/2020 REASON FOR FOLLOWUP: 1. Pneumonia. 2. Positive blood culture, likely contamination. INTERVAL HISTORY: The patient is currently afebrile. The patient is breathing comfortably. Denies any chest pain. No shortness of breath. No cough. No nausea. No vomiting. No abdominal pain. No diarrhea. EXAMINATION: Blood pressure 102/69, pulse 79, temperature 98.6 and she is 94% on 4 L nasal cannula. General description is a middle-aged female up in the bed in no distress. Respiratory system: Unlabored breathing. Clear to auscultation anteriorly. Heart S1, S2. Regular rate and rhythm. Abdomen soft. No tenderness. LABS: Hemoglobin 11.6, white count 5.5, BUN of 8, creatinine 0.5. Blood culture repeat has been negative. DIAGNOSTIC IMPRESSION AND PLAN: 1. Patient with positive blood culture, likely contaminant. Repeat blood culture has been negative so far. Plan for further . 2. Pneumonia, covered with cefepime., She was unable to provide sputum. Finish therapy with oral Ceftin. Continue supportive care. MMODL / IJN: [id number] /
[2020-12-23] MEDS: CEFEPIME 2 GM in SODIUM CHLORIDE 0.9% 100 ML IVPB SCH ×2 (05:52→14:20)
[2020-12-23] MEDS: LEVOTHYROXINE 25 MCG TAB PO SCH (05:52)
[2020-12-23] MEDS: ENOXAPARIN 40 MG/0.4 ML SYRINGE SQ SCH (09:15)
[2020-12-23] MEDS: FLUoxetine HCL 20 MG CAP PO SCH (09:16)
[2020-12-23] MEDS: amLODIPine 5 MG TAB PO SCH (09:16)
[2020-12-23] MEDS: GABAPENTIN 400 MG CAP PO SCH ×2 (09:16→13:25)
[2020-12-23] MEDS: PANTOPRAZOLE 40 MG TABLET PO SCH (09:16)
[2020-12-23] MEDS: PHENYTOIN SODIUM EXTENDED 100 MG CAP PO SCH (09:17)
[2020-12-23] MEDS: TOPIRAMATE 25 MG TAB PO SCH (09:18)
[2020-12-23] MEDS: TOPIRAMATE 100 MG TAB PO SCH (09:20)
[2020-12-23] MEDS: METOPROLOL SUCCINATE (ER) 50 MG TAB.ER.24H PO SCH (09:30)
[2020-12-23 09:31] LABS: Basophils # (A) 0.03 X 10*3/uL (0.00-0.10); Basophils % (A) 0.6 %; Eosinophils # (A) 0.18 X 10*3/uL (0.04-0.35); Eosinophils % (A) 3.4 %; HCT 35.8 % (37.2-46.3); HGB 11.9 g/dL (12.0-15.0); Lymphocytes % (A) 34.5 %; MCH 36.6 pg (27.0-32.0); MCHC 33.2 g/dL (32.0-37.0); MCV 110.2 fL (80.0-97.0); Mean Platelet Volume 10.6 fL (9.5-12.2); Monocytes # (A) 0.51 X 10*3/uL (0.20-1.00); Monocytes % (A) 9.8 %; Neutrophils # (A) 2.55 X 10*3/uL (1.80-7.70); Neutrophils % (A) 48.8 %; Platelet Count 260 X 10*3/uL (140-440); RBC 3.25 X 10*6/uL (4.10-5.20); RDW 13.5 % (11.5-14.5); WBC 5.22 X 10*3/uL (4.50-10.00)
[2020-12-23 09:52] LABS: African American GFR (CKD) 129.9 (60.0-200.0); Anion Gap 5.1 mmol/L (4.00-12.00); Calcium 8.4 mg/dL (8.7-10.3); Carbon Dioxide 28.9 mmol/L (21.6-31.8); Non-African American GFR(CKD) 112.1 (60.0-200.0); Potassium 3.8 mmol/L (3.5-5.5)
[2020-12-23 10:35] VITALS: TEMP 97.6
--- NOTE | 2020-12-23 13:35 | P.PN ---
Subjective Progress Note Date: 12/23/20 Principal diagnosis: Acute on chronic hypoxic respiratory failure 50-year-old white female patient with past medical history of COPD on home oxygen at 3-4 L/m, chronic A. fib on Eliquis, history of CVA/TIA, hypertension, chronic CHF, previous history of gastric ulcer, chronic back pain, seizure disorder, hypothyroidism and history of recurrent urinary tract infections, who was brought into the emergency department on 12/27/2020 per EMS for evaluation of increased cough, and apparently patient has coughed up some blood. She is currently on Eliquis history of A. fib and history of CVA/TIA. Denied any fever or chills, no chest congestion or phlegm production. She was tested for COVID 19 which was negative, chest x-ray showed moderate bibasilar opacities. Today's labs showed white blood cell count of 11.6, hemoglobin of 12.2, d-dimer of 1.8, electrolytes and renal profile were unremarkable, plasma lactic acid was within normal limits at 1.4, LFTs are within normal limits, proBNP was 1560, troponin was less than 0.012. Urinalysis was negative for infection. D-dimer was 1.38, CTA chest completed, doing no evidence of acute pulmonary embolism, moderate bibasilar opacities. Patient continues on Eliquis. Hemoglobin is 12.2. During our evaluation patient states she was actually throwing up blood and passing black bowel movements. On 12/19/2020 the patient is being seen for a follow-up and she has no specific complaints. No evidence of any GI bleed. No melanotic stools. She did not cough up any blood. She did not throw up any blood. She was seen by gastroenterology. The patient is currently on IV cefepime. He is also on vancomycin.. We suspected lower lobe pneumonia and for that reason the patient was covered with broad-spectrum antibiotics. She is resting comfortably in bed on 5 L O2 by nasal cannula. I do not appreciate a GI consultation yet. ID consultation was appreciated and the patient was asked to complete this current antibiotic coverage. For now, the blood cultures are negative and there is only one culture that showing gram-positive cocci in groups, awaiting final cultures and sensitivities. 12/20/2020, the patient is clinically unchanged and she remains on oxygen at 5 L by the chest x-ray was repeated and the patient is still persistent bilateral lower lobe pulmonary infiltrate. The pro-Level Was Elevated at 3. nasal cannula. The maze on a combination of cefepime and vancomycin. No signs of any GI bleeding. The patient continues to be afebrile. She is receiving antibiotics. The chest x-ray was repeated and the patient has persistent infiltration of the lung bases bilaterally. The Pronestyl level was at 2.49 indicating an underlying infection probably pneumonia. The blood culture came back coagulase-negative staph. The patient has no specific complaints. I noted some non-anion gap metabolic acidosis developing in the serum bicarb is up 16 and this will be monitored. Creatinine stable at 0.48. 12/21/2020 the patient is 5 L. Chest x-ray findings are stable. No major changes or hemoptysis. No pleurisy. No altered mentation. He remains on a combination of cefepime and vancomycin. No signs of any GI bleeding. No melanotic stools. Hemodynamically stable. Note that the patient's pro- calcitonin level was at 2.49 and she is progressively down to 1.05. On today's evaluation, I was in The Patient's Platelet Count to 4 L Minute Nasal Cannula. She Was Able to Tolerate That without Any Major Difficulties. The patient is seen today 12/22/2020 in follow-up on the regular medical floor. She is awake and alert in no acute distress. Currently resting quite comfortably in bed. Laying flat. On 4 L nasal cannula. She does have a productive cough of clear phlegm. No hemoptysis. No hematemesis. Blood cultures reveal no growth. White count 5.25. Hemoglobin 11.6. Sodium 143. Potassium 3.6. Creatinine 0.5. Glucose 125. Remains on antibiotics in the form of cefepime. Continued on bronchodilators. On 12/23/2020 patient seen in follow-up on medical floor, she is currently on 4 L of oxygen pulse ox of 94%, she stable, she is afebrile, she is breathing comfortably, no cough, no complaints of chest pain, no hemoptysis. Blood culture showed coagulase-negative staph, she remains on Maxipime. " She's been stable. White blood cell count is 5.2, hemoglobin is 11.9, electrolytes are within normal limits, BUN 7 and creatinine 0.5. Her last pro-calcitonin was on 12/20/2020, and which was improving and was down to 1.05, from previously at 2.49. Patient is requesting to go home, he said no acute events. Objective - Vital Signs Vital signs: Vital Signs Temp 97.6 F 12/23/20 07:00 Pulse 77 12/23/20 08:00 Resp 20 12/23/20 08:00 BP 127/73 12/23/20 07:00 Pulse Ox 93 L 12/23/20 07:00 Intake & Output 12/22/20 12/23/20 12/23/20 18:59 06:59 18:59 Intake Total 200 400 Output Total 600 Balance -400 400 Intake: IV 200 100 Cefepime 2 gm In Sodium 200 100 Chloride 0.9% 100 ml @ 25 mls/hr IVPB Q8H [facility] Rx#: [id number] Intake, IV Titration 300 Amount Cefepime 2 gm In Sodium 300 Chloride 0.9% 100 ml @ 25 mls/hr IVPB Q8H [facility] Rx#: [id number] Output: Urine 600 Other: Voiding Method Toilet Toilet Toilet Bedside Commode # Voids 1 2 - Exam GENERAL EXAM: Alert, very pleasant, 50-year-old white female, on 4 L of oxygen pulse ox of 94% comfortable in no apparent distress. HEAD: Normocephalic/atraumatic. EYES: Normal reaction of pupils, equal size. Conjunctiva pink, sclera white. NOSE: Clear with pink turbinates. THROAT: No erythema or exudates. NECK: No masses, no JVD, no thyroid enlargement, no adenopathy. CHEST: No chest wall deformity. Symmetrical expansion. LUNGS: Equal air entry with no crackles, wheeze, rhonchi or dullness. CVS: Regular rate and rhythm, normal S1 and S2, no gallops, no murmurs, no rubs ABDOMEN: Soft, nontender. No hepatosplenomegaly, normal bowel sounds, no guarding or rigidity. EXTREMITIES: No clubbing, no edema, no cyanosis, 2+ pulses and upper and lower extremities. MUSCULOSKELETAL: Muscle strength and tone normal. SPINE: No scoliosis or deformity SKIN: No rashes CENTRAL NERVOUS SYSTEM: Alert and oriented -3. No focal deficits, tone is normal in all 4 extremities. PSYCHIATRIC: Alert and oriented -3. Appropriate affect. Intact judgment and insight. - Labs CBC & Chem 7: 12/23/20 04:42 12/23/20 04:42 Labs: Abnormal Lab Results - Last 24 Hours (Table) 12/23/20 12/23/20 Range/Units 04:42 04:42 RBC 3.25 L (4.10-5.20) X 10*6/uL Hgb 11.9 L (12.0-15.0) g/dL Hct 35.8 L (37.2-46.3) % MCV 110.2 H (80.0-97.0) fL MCH 36.6 H (27.0-32.0) pg Absolute Nucleated RBC 0.02 H (0.00-0.00) X 10*3/uL Immature Gran # 0.15 H (0.00-0.04) X 10*3/uL NRBC/100 WBC Diff 0.4 H (0.0-0.0) /100 WBCS BUN 7.0 L (9.0-27.0) mg/dL Creatinine 0.5 L (0.6-1.5) mg/dL Glucose 117 H (70-110) mg/dL Calcium 8.4 L (8.7-10.3) mg/dL Microbiology - Last 24 Hours (Table) 12/20/20 10:07 Blood Culture - Preliminary Blood No Growth after 72 hours 12/17/20 20:54 Blood Culture - Preliminary Blood No Growth after 120 hours 12/17/20 18:03 Blood Culture - Preliminary Blood No Growth after 120 hours 12/18/20 11:48 Blood Culture - Preliminary Blood No Growth after 96 hours 12/18/20 12:05 Blood Culture - Preliminary Blood No Growth after 96 hours 12/18/20 12:20 Blood Culture Gram Stain - Final Blood Blood Culture - Final Coagulase Negative Staph Assessment and Plan Plan: Assessment: #1. Acute on chronic hypoxic respiratory failure secondary to possibility of aspiration pneumonia. Possible hemoptysis although from the history given by the patient and may actually have hematemesis #2. Hematemesis, and black tarry schools, possibility of GI bleeding, was evaluated by GI service, and conservative treatment was recommended #3. History of COPD with chronic hypoxic respiratory failure #4. A. fib on Eliquis #5. Recurrent urinary tract infection history of #6. Elevated d-dimer with no CT evidence of pulmonary embolism #7. Hypertension #8. History of a gastric ulcer #9. Seizure disorder #10. Chronic pain #11. Anxiety/depression Plan: Patient has been stable, no acute events overnight, signs are stable, no fever or chills, no specific growth on blood cultures other than possibly contaminated blood culture. From pulmonary perspective she stable for discharge home with outpatient follow-up with Dr. Carlisle in 7-10 days I performed a history & physical examination of the patient and discussed their management with my nurse practitioner, Johanna Tsang. I reviewed the nurse practitioner's note and agree with the documented findings and plan of care. Lung sounds are positive for clear breath sounds. The findings and the impression was discussed with the patient. I attest to the documentation by the nurse practitioner. Time with Patient: Less than 30
--- NOTE | 2020-12-23 14:51 | P.PN ---
Subjective Progress Note Date: 12/23/20 HISTORY OF PRESENT ILLNESS This is a 50-year-old female patient treated for pneumonia and positive blood culture that was contamination. Patient has been treated with cefepime. She was unable to provide sputum for culture. Patient denies having any fever or chills. No cough, no shortness of breath. No vomiting or diarrhea. She is currently on O2 at 4 L which is her home dose. Patient has been afebrile, heart rate 77, blood pressure 123/73, pulse ox 93% on 4 L nasal cannula. WBC 5.2, hemoglobin 1.9, platelet count 260. Lites normal. Creatinine 0.5. PHYSICAL EXAMINATION Gen: This is a 50-year-old female. Patient is resting bed appears to be comfortable and in no acute distress. HEENT: Head is atraumatic, normocephalic. Pupils equal, round. Sclerae is anicteric. NECK: Supple. No JVD. No lymphadenopathy. LUNGS: Clear to auscultation. No wheezes or rhonchi. No intercostal retractions. HEART: Regular rate and rhythm. No murmur. ABDOMEN: Soft. Bowel sounds are present. No masses. No tenderness. EXTREMITIES: No pedal edema. No calf tenderness. NEUROLOGICAL: Patient is awake, alert and oriented x3. ASSESSMENT Pneumonia Positive blood culture, contamination PLAN Patient is currently covered with cefepime Prescription for Ceftin 5 day course and to her pharmacy. The above dictated assessment and findings were discussed with Dr. Roach. The impression and plan of care have been directed as dictated. [address] nurse practitioner acting as scribe for Dr. oRach. Objective - Vital Signs Vital signs: Vital Signs Temp 97.6 F 12/23/20 07:00 Pulse 77 12/23/20 08:00 Resp 20 12/23/20 08:00 BP 127/73 12/23/20 07:00 Pulse Ox 93 L 12/23/20 07:00 Intake & Output 12/22/20 12/23/20 12/23/20 18:59 06:59 18:59 Intake Total 200 400 Output Total 600 Balance -400 400 Intake: IV 200 100 Cefepime 2 gm In Sodium 200 100 Chloride 0.9% 100 ml @ 25 mls/hr IVPB Q8H [facility] Rx#: [id number] Intake, IV Titration 300 Amount Cefepime 2 gm In Sodium 300 Chloride 0.9% 100 ml @ 25 mls/hr IVPB Q8H [facility] Rx#: [id number] Output: Urine 600 Other: Voiding Method Toilet Toilet Toilet Bedside Commode # Voids 1 2 - Labs CBC & Chem 7: 12/23/20 04:42 12/23/20 04:42 Labs: Abnormal Lab Results - Last 24 Hours (Table) 12/23/20 12/23/20 Range/Units 04:42 04:42 RBC 3.25 L (4.10-5.20) X 10*6/uL Hgb 11.9 L (12.0-15.0) g/dL Hct 35.8 L (37.2-46.3) % MCV 110.2 H (80.0-97.0) fL MCH 36.6 H (27.0-32.0) pg Absolute Nucleated RBC 0.02 H (0.00-0.00) X 10*3/uL Immature Gran # 0.15 H (0.00-0.04) X 10*3/uL NRBC/100 WBC Diff 0.4 H (0.0-0.0) /100 WBCS BUN 7.0 L (9.0-27.0) mg/dL Creatinine 0.5 L (0.6-1.5) mg/dL Glucose 117 H (70-110) mg/dL Calcium 8.4 L (8.7-10.3) mg/dL Microbiology - Last 24 Hours (Table) 12/17/20 20:54 Blood Culture - Preliminary Blood No Growth after 120 hours 12/17/20 18:03 Blood Culture - Preliminary Blood No Growth after 120 hours 12/18/20 11:48 Blood Culture - Preliminary Blood No Growth after 96 hours 12/18/20 12:05 Blood Culture - Preliminary Blood No Growth after 96 hours 12/20/20 10:07 Blood Culture - Preliminary Blood No Growth after 48 hours 12/18/20 12:20 Blood Culture Gram Stain - Final Blood Blood Culture - Final Coagulase Negative Staph
[2020-12-23 15:11] VITALS: BP 96/64; PULSE 71; RESP 17
--- NOTE | 2020-12-23 15:50 | ECHOF ---
Referral Reason:blood culture positive MEASUREMENTS -------- HEIGHT: 154.9 cm WEIGHT: 107.0 kg BP: 97/59 IVSd: 1.2 cm (0.6 - 1.1) LVIDd: 4.1 cm (3.9 - 5.3) LVPWd: 1.1 cm (0.6 - 1.1) IVSs: 1.6 cm LVIDs: 2.8 cm LVPWs: 1.5 cm LA Diam: 3.2 cm (2.7 - 3.8) RVIDd: 3.3 cm (< 3.3) Ao Diam: 3.1 cm (2.0 - 3.7) AV Cusp: 2.1 cm (1.5 - 2.6) EPSS: 0.6 cm MV E Ridge: 1.05 m/s MV DecT: 167 ms MV A Ridge: 0.71 m/s MV E/A Ratio: 1.49 MV EF SLOPE: 88.73 mm/s (70 - 150) MV EXCURSION: 12.84 mm (> 18.000) FINDINGS -------- Sinus rhythm. This was a technically adequate study. The left ventricular size is normal. There is borderline concentric left ventricular hypertrophy. Overall left ventricular systolic function is normal with, an EF between 60 - 65 %. The right ventricle is mildly enlarged. The left atrium is normal in size. The right atrium is normal in size. Interatrial and interventricular septum intact. The aortic valve is trileaflet, and appears structurally normal. No aortic stenosis or regurgitation. Mild mitral annular calcification present. Trace tricuspid regurgitation present. The pulmonic valve was not well visualized. The aortic root size is normal. Normal inferior vena cava with normal inspiratory collapse consistent with estimated right atrial pre ssure of 5 mmHg. There is no pericardial effusion. CONCLUSIONS -------- 1. The left ventricular size is normal. 2. There is borderline concentric left ventricular hypertrophy. 3. Overall left ventricular systolic function is normal with, an EF between 60 - 65 %. 4. The right ventricle is mildly enlarged. 5. Trace tricuspid regurgitation present. 6. There is no pericardial effusion. SURFACE WATER TECHNICIAN: Bertha Marie RD
--- NOTE | 2020-12-24 18:42 | DS ---
DISCHARGE SUMMARY CHIEF COMPLAINT: Dehydration and prerenal azotemia with congestive heart failure as well as intractable nausea, vomiting and diarrhea with hemoptysis. HISTORY OF PRESENT ILLNESS AND PHYSICAL EXAMINATION: Details of this lady's history and physical can be found in the initial workup. LABORATORY STUDIES: While she was in the hospital she had laboratory studies, details of which can be found in the laboratory section of her chart. COURSE IN THE HOSPITAL: After admission she was placed on bedrest, started on intravenous fluids, and nausea and vomiting were controlled. She was rehydrated. She complained of persistent headache, but she had had this almost consistently in the past. Her abdominal pain subsided and there was no sign of any further bleeding. She was doing well and she was anxious to be discharged. She will be sent home on Wednesday12/22/2020 on her usual activity, diet and medication, and she will be followed up in several days in the office. FINAL DIAGNOSES: 1. Intractable nausea, vomiting and diarrhea with possible gastrointestinal bleed. 2. Chronic headache. 3. Congestive heart failure. 4. Abdominal pain. 5. Seizure disorder. 6. Depression. 7. Chronic obstructive pulmonary disease. OPERATIONS: None. CONSULTATIONS: None. She is improved. MMODL / IJN: [id number] /
--- NOTE | 2020-12-25 12:59 | CDI ---
Documentation Clarification Form Date: 12/25/2020 12:42:00 PM From: Letha Covarrubias Phone: If you have a question about this query, please contact Diandra Joe, Senior Technical Analyst at [phone] between 8am and 5pm. Admit Date: 12/17/2020 08:28:00 PM Patient Name: Niurka Woodruff Visit Number: [id number] Discharge Date: 12/23/2020 07:25:00 PM ATTENTION: The Clinical Documentation Specialists (CDI) and [facility] Coding Staff appreciate your assistance in clarifying documentation. Please respond to the clarification below the line at the bottom and electronically sign. The CDI & [facility] Coding staff will review the response and follow-up if needed. Please note: Queries are made part of the Legal Health Record. If you have any questions, please contact the author of this message via ITS. Dr. Ty Aponte Pneumonia was documented by Dr. Ari nance for you in PN's Community acquired pneumonia. ID documents evidence of bibasilar infiltrate/pneumonia. PN 2 Pronesyl level 2.49 probably underlying pneumonia. Acute bilateral pneumonia possibly CAP, possibly gram negative rule out aspiration. PN 2 Pneumonia, bacteremia. Diagnosis of pneumonia not carried to [facility]. Please clarify if patient had pneumonia and if so, the type of pneumonia. History/Risk Factors: A/C respiratory failure Clinical Indicators:SOB Fever elevated WBC's CXR Vital signs: 100.3 F, 95 bpm, 20, 111/69, 85% 4 L, WBC/Left shift: 11.6 X-ray: infiltrate or aspiration Treatment: Cefepime and Vancomycin O2 5L NC In order to capture the severity of condition, please clarify if patient had pneumonia and if so, the type of pneumonia you are treating for: Aspiration Pneumonia, identify if: Due to solids or liquids Due to anesthesia during L/D Due to anesthesia during puerperium Bacterial Pneumonia, specify causal organism (if known) Gram Negative Pneumonia Due to Strep ?Due to Staph ?Due to E. Coli ?Other bacteria (please specify) Viral Pneumonia, specify casual organism (if known) Ventilator Associated Pneumonia Healthcare Acquired Pneumonia/Pneumonia, unspecified Other, please specify Unable to determine MTDD
--- NOTE | 2020-12-25 13:11 | CDI ---
Documentation Clarification Form Date: 12/25/2020 01:01:00 PM From: Letha Covarrubias Phone: If you have a question about this query, please contact Diandra Joe Supply Specialist at [phone] between 8am and 5pmMRN: [id number] Admit Date: 12/17/2020 08:28:00 PM Patient Name: Niurka Woodruff Visit Number: [id number] Discharge Date: 12/23/2020 07:25:00 PM ATTENTION: The Clinical Documentation Specialists (CDI) and [facility] Coding Staff appreciate your assistance in clarifying documentation. Please respond to the clarification below the line at the bottom and electronically sign. The CDI & [facility] Coding staff will review the response and follow-up if needed. Please note: Queries are made part of the Legal Health Record. If you have any questions, please contact the author of this message via ITS. Dr. Ty Aponte The patient presented with hemoptysis. Per PN's 12/20, 12/21, 12/22, pulmonary and ID consult, Sepsis with fever and leukocytosis POA. Sepsis documented by Dr. Ari nance for you. Sepsis not carried to [facility]. Please clarify if patient had sepsis or was it ruled out. Clinical Indicators: A/C respiratory failure WBC 11.6 Blood cultures: Coag negative staph Vitals signs on admission: 100.3 F, 95 bpm, 20, 111/69 85% 4L Treatment: Cefepime, Vancomycin ID Consult: pneumonia sepsis In your professional opinion, please clarify if patient had sepsis or was it ruled out. Condition Sepsis ruled out SIRS, without underlying infectious process Sepsis Severe Sepsis Septic Shock Other, please specify Unable to determine SIRS Criteria (2 or more of the following may indicate SIRS): -Temperature < 96.8F (36C) or > 101.0F (38.3C) -Heart Rate > 90 bpm -Respiratory Rate > 20 breaths/min or PaCO2 < 32 mmHg -White Blood Cell Count > 12,000 or < 4,000 cells/mm3 or > 10% bands -Lactate >2.0 mmol/L (>4.0 is equivalent to septic shock) MTDD
--- NOTE | 2020-12-26 22:10 | MISC ---
MISCELLANOUS REPORT QUERY: It is a bacterial pneumonia. Cause unknown. MMODL / IJN: [id number] /
--- NOTE | 2020-12-26 22:10 | MISC ---
MISCELLANOUS REPORT QUERY: Sepsis ruled out. MMODL / IJN: [id number] /
== END 2020-12-23 19:25 | disposition home health service (06) | DRG 193 ==
LOC: EC 16:33 → 6NMEDSUR 20:28
PROVIDERS: ADMIT Family Medicine; ATTEND Family Medicine
DX: J15.9 Unspecified bacterial pneumonia (principal); J96.21 Acute and chronic respiratory failure with hypoxia; K92.1 Melena; E87.2 Acidosis; I48.20 Chronic atrial fibrillation, unspecified; R04.2 Hemoptysis; J44.0 Chronic obstructive pulmonary disease with (acute) lower respiratory infection; E86.0 Dehydration; E03.9 Hypothyroidism, unspecified; R51.9 Headache, unspecified; F31.9 Bipolar disorder, unspecified; F41.9 Anxiety disorder, unspecified; G40.909 Epilepsy, unspecified, not intractable, without status epilepticus; G89.29 Other chronic pain; I11.0 Hypertensive heart disease with heart failure; I25.10 Atherosclerotic heart disease of native coronary artery without angina pectoris; I50.9 Heart failure, unspecified; Z87.440 Personal history of urinary (tract) infections; R04.0 Epistaxis; Z20.822 Contact with and (suspected) exposure to COVID-19; Z79.01 Long term (current) use of anticoagulants; Z79.890 Hormone replacement therapy; Z79.899 Other long term (current) drug therapy; Z80.0 Family history of malignant neoplasm of digestive organs; Z83.3 Family history of diabetes mellitus; Z86.73 Personal history of transient ischemic attack (TIA), and cerebral infarction without residual deficits; Z87.11 Personal history of peptic ulcer disease; Z87.891 Personal history of nicotine dependence; Z95.5 Presence of coronary angioplasty implant and graft; Z99.81 Dependence on supplemental oxygen; Z88.0 Allergy status to penicillin; Z88.8 Allergy status to other drugs, medicaments and biological substances; Z91.040 Latex allergy status; Z90.49 Acquired absence of other specified parts of digestive tract; Z82.49 Family history of ischemic heart disease and other diseases of the circulatory system; Z98.51 Tubal ligation status; R79.1 Abnormal coagulation profile; R39.2 Extrarenal uremia
CPT/HCPCS: 36415; 71046; 71275; 80048; 80053; 81003; 82728; 83540; 83550; 83605; 83735; 83880; 84145; 84484; 85025; 85379; 85610; 85730; 87040; 87635; 93005; 93306; 94640; 94760; 96365; 96375; 99285

== ENCOUNTER → 2021-10-06 | Outpatient (CLI) | payer OTHER ==
[2021-10-06 20:16] LABS: Phenytoin (Dilantin) 14.1 ug/mL (10.0-20.0)
== END | disposition home or self-care (01) ==
LOC: LABWHC1 12:10
PROVIDERS: ATTEND Psychiatry & Neurology Neurology
DX: G40.309 Generalized idiopathic epilepsy and epileptic syndromes, not intractable, without status epilepticus (principal)
CPT/HCPCS: 36415; 80177; 80185; 84450; 84460

== ENCOUNTER 2021-11-04 10:52 | Observation (INO) | payer OTHER ==
[2021-11-04] MEDS ORDERED: SODIUM CHLORIDE 0.9% 1,000 ML IV STA (11:08)
[2021-11-04 11:10] VITALS: RESP 18
[2021-11-04] MEDS ORDERED: ACETAMINOPHEN TAB 500 MG TAB PO STA (11:16)
--- NOTE | 2021-11-04 11:16 | ED ---
General Adult HPI - General Chief complaint: Seizure Stated complaint: Seziures Time Seen by Provider: 11/04/21 11:02 Source: patient, RN notes reviewed Mode of arrival: EMS Limitations: no limitations - History of Present Illness Initial comments: Patient is a pleasant 51-year-old female percent emergency Department with seizure. Patient takes she had a couple small seizures yesterday. Patient was offered medications for a few days and restarted a few days ago. Patient states she is also had some mild cough and shortness of breath over the past couple of days. Patient does have history of COPD. Patient did have fever today. Patient has mild headache. Patient unclear if she mildly bumped her head during seizure. - Related Data Home Medications Medication Instructions Recorded Confirmed Pramipexole [Mirapex] 0.25 mg PO HS 06/21/17 11/04/21 Phenytoin Sodium Extended 300 mg PO HS 02/15/19 11/04/21 [Dilantin] FLUoxetine HCL 40 mg PO BID 10/19/19 11/04/21 Gabapentin 800 mg PO QID 11/30/19 11/04/21 QUEtiapine FUMARATE [SEROquel] 300 mg PO HS 11/30/19 11/04/21 Nicotine Polacrilex [Nicotine Gum] 4 mg BUCCAL Q2H PRN 03/16/20 11/04/21 Metoprolol Succinate (ER) [Toprol 50 mg PO DAILY 07/02/20 11/04/21 XL] amLODIPine [Norvasc] 5 mg PO DAILY 07/02/20 11/04/21 levETIRAcetam [Keppra] 750 mg PO TID 07/02/20 11/04/21 Topiramate [Topamax] 50 mg PO BID 09/09/20 11/04/21 Topiramate [Topamax] 100 mg PO BID 09/09/20 11/04/21 Phenytoin Sodium Extended 200 mg PO QAM 09/23/20 11/04/21 [Dilantin] SUMAtriptan SUCCINATE [Imitrex] 100 mg PO BID PRN 10/16/20 11/04/21 Albuterol Sulfate [Proair Hfa] 2 puff INHALATION RT-QID PRN 10/26/20 11/04/21 Ergocalciferol [Vitamin D2 50,000 unit PO QMONTHLY 10/26/20 11/04/21 (DRISDOL)] Levothyroxine Sodium [Synthroid] 25 mcg PO DAILY 10/26/20 11/04/21 ALPRAZolam [Xanax] 0.25 mg PO BID PRN 11/18/20 11/04/21 Butalbital/Aspirin/Caffeine 1 tab PO BID PRN 12/17/20 11/04/21 [Dpfvjv-Epjufwe-Ddiskaaq 50-325-40 mg] HYDROcodone/APAP 5-325MG [Colton 1 tab PO DAILY PRN 12/17/20 11/04/21 5-325] Ondansetron HCl [Zofran] 4 mg PO Q8H PRN 12/17/20 11/04/21 Aspirin 325 mg PO DAILY 11/04/21 11/04/21 Diphenoxylate HCl/Atropine 1 - 2 tab PO QID PRN 11/04/21 11/04/21 [Lomotil 2.5-0.025 mg Tablet] Hydrocortisone Cream 1 applic TOPICAL QID PRN 11/04/21 11/04/21 [Hydrocortisone 2.5% Cream] buPROPion SR [Wellbutrin SR] 150 mg PO BID 11/04/21 11/04/21 busPIRone HCL [Buspar] 30 mg PO TID PRN 11/04/21 11/04/21 diphenhydrAMINE HCL [Benadryl] 25 mg PO HS 11/04/21 11/04/21 Previous Rx's Medication Instructions Recorded Apixaban [Eliquis] 5 mg PO BID #60 tab 09/12/20 Allergies Allergy/AdvReac Type Severity Reaction Status Date / Time ibuprofen [From Motrin] Allergy Rash/Hives Verified 11/04/21 13:19 Latex, Natural Rubber Allergy Rash/Hives Verified 11/04/21 13:19 naproxen [From Naprosyn] Allergy "HEART Verified 11/04/21 13:24 FELT FUNNY" tramadol Allergy Rash/Hives Verified 11/04/21 13:19 Penicillins AdvReac Vomiting Verified 11/04/21 13:19 Review of Systems ROS Statement: Those systems with pertinent positive or pertinent negative responses have been documented in the HPI. ROS Other: All systems not noted in ROS Statement are negative. Constitutional: Reports: as per HPI, fever Eyes: Denies: eye pain ENT: Denies: ear pain Respiratory: Reports: cough, dyspnea Cardiovascular: Denies: chest pain Endocrine: Reports: fatigue Gastrointestinal: Denies: abdominal pain Genitourinary: Denies: dysuria Musculoskeletal: Denies: back pain Skin: Denies: rash Neurological: Reports: headache. Denies: weakness Past Medical History Past Medical History: COPD Additional Past Medical History / Comment(s): Pt uses home oxygen @ 4 L @ hs & prn, TIA, vertigo, bronchitis, gastric ulcer, seizure-last time 09/05/20, chronic low back pain/bulging discs, migraines, hypothyroid, hospitalized in May 2020 for acute resp. failure and positive blood culture. History of Any Multi-Drug Resistant Organisms: None Reported Past Surgical History: Section, Cholecystectomy, Heart Catheterization With Stent, Tubal Ligation Additional Past Surgical History / Comment(s): C-Sections x 3. PAIN CLINIC PROCEDURES Past Anesthesia/Blood Transfusion Reactions: Motion Sickness Date of Last Stent Placement:: 2003 Past Psychological History: Anxiety, Bipolar, Depression Smoking Status: Former smoker Past Alcohol Use History: None Reported Past Drug Use History: None Reported - Past Family History Father Family Medical History: AFIB Mother Family Medical History: AFIB, Diabetes Mellitus General Exam Limitations: no limitations General appearance: alert, in no apparent distress Head exam: Present: atraumatic, normocephalic Eye exam: Present: normal appearance, PERRL, EOMI ENT exam: Present: mucous membranes dry Neck exam: Present: normal inspection Respiratory exam: Present: normal lung sounds bilaterally Cardiovascular Exam: Present: regular rate, normal rhythm GI/Abdominal exam: Present: soft. Absent: tenderness Extremities exam: Present: normal inspection Neurological exam: Present: alert, oriented X3, CN II-XII intact. Absent: motor sensory deficit Expanded Neurological exam: Present: protecting the airway Speech: Present: fluid speech Cranial nerves: EOM's Intact: Normal Motor strength exam: RUE: 5, LUE: 5, RLE: 5, LLE: 5 Eye Response: (4) open spontaneously Motor Response: (6) obeys commands Verbal Response: (5) oriented Psychiatric exam: Present: normal affect, normal mood Skin exam: Present: normal color Course Vital Signs 11/04/21 11/04/21 10:57 12:44 Temperature 100.1 F H 98.9 F Pulse Rate 92 85 Respiratory 18 18 Rate Blood Pressure 120/85 130/85 O2 Sat by Pulse 95 94 L Oximetry EKG Findings - EKG Comments: EKG Findings:: Normal sinus rhythm with rate of 86. WV 174. QRS 88. QT 388. QTC 464. Right axis. Inferior Q waves. Anterior T wave inversion. Medical Decision Making - Medical Decision Making Patient reevaluated and resting comfortably in bed. Case discussed with Dr. Aponte who will admit his patient that he is familiar with. D-dimer will be added. - Lab Data Result diagrams: 11/04/21 11:39 11/04/21 11:39 Lab Results 11/04/21 11/04/21 11/04/21 Range/Units 11:34 11:39 11:39 WBC 5.0 (3.8-10.6) k/uL RBC 4.03 (3.80-5.40) m/uL Hgb 12.7 (11.4-16.0) gm/dL Hct 40.1 (34.0-46.0) % MCV 99.4 (80.0-100.0) fL MCH 31.5 (25.0-35.0) pg MCHC 31.7 (31.0-37.0) g/dL RDW 15.2 (11.5-15.5) % Plt Count 186 (150-450) k/uL MPV 8.3 Neutrophils % 73 % Lymphocytes % 18 % Monocytes % 5 % Eosinophils % 1 % Basophils % 0 % Neutrophils # 3.7 (1.3-7.7) k/uL Lymphocytes # 0.9 L (1.0-4.8) k/uL Monocytes # 0.2 (0-1.0) k/uL Eosinophils # 0.0 (0-0.7) k/uL Basophils # 0.0 (0-0.2) k/uL Hypochromasia Slight Macrocytosis Slight Sodium 138 (137-145) mmol/L Potassium 4.5 (3.5-5.1) mmol/L Chloride 106 (98-107) mmol/L Carbon Dioxide 25 (22-30) mmol/L Anion Gap 7 mmol/L BUN 12 (7-17) mg/dL Creatinine 0.84 (0.52-1.04) mg/dL Est GFR (CKD-EPI)AfAm >90 (>60 ml/min/1.73 sqM) Est GFR (CKD-EPI)NonAf 80 (>60 ml/min/1.73 sqM) Glucose 133 H (74-99) mg/dL Plasma Lactic Acid Jordi (0.7-2.0) mmol/L Calcium 8.5 (8.4-10.2) mg/dL Magnesium 1.8 (1.6-2.3) mg/dL Total Bilirubin 0.2 (0.2-1.3) mg/dL AST 26 (14-36) U/L ALT 20 (4-34) U/L Alkaline Phosphatase 89 (38-126) U/L Total Protein 7.1 (6.3-8.2) g/dL Albumin 3.6 (3.5-5.0) g/dL Urine Color Urine Appearance (Clear) Urine pH (5.0-8.0) Ur Specific [place] (1.001-1.035) Urine Protein (Negative) Urine Glucose (UA) (Negative) Urine Ketones (Negative) Urine Blood (Negative) Urine Nitrite (Negative) Urine Bilirubin (Negative) Urine Urobilinogen (<2.0) mg/dL Ur Leukocyte Esterase (Negative) Urine RBC (0-5) /hpf Urine WBC (0-5) /hpf Ur Squamous Epith Cells (0-4) /hpf Urine Bacteria (None) /hpf Urine Mucus (None) /hpf Valproic Acid <10.0 ug/mL Coronavirus (PCR) (Not Detectd) Influenza Type A RNA (Not Detectd) Influenza Type B (PCR) (Not Detectd) 11/04/21 11/04/21 11/04/21 Range/Units 11:39 11:39 11:39 WBC (3.8-10.6) k/uL RBC (3.80-5.40) m/uL Hgb (11.4-16.0) gm/dL Hct (34.0-46.0) % MCV (80.0-100.0) fL MCH (25.0-35.0) pg MCHC (31.0-37.0) g/dL RDW (11.5-15.5) % Plt Count (150-450) k/uL MPV Neutrophils % % Lymphocytes % % Monocytes % % Eosinophils % % Basophils % % Neutrophils # (1.3-7.7) k/uL Lymphocytes # (1.0-4.8) k/uL Monocytes # (0-1.0) k/uL Eosinophils # (0-0.7) k/uL Basophils # (0-0.2) k/uL Hypochromasia Macrocytosis Sodium (137-145) mmol/L Potassium (3.5-5.1) mmol/L Chloride (98-107) mmol/L Carbon Dioxide (22-30) mmol/L Anion Gap mmol/L BUN (7-17) mg/dL Creatinine (0.52-1.04) mg/dL Est GFR (CKD-EPI)AfAm (>60 ml/min/1.73 sqM) Est GFR (CKD-EPI)NonAf (>60 ml/min/1.73 sqM) Glucose (74-99) mg/dL Plasma Lactic Acid Jordi 1.5 (0.7-2.0) mmol/L Calcium (8.4-10.2) mg/dL Magnesium (1.6-2.3) mg/dL Total Bilirubin (0.2-1.3) mg/dL AST (14-36) U/L ALT (4-34) U/L Alkaline Phosphatase (38-126) U/L Total Protein (6.3-8.2) g/dL Albumin (3.5-5.0) g/dL Urine Color Urine Appearance (Clear) Urine pH (5.0-8.0) Ur Specific [place] (1.001-1.035) Urine Protein (Negative) Urine Glucose (UA) (Negative) Urine Ketones (Negative) Urine Blood (Negative) Urine Nitrite (Negative) Urine Bilirubin (Negative) Urine Urobilinogen (<2.0) mg/dL Ur Leukocyte Esterase (Negative) Urine RBC (0-5) /hpf Urine WBC (0-5) /hpf Ur Squamous Epith Cells (0-4) /hpf Urine Bacteria (None) /hpf Urine Mucus (None) /hpf Valproic Acid ug/mL Coronavirus (PCR) Not Detected (Not Detectd) Influenza Type A RNA Not Detected (Not Detectd) Influenza Type B (PCR) Not Detected (Not Detectd) 11/04/21 Range/Units 12:44 WBC (3.8-10.6) k/uL RBC (3.80-5.40) m/uL Hgb (11.4-16.0) gm/dL Hct (34.0-46.0) % MCV (80.0-100.0) fL MCH (25.0-35.0) pg MCHC (31.0-37.0) g/dL RDW (11.5-15.5) % Plt Count (150-450) k/uL MPV Neutrophils % % Lymphocytes % % Monocytes % % Eosinophils % % Basophils % % Neutrophils # (1.3-7.7) k/uL Lymphocytes # (1.0-4.8) k/uL Monocytes # (0-1.0) k/uL Eosinophils # (0-0.7) k/uL Basophils # (0-0.2) k/uL Hypochromasia Macrocytosis Sodium (137-145) mmol/L Potassium (3.5-5.1) mmol/L Chloride (98-107) mmol/L Carbon Dioxide (22-30) mmol/L Anion Gap mmol/L BUN (7-17) mg/dL Creatinine (0.52-1.04) mg/dL Est GFR (CKD-EPI)AfAm (>60 ml/min/1.73 sqM) Est GFR (CKD-EPI)NonAf (>60 ml/min/1.73 sqM) Glucose (74-99) mg/dL Plasma Lactic Acid Jordi (0.7-2.0) mmol/L Calcium (8.4-10.2) mg/dL Magnesium (1.6-2.3) mg/dL Total Bilirubin (0.2-1.3) mg/dL AST (14-36) U/L ALT (4-34) U/L Alkaline Phosphatase (38-126) U/L Total Protein (6.3-8.2) g/dL Albumin (3.5-5.0) g/dL Urine Color Yellow Urine Appearance Cloudy H (Clear) Urine pH 6.0 (5.0-8.0) Ur Specific [place] 1.023 (1.001-1.035) Urine Protein Trace H (Negative) Urine Glucose (UA) Negative (Negative) Urine Ketones Negative (Negative) Urine Blood Negative (Negative) Urine Nitrite Positive H (Negative) Urine Bilirubin Negative (Negative) Urine Urobilinogen <2.0 (<2.0) mg/dL Ur Leukocyte Esterase Negative (Negative) Urine RBC <1 (0-5) /hpf Urine WBC 1 (0-5) /hpf Ur Squamous Epith Cells 5 H (0-4) /hpf Urine Bacteria Moderate H (None) /hpf Urine Mucus Rare H (None) /hpf Valproic Acid ug/mL Coronavirus (PCR) (Not Detectd) Influenza Type A RNA (Not Detectd) Influenza Type B (PCR) (Not Detectd) - Radiology Data Radiology results: report reviewed (Computed tomography scan of the brain shows no hemorrhage or mass effect. Questionable previous ischemia.), image reviewed (Chest x-ray shows cardiomegaly) Disposition Clinical Impression: COPD (chronic obstructive pulmonary disease), Recurrent seizures Disposition: ADMITTED IP TO THIS HOSP Is patient prescribed a controlled substance at d/c from ED?: No Referrals: Ty Aponte MD [Primary Care Provider] - 1-2 days Decision Time: 15:10
[2021-11-04 11:50] LABS: Basophils % (A) 0 %; Eosinophils % (A) 1 %; HCT 40.1 % (34.0-46.0); HGB 12.7 gm/dL (11.4-16.0); Hypochromasia Slight; Lymphocytes # (A) 0.9 k/uL (1.0-4.8); Lymphocytes % (A) 18 %; MCH 31.5 pg (25.0-35.0); MCHC 31.7 g/dL (31.0-37.0); MCV 99.4 fL (80.0-100.0); Macrocytosis Slight; Mean Platelet Volume 8.3; Monocytes # (A) 0.2 k/uL (0-1.0); Monocytes % (A) 5 %; Neutrophils # (A) 3.7 k/uL (1.3-7.7); Neutrophils % (A) 73 %; Platelet Count 186 k/uL (150-450); RBC 4.03 m/uL (3.80-5.40); RDW 15.2 % (11.5-15.5)
--- NOTE | 2021-11-04 12:01 | XR ---
EXAMINATION TYPE: XR chest 2V DATE OF EXAM: 11/04/2021 COMPARISON: 12/21/2020 HISTORY: Shortness of breath TECHNIQUE: Frontal and lateral views of the chest are obtained. FINDINGS: Scattered senescent parenchymal changes noted. Hyperinflation compatible with COPD. No evidence for infiltrate. No evidence for atelectasis. There is cardiomegaly without pulmonary venous congestion. No evidence for overt failure at this time . No focal consolidation. Mediastinal structures are stable and grossly unremarkable. No evidence for hilar prominence. Degenerative changes dorsal spine. IMPRESSION: 1. There is cardiomegaly without pulmonary venous congestion. No evidence for overt failure at this t brodie. No focal consolidation.
--- NOTE | 2021-11-04 12:05 | CT ---
EXAMINATION TYPE: CT brain wo con DATE OF EXAM: 11/04/2021 COMPARISON: 09/08/2020 HISTORY: Seizure CT DLP: 1099.4 mGycm Automated exposure control for dose reduction was used. FINDINGS: There is no acute intracranial hemorrhage or midline shift identified. Ventricles and sulci are withi n normal limits in size. Area of low attenuation in the left occipital lobe and left occipital pariet al junction. The globes are intact and the visualized sinuses are clear. There are low-lying cerebell ar tonsils. IMPRESSION: 1. No acute hemorrhage or mass effect. There is an area of low attenuation left parietal occipital ju nction to small to characterize. Possibly related to area of previous ischemia, recommend follow-up M RI. If there is concern for acute ischemia correlate with MRI as clinically warranted. 2. Low-lying cerebellar tonsils: also be assessed with MRI to evaluate for potential Chiari malformat ion.
[2021-11-04 12:22] LABS: ALT 20 U/L (4-34); AST 26 U/L (14-36); African American GFR (CKD) >90 (>60 ml/min/1.73 sqM); Albumin 3.6 g/dL (3.5-5.0); Alkaline Phosphatase 89 U/L (38-126); Anion Gap 7 mmol/L; Blood Urea Nitrogen 12 mg/dL (7-17); Calcium 8.5 mg/dL (8.4-10.2); Carbon Dioxide 25 mmol/L (22-30); Chloride 106 mmol/L (98-107); Glucose 133 mg/dL (74-99); Non-African American GFR(CKD) 80 (>60 ml/min/1.73 sqM); Potassium 4.5 mmol/L (3.5-5.1); Sodium 138 mmol/L (137-145); Total Bilirubin 0.2 mg/dL (0.2-1.3); Total Protein 7.1 g/dL (6.3-8.2)
[2021-11-04 12:27] LABS: Valproic Acid (Depakene) <10.0 ug/mL
[2021-11-04] MEDS ORDERED: DIVALPROEX 500 MG TABLET.DR PO STA (12:51)
[2021-11-04 13:21] LABS: Appearance,Urine Cloudy (Clear); Bacteria,Urine Moderate /hpf; Bilirubin,Urine Negative (Negative); Blood,Urine Negative (Negative); Color,Urine Yellow; Glucose,Urine (UA) Negative (Negative); Ketones,Urine Negative (Negative); Leukocyte Esterase,Urine Negative (Negative); Mucus,Urine Rare /hpf; Nitrite,Urine Positive (Negative); Protein,Urine Trace (Negative); RBC,Urine <1 /hpf (0-5); Specific Gravity,Urine 1.023 (1.001-1.035); Squamous Epithelial Cell,Urine 5 /hpf (0-4); Urobilinogen,Urine <2.0 mg/dL (<2.0); WBC,Urine 1 /hpf (0-5)
[2021-11-04] MEDS ORDERED: ALBUTEROL NEBULIZED 2.5 MG/3 ML INHALATION PRN (15:10)
[2021-11-04] MEDS ORDERED: BUTALBITAL PO PRN (15:10)
[2021-11-04] MEDS ORDERED: busPIRone HCl 10 MG TAB PO PRN (15:10)
[2021-11-04] MEDS ORDERED: ASPIRIN PO PRN (15:10)
[2021-11-04] MEDS ORDERED: CAFFEINE PO PRN (15:10)
[2021-11-04] MEDS ORDERED: methylPREDNISolone SOD SUCCI 125 MG/2 ML VIAL IV STA (15:13)
[2021-11-04] MEDS ORDERED: IPRATROPIUM-ALBUTEROL 3 ML NEB INHALATION PRN (15:13)
[2021-11-04] MEDS ORDERED: ONDANSETRON 4 MG TAB PO PRN (17:33)
[2021-11-04] MEDS ORDERED: HYDROcodone/APAP 5-325MG 1 EACH TAB PO PRN (17:33)
[2021-11-04] MEDS: GABAPENTIN 400 MG CAP PO SCH ×2 (19:08→20:24)
[2021-11-04] MEDS: methylPREDNISolone SOD SUCCI 125 MG/2 ML VIAL IV SCH ×2 (19:08→22:59)
[2021-11-04] MEDS: FLUoxetine HCL 20 MG CAP PO SCH (20:24)
[2021-11-04] MEDS: ALPRAZolam 0.25 MG TAB PO PRN (20:24)
[2021-11-04] MEDS: TOPIRAMATE 25 MG TAB PO SCH (20:24)
[2021-11-04] MEDS: APIXABAN 5 MG TAB PO SCH (20:24)
[2021-11-04] MEDS: TOPIRAMATE 100 MG TAB PO SCH (20:24)
[2021-11-04] MEDS: buPROPion SR 150 MG TABLET.ER PO SCH (20:24)
[2021-11-04] MEDS ORDERED: diphenhydrAMINE 25 MG CAP PO SCH (21:00)
[2021-11-04] MEDS ORDERED: PHENYTOIN SODIUM EXTENDED 100 MG CAP PO SCH (21:00)
[2021-11-04] MEDS ORDERED: PRAMIPEXOLE 0.25 MG TAB PO SCH (21:00)
[2021-11-04] MEDS ORDERED: QUEtiapine 100 MG TAB PO SCH (21:00)
[2021-11-04] MEDS: IPRATROPIUM-ALBUTEROL 3 ML NEB INHALATION SCH (22:24)
[2021-11-05] MEDS: IPRATROPIUM-ALBUTEROL 3 ML NEB INHALATION SCH ×3 (00:54→12:04)
[2021-11-05] MEDS: methylPREDNISolone SOD SUCCI 125 MG/2 ML VIAL IV SCH ×2 (06:10→12:37)
[2021-11-05] MEDS: ALPRAZolam 0.25 MG TAB PO PRN (06:14)
[2021-11-05] MEDS ORDERED: LEVOTHYROXINE 25 MCG TAB PO SCH (06:30)
[2021-11-05 07:17] LABS: Levetiracetam (Keppra) 19.7 ug/mL (3.0-60.0)
[2021-11-05] MEDS: FLUoxetine HCL 20 MG CAP PO SCH (08:34)
[2021-11-05] MEDS: GABAPENTIN 400 MG CAP PO SCH ×2 (08:34→12:37)
[2021-11-05] MEDS: TOPIRAMATE 25 MG TAB PO SCH (08:35)
[2021-11-05] MEDS: TOPIRAMATE 100 MG TAB PO SCH (08:35)
[2021-11-05] MEDS: buPROPion SR 150 MG TABLET.ER PO SCH (08:36)
[2021-11-05] MEDS: APIXABAN 5 MG TAB PO SCH (08:37)
[2021-11-05] MEDS ORDERED: METOPROLOL SUCCINATE (ER) 50 MG TAB.ER.24H PO SCH (09:00)
[2021-11-05] MEDS ORDERED: ASPIRIN 325 MG TAB PO SCH (09:00)
[2021-11-05] MEDS ORDERED: PHENYTOIN SODIUM EXTENDED 100 MG CAP PO SCH (09:00)
[2021-11-05] MEDS ORDERED: AZITHROMYCIN 500 MG TAB PO SCH (09:00)
[2021-11-05] MEDS ORDERED: amLODIPine 5 MG TAB PO SCH (09:00)
[2021-11-05 09:02] VITALS: BP 116/80; TEMP 98
[2021-11-05 14:22] VITALS: PULSE 73
[2021-11-06 07:55] LABS: Topiramate 4.8 ug/mL (2.0-20.0)
--- NOTE | 2021-11-06 20:56 | DS ---
DISCHARGE SUMMARY DATE OF DISCHARGE: 11/05/2021 CHIEF COMPLAINT: Seizure. HISTORY OF PRESENT ILLNESS AND PHYSICAL EXAMINATION: Details of this lady's history and physical can be found in the initial workup. LABORATORY STUDIES: While she was in the hospital she had laboratory studies, details of which can be found in the laboratory section of her chart. COURSE IN THE HOSPITAL: After admission she was placed on bedrest and her medications were resumed. She had no further trouble. She was sure that her event had been caused by seizures; and she had been missing doses of her anticonvulsants. She was doing well and it was felt that she could be discharged on November 05. She will go home on her usual activity, diet and medication, and she will be followed up in the office. FINAL DIAGNOSES: 1. Grand mal seizure disorder. 2. Chronic obstructive pulmonary disease. 3. History of major depression. 4. History of hypertension. OPERATIONS: None. CONSULTATIONS: None. She is improved. MMJAVI / RENEN: [id number] /
--- NOTE | 2021-11-07 16:26 | HP ---
HISTORY AND PHYSICAL DATE OF SERVICE: 11/04/2021. CHIEF COMPLAINT: Possible seizure. HISTORY OF PRESENT ILLNESS: This is another of many admissions for this 51-year-old female has a long- standing history of COPD, hypertension, analgesic abuse, and seizures. She came to the emergency room after probably having had a grand mal seizure at home. She states she had not been taking her anticonvulsant medications faithfully. REVIEW OF SYSTEMS: She denies any headaches, focal neurologic deficits, problems with vision or hearing, chest pain, shortness of breath, abdominal pain, diarrhea, melena, hematochezia, urinary complaints, no loss of sphincter control, etc. HISTORY: Past medical history, family history personal and social histories are all otherwise unremarkable. ALLERGIES: She is ALLERGIC to Chantix, NSAIDs, tramadol, latex, delayed tax and penicillin. MEDICATIONS: She is on numerous medications use pr, pramipexole, gabapentin, , fluoxetine, Ventolin inhaler, bupropion 1, Xanax, a.m., amlodipine, Eliquis, Imitrex, Fiorinal, topiramate, metoprolol, levothyroxine, and she uses DuoNeb updrafts. The remainder of her history is unremarkable and noncontributory. PHYSICAL EXAMINATION: Blood pressure is 142/88 with a pulse of 96, respirations of 34, and she is afebrile. In general she appeared to be a little bit lethargic. She is overweight. Head, ears, eyes, nose, mouth and throat were normal. Neck was supple. Chest is clear. Cardiac exam is normal. The abdomen is protuberant, soft and nontender without masses. Extremities normal. Neurologically she is intact, but lethargic. IMPRESSION: 1. Grand mal seizure. 2. Grand mal seizure disorder. 3. Postictal depression. 4. History of chronic obstructive pulmonary disease. 5. Hypertension. 6. Bipolar disorder. 7. History of hypertension. PLAN: 1. Bedrest. 2. IV fluids. 3. Seizure precautions. 4. Frequent monitoring of her neurologic status and vital signs. MMODL / IJN: [id number] /
== END 2021-11-05 15:12 | disposition home or self-care (01) ==
LOC: EC 10:52 → 6NMEDSUR 15:14
PROVIDERS: ADMIT Family Medicine; ATTEND Family Medicine
DX: G40.409 Other generalized epilepsy and epileptic syndromes, not intractable, without status epilepticus (principal); J44.9 Chronic obstructive pulmonary disease, unspecified; R50.9 Fever, unspecified; E03.9 Hypothyroidism, unspecified; R42 Dizziness and giddiness; G89.29 Other chronic pain; M54.50 Low back pain, unspecified; G43.909 Migraine, unspecified, not intractable, without status migrainosus; I10 Essential (primary) hypertension; F31.9 Bipolar disorder, unspecified; F41.9 Anxiety disorder, unspecified; E66.3 Overweight; Z68.41 Body mass index [BMI] 40.0-44.9, adult; F55.8 Abuse of other non-psychoactive substances; T75.3XXA Motion sickness, initial encounter; Z20.822 Contact with and (suspected) exposure to COVID-19; Z86.73 Personal history of transient ischemic attack (TIA), and cerebral infarction without residual deficits; Z87.11 Personal history of peptic ulcer disease; Z87.891 Personal history of nicotine dependence; Z95.5 Presence of coronary angioplasty implant and graft; Z79.899 Other long term (current) drug therapy; Z79.890 Hormone replacement therapy; Z79.82 Long term (current) use of aspirin; Z88.5 Allergy status to narcotic agent; Z88.0 Allergy status to penicillin; Z88.8 Allergy status to other drugs, medicaments and biological substances; Z91.040 Latex allergy status; Z99.81 Dependence on supplemental oxygen; Z90.49 Acquired absence of other specified parts of digestive tract; Z83.3 Family history of diabetes mellitus; Z82.49 Family history of ischemic heart disease and other diseases of the circulatory system
CPT/HCPCS: 96376; 96361 ×3; 96374; 99285; 36415; 94640; 93005; 97161; 85379; 80164; 80053; 80201; 80177; 80185; 83605; 83735; 85025; 81001; 87040; 87502; 87635; 71046; 70450; G0378 ×2; J2930 ×2; S0106 ×2

== ENCOUNTER → 2022-01-22 | Outpatient (CLI) | payer OTHER ==
--- NOTE | 2022-01-22 15:00 | CT ---
EXAMINATION TYPE: CT brain wo con DATE OF EXAM: 01/22/2022 HISTORY: Seizure with fall and head injury x2 days ago. CT DLP: 1121 mGycm. Automated Exposure Control for Dose Reduction was Utilized. TECHNIQUE: CT scan of the head is performed without contrast. COMPARISON: CT brain November 04, 2021. FINDINGS: Exam slightly suboptimal as there is motion artifact degradation. There is no obvious acut e intracranial hemorrhage or midline shift identified. Ventricles and sulci are stable and within nor mal limits in size. Lombarid-white matter differentiation is maintained. Stable slightly low lying cereb ellar tonsils up to the level of foramen magnum The globes are intact and the visualized sinuses are clear. IMPRESSION: No acute intracranial hemorrhage or midline shift. No significant change from prior.
== END | disposition home or self-care (01) ==
LOC: RADCTMAIN 14:34
PROVIDERS: ATTEND Psychiatry & Neurology Neurology
DX: G40.309 Generalized idiopathic epilepsy and epileptic syndromes, not intractable, without status epilepticus (principal); S09.90XA Unspecified injury of head, initial encounter; W19.XXXA Unspecified fall, initial encounter
CPT/HCPCS: 70450